=== PATIENT | male | born 1980 | race Caucasian/White ===

== ENCOUNTER 2019-08-15 08:25 | Inpatient (IN) | payer OTHER, SELFPAY ==
[2019-08-15] VITALS (21 sets, daily range): BP systolic 111–154; BP diastolic 73–96; PULSE 96–126; RESP 11–34; TEMP 36.1–37.1; O2SAT 96–100; BMI 16.6; BMI 17.2
--- NOTE | 2019-08-15 08:38 | EKG12_ITS ---
Test Reason : GENERAL ILLNESS Blood Pressure : / mmHG Vent. Rate : 119 BPM Atrial Rate : 119 BPM P-R Int : 132 ms QRS Dur : 086 ms QT Int : 360 ms P-R-T Axes : 079 090 006 degrees QTc Int : 506 ms Sinus tachycardia Rightward axis Borderline ECG Confirmed by GLORIA DEVINE, [place] ([id number]), editor at large JACOBO MOORE ([id number]) on 08/16/2019 10:36:53 AM Referred By: JAYDEN Confirmed By:MARY CASTRO MD
--- NOTE | 2019-08-15 08:39 | ED.VIS.GEN ---
History of Present Illness Chief Complaint: General Illness Informant: Patient Onset: Days Context: Gradual Onset Timing: Continuous Narrative: Patient is a 38-year-old male presents via EMS for generalized malaise. Patient states his been feeling unwell for the past 4 to 5 days. He states he has had cough, shortness of breath, fever, myalgias and sinus congestion. He is also had nausea and vomiting. He denies abdominal pain or diarrhea. He denies any urinary symptoms or increased frequency of urination. He states throat has felt very dry and he has been thirsty. He is an insulin-dependent diabetic and states has not been taking his insulin for the past few days because he did not want to go low. He states his blood sugar normally runs between 120 and 180. He does not know when his last A1c was. He is not been taking anything at home for symptoms. He denies any other complaints at this time. Of note patient lives with his father. When he arrived via EMS he was covered in bedbugs and was cleaned off and decontaminated prior to coming into the emergency room Past Medical History - Allergies and Home Meds Allergies/Adverse Reactions: Allergies No Known Allergies Allergy (Verified 08/15/19 09:00) Past Medical History: - - Insulin-dependent diabetes mellitus Surgical History: noncontributory Lives: With Family Smoking Status: Current every day smoker - Family History Maternal Family History: Reports: Hypertension Paternal Family History: Reports: Diabetes, Heart Disease Review of Systems General: Reports: Chills, Fever, Malaise. Denies: Sweats Eyes: Denies: Visual changes - bilaterally, Diplopia ENT: Reports: Sore throat. Denies: Rhinorrhea Cardiovascular: Denies: Chest pain, Palpitations Respiratory: Reports: Dyspnea, Cough. Denies: Sputum, Dyspnea on exertion Gastrointestinal: Reports: Nausea, Vomiting. Denies: Abdominal pain, Diarrhea, Melena, Hematochezia Genitourinary: Denies: Dysuria, Hematuria, Frequency Musculoskeletal: Reports: Myalgias. Denies: Back pain, Extremity Pain Skin: Denies: Rash, Wounds Neurological: Reports: Weakness - Generalized. Denies: Headache, Numbness Physical Exam Inital Vital Signs reviewed: Yes General: Well developed, Cachectic, Unkempt Head: Normocephalic, Atraumatic Eyes: Perrl, EOMI ENT: No rhinorrhea, Dry mucous membranes Neck: Supple, Nontender. Negative for: No JVD Cardiovascular: Regular rhythm, No murmurs, Tachycardia Respiratory: CTA bilaterally, Chest nontender, - - Tachypnea. Negative for: Rhonchi, Wheezing Abdomen: Soft, Nontender, Nondistended, Normal bowel sounds Back: Nontender, Normal Inspection Extremities: Nontender, No edema Skin: Normal color, No rash Neurological: Alert, Oriented x3, Cranial nerves II-XII grossly intact, Normal Strength, Normal Sensation Psychological: Normal affect, Normal Mood Diagnostic/Tx/Re-eval Chest X-Ray - ED: 1 View, Read by ED Physician, Read by Radiologist, No Acute Disease Clinical Impression(s) from Imaging Studies Chest X-Ray 08/15/19 08:45 IMPRESSION: No acute abnormality is seen. Electronically Signed: Mk Solorio, at 9:37 EST , Service support , Laboratory Data 08/15/19 08/15/19 08/15/19 08:41 08:52 08:52 WBC 11.3 H RBC 4.49 L Hgb 14.2 Hct 44.3 MCV 98.7 H MCH 31.6 MCHC 32.1 RDW Std Deviation 42.5 RDW Coeff of Tommy 11.7 Plt Count 313 MPV 9.3 Immature Gran % (Auto) 0.900 Neut % (Auto) 80.1 H Lymph % (Auto) 11.2 L [place] % (Auto) 6.4 Eos % (Auto) 1.1 Baso % (Auto) 0.3 Absolute Neuts (auto) 9.0 H Absolute Lymphs (auto) 1.26 Nucleated RBC % 0 PT 13.5 INR 1.1 APTT 21.9 L Sodium Potassium Chloride Carbon Dioxide Anion Gap BUN Creatinine Estim Creat Clear Calc Est GFR (MDRD) Af Amer Est GFR (MDRD) Non-Af BUN/Creatinine Ratio Glucose Lactic Acid Calcium Total Bilirubin AST ALT Alkaline Phosphatase Troponin I Total Protein Albumin Globulin Albumin/Globulin Ratio Lipase Acetone Level POC Glucose 393 H 08/15/19 08/15/19 08/15/19 08:52 08:52 08:52 WBC RBC Hgb Hct MCV MCH MCHC RDW Std Deviation RDW Coeff of Tommy Plt Count MPV Immature Gran % (Auto) Neut % (Auto) Lymph % (Auto) [place] % (Auto) Eos % (Auto) Baso % (Auto) Absolute Neuts (auto) Absolute Lymphs (auto) Nucleated RBC % PT INR APTT Sodium 138 Potassium 4.1 Chloride 100 Carbon Dioxide 6.0 L* Anion Gap 32 H BUN 21 H Creatinine 1.37 H Estim Creat Clear Calc 49.84 Est GFR (MDRD) Af Amer 74 Est GFR (MDRD) Non-Af 62 BUN/Creatinine Ratio 15.3 Glucose 471 H* Lactic Acid 3.0 H* Calcium 9.8 Total Bilirubin 0.50 AST 10 L ALT 23 Alkaline Phosphatase 128 H Troponin I < 0.015 Total Protein 8.2 Albumin 3.4 Globulin 4.8 H Albumin/Globulin Ratio 0.7 L Lipase 44 L Acetone Level LARGE H POC Glucose - Rhythm Strip Rhythm Strip: Sinus Tach Rate: 119 Ectopy: None - EKG Initial EKG Interpretation: Sinus Tachycardia, - - Tachycardia at a rate of 119 UT interval 132 Right axis deviation QTc [address] segments - Medical Decision Making Patient evaluated for generalized malaise. On arrival he is breathing quickly with clear breath sounds and is tachycardic. Patient was hypoglycemic for EMS. His presentation is concerning for DKA. He started on a liter of fluid. Patient is found to have an elevated anion gap with a low CO2. His blood sugar is significantly elevated. His acetones are large. Patient is ordered another liter fluid as well as potassium and started on an insulin drip. He will be admitted to the ICU. The exact cause of his DKA is not clear as patient states he is been compliant with his medications. His flu swab was negative. Is not have an obvious source of infection. Patient has relative hypernatremia is likely significantly dehydrated. Patient is mentating appropriately. I think a head CT is indicated. He is stabilized and admitted to the ICU. Discussed the case with Dr. Ibarra who accepts admission. - Critical Care Time Critical care time (excluding procedures): 30-74 minutes - 35 minutes critical care time for frequent re-evaluations, management of DKA and admission to ICU ED Disposition - Plan for ED Patient: Disposition: Acute Care [facility] Diagnosis: DKA (diabetic ketoacidoses), Hypernatremia
--- NOTE | 2019-08-15 08:45 | RAD_ITS ---
STUDY: X-RAY CHEST REASON FOR EXAM: Male, 38 years old. COUGH, WEAKNESS, GENERAL ILLNESS TECHNIQUE: Single AP portable view of the chest. COMPARISON: None. FINDINGS: EKG electrodes are seen. There is elevation of the right hemidiaphragm. There is no demonstrated pleural abnormality. Normal size heart. Normal mediastinum and jerrod. Normal visualized pulmonary arteries. Normal visualized aortic arch and descending thoracic aorta. Mild dextroscoliosis. Normal visualized ribs, clavicles, and shoulders. There is no demonstrated abnormality of the visualized soft tissue structures of the upper abdomen. RAD/Chest 1 View (Portable) IMPRESSION: No acute abnormality is seen. Electronically Signed: Mk Solorio, at 9:37 EST , Service support ,
[2019-08-15 08:46] LABS: Bedside Glucose 393 mg/dL (70-110)
[2019-08-15 09:06] LABS: Absolute Lymphocyte Count 1.26 X10^3/uL (0.83-4.51); Basophil# 0.03 X10^3/uL; Basophil% 0.3 % (0-1); Eosinophil# 0.12 X10^3/uL; Eosinophils% 1.1 % (0-5); Hematocrit 44.3 % (40-54); Hemoglobin 14.2 g/dL (13.0-16.5); Lymphocyte # 1.26 X10^3/ul (4.0); Lymphocyte % 11.2 % (19-41); Mean Corp Hgb Conc 32.1 g/dL (32-36); Mean Corpuscular Hgb 31.6 pg (27.0-32.0); Mean Corpuscular Volume 98.7 fL (80-94); Mean Platelet Vol. 9.3 fl (6.2-12.0); Monocyte# 0.72 X10^3/uL; Monocyte% 6.4 % (0-10); NRBC Flagged by Analyzer 0 % (0-5); Neutrophil # 9.03 X10^3/uL (2.7-7.7); Neutrophil % 80.1 % (47-70); Platelet Count 313 K/mm3 (150-450); RBC Distribution Width CV 11.7 % (11.6-14.6); RBC Distribution Width SD 42.5 fl (35.1-43.9); Red Blood Count 4.49 M/mm3 (4.6-6.2); White Blood Count 11.3 K/mm3 (4.4-11.0)
[2019-08-15] MEDS: Ondansetron 4 MG/2 ML Vial IV (09:06)
[2019-08-15] MEDS: 0.9% Normal Saline 1,000 ML 1000 ML IV (09:06)
[2019-08-15 09:13] LABS: International Normalized Ratio 1.1; Prothrombin Time (Protime)PT. 13.5 SECONDS (11.7-14.9)
[2019-08-15 09:14] LABS: Partial Thromboplast Time 21.9 Seconds (24.1-36.2)
[2019-08-15 09:28] LABS: ALB/GLOB Ratio 0.7 RATIO (0.9-2.4); AST(SGOT) 10 U/L (15-37); Alanine Aminotransfer ALT/SGPT 23 U/L (16-61); Albumin, Serum 3.4 g/dL (3.2-5.0); Alkaline Phosphatase 128 U/L (45-117); Anion Gap 32 (5-15); BUN 21 mg/dL (7-18); BUN/Creat Ratio 15.3 RATIO (10-20); Calcium,Total 9.8 mg/dL (8.5-10.1); Chloride 100 mmol/L (98-107); Creatinine, Serum 1.37 mg/dL (0.70-1.30); EST Glomerular Filtration Rate 62 mL/min (>60); Est Glom Filt Rate - Afr Amer 74 mL/min (>60); Estimated Creatinine Clearance 49.84 ml/min; Globulin 4.8 g/dL (2.2-4.2); Glucose 471 mg/dL (74-106); Lipase 44 U/L (73-393); Potassium 4.1 mmol/L (3.5-5.1); Protein, Total 8.2 g/dL (6.4-8.2); Sodium Level 138 mmol/L (136-145)
--- NOTE | 2019-08-15 09:28 | ED.RN ---
co2 6 glu [address] lab [address] meng aware
--- NOTE | 2019-08-15 09:47 | ED.RN ---
lactic 3.0 called from the lab. dr meng aware
[2019-08-15] MEDS: 0.9% Normal Saline 1,000 ML 999 ML IV ×2 (09:57→11:00)
[2019-08-15] MEDS: Potassium Chloride 10mEq/100mL 10 MEQ/100 ML IV.SOLN. 100 MEQ IV BOLUS ×6 (10:10→19:23)
--- NOTE | 2019-08-15 10:28 | ED.RN ---
REPORT CALLED TO JOSE MANUEL.
[2019-08-15] MEDS: 0.9% Normal Saline 1,000 ML 500 ML IV (12:01)
[2019-08-15 12:59] LABS: Reflex Lactate? Y
[2019-08-15 13:05] LABS: Bedside Glucose 365 mg/dL (70-110)
[2019-08-15 13:05] LABS: Bedside Glucose 437 mg/dL (70-110)
[2019-08-15 13:38] LABS: Anion Gap 21 (5-15); BUN 21 mg/dL (7-18); BUN/Creat Ratio 18.3 RATIO (10-20); Calcium,Total 8.6 mg/dL (8.5-10.1); Chloride 115 mmol/L (98-107); Creatinine, Serum 1.15 mg/dL (0.70-1.30); EST Glomerular Filtration Rate 75 mL/min (>60); Est Glom Filt Rate - Afr Amer 91 mL/min (>60); Estimated Creatinine Clearance 61.35 ml/min; Glucose 320 mg/dL (74-106); Potassium 3.9 mmol/L (3.5-5.1); Sodium Level 146 mmol/L (136-145)
[2019-08-15 13:43] LABS: Lactic Acid 1.8 mmol/L (0.4-1.9)
[2019-08-15] MEDS: 0.9% Saline Lock 10 ML Syringe IV ×2 (14:02→16:14)
[2019-08-15] MEDS: 0.9% Normal Saline 1,000 ML 250 ML IV (14:02)
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
[2019-08-15 16:00] LABS: Bedside Glucose 257 mg/dL (70-110)
[2019-08-15 16:00] LABS: Bedside Glucose 288 mg/dL (70-110)
[2019-08-15 16:00] LABS: Bedside Glucose 266 mg/dL (70-110)
[2019-08-15] MEDS: Dext 5%-0.45% NS 1,000 ML 150 ML IV (16:10)
[2019-08-15 17:26] LABS: Anion Gap 11 (5-15); BUN 17 mg/dL (7-18); BUN/Creat Ratio 15.6 RATIO (10-20); Calcium,Total 8.1 mg/dL (8.5-10.1); Chloride 118 mmol/L (98-107); Creatinine, Serum 1.09 mg/dL (0.70-1.30); EST Glomerular Filtration Rate 80 mL/min (>60); Est Glom Filt Rate - Afr Amer 97 mL/min (>60); Estimated Creatinine Clearance 64.72 ml/min; Glucose 242 mg/dL (74-106); Potassium 3.9 mmol/L (3.5-5.1); Sodium Level 145 mmol/L (136-145)
[2019-08-15 18:05] LABS: Bedside Glucose 222 mg/dL (70-110)
[2019-08-15 20:56] LABS: Bedside Glucose 236 mg/dL (70-110)
[2019-08-15 20:56] LABS: Bedside Glucose 216 mg/dL (70-110)
[2019-08-15 20:56] LABS: Bedside Glucose 255 mg/dL (70-110)
[2019-08-15 21:13] LABS: Anion Gap 8 (5-15); BUN 13 mg/dL (7-18); BUN/Creat Ratio 13.9 RATIO (10-20); Calcium,Total 8.4 mg/dL (8.5-10.1); Chloride 118 mmol/L (98-107); Creatinine, Serum 0.94 mg/dL (0.70-1.30); EST Glomerular Filtration Rate 95 mL/min (>60); Est Glom Filt Rate - Afr Amer 115 mL/min (>60); Estimated Creatinine Clearance 75.05 ml/min; Glucose 215 mg/dL (74-106); Potassium 3.8 mmol/L (3.5-5.1); Sodium Level 145 mmol/L (136-145)
[2019-08-15 21:45] LABS: Bedside Glucose 191 mg/dL (70-110)
[2019-08-16] VITALS (15 sets, daily range): BP systolic 116–139; BP diastolic 74–87; PULSE 82–100; RESP 11–18; TEMP 36.4–36.9; O2SAT 96–100
[2019-08-16 01:46] LABS: Bedside Glucose 225 mg/dL (70-110)
[2019-08-16 03:50] LABS: Absolute Lymphocyte Count 1.04 X10^3/uL (0.83-4.51); Absolute Neutrophil Count 5.3 X10^3/uL (2.0-7.7); Basophil# 0.01 X10^3/uL; Basophil% 0.1 % (0-1); Eosinophil# 0.01 X10^3/uL; Eosinophils% 0.1 % (0-5); Hematocrit 30.9 % (40-54); Hemoglobin 10.6 g/dL (13.0-16.5); Lymphocyte # 1.04 X10^3/ul (4.0); Mean Corp Hgb Conc 34.3 g/dL (32-36); Mean Corpuscular Hgb 32.1 pg (27.0-32.0); Mean Corpuscular Volume 93.6 fL (80-94); Mean Platelet Vol. 8.5 fl (6.2-12.0); Monocyte# 1.02 X10^3/uL; Monocyte% 13.7 % (0-10); NRBC Flagged by Analyzer 0 % (0-5); Neutrophil % 71.4 % (47-70); Platelet Count 223 K/mm3 (150-450); RBC Distribution Width CV 11.7 % (11.6-14.6); RBC Distribution Width SD 40.2 fl (35.1-43.9); White Blood Count 7.4 K/mm3 (4.4-11.0)
[2019-08-16 05:02] LABS: Anion Gap 8 (5-15); BUN 10 mg/dL (7-18); BUN/Creat Ratio 13.3 RATIO (10-20); Calcium,Total 8.2 mg/dL (8.5-10.1); Chloride 115 mmol/L (98-107); Creatinine, Serum 0.75 mg/dL (0.70-1.30); EST Glomerular Filtration Rate 123 mL/min (>60); Est Glom Filt Rate - Afr Amer 149 mL/min (>60); Estimated Creatinine Clearance 94.07 ml/min; Glucose 199 mg/dL (74-106); Potassium 3.5 mmol/L (3.5-5.1); Sodium Level 144 mmol/L (136-145)
[2019-08-16 07:01] LABS: Bedside Glucose 191 mg/dL (70-110)
[2019-08-16] MEDS: Acetaminophen 325 MG Tablet 650 MG PO ×3 (08:09→20:38)
[2019-08-16] MEDS: Enoxaparin 40 MG/0.4 ML Syringe SC (08:25)
[2019-08-16] MEDS: Insulin Lispro 100 UNIT/ML INSULN.PEN SC ×3 (08:28→17:18)
--- NOTE | 2019-08-16 09:53 | PCM.PN.HOSP ---
Patient Problems: Active and Suspected Problems DKA (diabetic ketoacidoses) (Acute) Hypernatremia (Acute) Subjective: Feels better than when he came in, however he still having nasal congestion and postnasal drip. Vitals/I&O's: Vital Signs Temp Pulse Resp BP Pulse Ox 98.5 F 90 18 139/86 H 100 08/16/19 00:00 08/16/19 08:00 08/16/19 08:00 08/16/19 08:00 08/16/19 08:00 Oxygen Delivery Method Room Air Weight: 116 lb 6.465 oz Body Mass Index (BMI) 17.2 Finger Stick Blood Glucose 191 Intake and Output for Last 24 Hours 08/14/19 08/15/19 08/16/19 23:59 23:59 23:59 Intake Total 6424.7 / 6874.7 800 / 800 Output Total 900 / 1500 1200 / 1200 Balance 5524.7 / 5374.7 -400 / -400 General: Alert, Oriented x3, Cooperative, No apparent distress HEENT: Atraumatic, PERRLA, EOMI, Normocephalic, - - No sinus tenderness Oral: Dry Mucosa Neck: Supple, No JVD Lungs: Clear to auscultation, Normal air movement, No rhonchi, No wheeze, No rales Cardiovascular: Regular Rhythm, Normal S1, Normal S2, No murmurs, Tachycardic Abdomen: Soft, Non Tender, Non-Distended, No Hepato-splenomegaly Extremities: No edema, Capillary Refill Less than 3 Seconds Skin: No rashes, No breakdown Neurological: Neuro grossly intact, Sensory exam intact to light touch and pain Psych/Mental Status: Normal Affect, Appropriate Microbiology Past 72 Hours 08/15/19 08:47 Mucosa - Nasopharyngeal Influenza Types A,B Direct FA (MARGOTH) - Final Laboratory Results 08/15/19 11:04: POC Glucose 437 H 08/15/19 12:00: POC Glucose 365 H 08/15/19 13:07: POC Glucose 288 H 08/15/19 13:15: Sodium 146 H, Potassium 3.9, Chloride 115 H, Carbon Dioxide 10.0 L, Anion Gap 21 H, BUN 21 H, Creatinine 1.15, Estim Creat Clear Calc 61.35, Est GFR (MDRD) Af Amer 91, Est GFR (MDRD) Non-Af 75, BUN/Creatinine Ratio 18.3, Glucose 320 H, Calcium 8.6 08/15/19 13:15: Lactic Acid 1.8 08/15/19 14:00: POC Glucose 266 H 08/15/19 14:55: POC Glucose 257 H 08/15/19 16:01: POC Glucose 222 H 08/15/19 17:05: Sodium 145, Potassium 3.9, Chloride 118 H, Carbon Dioxide 16.0 L, Anion Gap 11, BUN 17, Creatinine 1.09, Estim Creat Clear Calc 64.72, Est GFR (MDRD) Af Amer 97, Est GFR (MDRD) Non-Af 80, BUN/Creatinine Ratio 15.6, Glucose 242 H, Calcium 8.1 L 08/15/19 18:06: POC Glucose 255 H 08/15/19 19:01: POC Glucose 236 H 08/15/19 20:01: POC Glucose 216 H 08/15/19 20:50: Sodium 145, Potassium 3.8, Chloride 118 H, Carbon Dioxide 19.0 L, Anion Gap 8, BUN 13, Creatinine 0.94, Estim Creat Clear Calc 75.05, Est GFR (MDRD) Af Amer 115, Est GFR (MDRD) Non-Af 95, BUN/Creatinine Ratio 13.9, Glucose 215 H, Calcium 8.4 L 08/15/19 21:38: POC Glucose 191 H 08/16/19 01:40: POC Glucose 225 H 08/16/19 03:44: WBC 7.4, RBC 3.30 L, Hgb 10.6 L, Hct 30.9 L, MCV 93.6 D, MCH 32.1 H, MCHC 34.3, RDW Std Deviation 40.2, RDW Coeff of Tommy 11.7, Plt Count 223, MPV 8.5, Immature Gran % (Auto) 0.700, Neut % (Auto) 71.4 H, Lymph % (Auto) 14.0 L, [place] % (Auto) 13.7 H, Eos % (Auto) 0.1, Baso % (Auto) 0.1, Absolute Neuts (auto) 5.3, Absolute Lymphs (auto) 1.04, Nucleated RBC % 0 08/16/19 03:44: Sodium 144, Potassium 3.5, Chloride 115 H, Carbon Dioxide 21.0, Anion Gap 8, BUN 10, Creatinine 0.75, Estim Creat Clear Calc 94.07, Est GFR (MDRD) Af Amer 149, Est GFR (MDRD) Non-Af 123, BUN/Creatinine Ratio 13.3, Glucose 199 H, Calcium 8.2 L 08/16/19 06:55: POC Glucose 191 H Current Medications Acetaminophen (Tylenol) 650 mg PO Q6H PRN PRN PRN Reason: Pain or Fever Last Admin: 08/16/19 08:09 Dose: 650 mg Documented by: Enoxaparin Sodium (Lovenox) 40 mg SC DAILY [facility] Last Admin: 08/16/19 08:25 Dose: 40 mg Documented by: Fluticasone Propionate (Flonase Nasal [place]) 2 spray NASAL DAILY [facility] Sodium Chloride () 250 mls @ 15 mls/hr IV .[id number] PRN PRN Reason: Saline Flush Sodium Chloride () 250 mls @ 15 mls/hr IV .[id number] PRN PRN Reason: Additional IVPB Infusion Dextrose (Dextrose 10%-Water) 250 mls @ 999 mls/hr IV .Q16M PRN; Protocol PRN Reason: HYPOGLYCEMIA Insulin Glargine (Lantus (Bk)) 20 units SC BID [facility] Last Admin: 08/15/19 21:39 Dose: 20 u Documented by: Insulin Human Lispro (Humalog Kwikpen (Bk)) 0 unit SC ACHS [facility]; Protocol Last Admin: 08/16/19 08:28 Dose: 2 u Documented by: Nicotine (Nicoderm Cq (kc)) 21 mg TRANSDERM. DAILY [facility] Last Admin: 08/16/19 07:25 Dose: 21 mg Documented by: Sodium Chloride () 10 - 40 ml IV UD PRN PRN Reason: SALINE FLUSH Last Admin: 08/15/19 16:14 Dose: 10 ml Documented by: STROKE Vital Signs/Narrative: Vital Signs Pulse Resp BP Pulse Ox 08/16/19 08:00 90 18 139/86 H 100 08/16/19 07:47 91 08/16/19 07:00 100 16 136/79 H 99 08/16/19 06:00 94 13 138/87 H 99 Medical Necessity - Tobacco Use Smoking Status: Current every day smoker Tobacco Use: Cigarettes Assessment/Plan All Active Problems DKA (diabetic ketoacidoses) (Acute) Hypernatremia (Acute) Folliculitis (Acute) 1. DKA with KHANG/type 1 diabetes/HLD -Based on the lab findings he is currently in DKA -We will continue with the insulin drip as well as IV fluids per protocol -We will admit to the ICU -Obtain BMPs every 4 hours -We will make him n.p.o., and as his DKA resolves can transition to a p.o. diet -Can continue with his home Crestor -Baseline creatinine was 0.7, on admission his creatinine was 1.37 we will continue to monitor 2. Nasal congestion -We will start Flonase however do not think this is infection secondary to lack of fever, lack of leukocytosis and lack of discharge DVT: Lovenox Code Visit Inpatient E&M: [id number] Subs Hosp L2
--- NOTE | 2019-08-16 10:21 | CASEMGMT ---
RN CM Assessment Presentation: DKA Intro role of CM and purpose of RN CM assessment to patient in room. Pt is awake, tired but able to participate in assessment. Demographics, PCP and Pharmacy verified. Pt states he does not have blood glucose monitoring equipment as he has not had insurance until recently. Now has MMO, but does not have insurance cards with him. States he is working @ [employer] and has insurance now. Discussed with pt that script for supplies will be sent to pharmacy on dc. Pt states he does not have finances for expensive equipment or insulin. PCP: Dr. Pemberton Specialists: none Preferred Pharmacy: [facility]. Call to [facility] to check on pt's insulins: Per pharmacist, pt had Lantus prescription in 2018 and pt never had filled. No active prescriptions now. Insurance: MMO Prescription Benefit: yes LNOK: Mother Living Arrangements: Pt states lives with fanily, is independent in [place] Transportation: does not drive, but family and friend drive. 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 DME: needs script for blood glucose monitoring equipment. HHC/SNF: none SW Referral: no Patient DC goals: Home DC PLAN: Home with script sent for insulin and blood glucose monitoring.
[2019-08-16] MEDS: Fluticasone 0.05% 1 SPRAY NASAL.SRY 2 SPRAY NASAL (11:34)
[2019-08-16 11:45] LABS: Bedside Glucose 188 mg/dL (70-110)
[2019-08-16] MEDS: Glucerna Shake 120 ML LIQUID PO ×3 (14:33→20:43)
--- NOTE | 2019-08-16 15:29 | NURSING ---
nicotine patch removed. voluntary acknowledgement assumption of risk signed and in chart
[2019-08-16 17:15] LABS: Bedside Glucose 180 mg/dL (70-110)
[2019-08-16] MEDS: Mag Hydrox/Al Hydrox/Simeth 30 ML UDC PO (20:43)
[2019-08-16 20:56] LABS: Bedside Glucose 148 mg/dL (70-110)
[2019-08-17] MEDS: Ibuprofen 400 MG Tablet PO ×2 (02:37→11:34)
[2019-08-17 03:00] VITALS: BP 118/69; PULSE 77; RESP 16; TEMP 36.6; O2SAT 98
[2019-08-17] MEDS: Acetaminophen 325 MG Tablet 650 MG PO (06:31)
[2019-08-17 06:35] LABS: Bedside Glucose 113 mg/dL (70-110)
[2019-08-17 09:50] VITALS: BP 123/79; PULSE 84; RESP 14; TEMP 36.8; O2SAT 99
[2019-08-17] MEDS: Glucerna Shake 120 ML LIQUID PO (10:04)
--- NOTE | 2019-08-17 10:09 | CASEMGMT ---
ANGELIKA CM Note: Call to [facility] . ID# [id number]. Called to find out copay for Lantus and Humalog insulin Lantus: $29.00 for 90 day mail order $33.00 for 30 day supply @ retail pharmacy Humalog (vial): $ 67.68 30 day supply @ Retail pharmacy $187.89 3 month supply mail order Humalog (100 unit pen) $130.00 30 day supply @ Retail pharmacy $362.00 3 month supply mail order -Call to ANGELIKA Cook CM to update cost. Zeb MOREIRAN
--- NOTE | 2019-08-17 11:31 | DCINST_ITS ---
- Discharge Diagnoses Current Active Problems: Current Active and Chronic Problems DKA (diabetic ketoacidoses) (Acute) Hypernatremia (Acute) You will use the following diet at home:: Calorie/Carbohydrate Controlled (specify 1200, 1400, etc) Your food should be the consistency of: Regular Your liquids should be the consistency of: Regular/Thin Call your doctor if you observe: Fever of 101 or Higher, Shortness of breath, Dizziness, Fainting spells, Swelling in the ankles, Chest pain, Increased palpitations (irregular heartbeat) Additional Instructions: Place Ciprodex ear drops into the left ear for 5 days Allergies/Adverse Reactions: Allergies No Known Allergies Allergy (Verified 08/15/19 09:00) Medications to take at Discharge Insulin Glargine [Lantus SoloStar Pen] 20 units SC BREAKFAST 11/08/13 Insulin Glargine [Lantus SoloStar Pen] 20 units SC QHS 11/08/13 Hydrocodone Bitart/Apap 5-325 [[place] 5/325] 1 - 2 tablet PO Q4H PRN PRN #12 tablet 01/31/15 Crestor 1 tab PO DAILY 08/15/19 Insulin Lispro [Humalog (BKC)] 10 unit SUBCUT TIDCM 08/15/19 Ciprofloxacin HCl/Dexameth [Ciprodex Otic Suspension] 4 drp OTIC (EAR) BID #1 bottle 08/17/19 Fluticasone 0.05% [Flonase Nasal [place]] 2 spray NASAL DAILY nasal.sry 08/17/19 The following prescriptions were given: Ciprofloxacin HCl/Dexameth [Ciprodex Otic Suspension] 4 drp OTIC (EAR) BID #1 bottle Transmission Status: Pending to [facility] Orders to be completed after discharge: Glucometer Location: None Selected Novofine Autocover 30G Needle Location: None Selected Primary Care Physician: Rocco ePmberton MD [Primary Care Provider] - Test Results: Test results from this visit will be discussed in further detail at your follow- up appointment, if applicable. Please Follow Up With: Rocco Pemberton MD When: Tuesday (Bring insurance card and photo Id) Please Follow Up With: Escobar Lozano MD When: 2-4 weeks
--- NOTE | 2019-08-17 11:33 | PCM.DC.SUM ---
Discharge Date and Diagnosis - Problem List Patient Problems: Active and Suspected Problems DKA (diabetic ketoacidoses) (Acute) Hypernatremia (Acute) Date of Admission: 08/15/19 Date of Discharge: 08/17/19 - Primary Discharge Diagnosis Active and Suspected Problems DKA (diabetic ketoacidoses) (Acute) Hypernatremia (Acute) Hospital Course and Treatment Imaging Results: CXR: IMPRESSION: No acute abnormality is seen. Consults: None Operations: None Procedures: None Summary of Care Provided: Per HPI: The patient is a 38 year old M with likely type 1 diabetes and hyperlipidemia presents with nausea and vomiting as well as dehydration. He states that last he felt like he was having a sinus infection with just being stuffed up and having some sinus pain and then on Tuesday he had to leave work early because he had some fevers and chills and then on Tuesday he started throwing up and because of that he was afraid to take his insulin because he did not want to bottom out and so he did not take any of his insulin for a day or so and today he came to the ER because he was feeling significantly worse than he had been over the previous couple of days. He had continued to have emesis however no diarrhea. The ER he was found to be tachypneic and tachycardic, with a lactic acid of 3, carbon dioxide of 6 a blood sugar of 471, with a large amount of acetone. Hospital Course: 1. DKA with KHANG/type 1 diabetes/[id number]-uuke-old male who is been having type 1 diabetes since about 21 years old started with not feeling well 5 days prior to admission, 2 days prior to admission he started having nausea and vomiting and did not take his insulin because he was afraid of bottoming out and presented to the hospital with DKA. He was initially admitted to the ICU and underwent the DKA protocol. He recovered very quickly and felt much better by the day of discharge, with normal renal function. He had some continued nasal congestion and was started on Flonase which seems to have helped relieve some of the sinus pressure though this morning he started complaining of left ear pain. On exam it appeared excoriated in the canal within normal tympanic membrane. He also had pain with manipulation of his external ear and therefore he was also discharged on Ciprodex drops for his left ear. He will need to follow-up with his primary care doctor in the outpatient setting. There were no changes to his insulin regimen as is the first time he is ever been in DKA and there was a precipitating factor. Otherwise he has been fairly controlled with his insulin and his diabetes. Also recommended he follow-up with an chief electrician upon discharge. I discussed with him the plan for discharge and he expressed understanding. 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 2. Otitis externa-he says that he does wear earplugs at work and he thinks may be best where this developed. No fevers or chills and he had no leukocytosis on the day of discharge or the day prior to discharge. On exam he had excoriated ear canal and therefore started on Ciprodex on discharge. Patient Problems: Active and Suspected Problems DKA (diabetic ketoacidoses) (Acute) Hypernatremia (Acute) - Physical Exam Vitals/I&O's: Vital Signs Temp Pulse Resp BP Pulse Ox 97.9 F 77 16 118/69 98 08/17/19 03:00 08/17/19 03:00 08/17/19 03:00 08/17/19 03:00 08/17/19 03:00 Oxygen Delivery Method Room Air Weight: 116 lb 13.52 oz Body Mass Index (BMI) 17.2 Finger Stick Blood Glucose 191 Intake and Output for Last 24 Hours 08/15/19 08/16/19 08/17/19 23:59 23:59 23:59 Intake Total 6424.7 / 6874.7 1920 / 1920 600 / 600 Output Total 900 / 1500 1200 / 1200 Balance 5524.7 / 5374.7 720 / 720 600 / 600 General: Alert, Oriented x3, Cooperative, No apparent distress HEENT: Atraumatic, PERRLA, EOMI, Normocephalic, - - No sinus tenderness, there is excoriation and redness in his external ear canal on the left compared to the right, both tympanic membranes are clear, there is pain with ambulation of his left ear. Oral: Moist mucosa Neck: Supple, No JVD Lungs: Clear to auscultation, Normal air movement, No rhonchi, No wheeze, No rales Cardiovascular: Regular Rhythm, Normal S1, Normal S2, No murmurs, Tachycardic Abdomen: Soft, Non Tender, Non-Distended, No Hepato-splenomegaly Extremities: No edema, Capillary Refill Less than 3 Seconds Skin: No rashes, No breakdown Neurological: Neuro grossly intact, Sensory exam intact to light touch and pain Psych/Mental Status: Normal Affect, Appropriate Microbiology Past 72 Hours 08/15/19 08:52 Blood Culture (Wb) - Anticubital Left Blood Culture - Preliminary No growth in 48 hours. 08/15/19 08:52 Blood Culture (Wb) - Anticubital Right Blood Culture - Preliminary No growth in 48 hours. 08/15/19 08:47 Mucosa - Nasopharyngeal Influenza Types A,B Direct FA (MARGOTH) - Final Laboratory Results 08/16/19 11:33: POC Glucose 188 H 08/16/19 17:07: POC Glucose 180 H 08/16/19 20:49: POC Glucose 148 H 08/17/19 06:30: POC Glucose 113 H Current Medications Acetaminophen (Tylenol) 650 mg PO Q6H PRN PRN PRN Reason: Pain or Fever Last Admin: 08/17/19 06:31 Dose: 650 mg Documented by: Enoxaparin Sodium (Lovenox) 40 mg SC DAILY [facility] Last Admin: 08/17/19 09:57 Dose: Not Given Documented by: Fluticasone Propionate (Flonase Nasal Hartley) 2 spray NASAL DAILY [facility] Last Admin: 08/17/19 09:56 Dose: Not Given Documented by: Sodium Chloride () 250 mls @ 15 mls/hr IV .[id number] PRN PRN Reason: Saline Flush Sodium Chloride () 250 mls @ 15 mls/hr IV .[id number] PRN PRN Reason: Additional IVPB Infusion Ibuprofen (Motrin) 400 mg PO Q8H PRN PRN PRN Reason: PAIN -05/17 Last Admin: 08/17/19 02:37 Dose: 400 mg Documented by: Insulin Glargine (Lantus (Bkc)) 20 units SC BID [facility] Last Admin: 08/17/19 09:58 Dose: 20 u Documented by: Insulin Human Lispro (Humalog Kwikpen (Bkc)) 0 unit SC ACHS [facility]; Protocol Last Admin: 08/17/19 06:32 Dose: Not Given Documented by: Nutritional Formula (Lactose Free) (Glucerave Hancock) 120 ml PO 4X/DAY [facility] Last Admin: 08/17/19 10:04 Dose: 120 ml Documented by: Sodium Chloride () 10 - 40 ml IV UD PRN PRN Reason: SALINE FLUSH Last Admin: 08/15/19 16:14 Dose: 10 ml Documented by: Call your doctor if you observe: Fever of 101 or Higher, Shortness of breath, Dizziness, Fainting spells, Swelling in the ankles, Chest pain, Increased palpitations (irregular heartbeat) Home Medications: Medications to take at Discharge Insulin Glargine [Lantus SoloStar Pen] 20 units SC BREAKFAST 11/08/13 Insulin Glargine [Lantus SoloStar Pen] 20 units SC QHS 11/08/13 Hydrocodone Bitart/Apap 5-325 [[place] 5/325] 1 - 2 tablet PO Q4H PRN PRN #12 tablet 01/31/15 Crestor 1 tab PO DAILY 08/15/19 Insulin Lispro [Humalog (BKC)] 10 unit SUBCUT TIDCM 08/15/19 Ciprofloxacin HCl/Dexameth [Ciprodex Otic Suspension] 4 drp OTIC (EAR) BID #1 bottle 08/17/19 Fluticasone 0.05% [Flonase Nasal Hartley] 2 spray NASAL DAILY nasal.sry 08/17/19 Following Prescrptions Were Given to Patient: Ciprofloxacin HCl/Dexameth [Ciprodex Otic Suspension] 4 drp OTIC (EAR) BID #1 bottle Transmission Status: Pending to [facility] Other Amb Orders: Glucometer Location: None Selected Novofine Autocover 30G Needle Location: None Selected Primary Care Physician: Rocco Pemberton MD [Primary Care Provider] - Please Follow Up With: Rocco Pemberton MD When: Tuesday (Bring insurance card and photo Id) Please Follow Up With: Escobar Lozano MD When: 2-4 weeks Disposition: Home Minutes spent on discharge:: 35 Patient Condition:: Stable Medical Necessity - Tobacco Use Smoking Status: Current every day smoker Tobacco Use: Cigarettes Meaningful Use Info Meaningful Use Diagnoses (Choose all that apply): None applicable Code Visit Inpatient E&M: 08106 Disch Hosp
[2019-08-17] MEDS: Insulin Lispro 100 UNIT/ML INSULN.PEN SC (11:38)
[2019-08-17 11:46] LABS: Bedside Glucose 306 mg/dL (70-110)
--- NOTE | 2019-08-17 13:02 | CASEMGMT ---
ANGELIKA Note: [facility]. Lantus $62.89, Cipro ear drops $61.39. Spoke with pt and he states he is able to afford these prescriptions as he was paid today. Cipro will be ordered and at pharmacy tomorrow. Discussed pt f/u with Dr. Lozano, endocrinology. Pt is agreeable. -Call to Dr. Lozano's office. Appt made for Tuesday, September 03, 2019 @ 8 am. Zeb HOROWITZ RN ACM
[2019-08-17 16:00] VITALS: BP 112/76; PULSE 96; RESP 16; TEMP 37; O2SAT 99
--- NOTE | 2019-08-27 09:42 | CASEMGMT ---
RN CARMEN Note. Letter received that patient's blood glucose monitor was not approved. Attempted call to patient. Message left on his voicemail which had name identifier. Let pt know his meter was denied and asked if patient he has secured a different meter. Suggested [facility] has inexpensive meters available. Call back name and # given for pt to return call to ANGELIKA MORALES. [facility] BSN ANGELIKA ACM
== END 2019-08-17 16:17 | disposition home or self-care (01) | DRG 638 ==
LOC: ED 09:19 → ICU 10:44 → MS3 08-16 15:05
PROVIDERS: Admitting Provider Family Medicine; Emergency Provider Emergency Medicine; Family Provider Family Medicine; PCP Family Medicine; Visit Provider Family Medicine
DX: E10.10 Type 1 diabetes mellitus with ketoacidosis without coma (principal); N17.9 Acute kidney failure, unspecified; E87.0 Hyperosmolality and hypernatremia; Z68.1 Body mass index [BMI] 19.9 or less, adult; R64 Cachexia; Z79.4 Long term (current) use of insulin; F17.210 Nicotine dependence, cigarettes, uncomplicated; E78.5 Hyperlipidemia, unspecified; R09.81 Nasal congestion; E86.0 Dehydration; H60.90 Unspecified otitis externa, unspecified ear
CPT/HCPCS: 36415; 71045; 80048; 80053; 82009; 82962; 83605; 83690; 84484; 85025; 85610; 85730; 87040; 87804; 93005; 97802; 97803; 99285; J7030; A4216; J2405; J7799

== ENCOUNTER 2019-12-17 09:42 | Inpatient (IN) | payer SELFPAY ==
[2019-08-15 10:57] VITALS: BMI 17.2
[2019-12-17] VITALS (19 sets, daily range): BP systolic 116–144; BP diastolic 72–89; PULSE 68–104; RESP 10–20; TEMP 35.7–37.7; O2SAT 95–100; BMI 16.8
--- NOTE | 2019-12-17 09:54 | CT_ITS ---
STUDY: CT ABDOMEN AND PELVIS WITH CONTRAST REASON FOR EXAM: Male, 39 years old. SHARP ABD PAIN STARTING THIS AM RADIATION DOSAGE (If Supplied By Facility): CTDIvol = ( 10.88 ) mGy, DLP = ( 267.60 ) mGycm TECHNIQUE: Transaxial images were obtained from the dome of the diaphragm to the symphysis pubis with oral contrast. Oral and amp; IV Gastrografin and amp; 100mL Isovue-300 was administered. Sagittal and coronal images were reconstructed. Individualized dose optimization techniques were used for this CT. COMPARISON: None. FINDINGS: The visualized lung bases are unremarkable. The visualized portions of the heart are within normal limits. Normal liver. Normal gallbladder and extrahepatic biliary system. Normal spleen. Normal pancreas. Normal bilateral adrenal glands. Normal right kidney. Normal left kidney. Normal small intestine. Normal colon. There is marked diffuse constipation . No bowel wall thickening or obstruction. There is non-visualization of the appendix. There is small pneumoperitoneum along the anterior abdomen. There is soft tissue irregularity of the anterior, distal gastric wall consistent with perforation, best seen on sagittal image 71. There is a thin linear hyperdensity extending from the anterior gastric wall on image 58 to umbilicus where there is inflammation and stranding, also seen on sagittal image 74 . Mild aortic calcification. Normal inferior vena cava. Normal retroperitoneum. There is mild diffuse mesenteric edema. The urinary bladder is distended. There is a small right posterolateral spigelian hernia on series 2 image 59 containing a loop of nonobstructed large bowel. There is levoscoliosis of the lumbar spine. Bilateral L5 pars interarticularis fractures. CT/Abdomen/Pelvis WITH Contrast IMPRESSION: 1. Anterior, distal gastric wall perforation and small pneumoperitoneum along the anterior abdomen. There is a thin linear hyperdensity extending from the anterior gastric wall to umbilicus where there is inflammation and stranding, question gastrocutaneous fistula. Direct visualization of the umbilicus is recommended. 2. Marked diffuse constipation. 3. Small right posterolateral spigelian hernia containing a loop of nonobstructed large bowel N.B. : The above information has been verbally conveyed by Shira Mauricio to Harshad Calvo MD, on 12/17/2019 12:21:55 (ET). Electronically Signed: Shira Mauricio, at 12:25 EDT Tel , Service support ,
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
[2019-12-17] MEDS: Dicyclomine 10 MG Capsule 20 MG PO (09:59)
[2019-12-17] MEDS: 0.9% Normal Saline 1,000 ML 1000 ML IV (10:06)
[2019-12-17 10:20] LABS: Absolute Lymphocyte Count 1.02 X10^3/uL (0.83-4.51); Absolute Neutrophil Count 7.6 X10^3/uL (2.0-7.7); Basophil# 0.03 X10^3/uL; Basophil% 0.3 % (0-1); Eosinophil# 0.04 X10^3/uL; Eosinophils% 0.4 % (0-5); Hematocrit 33.7 % (40-54); Hemoglobin 12.1 g/dL (13.0-16.5); Lymphocyte # 1.02 X10^3/ul (4.0); Lymphocyte % 11.1 % (19-41); Mean Corp Hgb Conc 35.9 g/dL (32-36); Mean Corpuscular Hgb 32.8 pg (27.0-32.0); Mean Corpuscular Volume 91.3 fL (80-94); Mean Platelet Vol. 9.6 fl (6.2-12.0); Monocyte# 0.45 X10^3/uL; Monocyte% 4.9 % (0-10); NRBC Flagged by Analyzer 0 % (0-5); Neutrophil # 7.63 X10^3/uL (2.7-7.7); Neutrophil % 83.1 % (47-70); Platelet Count 248 K/mm3 (150-450); RBC Distribution Width CV 13.2 % (11.6-14.6); RBC Distribution Width SD 43.4 fl (35.1-43.9); Red Blood Count 3.69 M/mm3 (4.6-6.2); White Blood Count 9.2 K/mm3 (4.4-11.0)
[2019-12-17 10:33] LABS: AST(SGOT) 19 U/L (15-37); Alanine Aminotransfer ALT/SGPT 22 U/L (16-61); Albumin, Serum 3.5 g/dL (3.2-5.0); Alkaline Phosphatase 97 U/L (45-117); Anion Gap 9 (5-15); BUN 18 mg/dL (7-18); Calcium,Total 9.3 mg/dL (8.5-10.1); Chloride 101 mmol/L (98-107); Creatinine, Serum 0.95 mg/dL (0.70-1.30); EST Glomerular Filtration Rate 94 mL/min (>60); Est Glom Filt Rate - Afr Amer 114 mL/min (>60); Estimated Creatinine Clearance 69.84 ml/min; Globulin 3.4 g/dL (2.2-4.2); Glucose 564 mg/dL (74-106); Lipase 312 U/L (73-393); Potassium 4.6 mmol/L (3.5-5.1); Protein, Total 6.9 g/dL (6.4-8.2); Sodium Level 134 mmol/L (136-145)
[2019-12-17 10:40] LABS: Hemoglobin A1c 10.3 % (4.2-6.3)
[2019-12-17] MEDS: Insulin Lispro 100 UNIT/ML INSULN.PEN 15 UNIT SC (11:12)
[2019-12-17 11:21] LABS: Bacteria 0 SEEN /hpf (None Seen); Mucous, Urine 0 SEEN /hpf (<or=2+); Red Blood Cells-Urine 0 SEEN /hpf (0-5); White Blood Cells 0 SEEN /hpf (0-5)
[2019-12-17 11:23] LABS: Color, Urine Yellow (Yellow); Glucose, Dipstick 1000 mg/dl (Normal); Ketone-Dipstick 50 mg/dl (Negative); Leukocyte Esterase-Dipstick Negative /ul (Negative); Nitrite-Dipstick Negative (Negative); Occult Blood-Urine Negative /ul (Negative); Protein-Dipstick Negative (Negative); Urine Bilirubin Dipstick Negative (Negative); Urine Clarity Clear (Clear); Urine Urobilinogen Normal (Normal)
[2019-12-17 11:29] LABS: Squamous Epithelial Cells - UA 0-5 SEEN /hpf (0-5)
[2019-12-17] MEDS: 0.9% Normal Saline 1,000 ML 150 ML IV (13:05)
[2019-12-17] MEDS: Ondansetron 4 MG/2 ML Vial IV (13:08)
[2019-12-17 13:09] LABS: Lactic Acid 2.8 mmol/L (0.4-1.9)
[2019-12-17] MEDS: Morphine 4 MG/ML Syringe IV (13:09)
[2019-12-17 13:16] LABS: Bedside Glucose 332 mg/dL (70-110)
--- NOTE | 2019-12-17 13:17 | ED.RN ---
PT CONTACTED HIS FAMILY TO LET THEM KNOW HE IS HAVING SURGERY
--- NOTE | 2019-12-17 13:18 | NURSING ---
SURGERY THEN ICU DR CHAPIN GASTRIC PERFORATION
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
[2019-12-17] MEDS: Bupivacaine Mpf 0.5% 30 ML VIAL (15:30)
[2019-12-17 16:05] LABS: Bedside Glucose 261 mg/dL (70-110)
[2019-12-17 16:43] LABS: Reflex Lactate? Y
--- NOTE | 2019-12-17 17:03 | PCM.OPRPT ---
Problem List (1) Perforated ulcer Status: Acute Report of Operation Date of Procedure: 12/17/19 Pre-Operative Diagnosis: Perforated ulcer Post-Operative Diagnosis: Gastric ulcer perforation. Possible mass Surgery/Procedure Performed:: Exploratory laparoscopy with Kurtis patch of perforated gastric ulcer Description of Procedure: Patient was brought back to the operating room and general anesthesia was induced. Terry catheter and NG tube were placed. The abdomen was prepped and draped in the usual sterile fashion and a midline incision was made just inferior to the umbilicus. This was deepened to the fascia and the fascia was elevated and incised. A port was placed into the abdomen and the abdomen was insufflated to 15 mmHg. The abdomen was inspected and the patient appeared to have adhesions to the anterior abdominal wall and once these were loosely removed the perforation was apparent on the anterior wall of the stomach. The patient also had a soft tissue mass encased by the lesser curvature of the stomach. It did not appear to connect to the stomach. Unsure as to the source of this mass or its origin. The abdomen was irrigated and suctioned dry and a small area of omentum was placed over the perforation. This was then sutured in place using 2-0 Vicryl sutures and several places. At the end the case there was no gastric spillage and the Kurtis patch appeared to completely cover the perforation. The ports were removed and the fascia was closed with a [id number] Vicryl suture. All of the incisions were anesthetized with local anesthetic and closed with interrupted 4-0 Monocryl sutures as well as bandages. Patient was taken to ICU postoperatively for glucose control and monitoring. Terry and NG remain to the end the case. - Admit VTE Documentation VTE Mechan Device Prophylaxis: SCD's
[2019-12-17 17:21] LABS: Bedside Glucose 275 mg/dL (70-110)
[2019-12-17 17:57] LABS: Anion Gap 7 (5-15); BUN 15 mg/dL (7-18); BUN/Creat Ratio 24.2 RATIO (10-20); Calcium,Total 8.4 mg/dL (8.5-10.1); Chloride 109 mmol/L (98-107); Creatinine, Serum 0.62 mg/dL (0.70-1.30); EST Glomerular Filtration Rate 154 mL/min (>60); Est Glom Filt Rate - Afr Amer 186 mL/min (>60); Estimated Creatinine Clearance 107.02 ml/min; Glucose 271 mg/dL (74-106); Potassium 3.6 mmol/L (3.5-5.1); Sodium Level 140 mmol/L (136-145)
[2019-12-17 17:58] LABS: Lactic Acid 1.5 mmol/L (0.4-1.9)
[2019-12-17] MEDS: Lactated Ringers 1,000 ML 100 ML IV (19:43)
--- NOTE | 2019-12-17 20:15 | RAD_ITS ---
STUDY: X-RAY - ABDOMEN/PELVIS REASON FOR EXAM: Male, 39 years old. NG placement. TECHNIQUE: A single AP view of the chest and upper abdomen. COMPARISON: CT of the abdomen and pelvis, December 17, 2019. Chest, August 15, 2019. FINDINGS: The lungs are clear. The heart is of normal size. Mediastinum appears unremarkable. The NG tube which appears looped in the gastric fundus before extending downward into the body of the stomach. Air and debris is seen within the stomach. The visualized liver, spleen and kidneys are grossly normal in size and morphology. Normal soft tissue structures. Normal visualized osseous structures. RAD/Abdomen Single View (Portable) IMPRESSION: NG tube as described. Electronically Signed: Mahamed Alexandre DO at 22:50 EDT Tel [phone], Service support ,
[2019-12-17] MEDS: Phenol/Sodium Phenolate 180ML 3 SPRAY MM (21:01)
[2019-12-17 21:11] LABS: Bedside Glucose 221 mg/dL (70-110)
[2019-12-18] VITALS (15 sets, daily range): BP systolic 115–149; BP diastolic 74–95; PULSE 84–104; RESP 11–20; TEMP 36.8–38; O2SAT 98–100
[2019-12-18] MEDS: Morphine 2 MG/ML Syringe IV ×4 (01:39→21:54)
[2019-12-18 01:41] LABS: Bedside Glucose 259 mg/dL (70-110)
[2019-12-18 03:47] LABS: Absolute Lymphocyte Count 1.16 X10^3/uL (0.83-4.51); Absolute Neutrophil Count 7.5 X10^3/uL (2.0-7.7); Basophil# 0.02 X10^3/uL; Basophil% 0.2 % (0-1); Eosinophil# 0.01 X10^3/uL; Eosinophils% 0.1 % (0-5); Hematocrit 26.5 % (40-54); Hemoglobin 9.3 g/dL (13.0-16.5); Lymphocyte # 1.16 X10^3/ul (4.0); Lymphocyte % 12.5 % (19-41); Mean Corp Hgb Conc 35.1 g/dL (32-36); Mean Corpuscular Hgb 32.4 pg (27.0-32.0); Mean Corpuscular Volume 92.3 fL (80-94); Mean Platelet Vol. 9.2 fl (6.2-12.0); Monocyte# 0.53 X10^3/uL; Monocyte% 5.7 % (0-10); NRBC Flagged by Analyzer 0 % (0-5); Neutrophil # 7.54 X10^3/uL (2.7-7.7); Neutrophil % 81.3 % (47-70); Platelet Count 201 K/mm3 (150-450); RBC Distribution Width CV 13.8 % (11.6-14.6); RBC Distribution Width SD 45.7 fl (35.1-43.9); Red Blood Count 2.87 M/mm3 (4.6-6.2); White Blood Count 9.3 K/mm3 (4.4-11.0)
[2019-12-18 03:59] LABS: Anion Gap 8 (5-15); BUN 15 mg/dL (7-18); BUN/Creat Ratio 25.5 RATIO (10-20); Calcium,Total 8.2 mg/dL (8.5-10.1); Chloride 107 mmol/L (98-107); Creatinine, Serum 0.59 mg/dL (0.70-1.30); EST Glomerular Filtration Rate 163 mL/min (>60); Est Glom Filt Rate - Afr Amer 197 mL/min (>60); Estimated Creatinine Clearance 112.46 ml/min; Glucose 253 mg/dL (74-106); Potassium 3.6 mmol/L (3.5-5.1); Sodium Level 139 mmol/L (136-145)
[2019-12-18] MEDS: Lactated Ringers 1,000 ML 100 ML IV ×3 (05:13→23:42)
[2019-12-18] MEDS: Insulin Lispro 100 UNIT/ML INSULN.PEN SC (06:34)
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
[2019-12-18 07:16] LABS: Bedside Glucose 271 mg/dL (70-110)
[2019-12-18] MEDS: Lisinopril 5 MG Tablet PO (09:40)
--- NOTE | 2019-12-18 09:40 | CASEMGMT ---
ANGELIKA MORALES called patient in room for initial transition planning/care coordination assessment. ANGELIKA MORALES introduced self and role at [facility]. Patient is alert and oriented. Patient willing to participate in assessment and is able to answer all questions appropriately. Care providers, pharmacy, and demographics verified. Patient wishes to discharge home, denies need for home health at this time. Patient states he has no further needs or concerns at this time. CM to follow for discharge planning needs that may arise. PCP: [facility] Specialists: none Preferred Pharmacy: [facility] Insurance: MMO listed, patient states that he was recently laid off and insurance coveraged stopped 12/10/2019 Prescription Benefit: stopped 12/10/2019 Living Will/HPOA: none LNOK: Father, sister Living Arrangements: Patient lives with father in mobile home with rampt to enter the home. Patient states he is independent Transportation: family DME/HHC: Patient states he has glucometer and testing supplies. No previous HHC. Patient states that he has prescriptions waiting for pickup at [facility]. ANGELIKA MORALES called [facility] and confirmed buckner for prescription(Novolin, Lantus, and Lisinopril) is $53.54. ANGELIKA MORALES updated patient and not sure if he can afford, but may be able to get assistance from sister. ANGELIKA MORALES updated TRAMAINE Velasquez Cherry regarding recent layoff, no insurance coverage, and prescription assistance. Disposition Plan: Patient to discharge home with family support and follow-up plans in place. Ananya HOROWITZ, RN, CM
--- NOTE | 2019-12-18 09:40 | PCM.PN.SRG ---
Patient Problems: Active and Suspected Problems Uncontrolled diabetes mellitus (Acute) Constipation (Acute) Gastric perforation (Acute) Perforated ulcer (Acute) Weight loss, non-intentional (Acute) Subjective: Patient is doing well this morning. Pain is improved. - Physical Exam Vitals/I&O's: Vital Signs Temp Pulse Resp BP Pulse Ox 100.2 F H 99 16 144/95 H 100 12/18/19 06:00 12/18/19 07:00 12/18/19 06:00 12/18/19 06:00 12/18/19 06:00 Oxygen Delivery Method Room Air Weight: 118 lb 2.684 oz Body Mass Index (BMI) 16.8 Finger Stick Blood Glucose 332 Intake and Output for Last 24 Hours 12/16/19 12/17/19 12/18/19 23:59 23:59 23:59 Intake Total 2340.67 / 2340.67 1112.75 / 1112.75 Output Total 2075 / 2075 400 / 400 Balance 265.67 / 265.67 712.75 / 712.75 General: Alert, Oriented x3 Neck: No JVD Lungs: Normal air movement Cardiovascular: Regular rate, Regular Rhythm Abdomen: Soft, Non Tender, Non-Distended Laboratory Results 12/17/19 10:05: WBC 9.2, RBC 3.69 L, Hgb 12.1 L, Hct 33.7 L, MCV 91.3, MCH 32.8 H, MCHC 35.9, RDW Std Deviation 43.4, RDW Coeff of Tommy 13.2, Plt Count 248, MPV 9.6, Immature Gran % (Auto) 0.200, Neut % (Auto) 83.1 H, Lymph % (Auto) 11.1 L, [place] % (Auto) 4.9, Eos % (Auto) 0.4, Baso % (Auto) 0.3, Absolute Neuts (auto) 7.6, Absolute Lymphs (auto) 1.02, Nucleated RBC % 0 12/17/19 10:05: Sodium 134 L, Potassium 4.6, Chloride 101, Carbon Dioxide 24.0, Anion Gap 9, BUN 18, Creatinine 0.95, Estim Creat Clear Calc 69.84, Est GFR (MDRD) Af Amer 114, Est GFR (MDRD) Non-Af 94, BUN/Creatinine Ratio 19.0, Glucose 564 H*, Calcium 9.3, Total Bilirubin 0.60, AST 19, ALT 22, Alkaline Phosphatase 97, Total Protein 6.9, Albumin 3.5, Globulin 3.4, Albumin/Globulin Ratio 1.0, Lipase 312 12/17/19 10:05: Acetone Level SMALL H 12/17/19 10:05: Hemoglobin A1c 10.3 H 12/17/19 11:15: Urine Color Yellow, Urine Clarity Clear, Urine pH 6.0, Ur Specific [place] 1.010, Urine Protein Negative, Urine Glucose (UA) 1000 H, Urine Ketones 50 H, Urine Occult Blood Negative, Urine Nitrite Negative, Urine Bilirubin Negative, Urine Urobilinogen Normal, Ur Leukocyte Esterase Negative, Urine RBC 0 SEEN, Urine WBC 0 SEEN, Ur Squamous Epith Cells 0-5 SEEN, Urine Bacteria 0 SEEN, Urine Mucus 0 SEEN 12/17/19 12:30: Lactic Acid 2.8 H* 12/17/19 13:10: POC Glucose 332 H 12/17/19 16:02: POC Glucose 261 H 12/17/19 17:05: Sodium 140, Potassium 3.6, Chloride 109 H, Carbon Dioxide 24.0, Anion Gap 7, BUN 15, Creatinine 0.62 L, Estim Creat Clear Calc 107.02, Est GFR (MDRD) Af Amer 186, Est GFR (MDRD) Non-Af 154, BUN/Creatinine Ratio 24.2 H, Glucose 271 H, Calcium 8.4 L 12/17/19 17:05: Lactic Acid 1.5 12/17/19 17:09: POC Glucose 275 H 12/17/19 21:05: POC Glucose 221 H 12/18/19 01:35: POC Glucose 259 H 12/18/19 03:37: WBC 9.3, RBC 2.87 L, Hgb 9.3 L, Hct 26.5 L, MCV 92.3, MCH 32.4 H, MCHC 35.1, RDW Std Deviation 45.7 H, RDW Coeff of Tommy 13.8, Plt Count 201, MPV 9.2, Immature Gran % (Auto) 0.200, Neut % (Auto) 81.3 H, Lymph % (Auto) 12.5 L, [place] % (Auto) 5.7, Eos % (Auto) 0.1, Baso % (Auto) 0.2, Absolute Neuts (auto) 7.5, Absolute Lymphs (auto) 1.16, Nucleated RBC % 0 12/18/19 03:37: Sodium 139, Potassium 3.6, Chloride 107, Carbon Dioxide 24.0, Anion Gap 8, BUN 15, Creatinine 0.59 L, Estim Creat Clear Calc 112.46, Est GFR (MDRD) Af Amer 197, Est GFR (MDRD) Non-Af 163, BUN/Creatinine Ratio 25.5 H, Glucose 253 H, Calcium 8.2 L 12/18/19 06:32: POC Glucose 271 H Current Medications Atorvastatin Calcium (Lipitor) 40 mg PO QHS [facility] Fluticasone Propionate (Flonase Nasal [place]) 2 spray NASAL DAILY PRN PRN Reason: ALLERGIES Pantoprazole Sodium 80 mg/ (Sodium Chloride) 100 mls @ 10 mls/hr CONT INF Q10H [facility] Last Admin: 12/17/19 23:58 Dose: 10 mls/hr Documented by: Lactated Ringer's () 1,000 mls @ 100 mls/hr IV .Q10H [facility] Last Admin: 12/18/19 05:13 Dose: 100 mls/hr Documented by: Piperacillin Sod/Tazobactam (Sod 3.375 gm/ Sodium Chloride) 50 mls @ 12.5 mls/hr IV Q8 [facility] Last Infusion: 12/18/19 09:31 Dose: Infused Documented by: Sodium Chloride () 250 mls @ 15 mls/hr IV .[id number] PRN PRN Reason: Saline Flush Last Infusion: 12/18/19 05:12 Dose: 0 mls/hr Documented by: Sodium Chloride () 250 mls @ 15 mls/hr IV .[id number] PRN PRN Reason: Additional IVPB Infusion Insulin Glargine (Lantus ([facility])) 10 units SC BID [facility] Insulin Human Lispro (Humalog Kwikpen ([facility])) 0 unit SC Q6 [facility]; Protocol Lisinopril (Zestril) 5 mg PO DAILY [facility] Morphine Sulfate () 2 - 4 mg IV Q2H PRN PRN PRN Reason: Pain Score 4-10/10 Last Admin: 12/18/19 01:39 Dose: 2 mg Documented by: Ondansetron HCl (Zofran) 4 mg IV Q6H PRN PRN PRN Reason: NAUSEA Phenol/Menthol (Chloraseptic ([facility])) 3 spray MM Q2H PRN PRN PRN Reason: COUGH Last Admin: 12/17/19 21:01 Dose: 3 spray Documented by: Sodium Chloride () 10 - 40 ml IV UD PRN PRN Reason: SALINE FLUSH Medical Necessity - Tobacco Use Smoking Status: Current every day smoker Tobacco Use: Cigarettes Assessment/Plan All Active Problems DKA (diabetic ketoacidoses) (Acute) Hypernatremia (Acute) Uncontrolled diabetes mellitus (Acute) Constipation (Acute) Gastric perforation (Acute) Perforated ulcer (Acute) Weight loss, non-intentional (Acute) Folliculitis (Acute) 39-year-old male status post perforated gastric ulcer Kurtis patch 1. The patient had a possible mass in the lesser curvature of the stomach. Patient will need endoscopy and MRI at a future date. The patient had a significant weight loss preoperatively and I am concerned for malignancy. The patient has an NG tube to suction and should remain for another 24 hours. Tomorrow I will likely removed and start a clear liquid diet. Continue antibiotics. The patient can be moved out of the ICU and his Terry can be removed. 2. Patient has poorly controlled diabetes. Medicine team is on board to control glucose. Jm Pope MD Pager: [facility] [address] [place] [address], [address] [place] [address] Office:
[2019-12-18 09:41] LABS: Bedside Glucose 258 mg/dL (70-110)
[2019-12-18 12:35] LABS: Bedside Glucose 245 mg/dL (70-110)
--- NOTE | 2019-12-18 13:31 | CASEMGMT ---
TRAMAINE spoke with patient briefly as he was not feeling well. He told RN CARMEN that his insurance has been canceled. TRAMAINE gave him a Medicaid application and information on [employer]. TRAMAINE told him if he has questions about the application he can ask for SW or if he completes it while he is here we could fax it to [facility] for him. He thanked TRAMAINE. Fidelia COLEMAN
[2019-12-18 17:01] LABS: Bedside Glucose 164 mg/dL (70-110)
[2019-12-18] MEDS: Atorvastatin Calcium 40 MG Tablet PO (21:54)
[2019-12-18 22:41] LABS: Bedside Glucose 109 mg/dL (70-110)
[2019-12-19 02:18] VITALS: BP 139/86; PULSE 85; RESP 18; TEMP 36.8; O2SAT 100
[2019-12-19] MEDS: Morphine 2 MG/ML Syringe IV ×3 (04:35→22:16)
[2019-12-19 06:12] LABS: Absolute Lymphocyte Count 1.14 X10^3/uL (0.83-4.51); Absolute Neutrophil Count 5.4 X10^3/uL (2.0-7.7); Basophil# 0.03 X10^3/uL; Basophil% 0.4 % (0-1); Eosinophil# 0.21 X10^3/uL; Eosinophils% 2.9 % (0-5); Hematocrit 26.5 % (40-54); Hemoglobin 9.1 g/dL (13.0-16.5); Lymphocyte # 1.14 X10^3/ul (4.0); Lymphocyte % 15.6 % (19-41); Mean Corp Hgb Conc 34.3 g/dL (32-36); Mean Corpuscular Hgb 32.2 pg (27.0-32.0); Mean Corpuscular Volume 93.6 fL (80-94); Mean Platelet Vol. 9.6 fl (6.2-12.0); Monocyte# 0.52 X10^3/uL; Monocyte% 7.1 % (0-10); NRBC Flagged by Analyzer 0 % (0-5); Neutrophil % 73.9 % (47-70); Platelet Count 191 K/mm3 (150-450); RBC Distribution Width CV 13.9 % (11.6-14.6); RBC Distribution Width SD 47.8 fl (35.1-43.9); Red Blood Count 2.83 M/mm3 (4.6-6.2); White Blood Count 7.3 K/mm3 (4.4-11.0)
[2019-12-19 06:40] LABS: Anion Gap 9 (5-15); BUN 10 mg/dL (7-18); BUN/Creat Ratio 21.8 RATIO (10-20); Calcium,Total 8.5 mg/dL (8.5-10.1); Chloride 105 mmol/L (98-107); Creatinine, Serum 0.46 mg/dL (0.70-1.30); EST Glomerular Filtration Rate 217 mL/min (>60); Est Glom Filt Rate - Afr Amer 263 mL/min (>60); Estimated Creatinine Clearance 163.45 ml/min; Glucose 153 mg/dL (74-106); Potassium 3.1 mmol/L (3.5-5.1); Sodium Level 139 mmol/L (136-145)
--- NOTE | 2019-12-19 06:57 | PCM.PN.INT ---
Subjective: Patient transferred out of the intensive care unit yesterday. Patient's blood sugars have been well controlled and he has not required any sliding scale insulin. Patient did have his Lantus held last night secondary to blood sugar of 109. Patient reports he is passing gas. Patient is reporting discomfort associated with the NG, but has tolerated room air. General: Alert, Oriented x3, Cooperative, No apparent distress, - - Thin build. NG in place. HEENT: Atraumatic, PERRLA, EOMI, Normocephalic, - - No scleral icterus or injection noted Oral: No Gingival or Mucosal Lesions/ Ulcerations, Dry Mucosa Neck: Supple, No JVD, No Nodes, Trachea Midline Lungs: Clear to auscultation, Normal air movement, No rhonchi, No wheeze, No rales, - - Symmetric expansion Cardiovascular: Regular rate, Regular Rhythm, Normal S1, Normal S2, No murmurs, No rub noted, No Gallop Abdomen: Bowel Sounds Present, Soft, Non-Distended, Tender - Only over incision Extremities: No clubbing, No cyanosis, No edema, Capillary Refill Less than 3 Seconds Skin: Incision - Clean, dry and intact Musculoskeletal: No Tenderness to Palpation of Joints or Extremities Lymphatic: No Cervical, Supraclavicular, or Inguinal Adenopathy Neurological: Cranial nerves II-XII grossly intact, Neuro grossly intact, Motor Exam 5/5 strength throughout Psych/Mental Status: Alert and oriented to time, place, person, mood and affect Vital Signs Temp Pulse Resp BP Pulse Ox 36.8 C 85 18 139/86 H 100 12/19/19 02:18 12/19/19 02:18 12/19/19 02:18 12/19/19 02:18 12/19/19 02:18 Oxygen Flow Rate (L/min) 3 Oxygen Delivery Method Room Air Weight: 53.6 kg Body Mass Index (BMI) 16.8 Finger Stick Blood Glucose 332 Intake and Output for Last 24 Hours 12/17/19 12/18/19 12/19/19 23:59 23:59 23:59 Intake Total 2340.67 / 2340.67 3358.08 / 3358.08 270 / 270 Output Total 2075 / 2075 650 / 950 600 / 600 Balance 265.67 / 265.67 2708.08 / 2408.08 -330 / -330 Labs (Last 48 Hours) 12/17/19 12/17/19 12/17/19 10:05 10:05 10:05 WBC 9.2 RBC 3.69 L Hgb 12.1 L Hct 33.7 L MCV 91.3 MCH 32.8 H MCHC 35.9 RDW Std Deviation 43.4 RDW Coeff of Tommy 13.2 Plt Count 248 MPV 9.6 Immature Gran % (Auto) 0.200 Neut % (Auto) 83.1 H Lymph % (Auto) 11.1 L Riley % (Auto) 4.9 Eos % (Auto) 0.4 Baso % (Auto) 0.3 Absolute Neuts (auto) 7.6 Absolute Lymphs (auto) 1.02 Nucleated RBC % 0 Sodium 134 L Potassium 4.6 Chloride 101 Carbon Dioxide 24.0 Anion Gap 9 BUN 18 Creatinine 0.95 Estim Creat Clear Calc 69.84 Est GFR (MDRD) Af Amer 114 Est GFR (MDRD) Non-Af 94 BUN/Creatinine Ratio 19.0 Glucose 564 H* Hemoglobin A1c Lactic Acid Calcium 9.3 Total Bilirubin 0.60 AST 19 ALT 22 Alkaline Phosphatase 97 Total Protein 6.9 Albumin 3.5 Globulin 3.4 Albumin/Globulin Ratio 1.0 Lipase 312 Urine Color Urine Clarity Urine pH Ur Specific [place] Urine Protein Urine Glucose (UA) Urine Ketones Urine Occult Blood Urine Nitrite Urine Bilirubin Urine Urobilinogen Ur Leukocyte Esterase Urine RBC Urine WBC Ur Squamous Epith Cells Urine Bacteria Urine Mucus Acetone Level SMALL H POC Glucose 12/17/19 12/17/19 12/17/19 10:05 11:15 12:30 WBC RBC Hgb Hct MCV MCH MCHC RDW Std Deviation RDW Coeff of Tommy Plt Count MPV Immature Gran % (Auto) Neut % (Auto) Lymph % (Auto) Riley % (Auto) Eos % (Auto) Baso % (Auto) Absolute Neuts (auto) Absolute Lymphs (auto) Nucleated RBC % Sodium Potassium Chloride Carbon Dioxide Anion Gap BUN Creatinine Estim Creat Clear Calc Est GFR (MDRD) Af Amer Est GFR (MDRD) Non-Af BUN/Creatinine Ratio Glucose Hemoglobin A1c 10.3 H Lactic Acid 2.8 H* Calcium Total Bilirubin AST ALT Alkaline Phosphatase Total Protein Albumin Globulin Albumin/Globulin Ratio Lipase Urine Color Yellow Urine Clarity Clear Urine pH 6.0 Ur Specific [place] 1.010 Urine Protein Negative Urine Glucose (UA) 1000 H Urine Ketones 50 H Urine Occult Blood Negative Urine Nitrite Negative Urine Bilirubin Negative Urine Urobilinogen Normal Ur Leukocyte Esterase Negative Urine RBC 0 SEEN Urine WBC 0 SEEN Ur Squamous Epith Cells 0-5 SEEN Urine Bacteria 0 SEEN Urine Mucus 0 SEEN Acetone Level POC Glucose 12/17/19 12/17/19 12/17/19 13:10 16:02 17:05 WBC RBC Hgb Hct MCV MCH MCHC RDW Std Deviation RDW Coeff of Tommy Plt Count MPV Immature Gran % (Auto) Neut % (Auto) Lymph % (Auto) Riley % (Auto) Eos % (Auto) Baso % (Auto) Absolute Neuts (auto) Absolute Lymphs (auto) Nucleated RBC % Sodium 140 Potassium 3.6 Chloride 109 H Carbon Dioxide 24.0 Anion Gap 7 BUN 15 Creatinine 0.62 L Estim Creat Clear Calc 107.02 Est GFR (MDRD) Af Amer 186 Est GFR (MDRD) Non-Af 154 BUN/Creatinine Ratio 24.2 H Glucose 271 H Hemoglobin A1c Lactic Acid Calcium 8.4 L Total Bilirubin AST ALT Alkaline Phosphatase Total Protein Albumin Globulin Albumin/Globulin Ratio Lipase Urine Color Urine Clarity Urine pH Ur Specific [place] Urine Protein Urine Glucose (UA) Urine Ketones Urine Occult Blood Urine Nitrite Urine Bilirubin Urine Urobilinogen Ur Leukocyte Esterase Urine RBC Urine WBC Ur Squamous Epith Cells Urine Bacteria Urine Mucus Acetone Level POC Glucose 332 H 261 H 12/17/19 12/17/19 12/17/19 17:05 17:09 21:05 WBC RBC Hgb Hct MCV MCH MCHC RDW Std Deviation RDW Coeff of Tommy Plt Count MPV Immature Gran % (Auto) Neut % (Auto) Lymph % (Auto) Riley % (Auto) Eos % (Auto) Baso % (Auto) Absolute Neuts (auto) Absolute Lymphs (auto) Nucleated RBC % Sodium Potassium Chloride Carbon Dioxide Anion Gap BUN Creatinine Estim Creat Clear Calc Est GFR (MDRD) Af Amer Est GFR (MDRD) Non-Af BUN/Creatinine Ratio Glucose Hemoglobin A1c Lactic Acid 1.5 Calcium Total Bilirubin AST ALT Alkaline Phosphatase Total Protein Albumin Globulin Albumin/Globulin Ratio Lipase Urine Color Urine Clarity Urine pH Ur Specific [place] Urine Protein Urine Glucose (UA) Urine Ketones Urine Occult Blood Urine Nitrite Urine Bilirubin Urine Urobilinogen Ur Leukocyte Esterase Urine RBC Urine WBC Ur Squamous Epith Cells Urine Bacteria Urine Mucus Acetone Level POC Glucose 275 H 221 H 12/18/19 12/18/19 12/18/19 01:35 03:37 03:37 WBC 9.3 RBC 2.87 L Hgb 9.3 L Hct 26.5 L MCV 92.3 MCH 32.4 H MCHC 35.1 RDW Std Deviation 45.7 H RDW Coeff of Tommy 13.8 Plt Count 201 MPV 9.2 Immature Gran % (Auto) 0.200 Neut % (Auto) 81.3 H Lymph % (Auto) 12.5 L Riley % (Auto) 5.7 Eos % (Auto) 0.1 Baso % (Auto) 0.2 Absolute Neuts (auto) 7.5 Absolute Lymphs (auto) 1.16 Nucleated RBC % 0 Sodium 139 Potassium 3.6 Chloride 107 Carbon Dioxide 24.0 Anion Gap 8 BUN 15 Creatinine 0.59 L Estim Creat Clear Calc 112.46 Est GFR (MDRD) Af Amer 197 Est GFR (MDRD) Non-Af 163 BUN/Creatinine Ratio 25.5 H Glucose 253 H Hemoglobin A1c Lactic Acid Calcium 8.2 L Total Bilirubin AST ALT Alkaline Phosphatase Total Protein Albumin Globulin Albumin/Globulin Ratio Lipase Urine Color Urine Clarity Urine pH Ur Specific [place] Urine Protein Urine Glucose (UA) Urine Ketones Urine Occult Blood Urine Nitrite Urine Bilirubin Urine Urobilinogen Ur Leukocyte Esterase Urine RBC Urine WBC Ur Squamous Epith Cells Urine Bacteria Urine Mucus Acetone Level POC Glucose 259 H 12/18/19 12/18/19 12/18/19 06:32 09:09 12:21 WBC RBC Hgb Hct MCV MCH MCHC RDW Std Deviation RDW Coeff of Tommy Plt Count MPV Immature Gran % (Auto) Neut % (Auto) Lymph % (Auto) Riley % (Auto) Eos % (Auto) Baso % (Auto) Absolute Neuts (auto) Absolute Lymphs (auto) Nucleated RBC % Sodium Potassium Chloride Carbon Dioxide Anion Gap BUN Creatinine Estim Creat Clear Calc Est GFR (MDRD) Af Amer Est GFR (MDRD) Non-Af BUN/Creatinine Ratio Glucose Hemoglobin A1c Lactic Acid Calcium Total Bilirubin AST ALT Alkaline Phosphatase Total Protein Albumin Globulin Albumin/Globulin Ratio Lipase Urine Color Urine Clarity Urine pH Ur Specific [place] Urine Protein Urine Glucose (UA) Urine Ketones Urine Occult Blood Urine Nitrite Urine Bilirubin Urine Urobilinogen Ur Leukocyte Esterase Urine RBC Urine WBC Ur Squamous Epith Cells Urine Bacteria Urine Mucus Acetone Level POC Glucose 271 H 258 H 245 H 12/18/19 12/18/19 12/19/19 16:54 21:52 05:54 WBC 7.3 RBC 2.83 L Hgb 9.1 L Hct 26.5 L MCV 93.6 MCH 32.2 H MCHC 34.3 RDW Std Deviation 47.8 H RDW Coeff of Tommy 13.9 Plt Count 191 MPV 9.6 Immature Gran % (Auto) 0.100 Neut % (Auto) 73.9 H Lymph % (Auto) 15.6 L Riley % (Auto) 7.1 Eos % (Auto) 2.9 Baso % (Auto) 0.4 Absolute Neuts (auto) 5.4 Absolute Lymphs (auto) 1.14 Nucleated RBC % 0 Sodium Potassium Chloride Carbon Dioxide Anion Gap BUN Creatinine Estim Creat Clear Calc Est GFR (MDRD) Af Amer Est GFR (MDRD) Non-Af BUN/Creatinine Ratio Glucose Hemoglobin A1c Lactic Acid Calcium Total Bilirubin AST ALT Alkaline Phosphatase Total Protein Albumin Globulin Albumin/Globulin Ratio Lipase Urine Color Urine Clarity Urine pH Ur Specific [place] Urine Protein Urine Glucose (UA) Urine Ketones Urine Occult Blood Urine Nitrite Urine Bilirubin Urine Urobilinogen Ur Leukocyte Esterase Urine RBC Urine WBC Ur Squamous Epith Cells Urine Bacteria Urine Mucus Acetone Level POC Glucose 164 H 109 12/19/19 05:54 WBC RBC Hgb Hct MCV MCH MCHC RDW Std Deviation RDW Coeff of Tommy Plt Count MPV Immature Gran % (Auto) Neut % (Auto) Lymph % (Auto) Riley % (Auto) Eos % (Auto) Baso % (Auto) Absolute Neuts (auto) Absolute Lymphs (auto) Nucleated RBC % Sodium 139 Potassium 3.1 L Chloride 105 Carbon Dioxide 25.0 Anion Gap 9 BUN 10 Creatinine 0.46 L Estim Creat Clear Calc 163.45 Est GFR (MDRD) Af Amer 263 Est GFR (MDRD) Non-Af 217 BUN/Creatinine Ratio 21.8 H Glucose 153 H Hemoglobin A1c Lactic Acid Calcium 8.5 Total Bilirubin AST ALT Alkaline Phosphatase Total Protein Albumin Globulin Albumin/Globulin Ratio Lipase Urine Color Urine Clarity Urine pH Ur Specific [place] Urine Protein Urine Glucose (UA) Urine Ketones Urine Occult Blood Urine Nitrite Urine Bilirubin Urine Urobilinogen Ur Leukocyte Esterase Urine RBC Urine WBC Ur Squamous Epith Cells Urine Bacteria Urine Mucus Acetone Level POC Glucose Medical Necessity - Tobacco Use Smoking Status: Current every day smoker Tobacco Use: Cigarettes Assessment/Plan All Active Problems DKA (diabetic ketoacidoses) (Acute) Hypernatremia (Acute) Uncontrolled diabetes mellitus (Acute) Constipation (Acute) Gastric perforation (Acute) Perforated ulcer (Acute) Weight loss, non-intentional (Acute) Folliculitis (Acute) RECOMMENDATIONS: 1. Continue basal insulin with sliding scale 2. Discussed with surgery about discontinuation of NG 3. Out of bed as tolerated. Encourage incentive spirometer 4. Antibiotics and p.o. diet per surgical recommendations 5. Case management evaluation for insulin availability IMPRESSIONS: 1. Severe sepsis secondary to bowel perforation status post repair postop day #2 Patient currently on antibiotics per surgery. Would defer to them on duration. Patient did not have a fever overnight and overall has been doing well from a hemodynamic standpoint. No hypotension has been reported. Did stress to the patient the importance of getting out of bed and using incentive spirometer to avoid postoperative complications. Patient voiced understanding, but does not appear overly motivated. 2. Uncontrolled diabetes mellitus secondary to noncompliance/hyperosmolar non-ketosis Patient's last hemoglobin A1c was 10.3% indicating poorly controlled diabetes mellitus. It is unclear how much of this is related to lack of access to insulin therapy versus patient compliance. Patient did not have a gap on presentation, so no DKA management was indicated. Patient has responded well to insulin boluses. Patient may be able to increase basal insulin depending on ability to take p.o.. We will leave scheduled twice daily for now, but this may need held in the evening if patient is not able to tolerate p.o. 3. Unintentional weight loss/probable malnutrition Complicates care, management, recovery and prognosis. Initiation of p.o. diet per surgery. Patient may have an element of weight loss secondary to poorly controlled diabetes mellitus. Malignancy would also be a consideration. Inpatient E&M: 91623 Subs Hosp L2
[2019-12-19 07:11] LABS: Bedside Glucose 149 mg/dL (70-110)
[2019-12-19 08:07] VITALS: BP 149/93; PULSE 80; RESP 16; TEMP 36.4; O2SAT 100
--- NOTE | 2019-12-19 09:29 | PCM.PN.SRG ---
Patient Problems: Active and Suspected Problems Uncontrolled diabetes mellitus (Acute) Constipation (Acute) Gastric perforation (Acute) Perforated ulcer (Acute) Weight loss, non-intentional (Acute) Subjective: Patient reports that he is doing well this morning. He reports that he is passing flatus. His abdominal pain is minimal. - Physical Exam Vitals/I&O's: Vital Signs Temp Pulse Resp BP Pulse Ox 97.6 F L 80 16 149/93 H 100 12/19/19 08:07 12/19/19 08:07 12/19/19 08:07 12/19/19 08:07 12/19/19 08:07 Oxygen Flow Rate (L/min) 3 Oxygen Delivery Method Room Air Weight: 116 lb 13.52 oz Body Mass Index (BMI) 16.8 Finger Stick Blood Glucose 332 Intake and Output for Last 24 Hours 12/17/19 12/18/19 12/19/19 23:59 23:59 23:59 Intake Total 2340.67 / 2340.67 3358.08 / 3358.08 270 / 270 Output Total 2075 / 2075 650 / 950 600 / 600 Balance 265.67 / 265.67 2708.08 / 2408.08 -330 / -330 General: Alert, Oriented x3 Lungs: Normal air movement Abdomen: Soft, Non Tender, Non-Distended Laboratory Results 12/18/19 09:09: POC Glucose 258 H 12/18/19 12:21: POC Glucose 245 H 12/18/19 16:54: POC Glucose 164 H 12/18/19 21:52: POC Glucose 109 12/19/19 05:54: WBC 7.3, RBC 2.83 L, Hgb 9.1 L, Hct 26.5 L, MCV 93.6, MCH 32.2 H, MCHC 34.3, RDW Std Deviation 47.8 H, RDW Coeff of Tommy 13.9, Plt Count 191, MPV 9.6, Immature Gran % (Auto) 0.100, Neut % (Auto) 73.9 H, Lymph % (Auto) 15.6 L, [place] % (Auto) 7.1, Eos % (Auto) 2.9, Baso % (Auto) 0.4, Absolute Neuts (auto) 5.4, Absolute Lymphs (auto) 1.14, Nucleated RBC % 0 12/19/19 05:54: Sodium 139, Potassium 3.1 L, Chloride 105, Carbon Dioxide 25.0, Anion Gap 9, BUN 10, Creatinine 0.46 L, Estim Creat Clear Calc 163.45, Est GFR (MDRD) Af Amer 263, Est GFR (MDRD) Non-Af 217, BUN/Creatinine Ratio 21.8 H, Glucose 153 H, Calcium 8.5 12/19/19 06:12: POC Glucose 149 H Current Medications Acetaminophen (Tylenol) 650 mg PO Q4H PRN PRN PRN Reason: Pain or Fever Atorvastatin Calcium (Lipitor) 40 mg PO QHS [facility] Last Admin: 12/18/19 21:54 Dose: 40 mg Documented by: Fluticasone Propionate (Flonase Nasal [place]) 2 spray NASAL DAILY PRN PRN Reason: ALLERGIES Lactated Ringer's () 1,000 mls @ 50 mls/hr IV .Q20H [facility] Last Admin: 12/18/19 23:42 Dose: 100 mls/hr Documented by: Sodium Chloride () 250 mls @ 15 mls/hr IV .[id number] PRN PRN Reason: Saline Flush Last Infusion: 12/18/19 05:12 Dose: 0 mls/hr Documented by: Sodium Chloride () 250 mls @ 15 mls/hr IV .[id number] PRN PRN Reason: Additional IVPB Infusion Pantoprazole Sodium 40 mg/ (Sodium Chloride) 110 mls @ 330 mls/hr IV Q12 [facility] Insulin Glargine (Lantus (Bkc)) 10 units SC BID [facility] Last Admin: 12/18/19 22:19 Dose: Not Given Documented by: Insulin Human Lispro (Humalog Kwikpen (Bkc)) 0 unit SC Q6 [facility]; Protocol Last Admin: 12/19/19 06:12 Dose: Not Given Documented by: Lisinopril (Zestril) 5 mg PO DAILY [facility] Last Admin: 12/18/19 09:40 Dose: 5 mg Documented by: Morphine Sulfate () 2 - 4 mg IV Q2H PRN PRN PRN Reason: Pain Score 4-10/10 Last Admin: 12/19/19 04:35 Dose: 2 mg Documented by: Nicotine (Nicoderm Cq (Pbkc)) 21 mg TRANSDERM. DAILY [facility] Last Admin: 12/18/19 15:50 Dose: 21 mg Documented by: Ondansetron HCl (Zofran) 4 mg IV Q6H PRN PRN PRN Reason: NAUSEA Phenol/Menthol (Chloraseptic (Bkc)) 3 spray MM Q2H PRN PRN PRN Reason: COUGH Last Admin: 12/17/19 21:01 Dose: 3 spray Documented by: Sodium Chloride () 10 - 40 ml IV UD PRN PRN Reason: SALINE FLUSH Medical Necessity - Tobacco Use Smoking Status: Current every day smoker Tobacco Use: Cigarettes Assessment/Plan All Active Problems DKA (diabetic ketoacidoses) (Acute) Hypernatremia (Acute) Uncontrolled diabetes mellitus (Acute) Constipation (Acute) Gastric perforation (Acute) Perforated ulcer (Acute) Weight loss, non-intentional (Acute) Folliculitis (Acute) 39-year-old male status post perforated gastric ulcer 1. Patient reports that he is doing well. He says that his pain is well controlled. His abdomen is soft and nontender. His incision is clean dry and intact. He is 48 hours after surgery so we will remove his NG tube and start a light clear liquid diet. Will hold off on advancing diet until tomorrow. I will decrease his IV fluids and start twice daily PPI instead of a continuous drip. 2. Patient has hypokalemia and poorly controlled insulin which I will leave to the medical team for management. Jm Pope MD Pager: [facility] [address] [place] [address], [address] [place] [address] Office:
[2019-12-19] MEDS: Lactated Ringers 1,000 ML 50 ML IV (09:48)
[2019-12-19] MEDS: Lisinopril 5 MG Tablet PO (09:51)
--- NOTE | 2019-12-19 10:25 | CASEMGMT ---
ANGELIKA MORALES NOTE: Spoke w/pt re: cost of meds @ [facility] pharmacy. He states he has not spoken with his sister yet to inquire if she is able to assist with helping him pay for this. He states he will call her today to talk with her. Yusef HOROWITZ RN, CM
[2019-12-19 11:55] LABS: Bedside Glucose 165 mg/dL (70-110)
[2019-12-19] MEDS: 0.9% Saline Lock 10 ML Syringe IV (13:05)
[2019-12-19] MEDS: Potassium Chloride 10mEq/100mL 10 MEQ/100 ML IV.SOLN. 100 MEQ IV BOLUS ×4 (13:05→18:09)
[2019-12-19 14:07] VITALS: BP 147/92; PULSE 79; RESP 16; TEMP 36.4; O2SAT 100
[2019-12-19 16:26] LABS: Bedside Glucose 99 mg/dL (70-110)
[2019-12-19 20:08] VITALS: BP 129/86; PULSE 87; RESP 16; TEMP 36.8; O2SAT 96
[2019-12-19] MEDS: Atorvastatin Calcium 40 MG Tablet PO (21:59)
[2019-12-19 22:06] LABS: Bedside Glucose 110 mg/dL (70-110)
[2019-12-20 02:45] VITALS: BP 142/87; PULSE 87; RESP 16; TEMP 36.6; O2SAT 98
[2019-12-20 05:30] LABS: Absolute Lymphocyte Count 1.02 X10^3/uL (0.83-4.51); Basophil# 0.02 X10^3/uL; Basophil% 0.4 % (0-1); Eosinophil# 0.17 X10^3/uL; Eosinophils% 3.7 % (0-5); Hematocrit 27.6 % (40-54); Lymphocyte # 1.02 X10^3/ul (4.0); Lymphocyte % 22.4 % (19-41); Mean Corp Hgb Conc 36.2 g/dL (32-36); Mean Corpuscular Hgb 33.1 pg (27.0-32.0); Mean Corpuscular Volume 91.4 fL (80-94); Mean Platelet Vol. 9.3 fl (6.2-12.0); Monocyte# 0.39 X10^3/uL; Monocyte% 8.6 % (0-10); NRBC Flagged by Analyzer 0 % (0-5); Neutrophil # 2.95 X10^3/uL (2.7-7.7); Neutrophil % 64.9 % (47-70); Platelet Count 216 K/mm3 (150-450); RBC Distribution Width CV 13.5 % (11.6-14.6); RBC Distribution Width SD 45.1 fl (35.1-43.9); Red Blood Count 3.02 M/mm3 (4.6-6.2); White Blood Count 4.6 K/mm3 (4.4-11.0)
[2019-12-20 05:45] LABS: Anion Gap 10 (5-15); BUN 6 mg/dL (7-18); BUN/Creat Ratio 13.4 RATIO (10-20); Calcium,Total 8.4 mg/dL (8.5-10.1); Chloride 104 mmol/L (98-107); Creatinine, Serum 0.45 mg/dL (0.70-1.30); EST Glomerular Filtration Rate 223 mL/min (>60); Est Glom Filt Rate - Afr Amer 270 mL/min (>60); Estimated Creatinine Clearance 165.22 ml/min; Glucose 157 mg/dL (74-106); Potassium 3.1 mmol/L (3.5-5.1); Sodium Level 140 mmol/L (136-145)
[2019-12-20] MEDS: Potassium Chloride 10mEq/100mL 10 MEQ/100 ML IV.SOLN. 100 MEQ IV BOLUS ×4 (06:05→10:39)
[2019-12-20] MEDS: Lactated Ringers 1,000 ML 50 ML IV (06:13)
[2019-12-20] MEDS: Insulin Lispro 100 UNIT/ML INSULN.PEN SC ×4 (06:54→22:03)
--- NOTE | 2019-12-20 06:59 | PN_ITS ---
Subjective: Patient did okay overnight. Patient is requesting a p.o. diet. Patient has been on room air. Patient was initiated on potassium repletion this morning and is tolerating well. Patient states abdominal pain is well controlled. Blood sugars have been marginal, but p.o. intake is limited secondary to surgical condition General: Alert, Oriented x3, Cooperative, No apparent distress, - - Thin build. Speaking in full sentences. HEENT: Atraumatic, PERRLA, EOMI, Normocephalic, - - No scleral icterus or injection noted Oral: Moist Mucosa, No Gingival or Mucosal Lesions/ Ulcerations Neck: Supple, No JVD, No Nodes, Trachea Midline Lungs: Clear to auscultation, Normal air movement, No rhonchi, No wheeze, No rales, - - Symmetric expansion. No dullness to percussion. Cardiovascular: Regular rate, Regular Rhythm, Normal S1, Normal S2, No murmurs, No rub noted, No Gallop Abdomen: Bowel Sounds Present, Soft, Non Tender, Non-Distended Extremities: No clubbing, No cyanosis, No edema Skin: No rashes, No breakdown Musculoskeletal: No Tenderness to Palpation of Joints or Extremities, Muscle Wasting Lymphatic: No Cervical, Supraclavicular, or Inguinal Adenopathy Neurological: Cranial nerves II-XII grossly intact, Neuro grossly intact, Motor Exam 5/5 strength throughout Psych/Mental Status: Alert and oriented to time, place, person, mood and affect Vital Signs Temp Pulse Resp BP Pulse Ox 36.6 C 87 16 142/87 H 98 12/20/19 02:45 12/20/19 02:45 12/20/19 02:45 12/20/19 02:45 12/20/19 02:45 Oxygen Flow Rate (L/min) 3 Oxygen Delivery Method Room Air Weight: 53.6 kg Body Mass Index (BMI) 16.8 Finger Stick Blood Glucose 332 Intake and Output for Last 24 Hours 12/18/19 12/19/19 12/20/19 23:59 23:59 23:59 Intake Total 3358.08 / 3358.08 2811.29 / 2811.29 1096.67 / 1096.67 Output Total 650 / 950 1350 / 1350 1000 / 1000 Balance 2708.08 / 2408.08 1461.29 / 1461.29 96.67 / 96.67 Labs (Last 48 Hours) 12/18/19 12/18/19 12/18/19 06:32 09:09 12:21 WBC RBC Hgb Hct MCV MCH MCHC RDW Std Deviation RDW Coeff of Tommy Plt Count MPV Immature Gran % (Auto) Neut % (Auto) Lymph % (Auto) [place] % (Auto) Eos % (Auto) Baso % (Auto) Absolute Neuts (auto) Absolute Lymphs (auto) Nucleated RBC % Sodium Potassium Chloride Carbon Dioxide Anion Gap BUN Creatinine Estim Creat Clear Calc Est GFR (MDRD) Af Amer Est GFR (MDRD) Non-Af BUN/Creatinine Ratio Glucose Calcium POC Glucose 271 H 258 H 245 H 12/18/19 12/18/19 12/19/19 16:54 21:52 05:54 WBC 7.3 RBC 2.83 L Hgb 9.1 L Hct 26.5 L MCV 93.6 MCH 32.2 H MCHC 34.3 RDW Std Deviation 47.8 H RDW Coeff of Tommy 13.9 Plt Count 191 MPV 9.6 Immature Gran % (Auto) 0.100 Neut % (Auto) 73.9 H Lymph % (Auto) 15.6 L [place] % (Auto) 7.1 Eos % (Auto) 2.9 Baso % (Auto) 0.4 Absolute Neuts (auto) 5.4 Absolute Lymphs (auto) 1.14 Nucleated RBC % 0 Sodium Potassium Chloride Carbon Dioxide Anion Gap BUN Creatinine Estim Creat Clear Calc Est GFR (MDRD) Af Amer Est GFR (MDRD) Non-Af BUN/Creatinine Ratio Glucose Calcium POC Glucose 164 H 109 12/19/19 12/19/19 12/19/19 05:54 06:12 10:56 WBC RBC Hgb Hct MCV MCH MCHC RDW Std Deviation RDW Coeff of Tommy Plt Count MPV Immature Gran % (Auto) Neut % (Auto) Lymph % (Auto) [place] % (Auto) Eos % (Auto) Baso % (Auto) Absolute Neuts (auto) Absolute Lymphs (auto) Nucleated RBC % Sodium 139 Potassium 3.1 L Chloride 105 Carbon Dioxide 25.0 Anion Gap 9 BUN 10 Creatinine 0.46 L Estim Creat Clear Calc 163.45 Est GFR (MDRD) Af Amer 263 Est GFR (MDRD) Non-Af 217 BUN/Creatinine Ratio 21.8 H Glucose 153 H Calcium 8.5 POC Glucose 149 H 165 H 12/19/19 12/19/19 12/20/19 16:21 21:56 05:12 WBC 4.6 RBC 3.02 L Hgb 10.0 L Hct 27.6 L MCV 91.4 MCH 33.1 H MCHC 36.2 H D RDW Std Deviation 45.1 H RDW Coeff of Tommy 13.5 Plt Count 216 MPV 9.3 Immature Gran % (Auto) 0.000 Neut % (Auto) 64.9 Lymph % (Auto) 22.4 [place] % (Auto) 8.6 Eos % (Auto) 3.7 Baso % (Auto) 0.4 Absolute Neuts (auto) 3.0 Absolute Lymphs (auto) 1.02 Nucleated RBC % 0 Sodium Potassium Chloride Carbon Dioxide Anion Gap BUN Creatinine Estim Creat Clear Calc Est GFR (MDRD) Af Amer Est GFR (MDRD) Non-Af BUN/Creatinine Ratio Glucose Calcium POC Glucose 99 110 12/20/19 05:12 WBC RBC Hgb Hct MCV MCH MCHC RDW Std Deviation RDW Coeff of Tommy Plt Count MPV Immature Gran % (Auto) Neut % (Auto) Lymph % (Auto) [place] % (Auto) Eos % (Auto) Baso % (Auto) Absolute Neuts (auto) Absolute Lymphs (auto) Nucleated RBC % Sodium 140 Potassium 3.1 L Chloride 104 Carbon Dioxide 26.0 Anion Gap 10 BUN 6 L Creatinine 0.45 L Estim Creat Clear Calc 165.22 Est GFR (MDRD) Af Amer 270 Est GFR (MDRD) Non-Af 223 BUN/Creatinine Ratio 13.4 Glucose 157 H Calcium 8.4 L POC Glucose Microbiology 12/17/19 12:39 Blood Culture (Wb) - Right Forearm Blood Culture - Preliminary No growth in 48 hours. 12/17/19 12:30 Blood Culture (Wb) - Anticubital Left Blood Culture - Preliminary No growth in 48 hours. Medical Necessity - Tobacco Use Smoking Status: Current every day smoker Tobacco Use: Cigarettes Assessment/Plan All Active Problems DKA (diabetic ketoacidoses) (Acute) Hypernatremia (Acute) Uncontrolled diabetes mellitus (Acute) Constipation (Acute) Gastric perforation (Acute) Perforated ulcer (Acute) Weight loss, non-intentional (Acute) Folliculitis (Acute) RECOMMENDATIONS: 1. Continue reduced basal insulin with sliding scale 2. Discuss with surgery about advancing diet 3. Out of bed as tolerated. Encourage incentive spirometer 4. Antibiotics and p.o. diet per surgical recommendations 5. Case management evaluation for insulin availability IMPRESSIONS: 1. Severe sepsis secondary to bowel perforation status post repair postop day #3 Patient currently on antibiotics per surgery. Would defer to them on duration. Patient did not have a fever overnight and overall has been doing well from a hemodynamic standpoint. No hypotension has been reported. Did stress to the patient the importance of getting out of bed and using incentive spirometer to avoid postoperative complications. Patient voiced understanding. 2. Uncontrolled diabetes mellitus secondary to noncompliance/hyperosmolar non-ketosis Patient's last hemoglobin A1c was 10.3% indicating poorly controlled diabetes mellitus. It is unclear how much of this is related to lack of access to insulin therapy versus patient compliance. Patient did not have a gap on presentation, so no DKA management was indicated. Patient may be able to increase basal insulin depending on ability to take p.o.. We will continue to monitor until on a regular diet. Outpatient follow-up with endocrine would be recommended. 3. Unintentional weight loss/probable malnutrition Complicates care, management, recovery and prognosis. Initiation of p.o. diet per surgery. Patient may have an element of weight loss secondary to poorly controlled diabetes mellitus. Malignancy would also be a consideration. Inpatient E&M: [id number] Subs Hosp L2
[2019-12-20 07:00] LABS: Bedside Glucose 157 mg/dL (70-110)
--- NOTE | 2019-12-20 07:49 | MRI_ITS ---
STUDY: MRI ABDOMEN WITH AND WITHOUT CONTRAST REASON FOR EXAM: Male, 39 years old. Abd mass, F/U TO ABNORMAL CT TECHNIQUE: Standardized fat and water weighted pulse sequences were obtained in all 3 orthogonal planes post contrast administration. IV 10 Dotarem was administered for the contrast portion of the examination. COMPARISON: CT dated 12/17/2019 FINDINGS: The study is significantly limited by patient motion. Again noted is thickening of the anterior stomach wall. This is not significantly changed when compared with the prior CT. No definite site of perforation is identified. No definite fistula is identified. Although evaluation for free air is limited by MRI, there appears to be increased free air in the abdomen when compared with the prior CT. The visualized bowel demonstrates no evidence of obstruction. There is a large amount of stool in the colon, consistent with constipation. The liver, spleen, pancreas, adrenal glands and kidneys are normal in contour and signal intensity. There are no gallstones present. There is no biliary duct dilatation. The aorta is normal in caliber. MRI/MRI Abd WITH and W/O Contrast IMPRESSION: Study significantly limited by patient motion. No significant change in the previously seen thickening of the anterior wall of the stomach. No definite site of perforation is identified. No definite fistula is identified. Although evaluation for free air is limited by MRI, there appears to be increased free air in the abdomen when compared with the prior CT. Electronically Signed: Jet Barrera, at 13:36 EDT Tel , Service support ,
[2019-12-20 08:18] VITALS: BP 122/87; PULSE 93; RESP 18; TEMP 36.8; O2SAT 96
[2019-12-20] MEDS: Acetaminophen 325 MG Tablet 650 MG PO (09:05)
[2019-12-20] MEDS: Lisinopril 5 MG Tablet PO (09:07)
[2019-12-20 11:40] LABS: Bedside Glucose 193 mg/dL (70-110)
--- NOTE | 2019-12-20 13:09 | CASEMGMT ---
RN CARMEN NOTE: To room to talk with pt. Pt states he has spoken with his sister re: medications @ [facility] and he states she is not able to pay for the medication, as she is having financial difficulty herself. Pt states he does not have anyone else he can call and he does not have any money himself. Pt made aware of [facility] Rx assist program and made aware this is only offered 1 x/year. Pt states he would like to use this program and that he would like his prescriptions @ [facility] transferred to [facility] pharmacy. Call placed to [facility] pharmacy and they were made aware pt would like his prescriptions transferred (Novolin, Lantus, and Lisinopril) and would like to utilize the Rx assist program @ discharge for these meds in addition to other meds prescribed @ discharge. TRAMAINE, Ananya Terry, made aware of above. Yusef MOREIRAN ANGELIKA MORALES
[2019-12-20 14:33] VITALS: BP 125/86; PULSE 92; RESP 18; TEMP 36.8; O2SAT 98
[2019-12-20] MEDS: Morphine 2 MG/ML Syringe IV ×2 (14:36→22:08)
--- NOTE | 2019-12-20 14:55 | CASEMGMT ---
Social Work Note RX assistance completed for pt. Will tube document to retail pharmacy when pt is discharged. 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
[2019-12-20] MEDS: Glucerna Shake 120 ML LIQUID PO ×2 (17:07→22:10)
[2019-12-20 17:10] LABS: Bedside Glucose 267 mg/dL (70-110)
[2019-12-20 20:20] VITALS: BP 126/74; PULSE 97; RESP 18; TEMP 36.9; O2SAT 97
[2019-12-20] MEDS: Atorvastatin Calcium 40 MG Tablet PO (22:11)
[2019-12-20 22:41] LABS: Bedside Glucose 403 mg/dL (70-110)
[2019-12-21 03:28] VITALS: BP 145/86; PULSE 93; RESP 16; TEMP 36.9; O2SAT 98
[2019-12-21] MEDS: Lactated Ringers 1,000 ML 50 ML IV (06:45)
[2019-12-21] MEDS: Insulin Lispro 100 UNIT/ML INSULN.PEN SC ×2 (06:48→11:34)
[2019-12-21 07:01] LABS: Bedside Glucose 411 mg/dL (70-110)
[2019-12-21 07:39] VITALS: BP 113/83; PULSE 93; RESP 18; TEMP 36.9; O2SAT 97
--- NOTE | 2019-12-21 07:41 | PCM.PN.SRG ---
Patient Problems: Active and Suspected Problems Uncontrolled diabetes mellitus (Acute) Constipation (Acute) Gastric perforation (Acute) Perforated ulcer (Acute) Weight loss, non-intentional (Acute) Subjective: Patient is doing well today. He is tolerating regular diet. His abdominal pain is well controlled with Tylenol. - Physical Exam Vitals/I&O's: Vital Signs Temp Pulse Resp BP Pulse Ox 98.4 F 93 18 113/83 H 97 12/21/19 07:39 12/21/19 07:39 12/21/19 07:39 12/21/19 07:39 12/21/19 07:39 Oxygen Flow Rate (L/min) 3 Oxygen Delivery Method Room Air Weight: 108 lb 3.951 oz Body Mass Index (BMI) 16.8 Finger Stick Blood Glucose 332 Intake and Output for Last 24 Hours 12/19/19 12/20/19 12/21/19 23:59 23:59 23:59 Intake Total 2811.29 / 2811.29 4237.50 / 4237.50 1036.67 / 1036.67 Output Total 1350 / 1350 2550 / 2550 700 / 700 Balance 1461.29 / 1461.29 1687.50 / 1687.50 336.67 / 336.67 General: Alert, Oriented x3, Cooperative Lungs: Normal air movement Abdomen: Soft, Non Tender, Non-Distended Microbiology Past 72 Hours 12/17/19 12:39 Blood Culture (Wb) - Right Forearm Blood Culture - Preliminary No growth in 48 hours. 12/17/19 12:30 Blood Culture (Wb) - Anticubital Left Blood Culture - Preliminary No growth in 48 hours. Laboratory Results 12/20/19 11:31: POC Glucose 193 H 12/20/19 17:04: POC Glucose 267 H 12/20/19 22:02: POC Glucose 403 H 12/21/19 05:49: Sodium Pending, Potassium Pending, Chloride Pending, Carbon Dioxide Pending, Anion Gap Pending, BUN Pending, Creatinine Pending, Est GFR (MDRD) Af Amer Pending, Est GFR (MDRD) Non-Af Pending, BUN/Creatinine Ratio Pending, Glucose Pending, Calcium Pending 12/21/19 06:47: POC Glucose 411 H Current Medications Acetaminophen (Tylenol) 650 mg PO Q4H PRN PRN PRN Reason: Pain 1-10/10 or Fever Last Admin: 12/20/19 09:05 Dose: 650 mg Documented by: Atorvastatin Calcium (Lipitor) 40 mg PO QHS [facility] Last Admin: 12/20/19 22:11 Dose: 40 mg Documented by: Fluticasone Propionate (Flonase Nasal [place]) 2 spray NASAL DAILY PRN PRN Reason: ALLERGIES Sodium Chloride () 250 mls @ 15 mls/hr IV .[id number] PRN PRN Reason: Saline Flush Last Infusion: 12/20/19 07:00 Dose: 0 mls/hr Documented by: Sodium Chloride () 250 mls @ 15 mls/hr IV .[id number] PRN PRN Reason: Additional IVPB Infusion Insulin Glargine (Lantus ([facility])) 20 units SC BREAKFAST [place] Insulin Glargine (Lantus ([facility])) 20 units SC QHS [facility] Insulin Human Lispro (Humalog Kwikpen ([facility])) 0 unit SC ACHS [facility]; Protocol Last Admin: 12/21/19 06:48 Dose: 11 u Documented by: Lisinopril (Zestril) 5 mg PO DAILY [facility] Last Admin: 12/20/19 09:07 Dose: 5 mg Documented by: Morphine Sulfate () 2 - 4 mg IV Q2H PRN PRN PRN Reason: Pain Score 4-10/10 Last Admin: 12/20/19 22:08 Dose: 2 mg Documented by: Nicotine (Nicoderm Cq (Pbkc)) 21 mg TRANSDERM. DAILY [facility] Last Admin: 12/20/19 09:07 Dose: 21 mg Documented by: Nutritional Formula (Lactose Free) (Glucerna Shake) 120 ml PO 4X/DAY [facility] Last Admin: 12/20/19 22:10 Dose: 120 ml Documented by: Ondansetron HCl (Zofran) 4 mg IV Q6H PRN PRN PRN Reason: NAUSEA Pantoprazole Sodium (Protonix) 20 mg PO BID [facility] Phenol/Menthol (Chloraseptic ([facility])) 3 spray MM Q2H PRN PRN PRN Reason: COUGH Last Admin: 12/17/19 21:01 Dose: 3 spray Documented by: Sodium Chloride () 10 - 40 ml IV UD PRN PRN Reason: SALINE FLUSH Last Admin: 12/19/19 13:05 Dose: 20 ml Documented by: Medical Necessity - Tobacco Use Smoking Status: Current every day smoker Tobacco Use: Cigarettes Assessment/Plan All Active Problems DKA (diabetic ketoacidoses) (Acute) Hypernatremia (Acute) Uncontrolled diabetes mellitus (Acute) Constipation (Acute) Gastric perforation (Acute) Perforated ulcer (Acute) Weight loss, non-intentional (Acute) Folliculitis (Acute) 39-year-old male with perforated gastric ulcer 1. The patient is doing well this morning. After MRI yesterday he was started on a regular diet and is tolerating this well. He is not having any abdominal pain this morning. He had an MRI which did not show any concerning mass. There is only thickening of the anterior stomach. 2. I increased his Lantus and his sliding scale. I will DC home today on Carafate and a PPI as well as his home dose of insulin. I have instructed him to maintain better control of his diabetes and see his PCP. I also instructed him to avoid tobacco and avoid NSAIDs. I will see him back in 1 week and schedule him for EGD. Jm Pope MD Pager: [facility] [address] [place] [address], [address] [place] [address] Office:
[2019-12-21] MEDS: Bisacodyl 5 MG Tablet 10 MG PO (07:43)
[2019-12-21] MEDS: Glucerna Shake 120 ML LIQUID PO (07:43)
[2019-12-21] MEDS: Lisinopril 5 MG Tablet PO (07:44)
--- NOTE | 2019-12-21 07:44 | PCM.DC ---
- Discharge Diagnoses Current Active Problems: Current Active and Chronic Problems Uncontrolled diabetes mellitus (Acute) Constipation (Acute) Gastric perforation (Acute) Perforated ulcer (Acute) Weight loss, non-intentional (Acute) You will use the following diet at home:: Calorie/Carbohydrate Controlled (specify 1200, 1400, etc) Your food should be the consistency of: Regular Discharge Activity: No Restrictions Call your doctor if your incision/area has: Continuous Slow Oozing, Sudden Increased Bleeding, Increased Pain/ Swelling, Increased Redness, Foul Smelling Discharge, Swelling at the incision site Call your doctor if you observe: Fever of 101 or Higher Remove Dressing in (days):: 1 Cleanse incision/area with: Soap & Water Allergies/Adverse Reactions: Allergies No Known Allergies Allergy (Verified 12/17/19 09:47) Medications to take at Discharge Insulin Glargine [Lantus SoloStar Pen] 20 units SUBCUT BREAKFAST #1 pen 08/17/19 Insulin Glargine [Lantus SoloStar Pen] 20 units SUBCUT QHS #1 pen 08/17/19 Fluticasone 0.05% [Flonase Nasal [place]] 2 spray NASAL DAILY PRN 12/17/19 Insulin Regular, Human [Novolin R] 10 unit SC TIDCM 12/17/19 Lisinopril [Zestril] 5 mg PO DAILY 12/17/19 Rosuvastatin Calcium [Crestor] 20 mg PO DAILY 12/17/19 Acetaminophen [Tylenol Tablet] 650 mg PO Q4H PRN PRN tablet 12/21/19 Pantoprazole Sodium [Protonix] 20 mg PO BID #60 tab 12/21/19 Sucralfate [Carafate] 1 gm PO 4X/DAY 30 Days #120 tab 12/21/19 The following prescriptions were given: Sucralfate [Carafate] 1 gm PO 4X/DAY 30 Days #120 tab Transmission Status: Pending to [facility] Pantoprazole Sodium [Protonix] 20 mg PO BID #60 tab Transmission Status: Pending to [facility] Primary Care Physician: Rocco Pemberton MD [Primary Care Provider] - Test Results: Test results from this visit will be discussed in further detail at your follow-up appointment, if applicable. Please Follow Up With: Jm Pope MD When: Please call to schedule 1 week follow up appointment. [phone]
[2019-12-21] MEDS: Pantoprazole Sodium 20 MG Tablet PO (07:50)
--- NOTE | 2019-12-21 08:31 | CASEMGMT ---
Social Work Pt ready for discharge on this date. Prescription assistance form faxed to [facility] retail pharmacy for home going medications. RN notified. TONY Jean-Baptiste
--- NOTE | 2019-12-21 09:05 | CASEMGMT ---
Addendum entered by Jeff Guillen 12/21/19 09:32: Script for Insulin pen needles received from Dr Guzmán and tubed to [facility] retail pharmacy at this time. Original Note: ANGELIKA MORALES NOTE: Discharge order is in. Call placed to [facility] retail RX and spoke w/Marion. She confirmed that all 3 prescriptions from [facility] (Novolin, Lantus, and Lisinopril) were transferred to [facility] retail rx yesterday. These 3 meds, along w/new scripts of Carafate and Pantoprazole will be covered under [facility] Rx assist gena program. Pt states he is almost out of insulin pen needles. Will obtain script and send to [facility] Retail Rx to be filled prior to pt discharge. Yusef HOROWITZ RN, CM
[2019-12-21 09:07] LABS: Anion Gap 6 (5-15); BUN 13 mg/dL (7-18); BUN/Creat Ratio 17.4 RATIO (10-20); Calcium,Total 8.6 mg/dL (8.5-10.1); Chloride 105 mmol/L (98-107); Creatinine, Serum 0.75 mg/dL (0.70-1.30); EST Glomerular Filtration Rate 124 mL/min (>60); Est Glom Filt Rate - Afr Amer 150 mL/min (>60); Estimated Creatinine Clearance 91.84 ml/min; Glucose 480 mg/dL (74-106); Potassium 3.9 mmol/L (3.5-5.1); Sodium Level 137 mmol/L (136-145)
--- NOTE | 2019-12-21 09:28 | PCM.PN.INT ---
Subjective: Patient did okay overnight. Patient is tolerating a regular diet and states that Tylenol is controlling his abdominal pain. Patient has not required any supplemental oxygen. General: Alert, Oriented x3, Cooperative, No apparent distress, - - Thin build. No conversational dyspnea. HEENT: Atraumatic, PERRLA, EOMI, Normocephalic, - - No scleral icterus or injection noted Oral: Moist Mucosa, No Gingival or Mucosal Lesions/ Ulcerations Neck: Supple, No JVD, No Nodes, Trachea Midline Lungs: Clear to auscultation, Normal air movement, No rhonchi, No wheeze, No rales Cardiovascular: Regular rate, Regular Rhythm, Normal S1, Normal S2, No murmurs, No rub noted, No Gallop Abdomen: Bowel Sounds Present, Soft, Non-Distended, Tender - Only with deep palpation Extremities: No clubbing, No cyanosis, No edema Skin: No rashes, No breakdown Musculoskeletal: No Tenderness to Palpation of Joints or Extremities, Muscle Wasting Lymphatic: No Cervical, Supraclavicular, or Inguinal Adenopathy Neurological: Cranial nerves II-XII grossly intact, Neuro grossly intact, Motor Exam 5/5 strength throughout Psych/Mental Status: Alert and oriented to time, place, person, mood and affect Vital Signs Temp Pulse Resp BP Pulse Ox 36.9 C 93 18 113/83 H 97 12/21/19 07:39 12/21/19 07:39 12/21/19 07:39 12/21/19 07:39 12/21/19 07:39 Oxygen Flow Rate (L/min) 3 Oxygen Delivery Method Room Air Weight: 49.1 kg Body Mass Index (BMI) 16.8 Finger Stick Blood Glucose 332 Intake and Output for Last 24 Hours 12/19/19 12/20/19 12/21/19 23:59 23:59 23:59 Intake Total 2811.29 / 2811.29 4237.50 / 4237.50 1036.67 / 1036.67 Output Total 1350 / 1350 2550 / 2550 700 / 700 Balance 1461.29 / 1461.29 1687.50 / 1687.50 336.67 / 336.67 Labs (Last 48 Hours) 12/19/19 12/19/19 12/19/19 10:56 16:21 21:56 WBC RBC Hgb Hct MCV MCH MCHC RDW Std Deviation RDW Coeff of Tommy Plt Count MPV Immature Gran % (Auto) Neut % (Auto) Lymph % (Auto) [place] % (Auto) Eos % (Auto) Baso % (Auto) Absolute Neuts (auto) Absolute Lymphs (auto) Nucleated RBC % Sodium Potassium Chloride Carbon Dioxide Anion Gap BUN Creatinine Estim Creat Clear Calc Est GFR (MDRD) Af Amer Est GFR (MDRD) Non-Af BUN/Creatinine Ratio Glucose Calcium POC Glucose 165 H 99 110 12/20/19 12/20/19 12/20/19 05:12 05:12 06:52 WBC 4.6 RBC 3.02 L Hgb 10.0 L Hct 27.6 L MCV 91.4 MCH 33.1 H MCHC 36.2 H D RDW Std Deviation 45.1 H RDW Coeff of Tommy 13.5 Plt Count 216 MPV 9.3 Immature Gran % (Auto) 0.000 Neut % (Auto) 64.9 Lymph % (Auto) 22.4 [place] % (Auto) 8.6 Eos % (Auto) 3.7 Baso % (Auto) 0.4 Absolute Neuts (auto) 3.0 Absolute Lymphs (auto) 1.02 Nucleated RBC % 0 Sodium 140 Potassium 3.1 L Chloride 104 Carbon Dioxide 26.0 Anion Gap 10 BUN 6 L Creatinine 0.45 L Estim Creat Clear Calc 165.22 Est GFR (MDRD) Af Amer 270 Est GFR (MDRD) Non-Af 223 BUN/Creatinine Ratio 13.4 Glucose 157 H Calcium 8.4 L POC Glucose 157 H 12/20/19 12/20/19 12/20/19 11:31 17:04 22:02 WBC RBC Hgb Hct MCV MCH MCHC RDW Std Deviation RDW Coeff of Tommy Plt Count MPV Immature Gran % (Auto) Neut % (Auto) Lymph % (Auto) [place] % (Auto) Eos % (Auto) Baso % (Auto) Absolute Neuts (auto) Absolute Lymphs (auto) Nucleated RBC % Sodium Potassium Chloride Carbon Dioxide Anion Gap BUN Creatinine Estim Creat Clear Calc Est GFR (MDRD) Af Amer Est GFR (MDRD) Non-Af BUN/Creatinine Ratio Glucose Calcium POC Glucose 193 H 267 H 403 H 12/21/19 12/21/19 05:49 06:47 WBC RBC Hgb Hct MCV MCH MCHC RDW Std Deviation RDW Coeff of Tommy Plt Count MPV Immature Gran % (Auto) Neut % (Auto) Lymph % (Auto) [place] % (Auto) Eos % (Auto) Baso % (Auto) Absolute Neuts (auto) Absolute Lymphs (auto) Nucleated RBC % Sodium 137 Potassium 3.9 Chloride 105 Carbon Dioxide 26.0 Anion Gap 6 BUN 13 Creatinine 0.75 Estim Creat Clear Calc 91.84 Est GFR (MDRD) Af Amer 150 Est GFR (MDRD) Non-Af 124 BUN/Creatinine Ratio 17.4 Glucose 480 H* Calcium 8.6 POC Glucose 411 H Microbiology 12/17/19 12:39 Blood Culture (Wb) - Right Forearm Blood Culture - Preliminary No growth in 48 hours. 12/17/19 12:30 Blood Culture (Wb) - Anticubital Left Blood Culture - Preliminary No growth in 48 hours. Clinical Impression(s) from Imaging Studies Abdomen MRI 12/20/19 07:49 IMPRESSION: Study significantly limited by patient motion. No significant change in the previously seen thickening of the anterior wall of the stomach. No definite site of perforation is identified. No definite fistula is identified. Although evaluation for free air is limited by MRI, there appears to be increased free air in the abdomen when compared with the prior CT. Electronically Signed: Jet Barrera, at 13:36 EDT Tel , Service support , Medical Necessity - Tobacco Use Smoking Status: Current every day smoker Tobacco Use: Cigarettes Assessment/Plan All Active Problems DKA (diabetic ketoacidoses) (Acute) Hypernatremia (Acute) Uncontrolled diabetes mellitus (Acute) Constipation (Acute) Gastric perforation (Acute) Perforated ulcer (Acute) Weight loss, non-intentional (Acute) Folliculitis (Acute) RECOMMENDATIONS: 1. Resume standard basal insulin with sliding scale 2. Prescription signed for needles and diabetic supplies 3. Out of bed as tolerated. Encourage incentive spirometer 4. Case management involved for insulin availability IMPRESSIONS: 1. Severe sepsis secondary to bowel perforation status post repair postop day #4 Patient currently on antibiotics per surgery. Would defer to them on duration. Patient did not have a fever overnight and overall has been doing well from a hemodynamic standpoint. No hypotension has been reported. Did stress to the patient the importance of getting out of bed and using incentive spirometer to avoid postoperative complications. Patient voiced understanding. 2. Uncontrolled diabetes mellitus secondary to noncompliance/hyperosmolar non-ketosis Patient's last hemoglobin A1c was 10.3% indicating poorly controlled diabetes mellitus. It is unclear how much of this is related to lack of access to insulin therapy versus patient compliance. Patient with elevated blood sugars overnight, but was able to initiate a full diet without difficulty. Patient would likely be okay with resumption of baseline Lantus therapy. Discussed with case management and prescription given for diabetic supplies. We will continue to monitor until on a regular diet. Outpatient follow-up with endocrine would be recommended. 3. Unintentional weight loss/probable malnutrition Complicates care, management, recovery and prognosis. Initiation of p.o. diet per surgery. Patient may have an element of weight loss secondary to poorly controlled diabetes mellitus. Malignancy would also be a consideration. Inpatient E&M: 23086 Subs Hosp L2
[2019-12-21 11:40] LABS: Bedside Glucose 225 mg/dL (70-110)
--- NOTE | 2019-12-21 12:00 | CASEMGMT ---
ANGELIKA MORALES NOTE To room to discuss discharge planning. Pt states he does have a phone appt scheduled with a doctor for Tuesday. He states this appt was arranged by Dr Pemberton and he thinks the appt is with an clerk guide, but he is not sure and does not remember the doctors name. He states he does not think they know he does not have insurance now, but states, they will find out on Tuesday, so I don't know what's going to happen then. ANGELIKA MORALES reinforced importance of follow-up with [facility] for ongoing medical care/management and prescriptions/ assistance. Pt voices understanding. Pt confirms he does have a glucometer at home, that it is functioning properly, and that he has all the needed supplies for it. Pt denies having any further needs/concerns w/discharge. Awaiting delivery of meds from [facility] retail pharmacy. Yusef HOROWITZ RN, CM
--- NOTE | 2019-12-21 12:37 | PHA.DC.MC ---
Pharmacy Service has performed discharge medication reconciliation and counseling for this patient. 1. PANTOPRAZOLE 20MG PO BID 2. SUCRALFATE 1GM PO 4 TIMES DAILY The patient's discharge medication list was reviewed for discrepancies and discrepancies were resolved. Home Medications Insulin Glargine [Lantus SoloStar Pen] 20 units SUBCUT BREAKFAST #1 pen 08/17/19 Insulin Glargine [Lantus SoloStar Pen] 20 units SUBCUT QHS #1 pen 08/17/19 Fluticasone 0.05% [Flonase Nasal [place]] 2 spray NASAL DAILY PRN 12/17/19 Insulin Regular, Human [Novolin R] 10 unit SC TIDCM 12/17/19 Lisinopril [Zestril] 5 mg PO DAILY 12/17/19 Rosuvastatin Calcium [Crestor] 20 mg PO DAILY 12/17/19 Acetaminophen [Tylenol Tablet] 650 mg PO Q4H PRN PRN tab 12/21/19 Pantoprazole Sodium [Protonix] 20 mg PO BID #60 tab 12/21/19 Sucralfate [Carafate] 1 gm PO 4X/DAY 30 Days #120 tab 12/21/19 The patient was counseled on the following discharge medications and changes in medications for homegoing were reviewed. The Reason for Use, instructions for use, and potential side effects were reviewed for all new medications. The patient's questions regarding all of their medications were answered. The patient was able to verbally demonstrate an understanding of their discharge medications.
--- NOTE | 2019-12-26 10:29 | PCM.DC.SUM ---
Discharge Date and Diagnosis Date of Admission: 12/17/19 Date of Discharge: 12/21/19 - Primary Discharge Diagnosis Perforated gastric ulcer Malnutrition Diabetes uncontrolled - Secondary Discharge Diagnosis Complete List of Medical Problems DKA (diabetic ketoacidoses) (Acute) Hypernatremia (Acute) Uncontrolled diabetes mellitus (Acute) Constipation (Acute) Gastric perforation (Acute) Perforated ulcer (Acute) Weight loss, non-intentional (Acute) Folliculitis (Acute) Hospital Course and Treatment Imaging Results: Clinical Impression(s) from Imaging Studies Abdomen/Pelvis CT 12/17/19 09:54 IMPRESSION: 1. Anterior, distal gastric wall perforation and small pneumoperitoneum along the anterior abdomen. There is a thin linear hyperdensity extending from the anterior gastric wall to umbilicus where there is inflammation and stranding, question gastrocutaneous fistula. Direct visualization of the umbilicus is recommended. 2. Marked diffuse constipation. 3. Small right posterolateral spigelian hernia containing a loop of nonobstructed large bowel N.B. : The above information has been verbally conveyed by Shira Mauricio to Harshad Calvo MD, on 12/17/2019 12:21:55 (ET). Electronically Signed: Shira Mauricio at 12:25 EDT Tel , Service support , ADDENDUM: 12/17/19 1232 IMPRESSION: 1. Anterior, distal gastric wall perforation and small pneumoperitoneum along the anterior abdomen. There is a thin linear hyperdensity extending from the anterior gastric wall to umbilicus where there is inflammation and stranding, question gastrocutaneous fistula. Direct visualization of the umbilicus is recommended. 2. Marked diffuse constipation. 3. Small right posterolateral spigelian hernia containing a loop of nonobstructed large bowel N.B. : The above information has been verbally conveyed by Shira Mauricio to Harshad Calvo MD, on 12/17/2019 12:21:55 (ET). Electronically Signed: Shira Mauricio at 12:25 EDT Tel , Service support , KUB X-Ray 12/17/19 20:15 IMPRESSION: NG tube as described. Electronically Signed: Mahamed AlexandreDO at 22:50 EDT Tel [phone], Service support , Abdomen MRI 12/20/19 07:49 IMPRESSION: Study significantly limited by patient motion. No significant change in the previously seen thickening of the anterior wall of the stomach. No definite site of perforation is identified. No definite fistula is identified. Although evaluation for free air is limited by MRI, there appears to be increased free air in the abdomen when compared with the prior CT. Electronically Signed: Jet Bruce, at 13:36 EDT Tel , Service support , Intensive care Operations: - - Laparoscopic Kurtis patch of perforated gastric ulcer Procedures: None Summary of Care Provided: The patient is a 39 year old M presented to the emergency room with abdominal pain. CT scan revealed perforated gastric ulcer. He was taken to surgery for washout and a Kurtis patch over the perforation. He was admitted to the ICU due to his poor glucose and uncontrolled diabetes. His glucose was managed by intensive care and NG was kept in place for 48 hours. NG was then removed and he was started on a clear liquid diet and an MRI was performed which did not show any obvious malignancy. Patient was started on a oral PPI as well as Carafate and discharged home in stable condition with orders to follow-up with me. - Physical Exam Vitals/I&O's: Vital Signs Temp Pulse Resp BP Pulse Ox 98.4 F 93 18 113/83 H 97 12/21/19 07:39 12/21/19 07:39 12/21/19 07:39 12/21/19 07:39 12/21/19 07:39 Oxygen Flow Rate (L/min) 3 Oxygen Delivery Method Room Air Weight: 108 lb 3.951 oz Body Mass Index (BMI) 16.8 Finger Stick Blood Glucose 332 Discharge Activity: No Restrictions Call your doctor if your incision/area has: Continuous Slow Oozing, Sudden Increased Bleeding, Increased Pain/ Swelling, Increased Redness, Foul Smelling Discharge, Swelling at the incision site Call your doctor if you observe: Fever of 101 or Higher Remove Dressing in (days):: 1 Cleanse incision/area with: Soap & Water Home Medications: Medications to take at Discharge Insulin Glargine [Lantus SoloStar Pen] 20 units SUBCUT BREAKFAST #1 pen 08/17/19 Insulin Glargine [Lantus SoloStar Pen] 20 units SUBCUT QHS #1 pen 08/17/19 Fluticasone 0.05% [Flonase Nasal [place]] 2 spray NASAL DAILY PRN 12/17/19 Insulin Regular, Human [Novolin R] 10 unit SC TIDCM 12/17/19 Lisinopril [Zestril] 5 mg PO DAILY 12/17/19 Rosuvastatin Calcium [Crestor] 20 mg PO DAILY 12/17/19 Acetaminophen [Tylenol Tablet] 650 mg PO Q4H PRN PRN tab 12/21/19 Pantoprazole Sodium [Protonix] 20 mg PO BID #60 tab 12/21/19 Sucralfate [Carafate] 1 gm PO 4X/DAY 30 Days #120 tab 12/21/19 Following Prescrptions Were Given to Patient: Sucralfate [Carafate] 1 gm PO 4X/DAY 30 Days #120 tab Transmission Status: Received by [facility] Pantoprazole Sodium [Protonix] 20 mg PO BID #60 tab Transmission Status: Received by [facility] Primary Care Physician: Rocco Pemberton MD [Primary Care Provider] - Please Follow Up With: Jm Pope MD When: Please call to schedule 1 week follow up appointment. [phone] Medical Necessity - Tobacco Use Smoking Status: Current every day smoker Tobacco Use: Cigarettes Meaningful Use Info Meaningful Use Diagnoses (Choose all that apply): None applicable
== END 2019-12-21 12:25 | disposition home or self-care (01) | DRG 853 ==
LOC: ED 12:49 → SDC 13:18 → ICU 15:11 → SDC 17:16 → ICU 17:16 → MS3 12-19 08:09 → ICU 12-19 09:54
PROVIDERS: Internal Medicine Critical Care Medicine; Admitting Provider Surgery; Emergency Provider Emergency Medicine; PCP Family Medicine; Visit Provider Surgery
PROC: 0DU647Z Supplement Stomach with Autologous Tissue Substitute, Percutaneous Endoscopic Approach (ICD-10-PCS; CPT 49320; principal; 2019-12-17 12:30)
DX: A41.9 Sepsis, unspecified organism (principal); K25.5 Chronic or unspecified gastric ulcer with perforation; E87.0 Hyperosmolality and hypernatremia; Z68.1 Body mass index [BMI] 19.9 or less, adult; K59.00 Constipation, unspecified; Z79.4 Long term (current) use of insulin; Z79.899 Other long term (current) drug therapy; F17.210 Nicotine dependence, cigarettes, uncomplicated; R19.09 Other intra-abdominal and pelvic swelling, mass and lump; E10.65 Type 1 diabetes mellitus with hyperglycemia; Z91.14 Patient's other noncompliance with medication regimen; R65.20 Severe sepsis without septic shock; E87.6 Hypokalemia
CPT/HCPCS: 36415; 74018; 74177; 74183; 80048; 80053; 81001; 82009; 82962; 83036; 83605; 83690; 85025; 87040; 96365; 96366; 96368; 96375; 97802; 97803; 99285; 99406; A9575; J7030; J7050; J7120; Q9967; A4216; J0330; J2405

== ENCOUNTER 2020-01-11 07:58 | Day surgery (SDC) | payer SELFPAY ==
--- NOTE | 2019-12-28 03:23 | HP_ITS ---
Intake Vital Signs 12/28/19 BMI 16.8 Intake Visit Reasons: ONE WEEK F/U GASTRIC ULCER 12/16 Chief Complaint: post diagnostic lap Abrasive Sawyer Required: No Is patient in pain?: No Allergies No Known Allergies Allergy (Verified 12/17/19 09:47) Medications Insulin Glargine [Lantus SoloStar Pen] 20 units SUBCUT BREAKFAST #1 pen 08/17/19 [Rx Confirmed 12/28/19] Insulin Glargine [Lantus SoloStar Pen] 20 units SUBCUT QHS #1 pen 08/17/19 [Rx Confirmed 12/28/19] Fluticasone 0.05% [Flonase Nasal [place]] 2 spray NASAL DAILY PRN 12/17/19 [History Confirmed 12/28/19] Insulin Regular, Human [Novolin R] 10 unit SUBCUT TIDCM 12/17/19 [History Confirmed 12/28/19] Lisinopril [Zestril] 5 mg PO DAILY 12/17/19 [History Confirmed 12/28/19] Rosuvastatin Calcium [Crestor] 20 mg PO DAILY 12/17/19 [History Confirmed 12/28/19] Acetaminophen [Tylenol Tablet] 650 mg PO Q4H PRN PRN tab 12/21/19 [Rx Confirmed 12/28/19] Pantoprazole Sodium [Protonix] 20 mg PO BID #60 tab 12/21/19 [Rx Confirmed 12/28/19] Sucralfate [Carafate] 1 gm PO 4X/DAY 30 Days #120 tab 12/21/19 [Rx Confirmed 12/28/19] [facility] Medical History (Updated 12/28/19 @ 14:12 by Kezia Arango) DKA (diabetic ketoacidoses) (Acute) Hypernatremia (Acute) Uncontrolled diabetes mellitus (Acute) Constipation (Acute) Gastric perforation (Acute) Perforated ulcer (Acute) Weight loss, non-intentional (Acute) Folliculitis (Acute) Surgical History (Updated 12/28/19 @ 14:16 by Kezia Arango) History of exploratory laparotomy (Acute ~12/2019) history of right bicep repair (Acute) Family History (Updated 12/28/19 @ 14:16 by Kezia Arango) Father Diabetes Mother Hypertension Social History (Updated 12/28/19 @ 15:[address] Jm Pope MD) Smoking Status: Current every day smoker HPI HPI HPI: MELONIE DC, is a 39 M who presents to the office today for HPI HPI Surgical H&P: Yes HPI: MELONIE DC is a 39 M who presents to the office today for Follow-up after perforated gastric ulcer. The patient had Kurtis patch of Perforated gastric ulcer approximately 11 days ago. Patient reports he is feeling much better is in surgery now that he is on a PPI and Carafate. He is having no abdominal pain. He says he is eating more and gaining weight. ROS General General: Yes weight change; no fatigue Cardio Cardiovascular: No murmur, pacemaker, heart disease, atrial fibrillation, high blood pressure, heart attack, heart stent, palpitations, shortness of breat with exertion or chest pain Psych Psychiatric: No depression or anxiety Resp Respiratory: No shortness of breath, No sleep apnea, No cough, No COPD, No asthma, No emphysema, No wheezing Gastro Gastrointestinal: No abdominal pain, No nausea or vomiting, No diarrhea, No constipation, No blood in stool, No acid reflux, No hemorrhoids, No ulcers, No gallbladder problem, No black,tarry stools Ghassan Hematologic: No blood thinners Exam Const General: cooperative Nutritional Appearance: thin, underweight Orientation: alert, oriented x3 Resp Effort & Inspection: normal respiratory effort Auscultation: clear to auscultation bilaterally Cardio Rate: regular rate Rhythm: regular rhythm Heart Sounds: no murmurs GI Inspection: non-distended Palpation: soft, nontender Assessment & Plan Problems 1. Acute gastric ulcer with perforation K25.1 Plan The patient had perforated gastric ulcer. He has been losing weight but he had a CT scan and MRI of the abdomen and pelvis which were normal. I will perform an EGD in 2 weeks to evaluate the stomach lining. I would also like to follow-up with him in 1 month to ensure that he is gaining weight back. If he continues to lose weight he would need a more intensive malignancy evaluation. I explained endoscopy in detail to the patient. I explained the risks including but not limited to stroke or heart attack with anesthesia, perforation of the GI tract, bleeding, infection. I explained that any of these could necessitate further emergency surgery. The patient understands and all questions were answered sufficiently. The patient wishes to proceed with procedure. Jm oPpe MD Pager: [facility] [address] [place] [address], [address] [place] [address] Office: Orders Orders: EGD Today K25.5 Coding Level of Care Code Global Post Op Diagnoses Acute gastric ulcer with perforation K25.1 ??Gastric ulcer chronicity: acute 12/28/19 1523 <Electronically signed by Jm huddleston MD> Date _ Jm Pope MD I have re-examined the patient. There are no clinical changes since date of exam.
[2019-12-28 15:20] VITALS: BMI 16.8
[2020-01-10 12:12] LABS: Probe Check PASS; Specimen Processing Control PASS
[2020-01-11] VITALS (7 sets, daily range): BP systolic 93–131; BP diastolic 70–94; PULSE 82–91; RESP 14–18; TEMP 36.4–37.3; O2SAT 96–100; BMI 18.1
[2020-01-11] MEDS: Lactated Ringers 1,000 ML 100 ML IV (08:32)
[2020-01-11 08:41] LABS: Bedside Glucose 265 mg/dL (70-110)
--- NOTE | 2020-01-11 09:40 | OP.EGD_ITS ---
Patient Name: Timothy Jefferson Procedure Date: 01/11/2020 9:14 AM Date of : 1980 Age: 39 Procedure: Upper GI endoscopy Indications: Follow-up of gastric ulcer with perforation Providers: Jm Pope MD Referring MD: Rocco Pemberton Medicines: Monitored Anesthesia Care Patient Profile: This is a 39 year old male. Refer to note in patient chart for documentation of history and physical. Complications: No immediate complications. Estimated blood loss: None. Procedure: Pre-Anesthesia Assessment: - Prior to the procedure, a History and Physical was performed, and patient medications and allergies were reviewed. The patient's tolerance of previous anesthesia was also reviewed. The risks and benefits of the procedure and the sedation options and risks were discussed with the patient. All questions were answered, and informed consent was obtained. Prior Anticoagulants: The patient has taken no previous anticoagulant or antiplatelet agents. After reviewing the risks and benefits, the patient was deemed in satisfactory condition to undergo the procedure. After obtaining informed consent, the endoscope was passed under direct vision. Throughout the procedure, the patient's blood pressure, pulse, and oxygen saturations were monitored continuously. The gastroscope was introduced through the mouth, and advanced to the second part of duodenum. The upper GI endoscopy was accomplished without difficulty. The patient tolerated the procedure well. Scope In: 9:26:33 AM Scope Out: 9:33:39 AM Total Procedure Duration Time 0 hours 7 minutes 6 seconds Findings: A large amount of food (residue) was found in the gastric body. No masses or ulcers in the visible portion of the stomach. The examined duodenum was normal. The esophagus was normal. Impression: - A large amount of food (residue) in the stomach. - Normal examined duodenum. - Normal esophagus. - No specimens collected. Recommendation: - Discharge patient to home. - Resume previous diet. - Continue present medications. Procedure Code(s): --- Professional --- 87219, Esophagogastroduodenoscopy, flexible, transoral; diagnostic, including collection of specimen(s) by brushing or washing, when performed (separate procedure) Diagnosis Code(s): --- Professional --- K25.5, Chronic or unspecified gastric ulcer with perforation CPT copyright 2017 [employer]. All rights reserved. The codes documented in this report are preliminary and upon gas collection system operator review may be revised to meet current compliance requirements. Jm Pope MD 01/11/2020 9:39:47 AM This report has been signed electronically. Number of Addenda: 0 Note Initiated On: 01/11/2020 9:14 AM
--- NOTE | 2020-01-11 09:40 | OP.CCLET_ITS ---
01/11/2020 Rocco Pemberton [address] [place] [address] Re : Upper GI endoscopy procedure for Timothy Jefferson Dear Dr. Pemberton This procedure was performed on Saturday, January 11, 2020. My impressions and recommendations are as follows: Impressions : - A large amount of food (residue) in the stomach. - Normal examined duodenum. - Normal esophagus. - No specimens collected. Recommendations : - Discharge patient to home. - Resume previous diet. - Continue present medications. My findings are described in the full procedure note, which is enclosed. If I can be of further assistance, please feel free to contact me at Doctor phone number(s): , Work: . Sincerely, Jm Pope MD 01/11/2020 9:39:47 AM This report has been signed electronically.
== END 2020-01-11 10:35 | disposition home or self-care (01) ==
LOC: EN 08:00 → AC 08:01
PROVIDERS: Physician Assistant; PCP Family Medicine; Referring Provider Family Medicine; Visit Provider Surgery
PROC: 0DJ08ZZ Inspection of Upper Intestinal Tract, Via Natural or Artificial Opening Endoscopic (ICD-10-PCS; CPT 43235; principal; 2020-01-11 08:55)
DX: K25.5 Chronic or unspecified gastric ulcer with perforation (principal); Z11.59 Encounter for screening for other viral diseases; E11.9 Type 2 diabetes mellitus without complications; I10 Essential (primary) hypertension; K21.9 Gastro-esophageal reflux disease without esophagitis; E78.00 Pure hypercholesterolemia, unspecified; Z87.19 Personal history of other diseases of the digestive system; Z79.4 Long term (current) use of insulin; Z79.899 Other long term (current) drug therapy; F17.200 Nicotine dependence, unspecified, uncomplicated
CPT/HCPCS: 43235; 82962; 87635; G2023; J7120; J2405; U0003

== ENCOUNTER 2020-10-20 11:38 | Emergency (ER) | payer OTHER, SELFPAY ==
[2020-01-11 08:20] VITALS: BMI 18.1
[2020-10-20 11:39] VITALS: BP 114/76; PULSE 84; RESP 18; TEMP 36.4; O2SAT 100; BMI 20.5
[2020-10-20 12:16] LABS: Bedside Glucose 165 mg/dL (70-110)
[2020-10-20] MEDS: Dext 5%-0.45% NS 1,000 ML 50 ML IV (12:37)
[2020-10-20 12:46] LABS: Anion Gap 9 (5-15); BUN 24 mg/dL (7-18); BUN/Creat Ratio 18.8 RATIO (10-20); Calcium,Total 9.9 mg/dL (8.5-10.1); Chloride 93 mmol/L (98-107); Creatinine, Serum 1.28 mg/dL (0.70-1.30); EST Glomerular Filtration Rate 66 mL/min (>60); Est Glom Filt Rate - Afr Amer 80 mL/min (>60); Estimated Creatinine Clearance 62.39 ml/min; Glucose 57 mg/dL (74-106); Potassium 2.7 mmol/L (3.5-5.1); Sodium Level 131 mmol/L (136-145)
[2020-10-20 13:02] VITALS: BP 115/77; PULSE 75; RESP 12; TEMP 36.3; O2SAT 100
[2020-10-20] MEDS: Potassium Chloride Oral Soln 20 MEQ/15 ML UDC 40 MEQ PO ×2 (13:10→14:44)
[2020-10-20 13:30] LABS: Bedside Glucose 151 mg/dL (70-110)
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
[2020-10-20 14:47] VITALS: BP 141/87; PULSE 77; RESP 16; O2SAT 100
== END 2020-10-20 14:48 | disposition home or self-care (01) ==
PROVIDERS: Emergency Provider Emergency Medicine; PCP Family Medicine
DX: E10.649 Type 1 diabetes mellitus with hypoglycemia without coma (principal); E87.6 Hypokalemia; T38.3X5A Adverse effect of insulin and oral hypoglycemic [antidiabetic] drugs, initial encounter; Y92.9 Unspecified place or not applicable; K52.9 Noninfective gastroenteritis and colitis, unspecified; Z79.4 Long term (current) use of insulin; F17.200 Nicotine dependence, unspecified, uncomplicated
CPT/HCPCS: 80048; 82962; 96360; 96361; 99285; J7799

== ENCOUNTER 2020-10-31 12:40 | Inpatient (IN) | payer OTHER, SELFPAY ==
[2020-10-31] VITALS (7 sets, daily range): BP systolic 121–157; BP diastolic 73–92; PULSE 90–94; RESP 12–18; TEMP 36.5–36.9; O2SAT 97–99; BMI 26.7; BMI 24.7
--- NOTE | 2020-10-31 13:20 | EKG12_ITS ---
Test Reason : Blood Pressure : / mmHG Vent. Rate : 099 BPM Atrial Rate : 099 BPM P-R Int : 170 ms QRS Dur : 082 ms QT Int : 362 ms P-R-T Axes : 053 060 059 degrees QTc Int : 464 ms Normal sinus rhythm Normal ECG Confirmed by KARIE DEVINE, CADEN ([id number]), society editor KLEVER WALTON ([id number]) on 11/03/2020 1:46:10 PM Referred By: SALINA Confirmed By:CADEN TIWARI MD
[2020-10-31 13:27] LABS: Absolute Lymphocyte Count 1.26 X10^3/uL (0.83-4.51); Absolute Neutrophil Count 3.1 X10^3/uL (2.0-7.7); Basophil# 0.03 X10^3/uL; Basophil% 0.6 % (0-1); Eosinophil# 0.05 X10^3/uL; Hematocrit 28.8 % (40-54); Hemoglobin 9.1 g/dL (13.0-16.5); Lymphocyte # 1.26 X10^3/ul (4.0); Lymphocyte % 25.4 % (19-41); Mean Corp Hgb Conc 31.6 g/dL (32-36); Mean Corpuscular Hgb 31.6 pg (27.0-32.0); Mean Platelet Vol. 9.9 fl (6.2-12.0); Monocyte% 10.1 % (0-10); NRBC Flagged by Analyzer 0 % (0-5); Neutrophil # 3.11 X10^3/uL (2.7-7.7); Neutrophil % 62.5 % (47-70); Platelet Count 213 K/mm3 (150-450); RBC Distribution Width CV 13.1 % (11.6-14.6); RBC Distribution Width SD 47.8 fl (35.1-43.9); Red Blood Count 2.88 M/mm3 (4.6-6.2)
--- NOTE | 2020-10-31 13:35 | RAD_ITS ---
STUDY: X-RAY CHEST REASON FOR EXAM: Male, 40 years old. Edema TECHNIQUE: Single AP portable view of the chest. COMPARISON: Comparison is made with prior examination dated 08/15/2019. FINDINGS: Stable mild elevation of the right hemidiaphragm. There is no demonstrated pleural abnormality. Normal size heart. Normal mediastinum and jerrod. Normal visualized pulmonary arteries. Normal visualized aortic arch and descending thoracic aorta. Normal visualized thoracic spine. Normal visualized ribs, clavicles, and shoulders. There is no demonstrated abnormality of the visualized soft tissue structures of the upper abdomen. RAD/Chest 1 View (Portable) IMPRESSION: No acute abnormality is seen. Electronically Signed: Mk Solorio MD at 13:49 EDT , Service support ,
[2020-10-31 13:45] LABS: AST(SGOT) 93 U/L (15-37); Alanine Aminotransfer ALT/SGPT 125 U/L (16-61); Alkaline Phosphatase 296 U/L (45-117); Anion Gap 8 (5-15); BUN 10 mg/dL (7-18); BUN/Creat Ratio 12.1 RATIO (10-20); Bilirubin, Direct 0.11 mg/dL (0.00-0.30); Calcium,Total 8.3 mg/dL (8.5-10.1); Chloride 106 mmol/L (98-107); Creatinine, Serum 0.83 mg/dL (0.70-1.30); EST Glomerular Filtration Rate 109 mL/min (>60); Est Glom Filt Rate - Afr Amer 132 mL/min (>60); Estimated Creatinine Clearance 106.76 ml/min; Globulin 3.3 g/dL (2.2-4.2); Glucose 320 mg/dL (74-106); Potassium 4.2 mmol/L (3.5-5.1); Protein, Total 6.3 g/dL (6.4-8.2); Sodium Level 141 mmol/L (136-145)
[2020-10-31 13:49] LABS: BNP,B-Type NATRIURETIC PEPTIDE 94.1 pg/mL (0-100)
--- NOTE | 2020-10-31 14:02 | CT_ITS ---
STUDY: CT ABDOMEN AND PELVIS WITH CONTRAST REASON FOR EXAM: Male, 40 years old. Anasarca. 50 pound weight gain in 3 weeks. Bilateral lower extremity edema. RADIATION DOSAGE (If Supplied By Facility): CTDIvol = ( 12.89 ) mGy, DLP = ( 664.53 ) mGycm TECHNIQUE: Transaxial images were obtained from the dome of the diaphragm to the symphysis pubis without oral contrast. IV 100mL Isovue-300 was administered. Sagittal and coronal images were reconstructed. Individualized dose optimization techniques were used for this CT. COMPARISON: Comparison is made with prior study dated 12/17/2019. FINDINGS: The visualized lung bases are unremarkable. The visualized portions of the heart are within normal limits. Normal liver. The gallbladder is contracted. Normal spleen. Normal pancreas. Normal bilateral adrenal glands. Normal right kidney. Normal left kidney. There is a small hiatal hernia. Large amount of residual food particles seen in the distended stomach. Normal small intestine. Moderate amount of fecal material is:. The appendix is visualized and appears normal. There is diffuse atherosclerotic calcification of the abdominal aorta, without a demonstrated aneurysm. Normal inferior vena cava. Normal retroperitoneum. Distended urinary bladder. There are prostatic calcifications. Diffuse subcutaneous edema. Stable small right Spigalean hernia. Mild degree of disc space narrowing at the L5-S1 level with minimal anterior listhesis of L5 on S1 secondary to bilateral L5 pars interarticularis fractures. CT/Abdomen/Pelvis W IV Cont ONLY IMPRESSION: There is gastric distention with gas and retained food particles. Moderate amount of fecal material is seen in the colon. Diffuse subcutaneous edema. Distended urinary bladder. Electronically Signed: Mk Solorio MD at 14:30 EDT , Service support ,
--- NOTE | 2020-10-31 14:07 | ED.VISSUMM ---
- ER Visit Summary Date of Service: 10/31/20 Chief Complaint: Swelling History of Present Illness: The patient is a [address] Tj Marley. He reports that he has lower extremity edema that began 10 days ago. Began at his feet and gradually progressed proximally. He denies any chest pain. Does report he has mild shortness of breath. He denies any fever or chills. He denies abdominal pain. He denies nausea, vomiting. Does report he has chronic diarrhea that he has had once today. There has been no blood in the stools. He denies any change in the color of his urine. Patient reports has had a 50 pound weight gain over the past 3 weeks. He has never had anything like this before. Physical Examination: Vitals: Stable. Afebrile. General: Well-nourished and well-developed. Head: Normocephalic atraumatic. Neck: Supple, no lymphadenopathy. No JVD. Nontender. Cardiovascular: Regular rate and rhythm. No murmurs. Respiratory: No respiratory distress. Clear to auscultation bilaterally. Abdominal: Soft, nontender, nondistended, normal bowel sounds. No guarding, rebound, or peritoneal signs. Back: Nontender. Extremities: Nontender, 3+ pitting edema over the lower extremities that extends over his lower abdomen. He does have edematous scrotum with no evidence of infection. Skin: Normal color, no rash. Neurologic: Alert and oriented ?3. Cranial nerves II through XII are intact. Normal strength and sensation. Psych: Normal affect. Test Results: EKG is sinus at [address] changes. Troponin is negative. BNP is 94.1. LFTs show total protein is 6.3 and albumin of 3.0. Alk phos is 296, ALT 125, AST of 93. Chem-7 shows a glucose of 320 and calcium of 8.3. CBC shows an H&H of 9.1 and 28.8. Clinical Impression(s) from Imaging Studies Chest X-Ray 10/31/20 13:35 IMPRESSION: No acute abnormality is seen. Electronically Signed: Mk Solorio MD at 13:49 EDT , Service support , Abdomen/Pelvis CT 10/31/20 14:02 IMPRESSION: There is gastric distention with gas and retained food particles. Moderate amount of fecal material is seen in the colon. Diffuse subcutaneous edema. Distended urinary bladder. Electronically Signed: Mk Solorio MD at 14:30 EDT , Service support , Emergency Department Courseand Treatment: Patient was given a dose of Lasix IV. He is resting comfortably. Treatment Plan: The patient was discussed with Dr. Baca. He will be admitted to the hospital for further evaluation and treatment. Disposition: Admitted in stable condition. Impression: 1. Anasarca. 2. Anemia. 3. Insulin-dependent diabetes myelitis with noncompliance. 4. Hyperglycemia. This note was generated with [employer] dictation software. It may contain incorrect words, spelling, and punctuation that were not noted in review of the chart prior to signing ED Disposition - Plan for ED Patient: Referrals: Rocco Pemberton MD [Primary Care Provider] -
[2020-10-31] MEDS: Furosemide 40 MG/4 ML Vial IV ×2 (14:40→21:54)
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
--- NOTE | 2020-10-31 16:00 | ECHOD_ITS ---
Reason For Study: ANASARCA Procedure This was a 2D Doppler, Color Flow transthoracic echocardiogram. Exam performed portable in patient room. Left Ventricle Normal LV size. Left ventricular systolic function is normal. The estimated ejection fraction is 60 %. Stage 1 diastolic dysfunction. No regional wall motion abnormalities noted. Right Ventricle Normal RV size. Normal systolic function. Atria Normal left atrium. Normal right atrium. Mitral Valve Normal mitral valve. Tricuspid Valve Normal tricuspid valve. Aortic Valve Normal aortic valve. Trisinus/trileaflet aortic valve. Pulmonic Valve Normal pulmonic valve. Great Vessels Normal aortic root. The pulmonary artery is normal size. Normal inferior vena cava. Pericardium/Pleural No pericardial effusion. MMode/2D Measurements & Calculations LVIDd: 4.5 cm IVSd: 1.0 cm Ao root diam: 3.2 cm LVIDs: 2.9 cm LVPWd: 1.1 cm RVDd: 2.9 cm FS: 35.9 % LAV(MOD-bp): 53.7 ml LA A4 area: 15.5 cm2 LA dimension(2D): 3.2 cm LAV(MOD-bp) Indexed: 29.1 ml/m2 LAV(MOD-sp2): 47.3 ml LAV(MOD-sp4): 47.3 ml RA A4 area: 11.0 cm2 Doppler Measurements & Calculations MV E max vinay: 72.0 cm/sec Lat Peak E' Vinay: 15.2 cm/sec Med Peak E' Vinay: 10.6 cm/sec MV A max vinay: 73.5 cm/sec E/E' lat: 4.7 E/E' med: 6.8 MV E/A: 0.98 Ao V2 max: 116.3 cm/sec LV V1 max: 91.8 cm/sec PA V2 max: 104.1 cm/sec Ao max P.4 mmHg LV V1 max P.4 mmHg ECHO/Echo Complete Interpretation Summary Normal LV size. Left ventricular systolic function is normal. The estimated ejection fraction is 60 %. Stage 1 diastolic dysfunction. Structurally normal valves. Ordering Physician: Chuyita^^^ROOF FOREMAN, ROOF FOREMAN-C Referring Physician: Rocco Pemberton Performed By: Yecenia Redman, DELON, RVT
--- NOTE | 2020-10-31 16:00 | US_ITS ---
STUDY: ABDOMINAL ULTRASOUND - RIGHT UPPER QUADRANT REASON FOR VISIT: Male, 40 years old. Elevated liver enzymes TECHNIQUE: Ultrasound evaluation of the right upper quadrant was performed with real-time and static chan-scale imaging. TECHNICAL QUALITY: Adequate. COMPARISON: Same day CT abdomen FINDINGS: Liver: The liver measures 16.3 cm. There is normal echogenicity of the liver. The bile ducts are within normal limits. There is hepatic color flow. The direction of portal flow is hepatopetal. There is no demonstrated mass lesion. Gallbladder: Normal distended gallbladder. The gallbladder wall measures 2 mm. There is a negative sonographic Miles''s sign. There is no pericholecystic fluid. There are no gallstones. Common Bile Duct (C.B.D.): The common bile duct measures 5 mm. Pancreas: Pancreatic head is normal. Body and tail are not visualized due to bowel and gas. Right Kidney: Normal size of the right kidney. The right kidney measures 9.5 x 6.1 x 5.8 cm. Normal renal cortex. The right cortex measures 1.9 cm. There are no solid lesions. There is questionable 1 cm cyst versus artifactual parenchymal appearance. There is no right hydronephrosis. US/Abdomen Limited IMPRESSION: Normal right upper quadrant ultrasound examination. Electronically Signed: Tasha Bob MD at 20:07 EDT Tel , Service support ,
--- NOTE | 2020-10-31 16:07 | VDLE_ITS ---
Reason For Study: SWELLING RIGHT LEFT GSV is normal. GSV is normal. CFV is compressible, spontaneous, competent CFV is compressible, spontaneous, competent, and demonstrates pulsatile venous flow. and demonstrates pulsatile venous flow. FV is compressible, spontaneous, competent FV is compressible, spontaneous, phasic, and demonstrates pulsatile venous flow. competent and demonstrates normal POP V is compressible, spontaneous, phasic, augmentation. competent and demonstrates normal POP V is compressible, spontaneous, phasic, augmentation. competent and demonstrates normal T/P Trunk is compressible. augmentation. PTV is compressible. T/P Trunk is compressible. RT PerV is compressible. PTV is compressible. Procedure LT PerV is compressible. This is a venous duplex using B-mode, color flow and spectral Doppler. Exam performed portable in patient room. The exam was diagnostic. A preliminary report was called and/or faxed to [facility]. VL/Venous Duplex US - [place] Extrem Interpretation Summary No evidence for acute deep venous thrombosis bilateral lower extremities with p atent and compressible bilateral great saphenous veins. Right groin 2.58 x 0.98 cm solid structure consistent with a lymph node Left groin 2.1 x 0.89 cm solid structure consistent with a lymph node Pulsatile venous flow was noted bilaterally consistent with proximal venous hyp ertension or occlusion. Clinical correlation would be appropriate Ordering Physician: Sunita Gonzalez Referring Physician: Rocco Pemberton Performed By: Yecenia Redman, DELON, RVT
[2020-10-31 16:40] LABS: Bedside Glucose 201 mg/dL (70-110)
[2020-10-31 17:26] LABS: Thyroid Stim Hormone (TSH) 2.35 uIU/mL (0.358-3.74)
[2020-10-31 17:52] LABS: Hemoglobin A1c > 14.0 % (3.8-5.6)
[2020-10-31] MEDS: Glucerna Shake 120 ML LIQUID PO (21:48)
[2020-10-31] MEDS: Potassium Chloride Oral Soln 20 MEQ/15 ML UDC PO (21:48)
[2020-10-31] MEDS: Atorvastatin Calcium 40 MG Tablet PO (21:48)
[2020-10-31] MEDS: 0.9% Saline Lock 10 ML Syringe IV (21:54)
[2020-10-31 22:40] LABS: Bedside Glucose 87 mg/dL (70-110)
[2020-11-01] VITALS (8 sets, daily range): BP systolic 110–130; BP diastolic 63–80; PULSE 90–108; RESP 14–18; TEMP 36.6–36.9; O2SAT 97–99
[2020-11-01 03:06] LABS: Bedside Glucose 384 mg/dL (70-110)
[2020-11-01] MEDS: Enoxaparin 40 MG/0.4 ML Syringe SC (05:19)
[2020-11-01] MEDS: Furosemide 40 MG/4 ML Vial IV ×3 (05:19→21:24)
[2020-11-01] MEDS: 0.9% Saline Lock 10 ML Syringe IV (05:20)
[2020-11-01 07:31] LABS: Absolute Neutrophil Count 3.3 X10^3/uL (2.0-7.7); Basophil# 0.02 X10^3/uL; Basophil% 0.4 % (0-1); Eosinophil# 0.09 X10^3/uL; Eosinophils% 1.7 % (0-5); Hematocrit 30.1 % (40-54); Hemoglobin 9.4 g/dL (13.0-16.5); Mean Corp Hgb Conc 31.2 g/dL (32-36); Mean Corpuscular Hgb 31.3 pg (27.0-32.0); Mean Corpuscular Volume 100.3 fL (80-94); Monocyte% 9.6 % (0-10); NRBC Flagged by Analyzer 0 % (0-5); Neutrophil # 3.29 X10^3/uL (2.7-7.7); Neutrophil % 63.1 % (47-70); Platelet Count 229 K/mm3 (150-450); RBC Distribution Width SD 47.4 fl (35.1-43.9); White Blood Count 5.2 K/mm3 (4.4-11.0)
[2020-11-01 08:04] LABS: ALB/GLOB Ratio 0.9 RATIO (0.9-2.4); AST(SGOT) 50 U/L (15-37); Alanine Aminotransfer ALT/SGPT 105 U/L (16-61); Albumin, Serum 2.9 g/dL (3.2-5.0); Alkaline Phosphatase 282 U/L (45-117); Anion Gap 4 (5-15); BUN 11 mg/dL (7-18); BUN/Creat Ratio 14.1 RATIO (10-20); Calcium,Total 8.4 mg/dL (8.5-10.1); Chloride 105 mmol/L (98-107); Creatinine, Serum 0.78 mg/dL (0.70-1.30); EST Glomerular Filtration Rate 117 mL/min (>60); Est Glom Filt Rate - Afr Amer 142 mL/min (>60); Globulin 3.3 g/dL (2.2-4.2); Glucose 297 mg/dL (74-106); Potassium 3.9 mmol/L (3.5-5.1); Protein, Total 6.2 g/dL (6.4-8.2); Sodium Level 140 mmol/L (136-145)
[2020-11-01] MEDS: Insulin Lispro 100 UNIT/ML INSULN.PEN SC ×4 (08:13→21:22)
[2020-11-01] MEDS: Insulin Lispro 100 UNIT/ML INSULN.PEN 10 UNIT SC ×3 (08:13→17:03)
[2020-11-01 08:21] LABS: Bedside Glucose 379 mg/dL (70-110)
[2020-11-01] MEDS: Lisinopril 5 MG Tablet PO (09:07)
[2020-11-01] MEDS: Potassium Chloride Oral Soln 20 MEQ/15 ML UDC PO ×2 (09:07→21:24)
--- NOTE | 2020-11-01 11:21 | PN_ITS ---
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 Reports improvement in lower extremity and abdominal swelling. Per weights, down 20 pounds since admission. Patient reports shortness of breath improved as well. - Physical Exam Vitals/I&O's: Vital Signs Temp Pulse Resp BP Pulse Ox 98.4 F 98 16 130/79 H 99 11/01/20 09:04 11/01/20 09:04 11/01/20 09:04 11/01/20 09:04 11/01/20 09:04 Oxygen Delivery Method Room Air Weight: 145 lb 8.081 oz Body Mass Index (BMI) 24.7 Finger Stick Blood Glucose 150 Intake and Output for Last 24 Hours 10/30/20 10/31/20 11/01/20 23:59 23:59 23:59 Intake Total 0 / 480 720 / 720 Output Total 2850 / 2850 Balance 0 / -820 -2130 / -2130 General: Alert, Oriented x3, Cooperative HEENT: Atraumatic, PERRLA, EOMI, Normocephalic Neck: Supple, No JVD, Negative Carotid Bruits Lungs: Clear to auscultation, Diminished Cardiovascular: Regular rate, No murmurs Abdomen: Bowel Sounds Present, Soft, Non Tender, Non-Distended Extremities: No clubbing, No cyanosis, Capillary Refill Less than 3 Seconds, Edema - Lower extremity edema, Hi wraps in place, improved. Skin: No rashes, No breakdown, - - Scattered abrasions bilateral lower extremities Musculoskeletal: No Tenderness to Palpation of Joints or Extremities Neurological: Cranial nerves II-XII grossly intact, Neuro grossly intact Psych/Mental Status: Normal Affect, Appropriate Laboratory Results 10/31/20 13:05: WBC 5.0, RBC 2.88 L, Hgb 9.1 L, Hct 28.8 L, MCV 100.0 H, MCH 31.6, MCHC 31.6 L, RDW Std Deviation 47.8 H, RDW Coeff of Tommy 13.1, Plt Count 213, MPV 9.9, Immature Gran % (Auto) 0.400, Neut % (Auto) 62.5, Lymph % (Auto) 25.4, Bates % (Auto) 10.1 H, Eos % (Auto) 1.0, Baso % (Auto) 0.6, Absolute Neuts (auto) 3.1, Absolute Lymphs (auto) 1.26, Nucleated RBC % 0 10/31/20 13:05: Sodium 141, Potassium 4.2, Chloride 106, Carbon Dioxide 27.0, Anion Gap 8, BUN 10, Creatinine 0.83, Estim Creat Clear Calc 106.76, Est GFR (MDRD) Af Amer 132, Est GFR (MDRD) Non-Af 109, BUN/Creatinine Ratio 12.1, Glucose 320 H, Calcium 8.3 L, Total Bilirubin 0.20, Direct Bilirubin 0.11, AST 93 H, ALT 125 H, Alkaline Phosphatase 296 H, Troponin I < 0.015, Total Protein 6.3 L, Albumin 3.0 L, Globulin 3.3 10/31/20 13:05: B-Natriuretic Peptide 94.1 10/31/20 16:20: POC Glucose 201 H 10/31/20 16:22: Magnesium 2.0, TSH 2.35 10/31/20 16:22: Hemoglobin A1c > 14.0 H 10/31/20 16:22: Hepatitis A IgM Ab Pending, Hepatitis A Ab Total Pending, Hep Bs Antigen Pending, Hep B Core Total Ab Pending, Hep B Core IgM Ab Pending 10/31/20 16:22: Troponin I < 0.015 10/31/20 18:35: Troponin I < 0.015 10/31/20 21:38: POC Glucose 87 11/01/20 03:00: POC Glucose 384 H 11/01/20 06:40: WBC 5.2, RBC 3.00 L, Hgb 9.4 L, Hct 30.1 L, MCV 100.3 H, MCH 31.3, MCHC 31.2 L, RDW Std Deviation 47.4 H, RDW Coeff of Tommy 13.0, Plt Count 229, MPV 10.0, Immature Gran % (Auto) 0.200, Neut % (Auto) 63.1, Lymph % (Auto) 25.0, Bates % (Auto) 9.6, Eos % (Auto) 1.7, Baso % (Auto) 0.4, Absolute Neuts (auto) 3.3, Absolute Lymphs (auto) 1.30, Nucleated RBC % 0 11/01/20 06:40: Sodium 140, Potassium 3.9, Chloride 105, Carbon Dioxide 31.0, Anion Gap 4 L, BUN 11, Creatinine 0.78, Estim Creat Clear Calc 113.60, Est GFR (MDRD) Af Amer 142, Est GFR (MDRD) Non-Af 117, BUN/Creatinine Ratio 14.1, Glucose 297 H, Calcium 8.4 L, Total Bilirubin 0.20, AST 50 H, ALT 105 H, Alkal ine Phosphatase 282 H, Total Protein 6.2 L, Albumin 2.9 L, Globulin 3.3, Albumin/Globulin Ratio 0.9 11/01/20 08:12: POC Glucose 379 H Current Medications Atorvastatin Calcium (Atorvastatin Calcium 40 Mg Tablet) 40 mg PO QHS [facility] Last Admin: 10/31/20 21:48 Dose: 40 mg Documented by: Enoxaparin Sodium (Enoxaparin 40 Mg/0.4 Ml Syringe) 40 mg SC DAILY@0600 [facility] Last Admin: 11/01/20 05:19 Dose: 40 mg Documented by: Furosemide (Furosemide 40 Mg/4 Ml Vial) 40 mg IV Q8 [facility] Last Admin: 11/01/20 05:19 Dose: 40 mg Documented by: Ibuprofen (Ibuprofen 400 Mg Tablet) 400 mg PO Q4H PRN PRN PRN Reason: Pain Score 1-10/Temp > 100.7 F Insulin Glargine (Insulin Glargine 100 Units/Ml Pen) 24 units SC BREAKFAST [facility] Last Admin: 11/01/20 08:13 Dose: 24 units Documented by: Insulin Glargine (Insulin Glargine 100 Units/Ml Pen) 24 units SC QHS [facility] Last Admin: 10/31/20 22:22 Dose: Not Given Documented by: Insulin Human Lispro (Insulin Lispro 100 Unit/Ml Insuln.Pen) 10 unit SC TIDCM [facility] Last Admin: 11/01/20 08:13 Dose: 10 units Documented by: Insulin Human Lispro (Insulin Lispro 100 Unit/Ml Insuln.Pen) 0 unit SC ACHS [facility]; Protocol Last Admin: 11/01/20 08:13 Dose: 4 units Documented by: Lisinopril (Lisinopril 5 Mg Tablet) 5 mg PO DAILY [facility] Last Admin: 11/01/20 09:07 Dose: 5 mg Documented by: Nicotine (Nicotine 14 Mg Patch) 14 mg TD DAILY [facility] Last Admin: 11/01/20 09:07 Dose: 14 mg Documented by: Nutritional Formula (Lactose Free) (Glucerna Shake 120 Ml Liquid) 120 ml PO 4X/DAY [facility] Last Admin: 11/01/20 09:07 Dose: Not Given Documented by: Ondansetron HCl (Ondansetron 4 Mg/2 Ml Vial) 4 mg IV Q8H PRN PRN PRN Reason: NAUSEA/VOMITING Potassium Chloride (Potassium Chloride Oral Soln 20 Meq/15 Ml Udc) 20 meq PO BID [facility] Last Admin: 11/01/20 09:07 Dose: 20 meq Documented by: Sodium Chloride (0.9% Saline Lock 10 Ml Syringe) 10 - 40 ml IV UD PRN PRN Reason: SALINE FLUSH Last Admin: 11/01/20 05:20 Dose: 10 ml Documented by: Medical Necessity - Tobacco Use Smoking Status: Current every day smoker Tobacco Use: Cigarettes Assessment/Plan All Active Problems (Last Reviewed 12/28/19 @ 14:12 by Kezia Arango) Anasarca (Acute) DKA (diabetic ketoacidoses) (Resolved) Folliculitis (Resolved) Gastric perforation (Resolved) Perforated ulcer (Resolved) Weight loss, non-intentional (Resolved) 1. Anasarca-patient reports 50 pound weight gain over the past 3 weeks. Unclear etiology. BNP and chest x-ray unremarkable. CT of abdomen pelvis shows gastric distention, moderate amount of fecal material. Subcutaneous edema. Echocardiogram demonstrates an EF of 60%, stage I diastolic dysfunction. TSH, mag within normal limits. Continue IV Lasix. Strict I&O. Daily weight. 1500 cc fluid restriction. Hi wraps bilateral lower extremities. 2. Transaminitis-possibly due to congestion. CT of abdomen without liver abnormality. Hepatitis panel pending. Improving with diuresis. 3. Hypertension- continue home lisinopril regimen. 4. Uncontrolled type 2 diabetes [id number] with sliding scale insulin. Continue home insulin regimen. Hemoglobin A1c greater than 14%. 5. Tobacco dependence- encouraged cessation. Nicotine replacement patch. 6. Chronic macrocytic anemia-appears stable, trend CBC. History of gastric ulcer with perforation. DVT prophylaxis-Lovenox subcu This patient was seen by BOONE Martins under the supervision of Dr. Sterling. <AsherShoaibGermania - Last Filed: 11/01/20 14:49> Subjective: I agree with the above and the following is a representation of my independent history and examination. Patient reports that he is noted significant improvement in his abdominal swelling and his lower extremity swelling. He is down approximately 20 pounds since admission. He indicates that this weight gain and swelling all came on very abruptly over the last 3 weeks since he was seen in the primary care physician's office earlier this month. Those notes were reviewed and indicate his weight at that time was 114. - Physical Exam Vitals/I&O's: Vital Signs Temp Pulse Resp BP Pulse Ox 98.5 F 93 14 117/72 99 11/01/20 14:00 11/01/20 14:00 11/01/20 14:00 11/01/20 14:00 11/01/20 14:00 Oxygen Delivery Method Room Air Weight: 66 kg Body Mass Index (BMI) 24.7 Finger Stick Blood Glucose 150 Intake and Output for Last 24 Hours 10/30/20 10/31/20 11/01/20 23:59 23:59 23:59 Intake Total 0 / 480 720 / 720 Output Total 4050 / 4050 Balance 0 / -820 -3330 / -3330 General: Alert, Oriented x3, Cooperative, No apparent distress, - - Somewhat disheveled middle-aged white male, appears older than stated age, sitting up in a chair, appears comfortable, nontoxic appearing HEENT: Atraumatic, PERRLA, EOMI, Normocephalic Oral: Moist Mucosa, No Gingival or Mucosal Lesions/ Ulcerations, - - Extremely poor dentition Neck: Supple, Trachea Midline, Thyroid Normal Size and Texture Lungs: Clear to auscultation, No rhonchi, No wheeze, No rales, Diminished - Diffusely Cardiovascular: Regular rate, Regular Rhythm, Normal S1, Normal S2, No murmurs, No Ectopic Activity, No rub noted, No Gallop Abdomen: Bowel Sounds Present, Soft, Non Tender, Non-Distended, - - 4 small ecchymotic areas noted, old surgical incision noted well-healed, no abdominal wall edema at this time Extremities: No clubbing, No cyanosis, Capillary Refill Less than 3 Seconds, Edema, Peripheral Pulses Normal Skin: No rashes, No breakdown, - Musculoskeletal: No Tenderness to Palpation of Joints or Extremities, No Muscle Wasting Lymphatic: No Cervical, Supraclavicular, or Inguinal Adenopathy Neurological: Cranial nerves II-XII grossly intact, Neuro grossly intact, Muscle tone normal, Coordination normal Psych/Mental Status: Normal Affect, Appropriate, - - Very pleasant Laboratory Results 10/31/20 13:05: Hepatitis C Antibody Pending 10/31/20 16:20: POC Glucose 201 H 10/31/20 16:22: Magnesium 2.0, TSH 2.35 10/31/20 16:22: Hemoglobin A1c > 14.0 H 10/31/20 16:22: Hepatitis A IgM Ab Pending, Hepatitis A Ab Total Pending, Hep Bs Antigen Pending, Hep B Core Total Ab Pending, Hep B Core IgM Ab Pending 10/31/20 16:22: Troponin I < 0.015 10/31/20 18:35: Troponin I < 0.015 10/31/20 21:38: POC Glucose 87 11/01/20 03:00: POC Glucose 384 H 11/01/20 06:40: WBC 5.2, RBC 3.00 L, Hgb 9.4 L, Hct 30.1 L, MCV 100.3 H, MCH 31.3, MCHC 31.2 L, RDW Std Deviation 47.4 H, RDW Coeff of Tommy 13.0, Plt Count 229, MPV 10.0, Immature Gran % (Auto) 0.200, Neut % (Auto) 63.1, Lymph % (Auto) 25.0, Bates % (Auto) 9.6, Eos % (Auto) 1.7, Baso % (Auto) 0.4, Absolute Neuts (auto) 3.3, Absolute Lymphs (auto) 1.30, Nucleated RBC % 0 11/01/20 06:40: Sodium 140, Potassium 3.9, Chloride 105, Carbon Dioxide 31.0, Anion Gap 4 L, BUN 11, Creatinine 0.78, Estim Creat Clear Calc 113.60, Est GFR (MDRD) Af Amer 142, Est GFR (MDRD) Non-Af 117, BUN/Creatinine Ratio 14.1, Glucose 297 H, Calcium 8.4 L, Total Bilirubin 0.20, AST 50 H, ALT 105 H, Alkaline Phosphatase 282 H, Total Protein 6.2 L, Albumin 2.9 L, Globulin 3.3, Albumin/Globulin Ratio 0.9 11/01/20 08:12: POC Glucose 379 H 11/01/20 11:40: POC Glucose 315 H Current Medications Atorvastatin Calcium (Atorvastatin Calcium 40 Mg Tablet) 40 mg PO QHS [facility] Last Admin: 10/31/20 21:48 Dose: 40 mg Documented by: Enoxaparin Sodium (Enoxaparin 40 Mg/0.4 Ml Syringe) 40 mg SC DAILY@0600 [facility] Last Admin: 11/01/20 05:19 Dose: 40 mg Documented by: Furosemide (Furosemide 40 Mg/4 Ml Vial) 40 mg IV Q8 [facility] Last Admin: 11/01/20 14:00 Dose: 40 mg Documented by: Ibuprofen (Ibuprofen 400 Mg Tablet) 400 mg PO Q4H PRN PRN PRN Reason: Pain Score 1-10/Temp > 100.7 F Insulin Glargine (Insulin Glargine 100 Units/Ml Pen) 30 units SC BREAKFAST [facility] Insulin Glargine (Insulin Glargine 100 Units/Ml Pen) 30 units SC QHS [facility] Insulin Human Lispro (Insulin Lispro 100 Unit/Ml Insuln.Pen) 10 unit SC TIDCM [facility] Last Admin: 11/01/20 11:41 Dose: 10 units Documented by: Insulin Human Lispro (Insulin Lispro 100 Unit/Ml Insuln.Pen) 0 unit SC ACHS [facility]; Protocol Last Admin: 11/01/20 11:41 Dose: 9 units Documented by: Lisinopril (Lisinopril 5 Mg Tablet) 5 mg PO DAILY [facility] Last Admin: 11/01/20 09:07 Dose: 5 mg Documented by: Nicotine (Nicotine 14 Mg Patch) 14 mg TD DAILY [facility] Last Admin: 11/01/20 09:07 Dose: 14 mg Documented by: Ondansetron HCl (Ondansetron 4 Mg/2 Ml Vial) 4 mg IV Q8H PRN PRN PRN Reason: NAUSEA/VOMITING Potassium Chloride (Potassium Chloride Oral Soln 20 Meq/15 Ml Udc) 20 meq PO BID [facility] Last Admin: 11/01/20 09:07 Dose: 20 meq Documented by: Sodium Chloride (0.9% Saline Lock 10 Ml Syringe) 10 - 40 ml IV UD PRN PRN Reason: SALINE FLUSH Last Admin: 11/01/20 05:20 Dose: 10 ml Documented by: Assessment/Plan ASSESSMENT Anasarca Transaminitis HTN Hyperlipidemia DM-2 uncontrolled Chronic macrocytic anemia History of PUD Tobacco abuse PLAN -Echo was performed and shows a normal EF with ejection fraction of 60% and mild stage I diastolic dysfunction, no other abnormalities were noted, IVC was within normal caliber -TSH was within normal limits -Transaminases are trending down--> suspect this elevation may be related to passive hepatic congestion -BNP was 94.1 on admission -Troponins were negative x2 -Bilateral Doppler lower extremities are pending -Check CT chest to assess for constrictive pericarditis -Increase Lantus to 30 units twice daily -Continue prandial insulin 10 units 3 times daily -CT of the abdomen and pelvis shows no signs of retroperitoneal fibrosis and the comment is made on a normal retroperitoneum on the study -Continue diuresis and fluid restriction Inpatient E&M: [id number] [facility] L3
[2020-11-01 11:46] LABS: Bedside Glucose 315 mg/dL (70-110)
--- NOTE | 2020-11-01 13:39 | CM.UR ---
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 ANGELIKA MORALES introduced self and role at [facility]. Patient is alert and oriented. Patient willing to participate in assessment and is able to answer all questions appropriately. Care providers, pharmacy, and demographics verified. Patient wishes to discharge home, denies need for home health at this time. Patient states he has no further needs or concerns at this time. CM to follow for discharge planning needs that may arise. Presentation: BLE edema Dx: anasarca readmit: no PCP: [facility] Specialists: none. Wants to see Dr. Lozano but she is booked out march. Preferred Pharmacy: [facility]. Insurance: MMO Prescription Benefit: yes Living Will/HPOA: none, declined additional information. LNOK: Father, sister Living Arrangements: Patient lives with father in mobile home with ramp to enter the home. Patient states he is independent Transportation: family. He does not have a drivers license so he walks or his family takes him. Gave him [employer] transport information for Dr. Hunter only. DME/HHC: Patient states he has glucometer and testing supplies. No previous HHC. Disposition Plan: Patient to discharge home with family support and follow-up plans in place. States that he wants to get in with Dr. Lozano because his blood sugars are all over the place. States he had 3 hypoglycemia episodes in 1 week. States he was >400 in the morning, had a banana and cereal bar for breakfast. Took 10 units of his fast acting and 24 units of his lantus that morning. States next thing he knows he is down to 59. States work will not allow him to come to work if he can't get his blood sugars under control. Explained I'll see if we can get him in sooner to Dr. Lozano. Venancio Kauffman RN, [facility].
--- NOTE | 2020-11-01 14:13 | CT_ITS ---
STUDY: CT CHEST WITHOUT CONTRAST REASON FOR EXAM: Male, 40 years old. Anasarca -- RADIATION DOSAGE (If Supplied By Facility): CTDIvol = ( 8.34 ) mGy, DLP = ( 316.84 ) mGycm TECHNIQUE: Transaxial imaging was performed without the administration of intravenous contrast material. Multiplanar coronal and sagittal images were reformatted. Individualized dose optimization techniques were used for this CT. COMPARISON: None. FINDINGS: Localized groundglass opacity and bronchovascular micronodules in the upper portion of the left lower lobe on image 53. Mild subpleural atelectasis or scarring in the bilateral lower lobes. There is no demonstrated pleural abnormality. Heart size is normal. No pericardial thickening/fluid. Normal mediastinum. Normal hilar regions. Normal unenhanced pulmonary arteries. Normal aorta arch and descending thoracic aorta. Normal osseous structures. Retained food within the stomach, moderately distended. CT/Chest without Contrast IMPRESSION: 1. Localized infiltrate of the left lower lobe suggests pneumonia/infection. Electronically Signed: Timothy Carrion MD ([place]) at 15:07 EDT , Service support ,
[2020-11-01 15:33] LABS: Cholesterol 176 mg/dL (200); High Density Lipoprotein 108 mg/dL; Triglycerides 44 mg/dL; Very Low Density Lipoprotein 9 mg/dL (5-40)
[2020-11-01 16:32] LABS: Bacteria 0 SEEN /hpf (None Seen); Mucous, Urine 0 SEEN /hpf (<or=2+); Red Blood Cells-Urine 0 SEEN /hpf (0-5); Squamous Epithelial Cells - UA 0 SEEN /hpf (0-5); White Blood Cells 0 SEEN /hpf (0-5)
[2020-11-01 16:33] LABS: Color, Urine Straw (Yellow); Glucose, Dipstick 100 mg/dl (Normal); Ketone-Dipstick Negative (Negative); Leukocyte Esterase-Dipstick Negative /ul (Negative); Nitrite-Dipstick Negative (Negative); Occult Blood-Urine Negative /ul (Negative); Protein-Dipstick Negative (Negative); Specific Gravity, Urine 1.005 (1.002-1.030); Urine Bilirubin Dipstick Negative (Negative); Urine Clarity Clear (Clear); Urine Urobilinogen Normal (Normal)
[2020-11-01 17:46] LABS: Bedside Glucose 239 mg/dL (70-110)
[2020-11-01] MEDS: Loperamide 2 MG Capsule PO (18:17)
[2020-11-01] MEDS: Atorvastatin Calcium 40 MG Tablet PO (21:24)
[2020-11-01 21:35] LABS: Bedside Glucose 253 mg/dL (70-110)
[2020-11-02 02:00] VITALS: BP 123/72; PULSE 85; RESP 12; TEMP 36.9; O2SAT 97
[2020-11-02 02:58] VITALS: PULSE 89
[2020-11-02 05:48] LABS: Hematocrit 29.1 % (40-54); Hemoglobin 9.1 g/dL (13.0-16.5); Mean Corp Hgb Conc 31.3 g/dL (32-36); Mean Corpuscular Hgb 31.3 pg (27.0-32.0); Mean Platelet Vol. 9.7 fl (6.2-12.0); Platelet Count 225 K/mm3 (150-450); RBC Distribution Width CV 12.6 % (11.6-14.6); Red Blood Count 2.91 M/mm3 (4.6-6.2); White Blood Count 4.6 K/mm3 (4.4-11.0)
[2020-11-02] MEDS: Enoxaparin 40 MG/0.4 ML Syringe SC (06:12)
[2020-11-02] MEDS: Furosemide 40 MG/4 ML Vial IV ×2 (06:12→13:40)
[2020-11-02 06:22] LABS: ALB/GLOB Ratio 0.8 RATIO (0.9-2.4); AST(SGOT) 28 U/L (15-37); Alanine Aminotransfer ALT/SGPT 77 U/L (16-61); Albumin, Serum 2.7 g/dL (3.2-5.0); Alkaline Phosphatase 241 U/L (45-117); Anion Gap 4 (5-15); BUN 22 mg/dL (7-18); Calcium,Total 8.5 mg/dL (8.5-10.1); Chloride 104 mmol/L (98-107); Creatinine, Serum 0.82 mg/dL (0.70-1.30); EST Glomerular Filtration Rate 111 mL/min (>60); Est Glom Filt Rate - Afr Amer 135 mL/min (>60); Estimated Creatinine Clearance 108.06 ml/min; Globulin 3.3 g/dL (2.2-4.2); Glucose 288 mg/dL (74-106); Potassium 4.5 mmol/L (3.5-5.1); Sodium Level 136 mmol/L (136-145)
[2020-11-02 07:00] VITALS: PULSE 85
[2020-11-02] MEDS: Insulin Lispro 100 UNIT/ML INSULN.PEN 10 UNIT SC ×3 (08:14→17:21)
[2020-11-02] MEDS: Insulin Lispro 100 UNIT/ML INSULN.PEN SC ×2 (08:14→17:22)
[2020-11-02 08:17] VITALS: BP 134/89; PULSE 89; RESP 15; TEMP 37; O2SAT 99
[2020-11-02] MEDS: Potassium Chloride Oral Soln 20 MEQ/15 ML UDC PO (08:23)
[2020-11-02] MEDS: Lisinopril 5 MG Tablet PO (08:23)
[2020-11-02 08:31] LABS: Bedside Glucose 358 mg/dL (70-110)
--- NOTE | 2020-11-02 10:20 | DCINST_ITS ---
- Discharge Diagnoses Current Active Problems: Current Active and Chronic Problems (Last Reviewed 12/28/19 @ 14:12 by Kezia Arango) Chronic diarrhea (Chronic) Anasarca (Acute) Type 1 diabetes mellitus (Chronic) Uncontrolled diabetes mellitus (Chronic) You will use the following diet at home:: Other - Low sodium diet Discharge Activity: Return to Normal Activity Call your doctor if you observe: Shortness of breath, Dizziness, Fainting spells, Chest pain Additional Instructions: If you gain more than 1 to 2 pounds in 24 hours, increase Lasix to 40 mg twice daily. Allergies/Adverse Reactions: Allergies No Known Allergies Allergy (Verified 01/07/20 15:12) Medications to take at Discharge Fluticasone 0.05% [Flonase Nasal [place]] 2 spray NASAL DAILY PRN 12/17/19 Insulin Regular, Human [Novolin R] 10 unit SUBCUT TIDCM 12/17/19 Lisinopril [Zestril] 5 mg PO DAILY 12/17/19 Rosuvastatin Calcium [Crestor] 20 mg PO DAILY 12/17/19 Acetaminophen [Tylenol Tablet] 650 mg PO Q4H PRN PRN tab 12/21/19 Potassium Chloride Oral Soln [KCL 20meq Oral Solution] 20 meq PO BID #480 udc 10/20/20 Insulin Glargine [Lantus SoloStar Pen] 24 units SC BREAKFAST 10/31/20 Insulin Glargine [Lantus SoloStar Pen] 24 units SC QHS 10/31/20 Furosemide [Lasix] 40 mg PO DAILY #60 tab 11/02/20 The following prescriptions were given: Furosemide [Lasix] 40 mg PO DAILY #60 tab Transmission Status: Pending to [facility] Primary Care Physician: Rocco Pemberton MD [Primary Care Provider] - Please follow up with your Primary Care Physician in: 3-5 Days Test Results: Test results from this visit will be discussed in further detail at your follow- up appointment, if applicable. Proposed Discharge Date: 11/02/20
--- NOTE | 2020-11-02 10:23 | PCM.DC.SUM ---
<Sunita Gonzalez MULTIMEDIA ENGINEER - Last Filed: 11/02/20 10:52> Discharge Date and Diagnosis - Problem List Patient Problems: Active and Suspected Problems (Last Reviewed 12/28/19 @ 14:12 by Kezia Arango) Anasarca (Acute) Date of Admission: 10/31/20 Date of Discharge: 11/02/20 - Primary Discharge Diagnosis Acute Problems: Active Problems (Last Reviewed 12/28/19 @ 14:12 by Kezia Arango) 1. Anasarca 2. Transaminitis 3. Hypertension 4. Uncontrolled type 2 diabetes mellitus 5. Tobacco dependence 6. Chronic macrocytic anemia - Secondary Discharge Diagnosis Chronic Problems: Chronic Problems (Last Reviewed 12/28/19 @ 14:12 by Kezia Arango) Chronic diarrhea (Chronic) Type 1 diabetes mellitus (Chronic) Uncontrolled diabetes mellitus (Chronic) Hospital Course and Treatment Imaging Results: Diagnostic Data Chest X-Ray 10/31/20 13:35 IMPRESSION: No acute abnormality is seen. Electronically Signed: Mk Solorio MD at 13:49 EDT , Service support , Abdomen/Pelvis CT 10/31/20 14:02 IMPRESSION: There is gastric distention with gas and retained food particles. Moderate amount of fecal material is seen in the colon. Diffuse subcutaneous edema. Distended urinary bladder. Electronically Signed: Mk Solorio MD at 14:30 EDT , Service support , Abdomen Ultrasound 10/31/20 16:00 IMPRESSION: Normal right upper quadrant ultrasound examination. Electronically Signed: Tasha Bob MD at 20:07 EDT Tel , Service support , Echocardiogram 10/31/20 16:00 Interpretation Summary Normal LV size. Left ventricular systolic function is normal. The estimated ejection fraction is 60 %. Stage 1 diastolic dysfunction. Structurally normal valves. Ordering Physician: Carlos^Sunita^^^MULTIMEDIA ENGINEER, MULTIMEDIA ENGINEER-C Referring Physician: Rocco Pemberton Performed By: Yecenia Redman, LUCYCS, RVT Chest CT 11/01/20 14:13 IMPRESSION: 1. Localized infiltrate of the left lower lobe suggests pneumonia/infection. Electronically Signed: Timothy Carrion MD (Brooks) at 15:07 EDT , Service support , Operations: None Procedures: 2-D Echocardiogram Summary of Care Provided: The patient is a 40 year old M admitted 10/31/2020 due to weight gain and swelling. 1. Anasarca-patient reports 50 pound weight gain over the past 3 weeks. BNP and chest x-ray unremarkable. CT of abdomen pelvis shows gastric distention, moderate amount of fecal material. Subcutaneous edema. Echocardiogram demonstrates an EF of 60%, stage I diastolic dysfunction. TSH, mag within normal limits. Spot urine negative for protein. Chest CT unremarkable. 24-hour urine completed prior to discharge however results pending. Can be further followed by PCP. Etiology unclear at this time however no evidence of liver or renal etiology. Restrictive cardiomyopathy/constrictive pericarditis ruled out. Discharged on Lasix 40 mg daily. If patient has weight gain greater than 1 to 2 pounds in 24 hours, may increase to 40 mg twice daily. Follow-up with PCP within 1 week. 2. Transaminitis-improved following diuresis. CT of abdomen without liver abnormality. Hepatitis panel pending. 3. Hypertension- continue home lisinopril regimen. 4. Uncontrolled type 2 diabetes [id number] with sliding scale insulin. Continue home insulin regimen. Hemoglobin A1c greater than 14%. Patient reports he recently ran out of his Lantus for a month. New Rx given by PCP. He is scheduled to establish with endocrinology in March, unable to get sooner appointment at this time. Recommend close follow-up with PCP for aggressive glucose management. 5. Tobacco dependence- encouraged cessation. 6. Chronic macrocytic anemia-appears stable. History of gastric ulcer with perforation. General: Alert, Oriented x3, Cooperative HEENT: Atraumatic, PERRLA, EOMI, Normocephalic Neck: Supple, No JVD, Negative Carotid Bruits Lungs: Clear to auscultation, Diminished Cardiovascular: Regular rate, No murmurs Abdomen: Bowel Sounds Present, Soft, Non Tender, Non-Distended Extremities: No clubbing, No cyanosis, Capillary Refill Less than 3 Seconds, Edema - Lower extremity edema, Hi wraps in place, improved. Skin: No rashes, No breakdown, Scattered abrasions bilateral lower extremities Musculoskeletal: No Tenderness to Palpation of Joints or Extremities Neurological: Cranial nerves II-XII grossly intact, Neuro grossly intact Psych/Mental Status: Normal Affect, Appropriate Patient seen and examined prior to discharge. Physical assessment as noted above. Patient is stable for discharge with follow up recommendations as noted above. This patient was seen by BOONE Martins under the supervision of Dr. Sterling. Patient Problems: Active and Suspected Problems (Last Reviewed 12/28/19 @ 14:12 by Kezia Arango) Anasarca (Acute) - Physical Exam Vitals/I&O's: Vital Signs Temp Pulse Resp BP Pulse Ox 98.6 F 89 15 134/89 H 99 11/02/20 08:17 11/02/20 08:17 11/02/20 08:17 11/02/20 08:17 11/02/20 08:17 Oxygen Delivery Method Room Air Weight: 142 lb 10.225 oz Body Mass Index (BMI) 24.7 Finger Stick Blood Glucose 150 Intake and Output for Last 24 Hours 10/31/20 11/01/20 11/02/20 23:59 23:59 23:59 Intake Total 0 / 480 840 / 840 100 / 100 Output Total 5300 / 5300 1225 / 1225 Balance 0 / -820 -4460 / -4460 -1125 / -1125 Laboratory Results 10/31/20 13:05: Hepatitis C Antibody Pending 11/01/20 06:40: Triglycerides 44, Cholesterol 176, LDL Cholesterol 59, VLDL Cholesterol 9, HDL Cholesterol 108 11/01/20 11:40: POC Glucose 315 H 11/01/20 15:20: Urine Color Straw, Urine Clarity Clear, Urine pH 7.0, Ur Specific Astor 1.005, Urine Protein Negative, Urine Glucose (UA) 100 H, Urine Ketones Negative, Urine Occult Blood Negative, Urine Nitrite Negative, Urine Bilirubin Negative, Urine Urobilinogen Normal, Ur Leukocyte Esterase Negative, Urine RBC 0 SEEN, Urine WBC 0 SEEN, Ur Squamous Epith Cells 0 SEEN, Urine Bacteria 0 SEEN, Urine Mucus 0 SEEN 11/01/20 16:59: POC Glucose 239 H 11/01/20 21:19: POC Glucose 253 H 11/02/20 05:27: WBC 4.6, RBC 2.91 L, Hgb 9.1 L, Hct 29.1 L, MCV 100.0 H, MCH 31.3, MCHC 31.3 L, RDW Std Deviation 46.0 H, RDW Coeff of Tommy 12.6, Plt Count 225, MPV 9.7 11/02/20 05:27: Sodium 136, Potassium 4.5, Chloride 104, Carbon Dioxide 28.0, Anion Gap 4 L, BUN 22 H, Creatinine 0.82, Estim Creat Clear Calc 108.06, Est GFR (MDRD) Af Amer 135, Est GFR (MDRD) Non-Af 111, BUN/Creatinine Ratio 27.0 H, Glucose 288 H, Calcium 8.5, Total Bilirubin 0.20, AST 28, ALT 77 H, Alkaline Phosphatase 241 H, Total Protein 6.0 L, Albumin 2.7 L, Globulin 3.3, Albumin/Globulin Ratio 0.8 L 11/02/20 08:13: POC Glucose 358 H Current Medications Atorvastatin Calcium (Atorvastatin Calcium 40 Mg Tablet) 40 mg PO QHS [facility] Last Admin: 11/01/20 21:24 Dose: 40 mg Documented by: Enoxaparin Sodium (Enoxaparin 40 Mg/0.4 Ml Syringe) 40 mg SC DAILY@0600 [facility] Last Admin: 11/02/20 06:12 Dose: 40 mg Documented by: Furosemide (Furosemide 40 Mg/4 Ml Vial) 40 mg IV Q8 [facility] Last Admin: 11/02/20 06:12 Dose: 40 mg Documented by: Ibuprofen (Ibuprofen 400 Mg Tablet) 400 mg PO Q4H PRN PRN PRN Reason: Pain Score 1-10/Temp > 100.7 F Insulin Glargine (Insulin Glargine 100 Units/Ml Pen) 30 units SC BREAKFAST [facility] Last Admin: 11/02/20 08:15 Dose: 30 units Documented by: Insulin Glargine (Insulin Glargine 100 Units/Ml Pen) 30 units SC QHS [facility] Last Admin: 11/01/20 21:23 Dose: 30 u Documented by: Insulin Human Lispro (Insulin Lispro 100 Unit/Ml Insuln.Pen) 0 unit SC ACHS [facility]; Protocol Last Admin: 11/02/20 08:14 Dose: 12 units Documented by: Insulin Human Lispro (Insulin Lispro 100 Unit/Ml Insuln.Pen) 10 unit SC TIDCM [facility] Last Admin: 11/02/20 08:14 Dose: 10 units Documented by: Lisinopril (Lisinopril 5 Mg Tablet) 5 mg PO DAILY [facility] Last Admin: 11/02/20 08:23 Dose: 5 mg Documented by: Loperamide HCl (Loperamide 2 Mg Capsule) 2 mg PO Q6H PRN PRN PRN Reason: Diarrhea Last Admin: 11/01/20 18:17 Dose: 2 mg Documented by: Nicotine (Nicotine 14 Mg Patch) 14 mg TD DAILY [facility] Last Admin: 11/02/20 08:22 Dose: 14 mg Documented by: Ondansetron HCl (Ondansetron 4 Mg/2 Ml Vial) 4 mg IV Q8H PRN PRN PRN Reason: NAUSEA/VOMITING Potassium Chloride (Potassium Chloride Oral Soln 20 Meq/15 Ml Udc) 20 meq PO BID [facility] Last Admin: 11/02/20 08:23 Dose: 20 meq Documented by: Sodium Chloride (0.9% Saline Lock 10 Ml Syringe) 10 - 40 ml IV UD PRN PRN Reason: SALINE FLUSH Last Admin: 11/01/20 05:20 Dose: 10 ml Documented by: Discharge Diet: 2000 mg Sodium Diet Discharge Activity: Return to Normal Activity Call your doctor if you observe: Shortness of breath, Dizziness, Fainting spells, Chest pain Home Medications: Medications to take at Discharge Fluticasone 0.05% [Flonase Nasal Deport] 2 spray NASAL DAILY PRN 12/17/19 Insulin Regular, Human [Novolin R] 10 unit SUBCUT TIDCM 12/17/19 Lisinopril [Zestril] 5 mg PO DAILY 12/17/19 Rosuvastatin Calcium [Crestor] 20 mg PO DAILY 12/17/19 Acetaminophen [Tylenol Tablet] 650 mg PO Q4H PRN PRN tab 12/21/19 Potassium Chloride Oral Soln [KCL 20meq Oral Solution] 20 meq PO BID #480 udc 10/20/20 Insulin Glargine [Lantus SoloStar Pen] 24 units SC BREAKFAST 10/31/20 Insulin Glargine [Lantus SoloStar Pen] 24 units SC QHS 10/31/20 Furosemide [Lasix] 40 mg PO DAILY #60 tab 11/02/20 Following Prescriptions Were Given to Patient: Furosemide [Lasix] 40 mg PO DAILY #60 tab Transmission Status: Received by [employer] [facility][id number] Primary Care Physician: Rocco Pemberton MD [Primary Care Provider] - Please follow up with your Primary Care Physician in: 3-5 Days Disposition: Home Minutes spent on discharge:: 35 Patient Condition:: Stable Medical Necessity - Tobacco Use Smoking Status: Current every day smoker Tobacco Use: Cigarettes Meaningful Use Info Meaningful Use Diagnoses (Choose all that apply): None applicable <Germania Sterling - Last Filed: 11/02/20 12:04> Discharge Date and Diagnosis - Primary Discharge Diagnosis Acute Problems: Active Problems (Last Reviewed 12/28/19 @ 14:12 by Kezia Arango) Anasarca (Acute) - Secondary Discharge Diagnosis Chronic Problems: Chronic Problems (Last Reviewed 12/28/19 @ 14:12 by Kezia Arango) Chronic diarrhea (Chronic) Type 1 diabetes mellitus (Chronic) Uncontrolled diabetes mellitus (Chronic) Hospital Course and Treatment Procedures: - - 24-hour urine collection Summary of Care Provided: I agree with the above and the following is a representation of my independent history and physical examination. Mr. Jefferson is a 40-year-old white male who presented to the emergency department from his primary care physician's office on 2020 for weight gain and swelling in his lower extremities. Upon admission he reported that he had approximately a 50 pound weight gain over the last 3 weeks. He had been seen in his primary care physician's office on 10 13 and weighed 114 pounds mission here his body weight was 165 pounds. He reported significant bilateral lower extremity edema that extended up into his abdomen and complained of shortness of breath with lying flat but he otherwise was asymptomatic. Emergency department his vitals were unremarkable. His CBC other than some mild anemia was unremarkable. He had normal renal function. He had a blood glucose of 320 with a hemoglobin of A1c greater than 14 which is consistent with his recent primary care physicians data. He had a negative troponin. His AST and ALT were mildly elevated with his AST being 93 and his ALT being 125. A TSH was obtained and was 2.35. CT of his abdomen and pelvis with IV contrast was done in the emergency department and showed some gastric distention with retained food particles, constipation, diffuse subcutaneous edema and a distended urinary bladder but no signs of fibrosis in the retroperitoneum or abnormalities in the kidney. He was admitted to the medical floor and initiated on Lasix. An abdominal ultrasound was performed to further evaluate the liver and it was within normal limits. Hepatitis studies were obtained and were pending at discharge. I suspect his elevated liver function is related to passive congestion as they improved with Lasix over time. His albumin was noted to be 2.9 with a total protein of 6.0. Echocardiogram was obtained and showed a normal LV with normal size EF at 60%, and stage I diastolic dysfunction, the IVC was not distended and there were no signs of pulmonary artery hypertension. A CT of his chest was obtained and showed some localized bronchovascular micronodules but no signs of pericardial thickening or calcification. Lateral lower extremity Dopplers were obtained to rule out DVT and these were both negative as well. His UA showed no protein but a 24-hour urine protein was obtained and had completed collection at discharge. This will need to be reviewed after discharge for total protein. At this point his hospitalization ruled out several etiologies including thyroid disease, heart failure, restrictive cardiomyopathy, constrictive pericarditis, venous thromboembolic disease, pulmonary hypertension, and I suspect his urinary 24-hour protein is going to be within normal limits which would rule out nephrotic syndrome as an etiology for his current edema. We will discharge him today given his clinical stability on 40 mg of Lasix. He has been instructed to assess his weight daily and confirms he does have a scale at home. If his weight increases more than 1 to 2 pounds in a 24-hour period he is to take an extra dose of 40 mg of p.o. Lasix. He is to continue his potassium supplementation. He is also to maintain a low-sodium diet. No changes were made in his diabetic regimen at this time as he complains of having hypoglycemic episodes at work. His overall blood sugar values were extremely high during his hospitalization. He is to follow-up with his primary care physician next week for further work-up. He was discharged with a new prescription for Lasix and this was faxed to his pharmacy. During his hospitalization we were able to diurese approximately 20 pounds of fluid. Oxygen saturations throughout his hospitalization were 90 to 100% on room air and his orthopnea had resolved at discharge. Discharge diagnoses Anasarca-etiology unknown Transaminitis-resolving at discharge Hypertension Hyperlipidemia DM-1 versus 2 uncontrolled -Not clear whether this patient is type I versus type II as he states has been treated in the past with oral medications and not gone into DKA which makes me suspect he is most likely not a true type I diabetic Chronic macrocytic anemia History of peptic ulcer disease Tobacco abuse Discharge time greater than 35 minutes Subjective: Patient states he is feeling much better and has noticed a dramatic improvement in his edema although its not completely resolved. I discussed his work-up thus far and the fact that we did not come up with a definitive etiology for his edema but that he is stable medically for discharge home and needs to follow-up with his PCP next week. We reviewed the initiation of Lasix at home and the fact that he is to check his weights daily. He does confirm that he has a scale at home. He was instructed to take 40 Lasix daily and an extra dose if he gains greater than 1 to 2 pounds in a 24-hour or notices increasing edema. - Physical Exam Vitals/I&O's: Vital Signs Temp Pulse Resp BP Pulse Ox 98.6 F 89 15 134/89 H 99 11/02/20 08:17 11/02/20 08:17 11/02/20 08:17 11/02/20 08:17 11/02/20 08:17 Oxygen Delivery Method Room Air Weight: 64.7 kg Body Mass Index (BMI) 24.7 Finger Stick Blood Glucose 150 Intake and Output for Last 24 Hours 10/31/20 11/01/20 11/02/20 23:59 23:59 23:59 Intake Total 0 / 480 840 / 840 100 / 100 Output Total 5300 / 5300 1225 / 1225 Balance 0 / -820 -4460 / -4460 -1125 / -1125 General: Alert, Oriented x3, Cooperative, No apparent distress, Well developed, Well nourished, - - White male sitting up in the chair at the bedside, appears older than stated age, on room air and appears comfortable, nontoxic in no distress HEENT: Atraumatic, PERRLA, EOMI, Normocephalic, EAC Clear Oral: Moist Mucosa, No Gingival or Mucosal Lesions/ Ulcerations, - - Dentition, Mallampati 2, no thrush Neck: Supple, No JVD, Negative Carotid Bruits, Negative Hepatojugular Reflux, No Nodes, No Nuchal Rigidity, Trachea Midline, Thyroid Normal Size and Texture Lungs: Clear to auscultation, No rhonchi, No wheeze, No rales, Diminished - Diffusely Cardiovascular: Regular rate, Regular Rhythm, Normal S1, Normal S2, No murmurs, No Ectopic Activity, No rub noted, No Gallop Abdomen: Bowel Sounds Present, Soft, Non Tender, Non-Distended, - - Abdominal wall edema has improved Extremities: No clubbing, No cyanosis, Capillary Refill Less than 3 Seconds, Edema - 1+ bilateral lower extremities, Peripheral Pulses Normal Skin: No rashes, No breakdown Musculoskeletal: No Tenderness to Palpation of Joints or Extremities, No Muscle Wasting, Cachexia Lymphatic: No Cervical, Supraclavicular, or Inguinal Adenopathy Neurological: Cranial nerves II-XII grossly intact, Neuro grossly intact, Muscle tone normal, Sensory exam intact to light touch and pain, Coordination normal Psych/Mental Status: Normal Affect, Appropriate, - - Pleasant and appreciative Laboratory Results 10/31/20 13:05: Hepatitis C Antibody Pending 11/01/20 06:40: Triglycerides 44, Cholesterol 176, LDL Cholesterol 59, VLDL Cholesterol 9, HDL Cholesterol 108 11/01/20 11:40: POC Glucose 315 H 11/01/20 15:20: Urine Color Straw, Urine Clarity Clear, Urine pH 7.0, Ur Specific Astor 1.005, Urine Protein Negative, Urine Glucose (UA) 100 H, Urine Ketones Negative, Urine Occult Blood Negative, Urine Nitrite Negative, Urine Bilirubin Negative, Urine Urobilinogen Normal, Ur Leukocyte Esterase Negative, Urine RBC 0 SEEN, Urine WBC 0 SEEN, Ur Squamous Epith Cells 0 SEEN, Urine Bacteria 0 SEEN, Urine Mucus 0 SEEN 11/01/20 16:59: POC Glucose 239 H 11/01/20 21:19: POC Glucose 253 H 11/02/20 05:27: WBC 4.6, RBC 2.91 L, Hgb 9.1 L, Hct 29.1 L, MCV 100.0 H, MCH 31.3, MCHC 31.3 L, RDW Std Deviation 46.0 H, RDW Coeff of Tommy 12.6, Plt Count 225, MPV 9.7 11/02/20 05:27: Sodium 136, Potassium 4.5, Chloride 104, Carbon Dioxide 28.0, Anion Gap 4 L, BUN 22 H, Creatinine 0.82, Estim Creat Clear Calc 108.06, Est GFR (MDRD) Af Amer 135, Est GFR (MDRD) Non-Af 111, BUN/Creatinine Ratio 27.0 H, Glucose 288 H, Calcium 8.5, Total Bilirubin 0.20, AST 28, ALT 77 H, Alkaline Phosphatase 241 H, Total Protein 6.0 L, Albumin 2.7 L, Globulin 3.3, Albumin/Globulin Ratio 0.8 L 11/02/20 08:13: POC Glucose 358 H Current Medications Atorvastatin Calcium (Atorvastatin Calcium 40 Mg Tablet) 40 mg PO QHS [facility] Last Admin: 11/01/20 21:24 Dose: 40 mg Documented by: Enoxaparin Sodium (Enoxaparin 40 Mg/0.4 Ml Syringe) 40 mg SC DAILY@0600 [facility] Last Admin: 11/02/20 06:12 Dose: 40 mg Documented by: Furosemide (Furosemide 40 Mg/4 Ml Vial) 40 mg IV Q8 [facility] Last Admin: 11/02/20 06:12 Dose: 40 mg Documented by: Ibuprofen (Ibuprofen 400 Mg Tablet) 400 mg PO Q4H PRN PRN PRN Reason: Pain Score 1-10/Temp > 100.7 F Insulin Glargine (Insulin Glargine 100 Units/Ml Pen) 30 units SC BREAKFAST [facility] Last Admin: 11/02/20 08:15 Dose: 30 units Documented by: Insulin Glargine (Insulin Glargine 100 Units/Ml Pen) 30 units SC QHS [facility] Last Admin: 11/01/20 21:23 Dose: 30 u Documented by: Insulin Human Lispro (Insulin Lispro 100 Unit/Ml Insuln.Pen) 0 unit SC ACHS [facility]; Protocol Last Admin: 11/02/20 08:14 Dose: 12 units Documented by: Insulin Human Lispro (Insulin Lispro 100 Unit/Ml Insuln.Pen) 10 unit SC TIDCM [facility] Last Admin: 11/02/20 08:14 Dose: 10 units Documented by: Lisinopril (Lisinopril 5 Mg Tablet) 5 mg PO DAILY [facility] Last Admin: 11/02/20 08:23 Dose: 5 mg Documented by: Loperamide HCl (Loperamide 2 Mg Capsule) 2 mg PO Q6H PRN PRN PRN Reason: Diarrhea Last Admin: 11/01/20 18:17 Dose: 2 mg Documented by: Nicotine (Nicotine 14 Mg Patch) 14 mg TD DAILY [facility] Last Admin: 11/02/20 08:22 Dose: 14 mg Documented by: Ondansetron HCl (Ondansetron 4 Mg/2 Ml Vial) 4 mg IV Q8H PRN PRN PRN Reason: NAUSEA/VOMITING Potassium Chloride (Potassium Chloride Oral Soln 20 Meq/15 Ml Udc) 20 meq PO BID [facility] Last Admin: 11/02/20 08:23 Dose: 20 meq Documented by: Sodium Chloride (0.9% Saline Lock 10 Ml Syringe) 10 - 40 ml IV UD PRN PRN Reason: SALINE FLUSH Last Admin: 11/01/20 05:20 Dose: 10 ml Documented by: Inpatient E&M: [id number] Disch Hosp
[2020-11-02 11:55] LABS: Bedside Glucose 95 mg/dL (70-110)
[2020-11-02 13:39] VITALS: BP 106/67; PULSE 97; RESP 14; TEMP 37.1; O2SAT 97
[2020-11-02 15:00] VITALS: PULSE 95
[2020-11-02 16:55] LABS: 24 Hour Urine Protein 300.3 mg/24HR (<150 MG/24HR); 24HR. UA Prot. Total Volume 4550 mL; Urine Protein (24 Hour) 6.6 mg/dL (<11.9)
[2020-11-02 17:36] LABS: Bedside Glucose 219 mg/dL (70-110)
[2020-11-03 08:07] LABS: HEPATITIS B SURFACE AG Negative (Negative); Hepatitis A AB, Total Negative (Negative); Hepatitis A IgM Antibody Negative (Negative); Hepatitis B Core AB IgM Negative (Negative); Hepatitis B Core Ab Total Negative (Negative); Hepatitis C Ab <0.1 s/co ratio (0.0-0.9)
[2020-11-03 08:48] LABS: Hepatitis C Antibody Non-Reactive (Nonreactive)
[2020-11-03 12:38] LABS: Hep B Surface Antibodies Non Reactive (.)
== END 2020-11-02 17:46 | disposition home or self-care (01) | DRG 948 ==
LOC: ED 13:22 → PCU 15:30
PROVIDERS: Nurse Practitioner Family; Admitting Provider Internal Medicine; Emergency Provider Emergency Medicine; PCP Family Medicine; Visit Provider Internal Medicine
DX: R60.1 Generalized edema (principal); E11.65 Type 2 diabetes mellitus with hyperglycemia; D53.9 Nutritional anemia, unspecified; R74.01 Elevation of levels of liver transaminase levels; E78.5 Hyperlipidemia, unspecified; I10 Essential (primary) hypertension; K52.9 Noninfective gastroenteritis and colitis, unspecified; Z79.4 Long term (current) use of insulin; Z91.14 Patient's other noncompliance with medication regimen; Z87.11 Personal history of peptic ulcer disease; Z79.899 Other long term (current) drug therapy; F17.210 Nicotine dependence, cigarettes, uncomplicated; Z87.19 Personal history of other diseases of the digestive system
CPT/HCPCS: 36415; 71045; 71250; 74177; 76705; 80048; 80053; 80061; 80076; 81001; 82962; 83036; 83735; 83880; 84156; 84443; 84484; 85025; 85027; 86704; 86705; 86706; 86708; 86709; 86803; 87340; 93005; 93306; 93970; 97802; 99285; 99406; Q9967; A4216; J1940

== ENCOUNTER 2021-01-20 14:12 | Emergency (ER) | payer OTHER, SELFPAY ==
[2020-10-31 16:01] VITALS: BMI 24.7
[2021-01-20 14:12] VITALS: BP 124/82; PULSE 84; RESP 14; TEMP 36.8; O2SAT 98; BMI 20.1
[2021-01-20 14:25] LABS: Bedside Glucose 140 mg/dL (70-110)
--- NOTE | 2021-01-20 14:45 | EDS_ITS ---
HPI History of Present Illness Chief Complaint: Hypoglycemia Informant: patient Narrative Narrative: Patient presents with hypoglycemia. He states he took his long- acting insulin before work, 24 units. He states he did not feel right at work so he tested his sugar and it was over 500. He then took short acting insulin to help bring it down. He then went as low as 60 and did not feel well at that time. He ate breakfast and lunch but decided to come in for evaluation due to the fluctuation of his blood sugars. He has been a type I diabetic for many years. He states he is able to usually control his blood sugars but today due to the large fluctuations he came in for evaluation. He states currently he feels fine here his blood sugar here was 105. [facility] Medical History (Updated 01/20/21 @ 15:[address] Guido Snyder MD) DKA (diabetic ketoacidoses) Folliculitis Gastric perforation High cholesterol Hypertension Perforated ulcer Uncontrolled diabetes mellitus Weight loss, non-intentional Home Medications fluticasone propionate 2 spray NASAL DAILY PRN 12/17/19 [History Last Taken Unknown] insulin regular human 12 unit SUBCUT TIDCM 12/17/19 [History Last Taken 10/31/20] lisinopril 5 mg PO DAILY 12/17/19 [History Last Taken 10/31/20] rosuvastatin 20 mg PO DAILY 12/17/19 [History Last Taken 10/31/20] acetaminophen 650 mg PO Q4H PRN PRN tab 12/21/19 [Rx Last Taken Unknown] insulin glargine 32 units SC BREAKFAST 10/31/20 [History Last Taken 10/31/20] insulin glargine 35 units SC QHS 10/31/20 [History Last Taken 10/30/20] diclofenac sodium 75 mg PO BID 01/20/21 [History Last Taken Unknown] furosemide 40 mg PO DAILY PRN 01/20/21 [History Last Taken Unknown] potassium chloride 20 meq PO BID PRN 01/20/21 [History Last Taken Unknown] Allergy/AdvReac Type Severity Reaction Status Date / Time No Known Allergies Allergy Verified 01/07/20 15:12 Family History Father Diabetes Mother Hypertension Surgical History History of exploratory laparotomy (~12/2019) history of right bicep repair Social History Smoking Status: Current every day smoker tobacco type: cigarettes ROS ROS ED Constitutional Constitutional ED: Denies chills or fever(s) Eyes Eyes: Denies blurry vision, change in vision or diplopia ENT ENT ED: Denies ear pain, rhinorrhea or sore throat Cardiovascular Cardiovascular: Denies chest pain or palpitations Respiratory/Chest Respiratory/Chest: Denies cough, dyspnea or sputum Gastrointestinal Gastrointestinal: Denies abdominal pain, diarrhea, nausea or vomiting Genitourinary Genitourinary ED: Denies dysuria, hematuria or urinary frequency Musculoskeletal Musculoskeletal: Denies back pain or neck pain Integumentary Denies change in pigmentation or rash Neurologic Neurologic: Denies headache(s), numbness or weakness Psychiatric Psychiatric: Denies anxiety or depression Endocrine Endocrinology: Denies polydipsia or polyuria EXAM Physical Exam Const Vital Signs: 01/20/21 14:12 01/20/21 15:11 Temperature 98.3 F Temperature Source Temporal Pulse Rate 84 Respiratory Rate 14 Respiratory Effort Normal Non-Labored Respiratory Pattern Normal Blood Pressure 124/82 H Blood Pressure Mean 96 Pulse Ox 98 Oxygen Delivery Method Room Air Positive well nourished and well developed General Appearance ED: well developed and NAD HEENT Reports moist mucous membranes normocephalic and atraumatic; Negative for tenderness Eyes PERRL and EOMs intact bilaterally Neck supple and no JVD Chest Wall Chest: Negative for tenderness Resp normal respiratory effort and clear to auscultation bilaterally Effort and Inspection: Negative for respiratory distress Cardio regular rate, regular rhythm and no murmurs Rate: regular rate Rhythm: regular rhythm GI soft to palpation, non-tender and non-distended Palpation: soft Back/Spine no CVA tenderness and no thoracic nor lumbar tenderness Cervical Spine: Negative for cervical spine tenderness Extremity normal to inspection and full ROM General Extremety ED: Negative for tenderness Neuro oriented x3, CN's II-XII intact bilaterally and no sensory deficits noted Sensorium / Orientation: awake and alert Motor Exam: strength 5/5 throughout Psych mental status grossly normal Skin no rashes or lesions noted MDM MDM MDM Narrative Medical decision making narrative: Patient's BMP shows a BUN of 22. His glucose was 193 on the BMP. He looks well. I think he needs to regulate his blood sugars a little bit closely. He will monitor his diet as he was eating some sweet foods earlier in the day. He will call his PCP for follow-up Lab Data Labs: Laboratory Results - last 24 hr 01/20/21 01/20/21 14:16 15:10 Sodium 138 Potassium 3.8 Chloride 101 Carbon Dioxide 28.0 Anion Gap 9 BUN 22 H Creatinine 1.29 Estim Creat Clear Calc 61.05 Est GFR (MDRD) Af Amer 79 Est GFR (MDRD) Non-Af 65 BUN/Creatinine Ratio 17.1 Glucose 193 H Calcium 9.0 POC Glucose 140 H Discharge Plan Triage Chief Complaint: Hypoglycemia ED Provider: Guido Snyder Dx/Rx/DC Orders Clinical Impression: Uncontrolled diabetes mellitus Instructions: ED Diet: Diabetes Prescriptions: No Action insulin regular human 100 UNIT/ML solution 12 unit subcut TIDCM RF: 0 lisinopril 5 MG tablet 5 mg PO DAILY RF: 0 rosuvastatin 20 MG tablet 20 mg PO DAILY RF: 0 fluticasone propionate 1 SPRAY spray,suspension 2 spray NASAL DAILY PRN (Reason: Allergies) RF: 0 acetaminophen 325 MG tablet 650 mg PO Q4H PRN PRN (Reason: Pain 1-10/10 or Fever) RF: 0 insulin glargine 100 UNITS/ML insulin pen 35 units SC QHS RF: 0 insulin glargine 100 UNITS/ML insulin pen 32 units SC BREAKFAST RF: 0 furosemide 40 MG tablet 40 mg PO DAILY PRN (Reason: Edema) RF: 0 potassium chloride 20 MEQ/15 ML liquid 20 meq PO BID PRN (Reason: Diarrhea) RF: 0 diclofenac sodium 75 mg tablet,delayed release (DR/EC) 75 mg PO BID RF: 0 Primary Care Provider: Rocco Pemberton Referrals: Rocco Pemberton MD [Primary Care Provider] - Disposition Disposition: Home, self care
[2021-01-20 15:28] LABS: Anion Gap 9 (5-15); BUN 22 mg/dL (7-18); BUN/Creat Ratio 17.1 RATIO (10-20); Chloride 101 mmol/L (98-107); Creatinine, Serum 1.29 mg/dL (0.70-1.30); EST Glomerular Filtration Rate 65 mL/min (>60); Est Glom Filt Rate - Afr Amer 79 mL/min (>60); Estimated Creatinine Clearance 61.05 ml/min; Glucose 193 mg/dL (74-106); Potassium 3.8 mmol/L (3.5-5.1); Sodium Level 138 mmol/L (136-145)
[2021-01-20 15:43] VITALS: RESP 12
== END 2021-01-20 15:44 | disposition home or self-care (01) ==
PROVIDERS: Emergency Provider Emergency Medicine; PCP Family Medicine
DX: E10.8 Type 1 diabetes mellitus with unspecified complications (principal); F17.210 Nicotine dependence, cigarettes, uncomplicated; E78.00 Pure hypercholesterolemia, unspecified; I10 Essential (primary) hypertension; Z79.4 Long term (current) use of insulin; Z79.899 Other long term (current) drug therapy
CPT/HCPCS: 80048; 82962; 99282; A4216

== ENCOUNTER 2021-06-08 08:28 | Emergency (ER) | payer OTHER, SELFPAY ==
[2021-06-08 08:29] VITALS: BP 68/42; PULSE 79; RESP 18; TEMP 35.9; O2SAT 100; BMI 19.5
--- NOTE | 2021-06-08 09:05 | EKG12_ITS ---
Test Reason : DIZZINESS Blood Pressure : / mmHG Vent. Rate : 081 BPM Atrial Rate : 081 BPM P-R Int : 168 ms QRS Dur : 084 ms QT Int : 392 ms P-R-T Axes : 071 074 069 degrees QTc Int : 455 ms Normal sinus rhythm Nonspecific ST abnormality Abnormal ECG Confirmed by RICKEY DEVINE, ROSE ([id number]), brands editor KLEVER WALTON ([id number]) on 06/10/2021 8:20:46 AM Referred By: LETICIA/JEFF Confirmed By:ROSE LANG MD
--- NOTE | 2021-06-08 09:12 | EX.ED.DYSGE1 ---
HPI History of Present Illness Chief Complaint: Dizziness Informant: patient Onset/Context/Timing Onset: Today and Hours Context: Sudden Onset Timing: Continuous Current Severity: Mild Maximum Severity: Mild Narrative Narrative: 40-year-old male history of diabetes, DKA and hypertension. The breakfast this morning feeling his blood sugar was dropping and at work he took some insulin glucose. He just felt lightheaded and weak. They checked his blood sugar was 426. He denies any vomiting or diarrhea. States the dizziness is more like lightheadedness. Denies any recent illness. He has not been hospitalized recently. Prior similar symptoms: No Recent Illness/Hospitalization: No PFSH PFS Medical History DKA (diabetic ketoacidoses) Folliculitis Gastric perforation High cholesterol Hypertension Perforated ulcer Uncontrolled diabetes mellitus Weight loss, non-intentional Home Medications fluticasone propionate 2 spray NASAL DAILY PRN 12/17/19 [History Last Taken Unknown] insulin regular human 12 unit SUBCUT TIDCM 12/17/19 [History Last Taken 10/31/20] lisinopril 5 mg PO DAILY 12/17/19 [History Last Taken 10/31/20] rosuvastatin 20 mg PO DAILY 12/17/19 [History Last Taken 10/31/20] acetaminophen 650 mg PO Q4H PRN PRN tab 12/21/19 [Rx Last Taken Unknown] insulin glargine 32 units SC BREAKFAST 10/31/20 [History Last Taken 10/31/20] insulin glargine 35 units SC QHS 10/31/20 [History Last Taken 10/30/20] diclofenac sodium 75 mg PO BID 01/20/21 [History Last Taken Unknown] furosemide 40 mg PO DAILY PRN 01/20/21 [History Last Taken Unknown] potassium chloride 20 meq PO BID PRN 01/20/21 [History Last Taken Unknown] Allergy/AdvReac Type Severity Reaction Status Date / Time No Known Allergies Allergy Verified 01/07/20 15:12 Family History Father Diabetes Mother Hypertension Surgical History History of exploratory laparotomy (~12/2019) history of right bicep repair Social History Smoking Status: Current every day smoker tobacco type: cigarettes ROS ROS ED ROS Narrative Denies recent illness. Review of Systems ROS Unobtainable: Denies due to encephalopathy Constitutional Constitutional ED: Denies chills or fever(s) Eyes Eyes: Denies change in vision ENT ENT ED: Denies ear pain or sore throat Cardiovascular Cardiovascular: Denies chest pain Respiratory/Chest Respiratory/Chest: Denies cough or dyspnea Gastrointestinal Gastrointestinal: Denies abdominal pain, diarrhea, nausea or vomiting Genitourinary Genitourinary ED: Denies dysuria or hematuria Musculoskeletal Musculoskeletal: Denies myalgias Integumentary Denies rash Neurologic Neurologic: Denies headache(s) Psychiatric Psychiatric: Denies depression Endocrine Endocrinology: Denies polyuria Allergic/Immunologic Allergic/Immunologic ED: Denies urticaria EXAM Physical Exam Narrative Exam Narrative: 40-year-old male no acute distress vital signs are stable except he is a blood pressure 68/42 however he sitting upright in bed tolerating that well answering questions without any difficulty. He does not look septic or toxic. He is afebrile. Pulse ox 100% on room air no hypoxia. HEENT exam unremarkable. Mildly dry mucous memories. Neck nontender no lymphadenopathy. Lungs clear to auscultation bilaterally. Heart regular rhythm rate about 80 no murmur. Abdomen soft nontender normal bowel sounds no peritoneal signs. Moving all 4 extremities. Normal motor strength. Nontender. No edema. Back nontender. Neurologically is awake alert. Moving all 4 extremities. No focal motor deficits. Const Vital Signs: 06/08/21 08:29 06/08/21 09:36 Temperature 96.7 F L Temperature Source Temporal Pulse Rate 79 Respiratory Rate 18 Respiratory Pattern Normal Blood Pressure 68/42 L Blood Pressure Mean 50 Pulse Ox 100 Oxygen Delivery Method Room Air Positive well nourished and well developed; Negative for obese, cachectic, contractures or unkempt General Appearance ED: well developed and NAD; Negative for unkempt, cachectic, contractures, cyanotic or diaphoretic Nutritional Appearance: Negative for cachectic or obese HEENT Reports dry mucous membranes Negative for trauma or tenderness Mouth ED: Yes dry mucous membranes Mouth: dry mucous membranes Eyes PERRL and EOMs intact bilaterally Neck no lymphadenopathy, supple and no JVD General: Negative for tenderness Chest Wall inspection of chest normal and palpation of chest normal Resp normal respiratory effort and clear to auscultation bilaterally Effort and Inspection: Negative for pain with movement Auscultation: Negative for rales, rhonchi or wheezes Cardio regular rate, regular rhythm, S1 normal heart sound, S2 normal heart sound and no murmurs Back/Spine no CVA tenderness General Back: Negative for CVA tenderness Cervical Spine: Negative for cervical spine tenderness Extremity normal to inspection General Extremety ED: Negative for edema or tenderness General Extremity: Negative for edema Neuro oriented x3 and CN's II-XII intact bilaterally Sensorium / Orientation: alert; Negative for orientation impaired, lethargic or stuporous Motor Exam: strength 5/5 throughout Psych mental status grossly normal Appearance: Negative for unkempt Attitude: No agitated Mood & Affect: Negative for depressed, anxious or tearful Skin no rashes or lesions noted, no wounds and No skin turgor normal General Skin Exam: Negative for elasticity normal MDM MDM MDM Narrative Medical decision making narrative: 40-year-old diabetic male with elevated blood sugar 426 feels lightheaded and dizzy. Blood pressure is low at 68/42 he really has no other complaints. Patient be treated with IV fluids. Screening labs are being obtained. His exam otherwise is unremarkable. Repeat exam patient is doing well at 10:05 AM. He feels good. He and I went over all of his test. He still to receive a second bag of IV fluids. After that will be discharged home. He will follow up with his primary care physician to have his kidney function rechecked to ensure its improving. Today I think is from dehydration. He wants to treat his hyper glycemia with the meds that he has with him. Lab Data Attestation: I reviewed the patient's lab results. Lab results narrative: Electrolytes sodium 132. Gap 11. BUN 25 creatinine 1.68. Glucose 389. Serum ketones negative. Lactic acid elevated 4.8. CBC shows a white count of 4.9. Hemoglobin 12.4. Looking at his old labs these are baseline for the patient. He has a elevated lactic acids before. Labs: Laboratory Results - last 24 hr 06/08/21 06/08/21 06/08/21 09:15 09:15 09:15 WBC RBC Hgb Hct MCV MCH MCHC RDW Std Deviation RDW Coeff of Tommy Plt Count MPV Immature Gran % (Auto) Neut % (Auto) Lymph % (Auto) [place] % (Auto) Eos % (Auto) Baso % (Auto) Absolute Neuts (auto) Absolute Lymphs (auto) Nucleated RBC % Sodium 132 L Potassium 4.3 Chloride 95 L Carbon Dioxide 26.0 Anion Gap 11 BUN 25 H Creatinine 1.68 H Estim Creat Clear Calc 46.87 Est GFR (MDRD) Af Amer 58 L Est GFR (MDRD) Non-Af 48 L BUN/Creatinine Ratio 14.9 Glucose 389 H Lactic Acid 4.8 H* Calcium 9.4 Acetone Level NEGATIVE 06/08/21 09:15 WBC 4.9 RBC 3.88 L Hgb 12.4 L Hct 34.9 L MCV 89.9 MCH 32.0 MCHC 35.5 RDW Std Deviation 39.5 RDW Coeff of Tommy 12.0 Plt Count 213 MPV 9.8 Immature Gran % (Auto) 0.200 Neut % (Auto) 51.6 Lymph % (Auto) 35.4 [place] % (Auto) 10.6 H Eos % (Auto) 1.4 Baso % (Auto) 0.8 Absolute Neuts (auto) 2.5 Absolute Lymphs (auto) 1.74 Nucleated RBC % 0 Sodium Potassium Chloride Carbon Dioxide Anion Gap BUN Creatinine Estim Creat Clear Calc Est GFR (MDRD) Af Amer Est GFR (MDRD) Non-Af BUN/Creatinine Ratio Glucose Lactic Acid Calcium Acetone Level Rhythm Strip Rhythm Strip: Sinus Rhythm Rate: 81 Ectopy: None EKG Initial EKG: Attestation: I personally reviewed and interpreted this EKG as follows: Interpretation: Sinus Rhythm and No Acute Injury Pattern Comments: Normal sinus rhythm rate 81 no acute signs of OR, ischemia or dysrhythmia. Discharge Plan Triage Chief Complaint: Dizziness ED Provider: Rojelio Joseph Dx/Rx/DC Orders Clinical Impression: Hyperglycemia due to type 2 diabetes mellitus, Dehydration, Acute hypotension, Acute kidney injury Instructions: Dehydration Prescriptions: No Action insulin regular human 100 UNIT/ML solution 12 unit subcut TIDCM RF: 0 lisinopril 5 MG tablet 5 mg PO DAILY RF: 0 rosuvastatin 20 MG tablet 20 mg PO DAILY RF: 0 fluticasone propionate 1 SPRAY spray,suspension 2 spray NASAL DAILY PRN (Reason: Allergies) RF: 0 acetaminophen 325 MG tablet 650 mg PO Q4H PRN PRN (Reason: Pain 1-10/10 or Fever) RF: 0 insulin glargine 100 UNITS/ML insulin pen 35 units SC QHS RF: 0 insulin glargine 100 UNITS/ML insulin pen 32 units SC BREAKFAST RF: 0 furosemide 40 MG tablet 40 mg PO DAILY PRN (Reason: Edema) RF: 0 potassium chloride 20 MEQ/15 ML liquid 20 meq PO BID PRN (Reason: Diarrhea) RF: 0 diclofenac sodium 75 mg tablet,delayed release (DR/EC) 75 mg PO BID RF: 0 Primary Care Provider: Rocco Pemberton Referrals: Rocco Pemberton MD [Primary Care Provider] - 1-2 Weeks Activity Restrictions/Additional Instructions: Watch your blood sugars closely. Make sure you are drinking plenty of water. Today your blood pressure was low, you were dehydrated. This affected your kidney function. When you follow-up with Dr. Pemberton they need to recheck your BUN and your creatinine to ensure your kidney function is improving and not getting worse. Return if feeling worse. Off work today. Disposition Disposition: Home, Self Care
[2021-06-08 09:26] LABS: Absolute Lymphocyte Count 1.74 X10^3/uL (0.83-4.51); Absolute Neutrophil Count 2.5 X10^3/uL (2.0-7.7); Basophil# 0.04 X10^3/uL; Basophil% 0.8 % (0-1); Eosinophil# 0.07 X10^3/uL; Eosinophils% 1.4 % (0-5); Hematocrit 34.9 % (40-54); Hemoglobin 12.4 g/dL (13.0-16.5); Lymphocyte # 1.74 X10^3/ul (0.83-4.51); Lymphocyte % 35.4 % (19-41); Mean Corp Hgb Conc 35.5 g/dL (32-36); Mean Corpuscular Volume 89.9 fL (80-94); Mean Platelet Vol. 9.8 fl (6.2-12.0); Monocyte# 0.52 X10^3/uL; Monocyte% 10.6 % (0-10); NRBC Flagged by Analyzer 0 % (0-5); Neutrophil # 2.54 X10^3/uL (2.7-7.7); Neutrophil % 51.6 % (47-70); Platelet Count 213 K/mm3 (150-450); RBC Distribution Width SD 39.5 fl (35.1-43.9); Red Blood Count 3.88 M/mm3 (4.6-6.2); White Blood Count 4.9 K/mm3 (4.4-11.0)
[2021-06-08 09:37] LABS: Anion Gap 11 (5-15); BUN 25 mg/dL (7-18); BUN/Creat Ratio 14.9 RATIO (10-20); Calcium,Total 9.4 mg/dL (8.5-10.1); Chloride 95 mmol/L (98-107); Creatinine, Serum 1.68 mg/dL (0.70-1.30); EST Glomerular Filtration Rate 48 mL/min (>60); Est Glom Filt Rate - Afr Amer 58 mL/min (>60); Estimated Creatinine Clearance 46.87 ml/min; Glucose 389 mg/dL (74-106); Potassium 4.3 mmol/L (3.5-5.1); Sodium Level 132 mmol/L (136-145)
[2021-06-08] MEDS: 0.9% Normal Saline 1,000 ML 999 ML IV ×2 (09:37→10:17)
[2021-06-08 09:50] LABS: Lactic Acid 4.8 mmol/L (0.4-1.9)
[2021-06-08 10:17] VITALS: BP 167/98; PULSE 80; RESP 11; O2SAT 100
[2021-06-08 11:05] VITALS: BP 182/96; PULSE 76; RESP 14; O2SAT 100
[2021-06-08 11:11] LABS: Bedside Glucose 341 mg/dL (70-110)
[2021-06-08 13:19] LABS: Reflex Lactate? Y
== END 2021-06-08 11:15 | disposition home or self-care (01) ==
PROVIDERS: Emergency Provider Emergency Medicine; PCP Family Medicine
DX: E11.65 Type 2 diabetes mellitus with hyperglycemia (principal); E86.0 Dehydration; I95.9 Hypotension, unspecified; N17.9 Acute kidney failure, unspecified; I10 Essential (primary) hypertension; E78.00 Pure hypercholesterolemia, unspecified; Z87.19 Personal history of other diseases of the digestive system; Z79.4 Long term (current) use of insulin; Z79.899 Other long term (current) drug therapy; F17.210 Nicotine dependence, cigarettes, uncomplicated
CPT/HCPCS: 80048; 82009; 82962; 83605; 85025; 93005; 96360; 96361; 99284; J7030; A4216

== ENCOUNTER 2021-08-26 10:39 | Emergency (ER) | payer OTHER, SELFPAY ==
[2021-08-26 10:40] VITALS: BP 105/67; PULSE 84; RESP 16; TEMP 36.5; O2SAT 100
[2021-08-26] MEDS: 0.9% Normal Saline 1,000 ML 1000 ML IV (11:15)
--- NOTE | 2021-08-26 11:16 | EKG12_ITS ---
Test Reason : GENERAL ILLNESS Blood Pressure : / mmHG Vent. Rate : 072 BPM Atrial Rate : 072 BPM P-R Int : 176 ms QRS Dur : 092 ms QT Int : 426 ms P-R-T Axes : 069 077 056 degrees QTc Int : 466 ms Normal sinus rhythm Normal ECG Confirmed by KARIE DEVINE, CADEN ([id number]), editor trade journal ROSENDO EMMANUEL ([id number]) on 08/27/2021 9:00:09 AM Referred By: JAYDEN/WILFREDO Confirmed By:CADEN TIWARI MD
[2021-08-26 11:35] LABS: Bedside Glucose 43 mg/dL (70-110)
[2021-08-26] MEDS: Dextrose 50%-Water 25 GM/50 ML DISP.SYRIN IV (11:35)
[2021-08-26] MEDS: Ondansetron 4 MG/2 ML Vial IV (11:38)
--- NOTE | 2021-08-26 11:50 | RAD_ITS ---
STUDY: X-RAY CHEST REASON FOR EXAM: Male, 40 years old. Weakness TECHNIQUE: Single AP portable view of the chest. COMPARISON: Comparison is made with prior study dated 10/31/2020. FINDINGS: EKG electrodes are seen. The lungs are clear and expanded. There is no demonstrated pleural abnormality. Normal size heart. Normal mediastinum and jerrod. Normal visualized pulmonary arteries. Normal visualized aortic arch and descending thoracic aorta. Normal visualized thoracic spine. Normal visualized ribs, clavicles, and shoulders. There is no demonstrated abnormality of the visualized soft tissue structures of the upper abdomen. RAD/Chest 1 View (Portable) IMPRESSION: Normal x-ray examination of the chest. Electronically Signed: Mk Solorio MD at 12:35 EST , Service support ,
[2021-08-26 11:56] LABS: Absolute Lymphocyte Count 1.68 X10^3/uL (0.83-4.51); Absolute Neutrophil Count 2.1 X10^3/uL (2.0-7.7); Basophil# 0.02 X10^3/uL; Basophil% 0.5 % (0-1); Eosinophil# 0.07 X10^3/uL; Eosinophils% 1.6 % (0-5); Hematocrit 29.4 % (40-54); Hemoglobin 10.3 g/dL (13.0-16.5); Lymphocyte # 1.68 X10^3/ul (0.83-4.51); Lymphocyte % 38.1 % (19-41); Mean Corpuscular Hgb 31.2 pg (27.0-32.0); Mean Corpuscular Volume 89.1 fL (80-94); Mean Platelet Vol. 9.8 fl (6.2-12.0); Monocyte# 0.53 X10^3/uL; NRBC Flagged by Analyzer 0 % (0-5); Neutrophil # 2.09 X10^3/uL (2.7-7.7); Neutrophil % 47.3 % (47-70); Platelet Count 164 K/mm3 (150-450); RBC Distribution Width CV 11.9 % (11.6-14.6); RBC Distribution Width SD 38.8 fl (35.1-43.9); White Blood Count 4.4 K/mm3 (4.4-11.0)
--- NOTE | 2021-08-26 12:23 | ED.RN ---
blood glucose 131
[2021-08-26 12:25] LABS: ALB/GLOB Ratio 1.2 RATIO (0.9-2.4); AST(SGOT) 9 U/L (15-37); Alanine Aminotransfer ALT/SGPT 21 U/L (16-61); Albumin, Serum 3.3 g/dL (3.2-5.0); Alkaline Phosphatase 86 U/L (45-117); Anion Gap 6 (5-15); BUN 23 mg/dL (7-18); BUN/Creat Ratio 17.2 RATIO (10-20); Calcium,Total 8.5 mg/dL (8.5-10.1); Chloride 103 mmol/L (98-107); Creatinine, Serum 1.34 mg/dL (0.70-1.30); EST Glomerular Filtration Rate 62 mL/min (>60); Est Glom Filt Rate - Afr Amer 76 mL/min (>60); Estimated Creatinine Clearance 60.22 ml/min; Globulin 2.8 g/dL (2.2-4.2); Glucose 134 mg/dL (74-106); Protein, Total 6.1 g/dL (6.4-8.2); Sodium Level 138 mmol/L (136-145); Troponin-I HS 4 pg/mL (3.0-78.0)
[2021-08-26 12:25] LABS: Bedside Glucose 131 mg/dL (70-110)
[2021-08-26 12:46] VITALS: BP 122/81; PULSE 65; RESP 14; O2SAT 96
[2021-08-26 13:35] VITALS: BP 136/83; BP 146/89; BP 96/70; PULSE 73; PULSE 82
[2021-08-26 14:03] LABS: Bacteria 0 SEEN /hpf (None Seen); Color, Urine Yellow (Yellow); Glucose, Dipstick 1000 mg/dl (Normal); Ketone-Dipstick Negative (Negative); Leukocyte Esterase-Dipstick Negative /ul (Negative); Mucous, Urine 0 SEEN /hpf (<or=2+); Nitrite-Dipstick Negative (Negative); Occult Blood-Urine Negative /ul (Negative); Protein-Dipstick 30 mg/dl (Negative); Red Blood Cells-Urine 0 SEEN /hpf (0-5); Squamous Epithelial Cells - UA 0 SEEN /hpf (0-5); Urine Bilirubin Dipstick Negative (Negative); Urine Clarity Clear (Clear); Urine Urobilinogen Normal (Normal); White Blood Cells 0 SEEN /hpf (0-5)
--- NOTE | 2021-08-26 14:53 | EDS_ITS ---
HPI History of Present Illness Chief Complaint: General Illness Narrative Narrative: 40-year-old male presenting with nausea/vomiting. He also feels he is lightheaded. Patient states that he was well up until about 30 minutes prior to arrival when he started vomiting. States the lightheaded started. He states his blood sugars have been in the 150s at home. He is not have any chest pain or shortness of breath. He denies abdominal pain. Patient states he feels like he feels very lethargic. [facility] Medical History DKA (diabetic ketoacidoses) Folliculitis Gastric perforation High cholesterol Hypertension Perforated ulcer Uncontrolled diabetes mellitus Weight loss, non-intentional Home Medications fluticasone propionate 2 spray NASAL DAILY PRN 12/17/19 [History Last Taken Unknown] insulin regular human unit SUBCUT TIDCM 12/17/19 [History Last Taken 10/31/20] lisinopril 5 mg PO DAILY 12/17/19 [History Last Taken 10/31/20] rosuvastatin 20 mg PO DAILY 12/17/19 [History Last Taken 10/31/20] acetaminophen 650 mg PO Q4H PRN PRN tab 12/21/19 [Rx Last Taken Unknown] insulin glargine 35 units SC BREAKFAST 10/31/20 [History Last Taken 10/31/20] insulin glargine 35 units SC QHS 10/31/20 [History Last Taken 10/30/20] diclofenac sodium 75 mg PO BID 01/20/21 [History Last Taken Unknown] furosemide 40 mg PO DAILY PRN 01/20/21 [History Last Taken Unknown] potassium chloride 20 meq PO BID PRN 01/20/21 [History Last Taken Unknown] ondansetron 4 mg PO Q8H PRN PRN #14 tab 08/26/21 [Rx Last Taken Unknown] Allergy/AdvReac Type Severity Reaction Status Date / Time No Known Allergies Allergy Verified 08/26/21 10:43 Family History Father Diabetes Mother Hypertension Surgical History History of exploratory laparotomy (~12/2019) history of right bicep repair Social History Smoking Status: Current every day smoker tobacco type: cigarettes ROS ROS ED ROS Narrative Fatigue Constitutional Constitutional ED: Denies chills or fever(s) Eyes Eyes: Denies blurry vision or diplopia ENT ENT ED: Denies rhinorrhea or sore throat Cardiovascular Cardiovascular: Denies chest pain or palpitations Respiratory/Chest Respiratory/Chest: Denies cough or dyspnea Gastrointestinal Gastrointestinal: Reports nausea and vomiting; Denies abdominal pain Genitourinary Genitourinary ED: Denies dysuria or hematuria Musculoskeletal Musculoskeletal: Denies arthralgias or myalgias Integumentary Denies Abrasions or rash Neurologic Neurologic: Reports headache(s); Denies paresthesias EXAM Physical Exam Const Vital Signs: 08/26/21 10:40 08/26/21 10:43 08/26/21 12:46 Temperature 97.7 F L Temperature Source Oral Pulse Rate 84 65 Pulse Rate [Lying] Pulse Rate [Sitting] Pulse Rate [Standing] Respiratory Rate 16 14 Respiratory Effort Normal Non-Labored Respiratory Pattern Normal Blood Pressure 105/67 122/81 H Blood Pressure [Lying] Blood Pressure [Sitting] Blood Pressure [Standing] Blood Pressure Mean 79 94 Blood Pressure Mean [Lying] Blood Pressure Mean [Sitting] Blood Pressure Mean [Standing] Pulse Ox 100 96 Oxygen Delivery Method Room Air Room Air 08/26/21 13:35 Temperature Temperature Source Pulse Rate Pulse Rate [Lying] 73 Pulse Rate [Sitting] 73 Pulse Rate [Standing] 82 Respiratory Rate Respiratory Effort Respiratory Pattern Blood Pressure Blood Pressure [Lying] 136/83 H Blood Pressure [Sitting] 146/89 H Blood Pressure [Standing] 96/70 Blood Pressure Mean Blood Pressure Mean [Lying] 100 Blood Pressure Mean [Sitting] 108 Blood Pressure Mean [Standing] 78 Pulse Ox Oxygen Delivery Method Positive well nourished General Appearance ED: NAD; Negative for pallor HEENT Reports dry mucous membranes Negative for trauma Mouth ED: Yes dry mucous membranes Mouth: dry mucous membranes Eyes PERRL and EOMs intact bilaterally Neck no lymphadenopathy and supple Chest Wall inspection of chest normal and palpation of chest normal Resp normal respiratory effort and clear to auscultation bilaterally Cardio regular rate and regular rhythm GI normal to inspection, nondistended, normoactive bowel sounds Neuro oriented x3 and CN's II-XII intact bilaterally Sensorium / Orientation: alert Psych mental status grossly normal Skin General Skin Exam: Negative for jaundice or pallor MDM MDM MDM Narrative Medical decision making narrative: Patient presented with nausea and vomiting. He states he is currently not nauseous anymore but feels that he is very rundown. He is given a liter of IV fluids. Orthostatics were obtained and were positive. patient CBC is unremarkable. CMP shows normal LFTs. Creatinine slightly elevated 1.34 and in July he was 1.68. Prior to that his creatinines were more normal. Potassium slightly low at 3.0 and this was repleted orally with 40 mEq of potassium. Urinalysis negative for infection does show glucose. Chest x-ray on my interpretation shows no acute cardiopulmonary process and the radiologist does agree. EKG is sinus rhythm with a ventricular rate of 72 bpm without sign of ischemic change. Patient did test positive for COVID-19 today. I will refer him for monoclonal antibodies. He does not have any respiratory complaints and he is not hypoxic. I reevaluate d him at 1500 and he is feeling well. I will give him a prescription for Zofran for home. Impression: 1. COVID-19 2. Nausea/vomiting 3. Hyperglycemia 4. Orthostatic hypotension 5. Hypokalemia Lab Data Attestation: I reviewed the patient's lab results. Labs: Laboratory Results - last 24 hr 08/26/21 08/26/21 08/26/21 11:30 11:40 11:40 WBC 4.4 RBC 3.30 L Hgb 10.3 L Hct 29.4 L MCV 89.1 MCH 31.2 MCHC 35.0 RDW Std Deviation 38.8 RDW Coeff of Tommy 11.9 Plt Count 164 MPV 9.8 Immature Gran % (Auto) 0.500 Neut % (Auto) 47.3 Lymph % (Auto) 38.1 Morgan % (Auto) 12.0 H Eos % (Auto) 1.6 Baso % (Auto) 0.5 Absolute Neuts (auto) 2.1 Absolute Lymphs (auto) 1.68 Nucleated RBC % 0 Sodium 138 Potassium 3.0 L Chloride 103 Carbon Dioxide 29.0 Anion Gap 6 BUN 23 H Creatinine 1.34 H Estim Creat Clear Calc 60.22 Est GFR (MDRD) Af Amer 76 Est GFR (MDRD) Non-Af 62 BUN/Creatinine Ratio 17.2 Glucose 134 H Calcium 8.5 Total Bilirubin 0.30 AST 9 L ALT 21 Alkaline Phosphatase 86 Troponin I High Sens 4 Total Protein 6.1 L Albumin 3.3 Globulin 2.8 Albumin/Globulin Ratio 1.2 Urine Color Urine Clarity Urine pH Ur Specific Jackson Urine Protein Urine Glucose (UA) Urine Ketones Urine Occult Blood Urine Nitrite Urine Bilirubin Urine Urobilinogen Ur Leukocyte Esterase Urine RBC Urine WBC Ur Squamous Epith Cells Urine Bacteria Urine Mucus POC Glucose 43 L* 08/26/21 08/26/21 12:21 13:57 WBC RBC Hgb Hct MCV MCH MCHC RDW Std Deviation RDW Coeff of Tommy Plt Count MPV Immature Gran % (Auto) Neut % (Auto) Lymph % (Auto) Morgan % (Auto) Eos % (Auto) Baso % (Auto) Absolute Neuts (auto) Absolute Lymphs (auto) Nucleated RBC % Sodium Potassium Chloride Carbon Dioxide Anion Gap BUN Creatinine Estim Creat Clear Calc Est GFR (MDRD) Af Amer Est GFR (MDRD) Non-Af BUN/Creatinine Ratio Glucose Calcium Total Bilirubin AST ALT Alkaline Phosphatase Troponin I High Sens Total Protein Albumin Globulin Albumin/Globulin Ratio Urine Color Yellow Urine Clarity Clear Urine pH 6.0 Ur Specific Jackson 1.010 Urine Protein 30 H Urine Glucose (UA) 1000 H Urine Ketones Negative Urine Occult Blood Negative Urine Nitrite Negative Urine Bilirubin Negative Urine Urobilinogen Normal Ur Leukocyte Esterase Negative Urine RBC 0 SEEN Urine WBC 0 SEEN Ur Squamous Epith Cells 0 SEEN Urine Bacteria 0 SEEN Urine Mucus 0 SEEN POC Glucose 131 H Radiography Diagnostic Testing: Clinical Impression(s) from Imaging Studies Chest X-Ray 08/26/21 11:50 IMPRESSION: Normal x-ray examination of the chest. Electronically Signed: Mk Solorio MD at 12:35 EST , Service support , Discharge Plan Triage Chief Complaint: General Illness ED Provider: Jacobo Puckett Dx/Rx/DC Orders Instructions: Coronavirus Disease 2019 (COVID-19): Caring for Yourself or Others, ED - COVID Monoclonal AB Infusion ... Prescriptions: New ondansetron 4 mg tablet,disintegrating 4 mg PO Q8H PRN PRN (Reason: Nausea) Qty: 14 RF: 0 No Action insulin regular human 100 UNIT/ML solution subcut TIDCM RF: 0 lisinopril 5 MG tablet 5 mg PO DAILY RF: 0 rosuvastatin 20 MG tablet 20 mg PO DAILY RF: 0 fluticasone propionate 1 SPRAY spray,suspension 2 spray NASAL DAILY PRN (Reason: Allergies) RF: 0 acetaminophen 325 MG tablet 650 mg PO Q4H PRN PRN (Reason: Pain 1-05/17 or Fever) RF: 0 insulin glargine 100 UNITS/ML insulin pen 35 units SC QHS RF: 0 insulin glargine 100 UNITS/ML insulin pen 35 units SC BREAKFAST RF: 0 furosemide 40 MG tablet 40 mg PO DAILY PRN (Reason: Edema) RF: 0 potassium chloride 20 MEQ/15 ML liquid 20 meq PO BID PRN (Reason: Diarrhea) RF: 0 diclofenac sodium 75 mg tablet,delayed release (DR/EC) 75 mg PO BID RF: 0 Primary Care Provider: Rocco Pemberton Referrals: Rocco Pemberton MD [Primary Care Provider] - Disposition Disposition: Home, Self Care
[2021-08-26] MEDS: Potassium Chloride Oral Tablet 20 MEQ 40 MEQ PO (15:12)
[2021-08-26 15:13] VITALS: BP 167/94; PULSE 87; RESP 18; O2SAT 99
== END 2021-08-26 15:20 | disposition home or self-care (01) ==
PROVIDERS: Emergency Provider Student in an Organized Health Care Education/Training Program; PCP Family Medicine; Visit Provider Student in an Organized Health Care Education/Training Program
DX: U07.1 COVID-19 (principal); E11.65 Type 2 diabetes mellitus with hyperglycemia; Z79.4 Long term (current) use of insulin; F17.210 Nicotine dependence, cigarettes, uncomplicated; I10 Essential (primary) hypertension; E78.00 Pure hypercholesterolemia, unspecified; I95.1 Orthostatic hypotension; E87.6 Hypokalemia; Z79.899 Other long term (current) drug therapy
CPT/HCPCS: 71045; 80053; 81001; 82962; 84484; 85025; 87426; 93005; 96361; 96374; 96375; 99285; J2405

== ENCOUNTER 2021-10-11 13:54 | Emergency (ER) | payer OTHER, SELFPAY ==
[2021-10-11 13:54] VITALS: BP 112/77; PULSE 98; RESP 18; TEMP 36.2; O2SAT 97; BMI 18.8
--- NOTE | 2021-10-11 14:20 | EDS_ITS ---
HPI History of Present Illness Chief Complaint: Abscess Narrative Narrative: Patient with past medical history of diabetes, hypertension, presents with abscess on his right buttocks cheek that has had since Tuesday, approximately 7 days ago. He denies any fevers or chills. No nausea or v omiting. The area is swollen and painful to touch. He presents from urgent care because they told him that they did not know how deep it is. He denies any pain with defecation. No drainage from the area. [facility] Medical History DKA (diabetic ketoacidoses) Folliculitis Gastric perforation High cholesterol Hypertension Perforated ulcer Uncontrolled diabetes mellitus Weight loss, non-intentional Home Medications fluticasone propionate 2 spray NASAL DAILY PRN 12/17/19 [History Last Taken Unknown] insulin regular human unit SUBCUT TIDCM 12/17/19 [History Last Taken 10/31/20] lisinopril 5 mg PO DAILY 12/17/19 [History Last Taken 10/31/20] rosuvastatin 20 mg PO DAILY 12/17/19 [History Last Taken 10/31/20] acetaminophen 650 mg PO Q4H PRN PRN tab 12/21/19 [Rx Last Taken Unknown] insulin glargine 35 units SC BREAKFAST 10/31/20 [History Last Taken 10/31/20] insulin glargine 35 units SC QHS 10/31/20 [History Last Taken 10/30/20] diclofenac sodium 75 mg PO BID 01/20/21 [History Last Taken Unknown] furosemide 40 mg PO DAILY PRN 01/20/21 [History Last Taken Unknown] potassium chloride 20 meq PO BID PRN 01/20/21 [History Last Taken Unknown] ondansetron 4 mg PO Q8H PRN PRN #14 tab 08/26/21 [Rx Last Taken Unknown] sulfamethoxazole-trimethoprim [Bactrim DS] 1 tab PO BID #20 tab 10/11/21 [Rx Last Taken Unknown] Allergy/AdvReac Type Severity Reaction Status Date / Time No Known Allergies Allergy Verified 10/11/21 13:56 Family History Father Diabetes Mother Hypertension Surgical History History of exploratory laparotomy (~12/2019) history of right bicep repair Social History Smoking Status: Current every day smoker tobacco type: cigarettes ROS ROS ED ROS Narrative Constitutional: No fever, no chills. HEENT: No sore throat. No neck pain. No loss of vision. No rhinorrhea. Cardiovascular: No chest pain. No palpitations. No pedal edema. Respiratory: No cough, no shortness of breath. Abdominal: No abdominal pain. No nausea. No vomiting. Genitourinary: No dysuria. No hematuria. Musculoskeletal: No myalgias. No arthralgias. Neurologic: No headaches. No dizziness. No lightheadedness. Skin: No rash. No change in color. Abscess right buttocks cheek, lower portion Psychiatric: No depression. No anxiety. EXAM Physical Exam Narrative Exam Narrative: Afebrile. Vital signs noted. Nontoxic-appearing. HEENT: Normocephalic. Atraumatic. PERRL, EOMI. Neck soft and supple. No point tenderness or step off. Cardiovascular: Regular rate and rhythm. No murmurs, rubs, or gallops appreciated. Respiratory: No tachypnea. Lungs clear to auscultation bilaterally. Gastrointestinal: Abdomen soft, nontender, with normoactive bowel sounds. No rebound or guarding. Chaperoned examination reveals a buttocks on the lower portion of the right buttocks cheek. Does not extend into the rectum. Moderate induration with minimal fluctuance. Neurological: Awake. Alert. Nonfocal, nonlateralizing. Skin: No rash. Normal color. No pallor. Musculoskeletal: No pedal edema. Full range of motion extremities. Const Vital Signs: 10/11/21 13:54 Temperature 97.2 F L Temperature Source Temporal Pulse Rate 98 Respiratory Rate 18 Blood Pressure 112/77 Blood Pressure Mean 88 Pulse Ox 97 Oxygen Delivery Method Room Air MDM MDM MDM Narrative Medical decision making narrative: Patient was verbally consented for incision and drainage. He was told of the risk of continued infection, scarring, and poor wound healing as he is a diabetic. He acknowledged an understanding. He was given his first dose of Bactrim here in the emergency department. I do feel that incision and drainage should be attempted, and regardless of the amount of drainage, the patient be placed on antibiotics for the next 10 days. See procedure note for detail. He will take [id number] analgesics as needed. I feel he be discharged safely home with follow-up. Return instructions reviewed. Disposition is discharged home in stable condition. Procedures Other Procedures Procedure(s): Incision and drainage: Chlorhexidine was used as a cleansing agent for this mental retardation aide procedure. Stellate incision was made using a #11 blade. There was a moderate to large amount of purulent drainage. Initially it was serous then became serosanguinous, then purulent. Area was deloculated and irrigated with normal saline. 2 tailed packing was inserted lightly into the cavity. He was told to have this removed in 2 days by his primary care physician or return to the emergency department. Patient tolerated the procedure well. Discharge Plan Triage Chief Complaint: Abscess ED Provider: Leoncio Kessler Dx/Rx/DC Orders Clinical Impression: Perirectal abscess Instructions: ED ABSCESS Hattie-Anal IandD Prescriptions: New sulfamethoxazole-trimethoprim [Bactrim DS] 800-160 mg tablet 1 tab PO BID Qty: 20 RF: 0 No Action insulin regular human 100 UNIT/ML solution subcut TIDCM RF: 0 lisinopril 5 MG tablet 5 mg PO DAILY RF: 0 rosuvastatin 20 MG tablet 20 mg PO DAILY RF: 0 fluticasone propionate 1 SPRAY spray,suspension 2 spray NASAL DAILY PRN (Reason: Allergies) RF: 0 acetaminophen 325 MG tablet 650 mg PO Q4H PRN PRN (Reason: Pain 1-10/10 or Fever) RF: 0 insulin glargine 100 UNITS/ML insulin pen 35 units SC QHS RF: 0 insulin glargine 100 UNITS/ML insulin pen 35 units SC BREAKFAST RF: 0 furosemide 40 MG tablet 40 mg PO DAILY PRN (Reason: Edema) RF: 0 potassium chloride 20 MEQ/15 ML liquid 20 meq PO BID PRN (Reason: Diarrhea) RF: 0 diclofenac sodium 75 mg tablet,delayed release (DR/EC) 75 mg PO BID RF: 0 ondansetron 4 mg tablet,disintegrating 4 mg PO Q8H PRN PRN (Reason: Nausea) Qty: 14 RF: 0 Primary Care Provider: Rocco Pemberton Referrals: Rocco Pemberton MD [Primary Care Provider] - 2 Days for wound check Disposition Disposition: Home, Self Care
[2021-10-11] MEDS: Smz/Tmp Ds Tablet 1 TABLET PO (15:48)
[2021-10-11] MEDS: Lidocaine 1% (20 ml mdv) 20 ML Vial INFILT (15:49)
[2021-10-11 16:00] VITALS: BP 138/72; PULSE 72; RESP 14; O2SAT 99
== END 2021-10-11 16:00 | disposition home or self-care (01) ==
PROVIDERS: Emergency Provider Emergency Medicine; PCP Family Medicine; Visit Provider Emergency Medicine
DX: K61.1 Rectal abscess (principal); E11.9 Type 2 diabetes mellitus without complications; Z79.4 Long term (current) use of insulin; E78.00 Pure hypercholesterolemia, unspecified; I10 Essential (primary) hypertension; F17.210 Nicotine dependence, cigarettes, uncomplicated; Z87.19 Personal history of other diseases of the digestive system; Z79.899 Other long term (current) drug therapy
CPT/HCPCS: 46040; 10060; 99283

== ENCOUNTER 2022-07-10 07:37 | Inpatient (IN) | payer OTHER, SELFPAY ==
[2022-07-10] VITALS (70 sets, daily range): BP systolic 29–136; BP diastolic 24–123; PULSE 43–122; RESP 9–33; TEMP 33.9–39.5; O2SAT 90–100; BMI 18.8; BMI 19.4
--- NOTE | 2022-07-10 07:42 | CT_ITS ---
STUDY: CT BRAIN WITHOUT CONTRAST REASON FOR EXAM: Male, 41 years old. AMS RADIATION DOSAGE (If Supplied By Facility): CTDIvol = ( 44.99 ) mGy, DLP = ( 796.11 ) mGycm TECHNIQUE: Transaxial CT imaging of the brain was performed without administration of intravenous contrast material. Individualized dose optimization techniques were used for this CT. COMPARISON: No relevant priors. FINDINGS: Normal soft tissue structures. Normal calvarium. Normal size ventricles and extra-axial spaces for the patient''s age. Normal white matter tracts of the cerebral hemispheres. Normal basal ganglia and thalami. Normal brainstem. Normal cerebellum. There is no intracranial hemorrhage. There are no findings of an acute ischemic infarction. Mucous retention cyst in the left maxillary sinus consistent with chronic sinusitis. CT/Brain/Head without Contrast IMPRESSION: Normal unenhanced CT scan of the brain. Electronically Signed: Keyur Garcia MD at 10:26 EST ,
--- NOTE | 2022-07-10 07:42 | EKG12_ITS ---
Test Reason : HYPERGLYCEMIA Blood Pressure : / mmHG Vent. Rate : 083 BPM Atrial Rate : 083 BPM P-R Int : 164 ms QRS Dur : 100 ms QT Int : 414 ms P-R-T Axes : 058 075 063 degrees QTc Int : 486 ms Normal sinus rhythm Prolonged QT Abnormal ECG Confirmed by KARIE DEVINE, CADEN ([id number]), editor at large KLEVER WALTON ([id number]) on 07/13/2022 12:16:21 PM Referred By: LOTUS Confirmed By:CADEN TIWARI MD
--- NOTE | 2022-07-10 07:42 | RAD_ITS ---
STUDY: X-RAY CHEST REASON FOR EXAM: Male, 41 years old. HYPOTENSION TECHNIQUE: Single AP portable view of the chest. COMPARISON: 04/23/2022 FINDINGS: Interval placement of endotracheal tube with the tip approximately 2 cm above the ferdinand. Interval placement of nasogastric tube with the tip below the diaphragm. Interval placement of right internal jugular deep venous line with tip the catheter overlying the superior vena cava with no pneumothorax. Alveolar opacity in the lower right lung consistent with right lower lobe pneumonia. There is no demonstrated pleural abnormality. Normal size heart. Normal mediastinum and jerrod. Normal visualized pulmonary arteries. Normal visualized aortic arch and descending thoracic aorta. Normal visualized thoracic spine. Normal visualized ribs, clavicles, and shoulders. There is no demonstrated abnormality of the visualized soft tissue structures of the upper abdomen. RAD/Chest 1 View (Portable) IMPRESSION: 1. Interval placement of endotracheal tube with the tip above the ferdinand. 2. Interval placement of nasogastric tube with the tip below the diaphragm. 3. Interval placement of right internal jugular deep venous line with tip the catheter overlying the spur vena cava and no pneumothorax. 4. Right lower lobe pneumonia. Electronically Signed: Keyur Garcia MD at 9:40 EST ,
[2022-07-10] MEDS: 0.9% Normal Saline 1,000 ML 1000 ML IV ×4 (07:51→08:27)
--- NOTE | 2022-07-10 07:54 | EDS_ITS ---
HPI History of Present Illness Chief Complaint: Hyperglycemia Informant: patient Narrative Narrative: EMS brings a 41-year-old diabetic male in. Reportedly he called his neighbor and was found upstairs in his bed where he has remained for 2 days. He has not really said anything to EMS or to staff here. They note hypotension with systolic readings in the 40s. They noted that his blood sugar was reading greater than 500. While the patient states he is only medical problem is diabetes to EMS I also see that he at one time was taking hypertension medication has well has a statin. The patient is very hard to get any further information out. [facility] Medical History DKA (diabetic ketoacidoses) Folliculitis Gastric perforation High cholesterol Hypertension Perforated ulcer Uncontrolled diabetes mellitus Weight loss, non-intentional Home Medications fluticasone propionate 50 mcg/actuation nasal spray,suspension 2 spray NASAL DAILY PRN Allergies 12/17/19 [History Last Taken Unknown] insulin regular human 100 unit/mL injection solution unit subcut TIDCM diabetes 12/17/19 [History Last Taken 10/31/20] lisinopril 5 mg tablet 5 mg PO DAILY 12/17/19 [History Last Taken 10/31/20] rosuvastatin 20 mg tablet 20 mg PO DAILY 12/17/19 [History Last Taken 10/31/20] acetaminophen 325 mg tablet 650 mg PO Q4H PRN PRN Pain 1-10/10 or Fever 12/21/19 [Rx Last Taken Unknown] insulin glargine 100 unit/mL (3 mL) subcutaneous pen 35 units subcut BREAKFAST 10/31/20 [History Last Taken 10/31/20] insulin glargine 100 unit/mL (3 mL) subcutaneous pen 35 units subcut QHS 10/31/20 [History Last Taken 10/30/20] diclofenac sodium 75 mg tablet,delayed release 75 mg PO BID 01/20/21 [History Last Taken Unknown] furosemide 40 mg tablet 40 mg PO DAILY PRN Edema 01/20/21 [History Last Taken Unknown] potassium chloride 20 mEq/15 mL oral liquid 20 meq PO BID PRN Diarrhea 01/20/21 [History Last Taken Unknown] ondansetron 4 mg disintegrating tablet 4 mg PO Q8H PRN PRN Nausea #14 tabs 08/26/21 [Rx Last Taken Unknown] sulfamethoxazole 800 mg-trimethoprim 160 mg tablet (Bactrim DS) 1 tab PO BID #20 tabs 10/11/21 [Rx Last Taken Unknown] Allergy/AdvReac Type Severity Reaction Status Date / Time No Known Allergies Allergy Verified 07/10/22 07:38 Family History Father Diabetes Mother Hypertension Surgical History History of exploratory laparotomy (~12/2019) history of right bicep repair Social History Smoking Status: Current every day smoker tobacco type: cigarettes ROS ROS ED Review of Systems ROS Unobtainable: due to mental status EXAM Physical Exam Const Vital Signs: 07/10/22 07:39 07/10/22 07:38 07/10/22 07:45 Temperature 97.5 F L Temperature Source Oral Pulse Rate 92 90 79 Respiratory Rate 29 H 29 H 20 H Respiratory Effort Respiratory Depth Respiratory Pattern Blood Pressure 49/38 L 52/34 L Blood Pressure Mean 41 40 Blood Pressure Source Blood Pressure Position Blood Pressure Location Pulse Ox 100 98 97 Oxygen Delivery Method Non-Rebreather Non-Rebreather Nasal Cannula Oxygen Flow Rate (L/min) 3 Fraction of Inspired Oxygen (FIO2) 07/10/22 07:52 07/10/22 08:00 07/10/22 08:02 Temperature Temperature Source Pulse Rate 78 74 Respiratory Rate 23 H 25 H Respiratory Effort Labored Respiratory Depth Respiratory Pattern Blood Pressure 55/45 L 50/41 L Blood Pressure Mean 48 44 Blood Pressure Source Blood Pressure Position Blood Pressure Location Pulse Ox 98 97 Oxygen Delivery Method Nasal Cannula Nasal Cannula Oxygen Flow Rate (L/min) 3 3 Fraction of Inspired Oxygen (FIO2) 07/10/22 08:24 07/10/22 08:57 07/10/22 09:00 Temperature 97.5 F L Temperature Source Temporal Pulse Rate 59 L 43 L 46 L Respiratory Rate 20 H 10 L 9 L Respiratory Effort Respiratory Depth Respiratory Pattern Blood Pressure 42/34 L 29/28 L 39/28 L Blood Pressure Mean 36 28 31 Blood Pressure Source Blood Pressure Position Blood Pressure Location Pulse Ox 100 96 100 Oxygen Delivery Method Nasal Cannula Ambu-Bag Oxygen Flow Rate (L/min) 6 15 Fraction of Inspired Oxygen (FIO2) 07/10/22 09:04 07/10/22 09:18 07/10/22 09:27 Temperature Temperature Source Pulse Rate 56 L 83 Respiratory Rate 20 H 17 Respiratory Effort Normal Non-Labored Respiratory Depth Normal Respiratory Pattern Normal Blood Pressure 54/35 L 75/59 L Blood Pressure Mean 41 64 Blood Pressure Source Blood Pressure Position Blood Pressure Location Pulse Ox 100 100 99 Oxygen Delivery Method Ambu-Bag Mechanical Ventilator Mechanical Ventilator Oxygen Flow Rate (L/min) 15 Fraction of Inspired Oxygen (FIO2) 07/10/22 09:29 07/10/22 09:42 07/10/22 09:49 Temperature 96.1 F L 93.1 F L Temperature Source Temporal Core Pulse Rate 89 90 89 Respiratory Rate 22 H 25 H 20 H Respiratory Effort Respiratory Depth Respiratory Pattern Blood Pressure 68/47 L 82/67 L 86/65 L Blood Pressure Mean 54 72 72 Blood Pressure Source Blood Pressure Position Supine Blood Pressure Location Left Arm Pulse Ox 100 96 96 Oxygen Delivery Method Mechanical Ventilator Mechanical Ventilator Oxygen Flow Rate (L/min) Fraction of Inspired Oxygen (FIO2) 40 40 07/10/22 10:15 07/10/22 10:19 07/10/22 10:22 Temperature 93.7 F L 93.8 F L 93.8 F L Temperature Source Core Core Core Pulse Rate 91 92 93 Respiratory Rate 27 H 18 25 H Respiratory Effort Respiratory Depth Respiratory Pattern Blood Pressure 66/25 L 110/78 129/67 H Blood Pressure Mean 38 88 87 Blood Pressure Source Monitor Blood Pressure Position Supine Blood Pressure Location Left Arm Pulse Ox 96 97 97 Oxygen Delivery Method Mechanical Ventilator Oxygen Flow Rate (L/min) Fraction of Inspired Oxygen (FIO2) 40 07/10/22 09:10 07/10/22 10:33 07/10/22 10:39 Temperature 94.2 F L 94.3 F L Temperature Source Core Core Pulse Rate 81 93 93 Respiratory Rate 17 20 H 20 H Respiratory Effort Respiratory Depth Respiratory Pattern Normal Blood Pressure 102/73 98/72 Blood Pressure Mean 82 80 Blood Pressure Source Blood Pressure Position Blood Pressure Location Pulse Ox 100 97 97 Oxygen Delivery Method Mechanical Ventilator Mechanical Ventilator Oxygen Flow Rate (L/min) Fraction of Inspired Oxygen (FIO2) 40 40 40 Positive well nourished and well developed General Appearance ED: well developed HEENT Reports normocephalic, head/scalp atraumatic and moist mucous membranes Eyes PERRL and EOMs intact bilaterally Neck no lymphadenopathy, supple and no JVD Resp normal respiratory effort and clear to auscultation bilaterally Cardio regular rate and no murmurs Rate: tachycardic GI normal to inspection, nondistended, normoactive bowel sounds and non-tender Palpation: soft Back/Spine no CVA tenderness and normal ROM Extremity normal to inspection General Extremety ED: Negative for edema General Extremity: Negative for edema Neuro CN's II-XII intact bilaterally Sensorium / Orientation: alert and orientation impaired Motor Exam: strength 5/5 throughout Skin no rashes or lesions noted and no wounds Skin Narrative: Skin appears mottled Sepsis Attestation Sepsis Alert: Yes Sepsis Attestation: Agree w/Sepsis Date exam was performed: 07/10/22 Time exam was performed: 10:00 Possible Source of Sepsis: Pulmonary and Genitourinary Sepsis Organ Dysfunction Criteria Present: SBP < 90 mmHg or MAP < 65 mmHg, Acute Respiratory Failure (New need for BiPAP/CPAP or MV), Creatinine > 2.0 mg/dL, Lactic Acid > 2 mmol/L, Serum CO2 < 20 mmol/L (on BMP) and New/Unexplained change in mental status MDM MDM MDM Narrative Medical decision making narrative: White count is 2.4 hemoglobin of 9.3 platelet count of 157. INR 1.4. Sodium 126 with a potassium of 4.7. BUN of 51 creatinine 3.53 and a blood sugar of 1115. Lactic acid is elevated 3.2. pH is 7.1. Troponin elevated at 1034. He does not have ACS changes on his EKG. My interpretation of the chest x-ray is right lower lobe infiltrate. There is adequate positioning of the central line no pneumothorax and endotracheal tube is above the ferdinand. Toxicology evaluation was negative. Moderate acetone in blood. CT of the brain showed nothing acute. The patient received approximately 4 L of IV fluids. He remained profoundly hypotensive with systolic readings 40s and 50s. He is producing a good amount of urine. And his IJ showed no respiratory collapse on her bedside ultrasound. I placed a right ultrasound-guided internal jugular central line. This was obtained on the first attempt without difficulty. This was sutured into place. The lines were flushed and dressing applied. Terry catheter that is temperature sensitive was placed which revealed that the patient was hypothermic. Warm blankets applied. The patient began to bradycardia down into the 20s his blood pressure decreased to around 36/15. He stopped breathing. Decision was made to intubate him. An 8-0 endotracheal tube was secured on the first attempt without any difficulty. Placement of the endotracheal tube was confirmed using lung auscultation color c hange capnography and chest x-ray. Patient was placed on Levophed. We continued IV fluids he was received sedation. He also obtained blood and urine cultures and was given Rocephin and azithromycin. He was also placed on insulin drip. I spoke with Dr. Goins from intensive care and Dr. Baca from medicine. Lab Data Attestation: I reviewed the patient's lab results. Labs: Laboratory Results - last 24 hr 07/10/22 07/10/22 07/10/22 07:45 07:45 07:45 WBC 2.4 L RBC 2.91 L Hgb 9.3 L Hct 28.6 L MCV 98.3 H MCH 32.0 MCHC 32.5 RDW Std Deviation 46.2 H RDW Coeff of Tommy 12.7 Plt Count 157 MPV 10.8 Neut % (Auto) Not Reportable Absolute Neuts (auto) 1.9 L Absolute Lymphs (auto) 0.14 L Total Counted 100 Neutrophils % (Manual) 67 Band Neutrophils % 15 H Lymphocytes % (Manual) 6 L Monocytes % (Manual) 8 Eosinophils % (Manual) 8 H Basophils % (Manual) 8 H Myelocytes % 4 H Plasma Cell % (Manual) 8 Other Cells % 8 Diff Path Review May foll Platelet Estimate ADEQUATE RBC Morphology NORM C+C PT 16.3 H INR 1.4 APTT 37.1 H Sodium 126 L Potassium 4.7 Chloride 88 L Carbon Dioxide 17.0 L Anion Gap 21 H BUN 51 H Creatinine 3.53 H Estim Creat Clear Calc 22.59 Est GFR (MDRD) Af Amer 25 L Est GFR (MDRD) Non-Af 20 L BUN/Creatinine Ratio 14.4 Glucose 1115 H* Lactic Acid Calcium 7.7 L Magnesium 2.4 Total Bilirubin 0.40 Direct Bilirubin 0.12 AST 58 H ALT 29 Alkaline Phosphatase 77 Total Creatine Kinase Troponin I High Sens 1034 H* Total Protein 5.1 L Albumin 2.1 L Globulin 3.0 Triglycerides Lipase 35 L Urine Color Urine Clarity Urine pH Ur Specific [place] Urine Protein Urine Glucose (UA) Urine Ketones Urine Occult Blood Urine Nitrite Urine Bilirubin Urine Urobilinogen Ur Leukocyte Esterase Urine RBC Urine WBC Ur Squamous Epith Cells Urine Bacteria Urine Mucus Urine Opiates Screen Urine Methadone Screen Ur Barbiturates Screen Ur Phencyclidine Scrn Ur Amphetamines Screen MDMA (Ecstasy) Screen U Benzodiazepines Scrn Urine Cocaine Screen U Cannabinoids Screen Ur Drug Screen Comment Ethyl Alcohol Acetone Level POC Glucose 07/10/22 07/10/22 07/10/22 07:45 07:45 07:45 WBC RBC Hgb Hct MCV MCH MCHC RDW Std Deviation RDW Coeff of Tommy Plt Count MPV Neut % (Auto) Absolute Neuts (auto) Absolute Lymphs (auto) Total Counted Neutrophils % (Manual) Band Neutrophils % Lymphocytes % (Manual) Monocytes % (Manual) Eosinophils % (Manual) Basophils % (Manual) Myelocytes % Plasma Cell % (Manual) Other Cells % Diff Path Review Platelet Estimate RBC Morphology PT INR APTT Sodium Potassium Chloride Carbon Dioxide Anion Gap BUN Creatinine Estim Creat Clear Calc Est GFR (MDRD) Af Amer Est GFR (MDRD) Non-Af BUN/Creatinine Ratio Glucose Lactic Acid 3.2 H* Calcium Magnesium Total Bilirubin Direct Bilirubin AST ALT Alkaline Phosphatase Total Creatine Kinase 1185 H Troponin I High Sens Total Protein Albumin Globulin Triglycerides 176 Lipase Urine Color Urine Clarity Urine pH Ur Specific [place] Urine Protein Urine Glucose (UA) Urine Ketones Urine Occult Blood Urine Nitrite Urine Bilirubin Urine Urobilinogen Ur Leukocyte Esterase Urine RBC Urine WBC Ur Squamous Epith Cells Urine Bacteria Urine Mucus Urine Opiates Screen Urine Methadone Screen Ur Barbiturates Screen Ur Phencyclidine Scrn Ur Amphetamines Screen MDMA (Ecstasy) Screen U Benzodiazepines Scrn Urine Cocaine Screen U Cannabinoids Screen Ur Drug Screen Comment Ethyl Alcohol < 3.0 Acetone Level MODERATE H POC Glucose 07/10/22 07/10/22 07/10/22 07:50 07:50 09:23 WBC RBC Hgb Hct MCV MCH MCHC RDW Std Deviation RDW Coeff of Tommy Plt Count MPV Neut % (Auto) Absolute Neuts (auto) Absolute Lymphs (auto) Total Counted Neutrophils % (Manual) Band Neutrophils % Lymphocytes % (Manual) Monocytes % (Manual) Eosinophils % (Manual) Basophils % (Manual) Myelocytes % Plasma Cell % (Manual) Other Cells % Diff Path Review Platelet Estimate RBC Morphology PT INR APTT Sodium Potassium Chloride Carbon Dioxide Anion Gap BUN Creatinine Estim Creat Clear Calc Est GFR (MDRD) Af Amer Est GFR (MDRD) Non-Af BUN/Creatinine Ratio Glucose Lactic Acid Calcium Magnesium Total Bilirubin Direct Bilirubin AST ALT Alkaline Phosphatase Total Creatine Kinase Troponin I High Sens Total Protein Albumin Globulin Triglycerides Lipase Urine Color Yellow Urine Clarity Clear Urine pH 6.5 Ur Specific [place] 1.010 Urine Protein 30 H Urine Glucose (UA) 1000 H Urine Ketones 15 H Urine Occult Blood 150 H Urine Nitrite Negative Urine Bilirubin Negative Urine Urobilinogen Normal Ur Leukocyte Esterase 25 H Urine RBC 0-5 SEEN Urine WBC 10-25 SEEN Ur Squamous Epith Cells 0 SEEN Urine Bacteria 2+ Urine Mucus 0 SEEN Urine Opiates Screen NEGATIVE Urine Methadone Screen NEGATIVE Ur Barbiturates Screen NEGATIVE Ur Phencyclidine Scrn NEGATIVE Ur Amphetamines Screen NEGATIVE MDMA (Ecstasy) Screen NEGATIVE U Benzodiazepines Scrn NEGATIVE Urine Cocaine Screen NEGATIVE U Cannabinoids Screen NEGATIVE Ur Drug Screen Comment Ethyl Alcohol Acetone Level POC Glucose > 500 H* 07/10/22 07/10/22 07/10/22 09:25 10:30 10:33 WBC RBC Hgb Hct MCV MCH MCHC RDW Std Deviation RDW Coeff of Tommy Plt Count MPV Neut % (Auto) Absolute Neuts (auto) Absolute Lymphs (auto) Total Counted Neutrophils % (Manual) Band Neutrophils % Lymphocytes % (Manual) Monocytes % (Manual) Eosinophils % (Manual) Basophils % (Manual) Myelocytes % Plasma Cell % (Manual) Other Cells % Diff Path Review Platelet Estimate RBC Morphology PT INR APTT Sodium Potassium Chloride Carbon Dioxide Anion Gap BUN Creatinine Estim Creat Clear Calc Est GFR (MDRD) Af Amer Est GFR (MDRD) Non-Af BUN/Creatinine Ratio Glucose 1006 H* 927 H* Lactic Acid Calcium Magnesium Total Bilirubin Direct Bilirubin AST ALT Alkaline Phosphatase Total Creatine Kinase Troponin I High Sens Total Protein Albumin Globulin Triglycerides Lipase Urine Color Urine Clarity Urine pH Ur Specific [place] Urine Protein Urine Glucose (UA) Urine Ketones Urine Occult Blood Urine Nitrite Urine Bilirubin Urine Urobilinogen Ur Leukocyte Esterase Urine RBC Urine WBC Ur Squamous Epith Cells Urine Bacteria Urine Mucus Urine Opiates Screen Urine Methadone Screen Ur Barbiturates Screen Ur Phencyclidine Scrn Ur Amphetamines Screen MDMA (Ecstasy) Screen U Benzodiazepines Scrn Urine Cocaine Screen U Cannabinoids Screen Ur Drug Screen Comment Ethyl Alcohol Acetone Level POC Glucose > 500 H* ABG Data ABG results: ABG 07/10/22 08:01 Specimen Type ART Sample Site L Radial pH 7.17 L* Bicarbonate Actual 15.2 L Total CO2 17 Base Excess -13 L O2 Saturation 84 L ABG pCO2 42.1 ABG pO2 61 L Garett Test Positive O2 Delivery Device Cannula Liter Flow 3.0 Crit Call To/Read Back Yes Blood Gas Notified Whom [facility] Radiography Diagnostic Testing: Clinical Impression(s) from Imaging Studies Brain CT 07/10/22 07:42 IMPRESSION: Normal unenhanced CT scan of the brain. Electronically Signed: Keyur Garcia MD at 10:26 EST Reading Location ID and State: [id number] / [employer] Tel , Service support , Chest X-Ray 07/10/22 07:42 IMPRESSION: 1. Interval placement of endotracheal tube with the tip above the ferdinand. 2. Interval placement of nasogastric tube with the tip below the diaphragm. 3. Interval placement of right internal jugular deep venous line with tip the catheter overlying the spur vena cava and no pneumothorax. 4. Right lower lobe pneumonia. Electronically Signed: Keyur Garcia MD at 9:40 EST , Critical Care Time Critical Care Time: Yes Critical care time (excluding procedures): 30-74 minutes (35min), Including time spent:, Discussing w/Patient &/or Family/[employer] Instrument Repairer, Discussing w/Consultants, Arranging Admission or Transfer and Performing Direct Patient Care at Bedside Discharge Plan Dx/Rx/DC Orders Clinical Impression: DKA, type 1, Hypothermia, Acute dehydration, Pneumonia, Respiratory failure, Septic shock, Acute renal failure, Anemia, Non-ST elevation AR (NSTEMI) Disposition Disposition: [facility]
[2022-07-10 07:57] LABS: Hematocrit 28.6 % (40-54); Hemoglobin 9.3 g/dL (13.0-16.5); Mean Corp Hgb Conc 32.5 g/dL (32-36); Mean Corpuscular Volume 98.3 fL (80-94); Mean Platelet Vol. 10.8 fl (6.2-12.0); POSITIVE DIFFERENTIAL YES; POSITIVE MORPHOLOGY YES; Platelet Count 157 K/mm3 (150-450); RBC Distribution Width CV 12.7 % (11.6-14.6); RBC Distribution Width SD 46.2 fl (35.1-43.9); Red Blood Count 2.91 M/mm3 (4.6-6.2); White Blood Count 2.4 K/mm3 (4.4-11.0)
[2022-07-10 08:05] LABS: Allen Test Positive; Base Excess -13 mmol/L (-2 to +2); Bicarbonate 15.2 mmol/L (22-26); Blood Gas Specimen Type ART; O2 Delivery Device Cannula; PO2 61 mmHG (75-100); SITE L Radial; SO2 84 % (95-99); Total Carbon Dioxide 17 mmol/L; pCO2 42.1 mmHg (35-45); pH 7.17 (7.35-7.45)
[2022-07-10 08:07] LABS: Mucous, Urine 0 SEEN /hpf (<or=2+); Squamous Epithelial Cells - UA 0 SEEN /hpf (0-5)
[2022-07-10 08:10] LABS: Color, Urine Yellow (Yellow); Glucose, Dipstick 1000 mg/dl (Normal); Ketone-Dipstick 15 mg/dl (Negative); Leukocyte Esterase-Dipstick 25 /ul (Negative); Nitrite-Dipstick Negative (Negative); Occult Blood-Urine 150 /ul (Negative); Protein-Dipstick 30 mg/dl (Negative); Urine Bilirubin Dipstick Negative (Negative); Urine Clarity Clear (Clear); Urine Urobilinogen Normal (Normal); Urine pH 6.5 (5.0 - 8.0)
[2022-07-10 08:16] LABS: Alcohol, Blood (Medical)-Serum < 3.0 mg/dL
[2022-07-10 08:22] LABS: AST(SGOT) 58 U/L (15-37); Alanine Aminotransfer ALT/SGPT 29 U/L (16-61); Albumin, Serum 2.1 g/dL (3.2-5.0); Alkaline Phosphatase 77 U/L (45-117); Anion Gap 21 (5-15); BUN 51 mg/dL (7-18); BUN/Creat Ratio 14.4 RATIO (10-20); Bilirubin, Direct 0.12 mg/dL (0.00-0.30); Calcium,Total 7.7 mg/dL (8.5-10.1); Chloride 88 mmol/L (98-107); Creatinine, Serum 3.53 mg/dL (0.70-1.30); EST Glomerular Filtration Rate 20 mL/min (>60); Est Glom Filt Rate - Afr Amer 25 mL/min (>60); Estimated Creatinine Clearance 22.59 ml/min; Glucose 1115 mg/dL (74-106); Lipase 35 U/L (73-393); Magnesium 2.4 mg/dL (1.6-2.6); Potassium 4.7 mmol/L (3.5-5.1); Protein, Total 5.1 g/dL (6.4-8.2); Sodium Level 126 mmol/L (136-145); Troponin-I HS (w/2H Reflex) 1034 pg/mL (3.0-78.0)
[2022-07-10 08:24] LABS: Bacteria 2+ /hpf (None Seen); Red Blood Cells-Urine 0-5 SEEN /hpf (0-5); White Blood Cells 10-25 SEEN /hpf (0-5)
[2022-07-10 08:25] LABS: Lactic Acid 3.2 mmol/L (0.4-1.9)
[2022-07-10 08:26] LABS: Amphetamine Urine VISTA NEGATIVE (<1000 ng/mL); Barbiturate Urine VISTA NEGATIVE (< 200 ng/mL); Benzodiazepine Urine VISTA NEGATIVE (< 200 ng/mL); Cocaine Urine VISTA NEGATIVE (< 300 ng/mL); Ecstacy Urine VISTA NEGATIVE (< 500 ng/mL); Methadone Urine VISTA NEGATIVE (< 300 ng/mL); PCP Urine VISTA NEGATIVE (< 25 ng/mL); THC Urine VISTA NEGATIVE (< 50 ng/mL); Vista UDS pH Range 6
[2022-07-10 08:31] LABS: Differential Indicated MANUAL DIFF
[2022-07-10] MEDS: 0.9% Normal Saline 1,000 ML 250 ML IV ×2 (08:32→13:19)
[2022-07-10 08:40] LABS: International Normalized Ratio 1.4; Prothrombin Time (Protime)PT. 16.3 SECONDS (11.7-14.9)
[2022-07-10 08:41] LABS: Partial Thromboplast Time 37.1 Seconds (24.1-36.2)
[2022-07-10 08:48] LABS: Lymphocyte 6 % (19-41); Monocyte 8 % (0-10); Myelocyte 4 % (0-0); Neutrophil-Band 15 % (0-5); Neutrophil-Segmented 67 % (47-70); Platelet Estimate ADEQUATE (ADEQ); Total Cells Counted 100 (MANUAL DIFF)
--- NOTE | 2022-07-10 09:01 | ED.RN ---
PT WITH AGONAL RESPIRATIONS. MINIMAL RESPIRATORY EFFORT, DR. GAUTAM CALLS FOR RSI. PT GIVEN 20 MG ETOMIDATE IVP THROUGH LEFT AC BY MARISSA CARNEY AT 0900. RESPIRATORY BAGGING. LEVOPHED INITIATED THROUGH CENTRAL LINE PER DR. GAUTAM VERBAL ORDER. 8CM TUBE, 24 AT THE LIP. INTUBATED AT 0902.
[2022-07-10] MEDS: Ceftriaxone 1 GM/50 ML BAG IV (09:22)
[2022-07-10 09:45] LABS: Bedside Glucose > 500 mg/dL (74-106)
[2022-07-10 09:53] LABS: Reflex Troponin-HS? (from REC) Y
[2022-07-10 10:03] LABS: Glucose 1006 mg/dL (74-106)
[2022-07-10 10:25] LABS: CPK Total, Creatine Kinase 1185 U/L (39-308); Triglycerides 176 mg/dL
[2022-07-10 10:35] LABS: Basophil 8 % (0-1); Eosinophil 8 % (0-5); Other WBC Type 8 %; Plasma Cell 8 %; Red Cell Morphology NORM C+C NORMAL (NORM C&C)
--- NOTE | 2022-07-10 10:35 | ED.RN ---
INSULIN DRIP INITIATED THROUGH CENTRAL LINE [place], SEE MAR FOR START TIME.
[2022-07-10 10:36] LABS: Absolute Lymphocyte Count 0.14 X10^3/uL (0.83-4.51); Absolute Neutrophil Count 1.9 X10^3/uL (2.0-7.7)
--- NOTE | 2022-07-10 10:39 | SUR.HOLD ---
0915 PT WAKING UP, MOVING ARMS UP TOWARD MOUTH. SOFT WRIST RESTRAINTS APPLIED TO BILATERAL WRISTS TO MAINTAIN TUBE PLACEMENT AND PT SAFETY. DR. PAGE. SEE MAR FOR SEDATION MEDS.
[2022-07-10 10:51] LABS: Bedside Glucose > 500 mg/dL (74-106)
[2022-07-10 10:52] LABS: Glucose 927 mg/dL (74-106)
--- NOTE | 2022-07-10 11:00 | NURSING ---
ICU DKA [facility]
--- NOTE | 2022-07-10 11:04 | NURSING ---
ICU 6
[2022-07-10 11:53] LABS: Reflex Lactate? Y
[2022-07-10] MEDS: Propofol 10MG/Ml 1,000 MG/100 ML Bottle 3.5 MG CONT INF (12:13)
[2022-07-10 13:08] LABS: Anion Gap 14 (5-15); BUN 46 mg/dL (7-18); BUN/Creat Ratio 14.2 RATIO (10-20); Calcium,Total 6.9 mg/dL (8.5-10.1); Chloride 100 mmol/L (98-107); Creatinine, Serum 3.23 mg/dL (0.70-1.30); EST Glomerular Filtration Rate 23 mL/min (>60); Est Glom Filt Rate - Afr Amer 27 mL/min (>60); Estimated Creatinine Clearance 25.33 ml/min; Glucose 848 mg/dL (74-106); Lactic Acid 4.1 mmol/L (0.4-1.9); Potassium 3.8 mmol/L (3.5-5.1); Sodium Level 133 mmol/L (136-145)
[2022-07-10 13:31] LABS: Allen Test Positive; Base Excess -13 mmol/L (-2 to +2); Bicarbonate 14.3 mmol/L (22-26); Blood Gas Specimen Type ART; FI02 40; Mode AC; O2 Delivery Device Adult Vent; PEEP 5; PO2 86 mmHG (75-100); RR 14; SITE R Radial; SO2 95 % (95-99); Total Carbon Dioxide 15 mmol/L; Vt 450; pCO2 34.2 mmHg (35-45); pH 7.23 (7.35-7.45)
[2022-07-10 14:11] LABS: Glucose 821 mg/dL (74-106)
[2022-07-10 14:53] LABS: Troponin-I HS 1652 pg/mL (3.0-78.0)
[2022-07-10] MEDS: Acetaminophen 650 MG/20 ML UDC GT ×2 (14:54→20:38)
[2022-07-10 15:25] LABS: Osmolality, Serum 336 mOsm/KG (275-295)
[2022-07-10 15:34] LABS: Glucose 712 mg/dL (74-106)
[2022-07-10] MEDS: Vancomycin IV 1,000 MG/200 ML BAG 200 MG IV (16:03)
--- NOTE | 2022-07-10 16:20 | EKG12_ITS ---
Test Reason : Blood Pressure : / mmHG Vent. Rate : 114 BPM Atrial Rate : 114 BPM P-R Int : 142 ms QRS Dur : 090 ms QT Int : 354 ms P-R-T Axes : 086 073 053 degrees QTc Int : 487 ms Sinus tachycardia with Fusion complexes Septal infarct , age undetermined Abnormal ECG When compared with ECG of 10-JUL-2022 07:46, MANUAL COMPARISON REQUIRED, DATA IS UNCONFIRMED Confirmed by KARIE DEVINE, CADEN ([id number]), department editor KLEVER WALTON ([id number]) on 07/13/2022 12:53:03 PM Referred By: Confirmed By:CADEN TIWARI MD
--- NOTE | 2022-07-10 16:22 | EKG12_ITS ---
Test Reason : Blood Pressure : / mmHG Vent. Rate : 116 BPM Atrial Rate : 116 BPM P-R Int : 146 ms QRS Dur : 080 ms QT Int : 338 ms P-R-T Axes : 084 091 081 degrees QTc Int : 469 ms Sinus tachycardia Septal infarct , age undetermined Abnormal ECG When compared with ECG of 10-JUL-2022 16:22, MANUAL COMPARISON REQUIRED, DATA IS UNCONFIRMED Confirmed by KARIE DEVINE, CADEN ([id number]), online editor KLEVER WALTON ([id number]) on 07/13/2022 12:52:40 PM Referred By: Confirmed By:CADEN TIWARI MD
--- NOTE | 2022-07-10 16:27 | EKG12_ITS ---
Test Reason : Blood Pressure : / mmHG Vent. Rate : 116 BPM Atrial Rate : 116 BPM P-R Int : 144 ms QRS Dur : 078 ms QT Int : 358 ms P-R-T Axes : 071 084 095 degrees QTc Int : 497 ms Sinus tachycardia with Fusion complexes Septal infarct , age undetermined Abnormal ECG When compared with ECG of 10-JUL-2022 16:20, MANUAL COMPARISON REQUIRED, DATA IS UNCONFIRMED Confirmed by KARIE DEVINE, CADEN ([id number]), video editor KLEVER WALTON ([id number]) on 07/13/2022 12:52:50 PM Referred By: Confirmed By:CADEN TIWARI MD
--- NOTE | 2022-07-10 16:35 | NURSING ---
FIO2 increased to% d/t RR 30s, hypoxia upper 80s
--- NOTE | 2022-07-10 16:42 | NURSING ---
Ice packs applied bilat axillary and groin temp 102.5
--- NOTE | 2022-07-10 16:44 | PCM.HP.STD ---
HPI - General General Date of Admission: 07/10/22 Date of Service: 07/10/22 Chief Complaint: Altered consciousness/AMS, high blood sugar, high anion gap metabolic acidosis, DKA, and hypotension HPI Narrative MELONIE DC, is a 41 M was brought to ED by EMS in critical state. EMS noted systolic blood pressure in 60s, blood sugar greater than 500 in Accu-Chek. Detailed history unobtainable as patient was intubated soon he arrived in ED in shock state. As per EMS note, patient has decreased mentation with slurring. His residence was locked and it seems EMS has to break glass to go inside his house. It seems that he has been sick for approximately 2 days. Patient was put on nonrebreather because of hypoxia 82% and patient groggy, altered mental status/losing consciousness. BP noted 66/48, 60/36, heart rate in 90s. Prior to that, patient's ex- who is called EMS as patient called her and she could not understand even on 3 times reputations. At most she understood that he needs to go to ER therefore she called EMS. ED physician also could not get any information because of decreasing consciousness. In ED, his blood pressure continued to be low even on maximum fluid resuscitation. Patient required right IJ CVC catheter and started on norepinephrine drip. Patient was also intubated. Labs done in the ER was consistent with DKA with high anion gap metabolic acidosis, low pH.It also shows KHANG with BUN/creatinine 49/3.31. Hypotension requiring vasopressor support, lactic acid 4.1, decreased mental status while supporting evidence of organ dysfunction therefore septic shock. Patient had 5 L of IV fluid in ED. Patient was admitted in ICU for further management. [facility] Medical History DKA (diabetic ketoacidoses) Folliculitis Gastric perforation High cholesterol Hypertension Perforated ulcer Uncontrolled diabetes mellitus Weight loss, non-intentional Home Medications fluticasone propionate 50 mcg/actuation nasal spray,suspension 2 spray NASAL DAILY PRN Allergies 12/17/19 [History Last Taken Unknown] insulin regular human 100 unit/mL injection solution unit subcut TIDCM diabetes 12/17/19 [History Last Taken 10/31/20] lisinopril 5 mg tablet 5 mg PO DAILY 05/11/20 [History Last Taken 10/31/20] rosuvastatin 20 mg tablet 20 mg PO DAILY 12/17/19 [History Last Taken 10/31/20] acetaminophen 325 mg tablet 650 mg PO Q4H PRN PRN Pain 1-05/17 or Fever 12/21/19 [Rx Last Taken Unknown] insulin glargine 100 unit/mL (3 mL) subcutaneous pen 35 units subcut BREAKFAST 10/31/20 [History Last Taken 10/31/20] insulin glargine 100 unit/mL (3 mL) subcutaneous pen 35 units subcut QHS 10/31/20 [History Last Taken 10/30/20] diclofenac sodium 75 mg tablet,delayed release 75 mg PO BID 01/20/21 [History Last Taken Unknown] furosemide 40 mg tablet 40 mg PO DAILY PRN Edema 01/20/21 [History Last Taken Unknown] potassium chloride 20 mEq/15 mL oral liquid 20 meq PO BID PRN Diarrhea 01/20/21 [History Last Taken Unknown] ondansetron 4 mg disintegrating tablet 4 mg PO Q8H PRN PRN Nausea #14 tabs 08/26/21 [Rx Last Taken Unknown] sulfamethoxazole 800 mg-trimethoprim 160 mg tablet (Bactrim DS) 1 tab PO BID #20 tabs 10/11/21 [Rx Last Taken Unknown] Allergy/AdvReac Type Severity Reaction Status Date / Time No Known Allergies Allergy Verified 07/10/22 07:38 Family History Father Diabetes Mother Hypertension Surgical History History of exploratory laparotomy (~12/2019) history of right bicep repair Social History Smoking Status: Current every day smoker tobacco type: cigarettes ROS ROS Narrative 14 system ROS unobtainable as patient came to ER in altered mental status, decreasing consciousness and was soon intubated. After talking to patient's ex- and and in waiting room in ICU, since patient has been sick for 2 days He lives alone therefore ROS cannot be obtained from family member. Review of Systems ROS Unobtainable: due to encephalopathy and due to mental status Vital Signs Vital Signs Vital Signs: 07/10/22 07:39 07/10/22 07:38 07/10/22 07:45 Temperature 97.5 F L Temperature Source Oral Pulse Rate 92 90 79 Respiratory Rate 29 H 29 H 20 H Respiratory Effort Respiratory Depth Respiratory Pattern Blood Pressure 49/38 L 52/34 L Blood Pressure Mean 41 40 Blood Pressure Source Blood Pressure Position Blood Pressure Location Pulse Ox 100 98 97 Oxygen Delivery Method Non-Rebreather Non-Rebreather Nasal Cannula Oxygen Flow Rate (L/min) 3 Fraction of Inspired Oxygen (FIO2) 07/10/22 07:52 07/10/22 08:00 07/10/22 08:02 Temperature Temperature Source Pulse Rate 78 74 Respiratory Rate 23 H 25 H Respiratory Effort Labored Respiratory Depth Respiratory Pattern Blood Pressure 55/45 L 50/41 L Blood Pressure Mean 48 44 Blood Pressure Source Blood Pressure Position Blood Pressure Location Pulse Ox 98 97 Oxygen Delivery Method Nasal Cannula Nasal Cannula Oxygen Flow Rate (L/min) 3 3 Fraction of Inspired Oxygen (FIO2) 07/10/22 08:24 07/10/22 08:57 07/10/22 09:00 Temperature 97.5 F L Temperature Source Temporal Pulse Rate 59 L 43 L 46 L Respiratory Rate 20 H 10 L 9 L Respiratory Effort Respiratory Depth Respiratory Pattern Blood Pressure 42/34 L 29/28 L 39/28 L Blood Pressure Mean 36 28 31 Blood Pressure Source Blood Pressure Position Blood Pressure Location Pulse Ox 100 96 100 Oxygen Delivery Method Nasal Cannula Ambu-Bag Oxygen Flow Rate (L/min) 6 15 Fraction of Inspired Oxygen (FIO2) 07/10/22 09:04 07/10/22 09:18 07/10/22 09:27 Temperature Temperature Source Pulse Rate 56 L 83 Respiratory Rate 20 H 17 Respiratory Effort Normal Non-Labored Respiratory Depth Normal Respiratory Pattern Normal Blood Pressure 54/35 L 75/59 L Blood Pressure Mean 41 64 Blood Pressure Source Blood Pressure Position Blood Pressure Location Pulse Ox 100 100 99 Oxygen Delivery Method Ambu-Bag Mechanical Ventilator Mechanical Ventilator Oxygen Flow Rate (L/min) 15 Fraction of Inspired Oxygen (FIO2) 07/10/22 09:29 07/10/22 09:42 07/10/22 09:49 Temperature 96.1 F L 93.1 F L Temperature Source Temporal Core Pulse Rate 89 90 89 Respiratory Rate 22 H 25 H 20 H Respiratory Effort Respiratory Depth Respiratory Pattern Blood Pressure 68/47 L 82/67 L 86/65 L Blood Pressure Mean 54 72 72 Blood Pressure Source Blood Pressure Position Supine Blood Pressure Location Left Arm Pulse Ox 100 96 96 Oxygen Delivery Method Mechanical Ventilator Mechanical Ventilator Oxygen Flow Rate (L/min) Fraction of Inspired Oxygen (FIO2) 40 40 07/10/22 10:15 07/10/22 10:19 07/10/22 10:22 Temperature 93.7 F L 93.8 F L 93.8 F L Temperature Source Core Core Core Pulse Rate 91 92 93 Respiratory Rate 27 H 18 25 H Respiratory Effort Respiratory Depth Respiratory Pattern Blood Pressure 66/25 L 110/78 129/67 H Blood Pressure Mean 38 88 87 Blood Pressure Source Monitor Blood Pressure Position Supine Blood Pressure Location Left Arm Pulse Ox 96 97 97 Oxygen Delivery Method Mechanical Ventilator Oxygen Flow Rate (L/min) Fraction of Inspired Oxygen (FIO2) 40 07/10/22 09:10 07/10/22 10:33 07/10/22 10:39 Temperature 94.2 F L 94.3 F L Temperature Source Core Core Pulse Rate 81 93 93 Respiratory Rate 17 20 H 20 H Respiratory Effort Respiratory Depth Respiratory Pattern Normal Blood Pressure 102/73 98/72 Blood Pressure Mean 82 80 Blood Pressure Source Blood Pressure Position Blood Pressure Location Pulse Ox 100 97 97 Oxygen Delivery Method Mechanical Ventilator Mechanical Ventilator Oxygen Flow Rate (L/min) Fraction of Inspired Oxygen (FIO2) 40 40 40 07/10/22 11:01 07/10/22 11:07 07/10/22 11:49 Temperature 95.1 F L 95.1 F L Temperature Source Core Core Pulse Rate 93 91 Respiratory Rate 23 H 20 H Respiratory Effort Mechanically Ventilated Respiratory Depth Normal Respiratory Pattern Normal Blood Pressure 83/59 L 83/59 L Blood Pressure Mean 67 67 Blood Pressure Source Blood Pressure Position Blood Pressure Location Pulse Ox 97 99 100 Oxygen Delivery Method Mechanical Ventilator Mechanical Ventilator Mechanical Ventilator Oxygen Flow Rate (L/min) Fraction of Inspired Oxygen (FIO2) 40 40 40 07/10/22 11:45 07/10/22 11:30 07/10/22 12:00 Temperature 97.3 F L 96.8 F L Temperature Source Core Core Pulse Rate 97 98 Respiratory Rate 18 23 H Respiratory Effort Respiratory Depth Respiratory Pattern Blood Pressure 83/55 L 136/123 H 84/59 L Blood Pressure Mean 64 127 67 Blood Pressure Source Monitor Monitor Monitor Blood Pressure Position Supine Supine Blood Pressure Location Right Arm Right Arm Pulse Ox 100 100 Oxygen Delivery Method Mechanical Ventilator Mechanical Ventilator Oxygen Flow Rate (L/min) Fraction of Inspired Oxygen (FIO2) 40 40 07/10/22 11:30 07/10/22 12:15 07/10/22 12:31 Temperature Temperature Source Pulse Rate 79 Respiratory Rate 28 H Respiratory Effort Respiratory Depth Respiratory Pattern Normal Blood Pressure 73/54 L 87/61 L Blood Pressure Mean 60 69 Blood Pressure Source Blood Pressure Position Blood Pressure Location Pulse Ox 100 Oxygen Delivery Method Oxygen Flow Rate (L/min) Fraction of Inspired Oxygen (FIO2) 40 07/10/22 13:05 07/10/22 13:00 07/10/22 13:30 Temperature 98.8 F Temperature Source Core Pulse Rate 98 98 Respiratory Rate 16 17 Respiratory Effort Respiratory Depth Respiratory Pattern Normal Blood Pressure 82/57 L 73/49 L Blood Pressure Mean 65 57 Blood Pressure Source Blood Pressure Position Blood Pressure Location Pulse Ox 100 100 Oxygen Delivery Method Oxygen Flow Rate (L/min) Fraction of Inspired Oxygen (FIO2) 30 40 07/10/22 13:45 07/10/22 11:37 07/10/22 14:00 Temperature 96.8 F L 100.1 F H Temperature Source Core Core Pulse Rate 98 104 H Respiratory Rate 23 H 18 Respiratory Effort Respiratory Depth Respiratory Pattern Blood Pressure 88/52 L 136/123 H 90/56 L Blood Pressure Mean 64 127 67 Blood Pressure Source Monitor Blood Pressure Position Semi-Fowlers Blood Pressure Location Right Arm Pulse Ox 100 98 Oxygen Delivery Method Mechanical Ventilator Mechanical Ventilator Oxygen Flow Rate (L/min) Fraction of Inspired Oxygen (FIO2) 40 30 07/10/22 14:15 07/10/22 14:15 07/10/22 14:30 Temperature Temperature Source Pulse Rate Respiratory Rate Respiratory Effort Respiratory Depth Respiratory Pattern Blood Pressure 78/53 L 78/53 L 72/46 L Blood Pressure Mean 61 61 54 Blood Pressure Source Blood Pressure Position Blood Pressure Location Pulse Ox Oxygen Delivery Method Oxygen Flow Rate (L/min) Fraction of Inspired Oxygen (FIO2) 07/10/22 14:45 07/10/22 15:04 07/10/22 15:17 Temperature 101.3 F H Temperature Source Core Pulse Rate 102 H Respiratory Rate 21 H Respiratory Effort Respiratory Depth Respiratory Pattern Blood Pressure 65/40 L 73/45 L 82/55 L Blood Pressure Mean 48 54 64 Blood Pressure Source Blood Pressure Position Semi-Fowlers Blood Pressure Location Left Arm Pulse Ox 93 Oxygen Delivery Method Mechanical Ventilator Oxygen Flow Rate (L/min) Fraction of Inspired Oxygen (FIO2) 30 07/10/22 13:06 07/10/22 15:36 07/10/22 15:16 Temperature 101.6 F H Temperature Source Core Pulse Rate 98 105 H Respiratory Rate Respiratory Effort Respiratory Depth Respiratory Pattern Blood Pressure 80/52 L Blood Pressure Mean 61 Blood Pressure Source Blood Pressure Position Blood Pressure Location Pulse Ox Oxygen Delivery Method Oxygen Flow Rate (L/min) Fraction of Inspired Oxygen (FIO2) 07/10/22 15:57 Temperature Temperature Source Pulse Rate Respiratory Rate Respiratory Effort Respiratory Depth Respiratory Pattern Blood Pressure 73/54 L Blood Pressure Mean 60 Blood Pressure Source Blood Pressure Position Blood Pressure Location Pulse Ox Oxygen Delivery Method Oxygen Flow Rate (L/min) Fraction of Inspired Oxygen (FIO2) Weight Weight: 131 lb 2.801 oz Body Mass Index (BMI) 19.4 Physical Exam Narrative General: Intubated, opens eyes, disoriented. HEENT: Atraumatic, PERRLA, EOMI, Normocephalic Oral: ET and OG tube. Neck: Right IJ CVC catheter. Supple, No JVD, Negative Carotid Bruits Lungs: Air entry diminished in bilateral lung bases. On vent support. 40% FiO2, RR 24 to 33/min. Cardiovascular: On 3 pressors. Sinus tachycardia, low-volume pulse. Normal S1, Normal S2, No murmurs Abdomen: Bowel Sounds sluggish, Soft, Non Tender, Non-Distended : No renal angle tenderness. No suprapubic tenderness. Extremities: No edema, Capillary Refill Less than 3 Seconds Skin: Abrasion davila over chest mainly right side of chest. Denies tenderness over chest. Abrasion/old bruise over right and left wyatt area. Musculoskeletal: Passive ROM intact. No Tenderness to Palpation of Joints or Extremities Neurological: Detailed neuro exam unobtainable. On fentanyl drip. Opens eyes but hard to get response. Psych/Mental Status: Flat affect, Results Lab / Micro Data Result Diagrams: 07/10/22 07:45 07/10/22 15:50 Labs: Laboratory Results - last 24 hr 07/10/22 07:45: WBC 2.4 L, RBC 2.91 L, Hgb 9.3 L, Hct 28.6 L, MCV 98.3 H, MCH 32.0, MCHC 32.5, RDW Std Deviation 46.2 H, RDW Coeff of Tommy 12.7, Plt Count 157, MPV 10.8, Neut % (Auto) Not Reportable, Absolute Neuts (auto) 1.9 L, Absolute Lymphs (auto) 0.14 L, Total Counted 100, Neutrophils % (Manual) 67, Band Neutrophils % 15 H, Lymphocytes % (Manual) 6 L, Monocytes % (Manual) 8, Eosinophils % (Manual) 8 H, Basophils % (Manual) 8 H, Myelocytes % 4 H, Plasma Cell % (Manual) 8, Other Cells % 8, Diff Path Review December, Platelet Estimate ADEQUATE, RBC Morphology NORM C+C 07/10/22 07:45: PT 16.3 H, INR 1.4, APTT 37.1 H 07/10/22 07:45: Sodium 126 L, Potassium 4.7, Chloride 88 L, Carbon Dioxide 17.0 L, Anion Gap 21 H, BUN 51 H, Creatinine 3.53 H, Estim Creat Clear Calc 22.59, Est GFR (MDRD) Af Amer 25 L, Est GFR (MDRD) Non-Af 20 L, BUN/Creatinine Ratio 14.4, Glucose 1115 H*, Calcium 7.7 L, Magnesium 2.4, Total Bilirubin 0.40, Direct Bilirubin 0.12, AST 58 H, ALT 29, Alkaline Phosphatase 77, Troponin I High Sens 1034 H*, Total Protein 5.1 L, Albumin 2.1 L, Globulin 3.0, Lipase 35 L 07/10/22 07:45: Ethyl Alcohol < 3.0, Acetone Level MODERATE H 07/10/22 07:45: Lactic Acid 3.2 H* 07/10/22 07:45: Total Creatine Kinase 1185 H, Triglycerides 176 07/10/22 07:50: Urine Color Yellow, Urine Clarity Clear, Urine pH 6.5, Ur Specific [place] 1.010, Urine Protein 30 H, Urine Glucose (UA) 1000 H, Urine Ketones 15 H, Urine Occult Blood 150 H, Urine Nitrite Negative, Urine Bilirubin Negative, Urine Urobilinogen Normal, Ur Leukocyte Esterase 25 H, Urine RBC 0-5 SEEN, Urine WBC 10-25 SEEN, Ur Squamous Epith Cells 0 SEEN, Urine Bacteria 2+, Urine Mucus 0 SEEN 07/10/22 07:50: Urine Opiates Screen NEGATIVE, Urine Methadone Screen NEGATIVE, Ur Barbiturates Screen NEGATIVE, Ur Phencyclidine Scrn NEGATIVE, Ur Amphetamines Screen NEGATIVE, MDMA (Ecstasy) Screen NEGATIVE, U Benzodiazepines Scrn NEGATIVE, Urine Cocaine Screen NEGATIVE, U Cannabinoids Screen NEGATIVE, Ur Drug Screen Comment 07/10/22 09:23: POC Glucose > 500 H* 07/10/22 09:25: Glucose 1006 H* 07/10/22 10:30: Glucose 927 H* 07/10/22 10:33: POC Glucose > 500 H* 07/10/22 12:15: Serum Osmolality 336 H 07/10/22 12:15: Lactic Acid 4.1 H* 07/10/22 12:15: Sodium 133 L, Potassium 3.8, Chloride 100, Carbon Dioxide 19.0 L, Anion Gap 14, BUN 46 H, Creatinine 3.23 H, Estim Creat Clear Calc 25.33, Est GFR (MDRD) Af Amer 27 L, Est GFR (MDRD) Non-Af 23 L, BUN/Creatinine Ratio 14.2, Glucose 848 H*, Calcium 6.9 L 07/10/22 12:15: Glucose Cancelled 07/10/22 13:40: Troponin I High Sens 1652 H* 07/10/22 13:40: Phosphorus 4.0 07/10/22 13:40: Glucose 821 H* 07/10/22 15:05: Glucose 712 H* Micro: Microbiology 07/10/22 09:35 Sputum, Induced/Lukens Gram Stain - Final 07/10/22 09:40 Nasal Secretion SARS-CoV-2 & FLU Antigen (Rapid) - Final 07/10/22 09:30 Interface Orders Rapid RSV (DFA) - Final ABG Data ABG results: ABG 07/10/22 07/10/22 08:01 13:24 Specimen Type ART ART Sample Site L Radial R Radial pH 7.17 L* 7.23 L Bicarbonate Actual 15.2 L 14.3 L Total CO2 17 15 Base Excess -13 L -13 L O2 Saturation 84 L 95 O2 % 40 ABG pCO2 42.1 34.2 L ABG pO2 61 L 86 Garett Test Positive Positive Respiration Rate 14 O2 Delivery Device Cannula Adult Vent Liter Flow 3.0 Vent Mode AC Tidal Volume 450 POC PEEP 5 Crit Call To/Read Back Yes Blood Gas Notified Whom LOTUS Radiology Impression Brain CT 07/10/22 07:42 IMPRESSION: Normal unenhanced CT scan of the brain. Electronically Signed: Keyur Garcia MD at 10:26 EST Reading Location ID and State: [id number] / [employer] , Service support , Chest X-Ray 07/10/22 07:42 IMPRESSION: 1. Interval placement of endotracheal tube with the tip above the ferdinand. 2. Interval placement of nasogastric tube with the tip below the diaphragm. 3. Interval placement of right internal jugular deep venous line with tip the catheter overlying the spur vena cava and no pneumothorax. 4. Right lower lobe pneumonia. Electronically Signed: Keyur Garcia MD at 9:40 EST , Assessment & Plan Assessment/Plan (1) DKA, type 1: (2) Septic shock: (3) Acute respiratory failure with hypoxia: PLAN: Plan This is a 41-year-old gentleman who was admitted in altered mental status/semiconscious status, DKA and septic shock 1. Acute hypoxic respiratory failure, exact etiology unclear possible due to septic shock/DKA: Patient is being admitted in ICU on ventilator, assist control 40% FiO2, PEEP 5. Dialysis Biomed Technician is consulted. I talked to the sash repairer and patient is on maximum therapy as mentioned below. 2. Septic shock, exact etiology unclear but possible right middle and lower lobe pneumonia: Chest x-ray individually reviewed and shows patchy consolidation in right middle lobe and lower lobe. Patient has high fever T-max 102.7, leukopenia and acute hypoxic respiratory failure and high anion gap metabolic acidosis. The patient presented with septic shock, most likely due to RML/RLL pneumonia with acute sepsis-related organ dysfunction as evidenced by recalcitrant hypotension requiring 3 vasopressors, acute hypoxic respiratory failure requiring vent support, Lactic acidosis, coagulopathy elevated PT and APTT. Patient on 3 vasopressors. Patient had fluid boluses as per septic shock protocol and is still getting fluids. On IV vancomycin and Zosyn. Patient was on IV hydrocortisone, stress dose of steroid. Septic work-up ordered. 3. DKA, suspected type 1 diabetes mellitus: As per patient's aunt, patient was diagnosed diabetes mellitus in 1999, he was 19-year-old and decals and was in favor of type 1 diabetes mellitus. Patient parent was also diabetes mellitus and kids also have diabetes. Patient has high anion gap metabolic acidosis. Initial ABG shows pH 7.1 7/42/60 once on 3 L of oxygen and repeat ABG shows improvement pH 7.23, PCO2 34.2. Patient was on DKA protocol with IV fluid and insulin drip. BMP monitoring and electrolyte replacement as per protocol. Patient came with glucose 1115. As per his girlfriend he always has problem in getting insulin because of insurance. 4. Elevated troponin most probably due to septic shock/DKA suspected due to increased demand from myocardial depression/myocarditis: Discussed with the juvenile court judge. Troponins are elevated. First EKG shows normal sinus rhythm, prolonged QTC 486 ms. Second EKG is more motion artifact. Third EKG twelve-lead EKG ordered shows sinus tachycardia with nonspecific ST-T changes. Glass Checker consult requested. Hypertension: Patient was last admitted in October 2020 for anasarca with 50 pound weight gain over past 3 weeks. At that time echo showed EF 60% with stage I diastolic dysfunction. A1c was more than 14%. 5. Other comorbidities include chronic nicotine use/smoking, chronic macrocytic anemia: Patient is a everyday cigarette smoker. Patient had history of gastric ulcer with perforation in the past. VTE prophylaxis:Moderate risk due to critical state, septic shock. On Heparin 5000 subcutaneous every 8 hourly, bilateral SCDs Living will/advanced directive/end of life care: Patient does not have living will or advanced directive. I talked to the Patient's ex- and aunt in waiting room in ICU. After discussion of benefits/risks procedures involved with full code, DNR CC arrest and DNR CC, patient's ex- and aunt are in agreement with full code. Patient's family member, aunt and his ex- artificial life support including intubation, tube feed, ventilator and/chest compression, central venous catheter, vasopressor and DC shock if needed Total time spent in [id number] encounter in discussion of advanced directive 16 minutes. Charges/Coding Visit Charges Inpatient E&M: 36469 Init Hosp L3 Procedures Hospitalists Procedures: 27699 Advncd Care Plan 30 Min
[2022-07-10 16:45] LABS: Anion Gap 11 (5-15); BUN 49 mg/dL (7-18); BUN/Creat Ratio 14.8 RATIO (10-20); Calcium,Total 7.1 mg/dL (8.5-10.1); Chloride 105 mmol/L (98-107); Creatinine, Serum 3.31 mg/dL (0.70-1.30); EST Glomerular Filtration Rate 22 mL/min (>60); Est Glom Filt Rate - Afr Amer 27 mL/min (>60); Estimated Creatinine Clearance 24.72 ml/min; Glucose 741 mg/dL (74-106); Potassium 3.9 mmol/L (3.5-5.1); Sodium Level 134 mmol/L (136-145)
--- NOTE | 2022-07-10 16:54 | PCM.RX.CS ---
Consult Pharmacy has been consulted to manage selected antiobiotic: Vancomycin Type of Consult: New start Suspected Infection: Sepsis Labs: Sodium 134 mmol/L (136-145) L 07/10/22 15:50 Potassium 3.9 mmol/L (3.5-5.1) 07/10/22 15:50 Chloride 105 mmol/L (98-107) 07/10/22 15:50 Carbon Dioxide 18.0 mmol/L (21.0-32.0) L 07/10/22 15:50 Anion Gap 11 (5-15) 07/10/22 15:50 BUN 49 mg/dL (7-18) H 07/10/22 15:50 Creatinine 3.31 mg/dL (0.70-1.30) H 07/10/22 15:50 Est GFR (MDRD) Af Amer 27 mL/min (>60) L 07/10/22 15:50 Est GFR (MDRD) Non-Af 22 mL/min (>60) L 07/10/22 15:50 BUN/Creatinine Ratio 14.8 RATIO (10-20) 07/10/22 15:50 Glucose 741 mg/dL (74-106) H* 07/10/22 15:50 Microbiology: Microbiology 07/10/22 09:35 Sputum, Induced/Lukens Gram Stain - Final 07/10/22 09:40 Nasal Secretion SARS-CoV-2 & FLU Antigen (Rapid) - Final 07/10/22 09:30 Interface Orders Rapid RSV (DFA) - Final Pharmacy Plan for Drug Dosing: NEW START IV VANCOMYCIN Consulting Physician: LUIS Indication: SEPSIS Goal Trough: 15-20 MG/DL SrCr: 3.31 MG/DL CrCl: 24.7 ML/MIN Comments: INITIAL DOSE OF 1000MG GIVEN 07/10 @ 1603 Vancomycin Dose: WILL START 500MG Q24H AND WATCH SCR CLOSELY. TROUGH PRIOR TO 3RD DOSE PER POLICY. Pending Level: 07/12/22 @ 1530 Pharmacy Service will continue to monitor and adjust dosing as required.
[2022-07-10] MEDS: Hydrocortisone Sod Succinate 100 MG/2 ML Vial 50 MG IV (16:56)
[2022-07-10 17:54] LABS: Glucose 729 mg/dL (74-106)
[2022-07-10] MEDS: 0.9% Normal Saline 1,000 ML 125 ML IV (18:05)
[2022-07-10] MEDS: Heparin Injection (Vial) 5,000 UNIT/ML VIAL 5000 UNIT SC (18:07)
[2022-07-10] MEDS: Chlorhexidine 15 ML PO ×2 (18:08→20:39)
--- NOTE | 2022-07-10 19:07 | NURSING ---
Pt placed in trendelenburg d/t BPs, increased rosa maria now 111/72
[2022-07-10 19:15] LABS: Glucose 648 mg/dL (74-106)
[2022-07-10] MEDS: 0.9% Saline Lock 10 ML Syringe IV (20:39)
[2022-07-10 21:11] LABS: Anion Gap 14 (5-15); BUN 47 mg/dL (7-18); BUN/Creat Ratio 14.2 RATIO (10-20); Calcium,Total 6.7 mg/dL (8.5-10.1); Chloride 109 mmol/L (98-107); Creatinine, Serum 3.32 mg/dL (0.70-1.30); EST Glomerular Filtration Rate 22 mL/min (>60); Est Glom Filt Rate - Afr Amer 26 mL/min (>60); Estimated Creatinine Clearance 24.64 ml/min; Glucose 527 mg/dL (74-106); Potassium 3.8 mmol/L (3.5-5.1); Sodium Level 137 mmol/L (136-145)
[2022-07-11] VITALS (57 sets, daily range): BP systolic 75–135; BP diastolic 50–86; PULSE 87–123; RESP 14–25; TEMP 33.8–39.4; O2SAT 90–98
[2022-07-11] MEDS: Hydrocortisone Sod Succinate 100 MG/2 ML Vial 50 MG IV ×4 (00:21→18:27)
[2022-07-11 00:50] LABS: Bedside Glucose 409 mg/dL (74-106)
[2022-07-11 00:50] LABS: Bedside Glucose > 500 mg/dL (74-106)
[2022-07-11 00:50] LABS: Bedside Glucose 403 mg/dL (74-106)
[2022-07-11] MEDS: 0.9% Normal Saline 1,000 ML 125 ML IV (02:06)
[2022-07-11 03:16] LABS: Absolute Lymphocyte Count 0.26 X10^3/uL (0.83-4.51); Absolute Neutrophil Count 1.5 X10^3/uL (2.0-7.7); Basophil# 0.03 X10^3/uL; Basophil% 1.6 % (0-1); Hematocrit 33.1 % (40-54); Hemoglobin 11.2 g/dL (13.0-16.5); Lymphocyte # 0.26 X10^3/ul (0.83-4.51); Lymphocyte % 13.7 % (19-41); Mean Corp Hgb Conc 33.8 g/dL (32-36); Mean Corpuscular Hgb 31.5 pg (27.0-32.0); Mean Corpuscular Volume 93.2 fL (80-94); Mean Platelet Vol. 10.6 fl (6.2-12.0); Monocyte# 0.09 X10^3/uL; Monocyte% 4.7 % (0-10); NRBC Flagged by Analyzer 0 % (0-5); Neutrophil # 1.52 X10^3/uL (2.7-7.7); POSITIVE DIFFERENTIAL YES; POSITIVE MORPHOLOGY YES; Platelet Count 110 K/mm3 (150-450); RBC Distribution Width CV 12.6 % (11.6-14.6); RBC Distribution Width SD 43.6 fl (35.1-43.9); Red Blood Count 3.55 M/mm3 (4.6-6.2); White Blood Count 1.9 K/mm3 (4.4-11.0)
[2022-07-11 03:19] LABS: Differential Indicated SCAN CRITERIA MET
[2022-07-11 03:28] LABS: Platelet Estimate SLT DEC (ADEQ)
[2022-07-11 03:29] LABS: Atypical Lymphocyte 1+ %
[2022-07-11] MEDS: Acetaminophen 650 MG/20 ML UDC GT ×3 (03:36→22:26)
[2022-07-11 03:37] LABS: Anion Gap 10 (5-15); BUN 53 mg/dL (7-18); BUN/Creat Ratio 15.3 RATIO (10-20); Calcium,Total 6.4 mg/dL (8.5-10.1); Chloride 111 mmol/L (98-107); Creatinine, Serum 3.46 mg/dL (0.70-1.30); EST Glomerular Filtration Rate 21 mL/min (>60); Est Glom Filt Rate - Afr Amer 25 mL/min (>60); Estimated Creatinine Clearance 23.65 ml/min; Glucose 279 mg/dL (74-106); Potassium 4.7 mmol/L (3.5-5.1); Sodium Level 138 mmol/L (136-145)
[2022-07-11] MEDS: CHLORHEXIDINE GLUC 2% CLOTH 1 EACH TOWELETTE TOPICAL (04:06)
[2022-07-11 05:11] LABS: Bedside Glucose 277 mg/dL (74-106)
[2022-07-11 05:11] LABS: Bedside Glucose 306 mg/dL (74-106)
[2022-07-11 05:11] LABS: Bedside Glucose 380 mg/dL (74-106)
[2022-07-11 05:11] LABS: Bedside Glucose 312 mg/dL (74-106)
[2022-07-11] MEDS: Calcium Gluconate 1 GM/10 ML Vial 2 GM IVP (05:46)
[2022-07-11] MEDS: Heparin Injection (Vial) 5,000 UNIT/ML VIAL 5000 UNIT SC ×3 (05:46→22:26)
--- NOTE | 2022-07-11 06:33 | CON.PCM.CC_ITS ---
Assessment & Plan Assessment/Plan (1) Septic shock: PLAN: Plan RECOMMENDATIONS: 1. Continue broad-spectrum antimicrobials as ordered. 2. Continue vasopressor support to maintain a mean arterial pressure at or above 65 mmHg. 3. Continue stress dose steroids. 4. Obtain nephrology consultation. 5. Continue insulin. 6. Wean FiO2 and PEEP to maintain oxygen saturations at or above 90%. 7. Obtain echocardiogram. 8. Continue appropriate ICU prophylaxis. IMPRESSIONS: 1. Septic shock The patient presented to the hospital with sepsis due to probable pneumonia with secondary hematogenous spread with acute sepsis related organ dysfunction as evidenced by acute respiratory failure requiring invasive mechanical ventilatory support, acute kidney injury and lactic acidemia. Although the patient did receive supplemental IV fluid hydration, he ultimately required vasopressor support due to fluid refractory hypotension. Plan to continue aggressive measures including Levophed, vasopressin and Adam-Synephrine in an attempt to maintain a mean arterial pressure at or above 65 mmHg. Continue broad-spectrum antimicrobials as ordered. Preliminary blood cultures are positive for staph aureus. Therefore, will obtain an echocardiogram as well. 2. Acute hypoxemic respiratory failure Likely secondary to right lower lobe pneumonia and decreased mentation in the setting of diabetic ketoacidosis. The patient will be continued on assist control mode of mechanical ventilation. Plan to wean FiO2 and PEEP to maintain oxygen saturations at or above 90%. Sputum culture is pending. Continue antimicrobials as outlined above. 3. Acute kidney injury Most likely prerenal in etiology/ischemic ATN in the setting of #1. The patient did receive significant IV fluid resuscitation. In light of his worsening creatinine, will obtain nephrology consultation. Continue supportive measures as noted above including vasopressors to maintain hemodynamic stability. Continue to monitor urine output for now. There is no emergent need for renal replacement therapy. 4. Diabetic ketoacidosis Likely precipitated by underlying infection. The patient did receive significant IV fluid resuscitation along with continuous insulin infusion. Anion gap has been closed now x2. 5. Pancytopenia Continue to monitor counts daily. No indication for transfusion of blood products at the current time. 6. NSTEMI Likely secondary to demand ischemia in the setting of #1. Cardiology is currently following. Echocardiogram is pending. TIME: 38 minutes of critical care time, independent of procedures, was spent addressing the patient's septic shock, staph bacteremia, acute hypoxemic respiratory failure, acute kidney injury, diabetic ketoacidosis, NSTEMI, review of all data and collaboration with the care team. HPI Consult Data Date of Consult: 07/11/22 HPI Narrative Reason for Consultation: Acute respiratory failure HPI Narrative: The patient is a 41-year-old male, with a history as outlined below, who presented to the emergency department on July 10 with generalized weakness, malaise and hypotension. History pertinent to the patient's hospitalization was obtained primarily via chart review, as the patient is currently intubated and there is no family available at the bedside. However, the patient has been ill for several days leading up to his hospitalization. The patient's only reported medical condition is diabetes mellitus. On presentation to the emergency department, the patient was documented to have a temperature of 97.5 ?F. He was profoundly hypotensive and tachypneic. In itial laboratory evaluation revealed a white blood cell count of 2400 with a hemoglobin of 9.3 g/dL. 15% bands was noted on differential. Chemistry profile was notable for a sodium of 126, chloride of 88, bicarbonate of 17 and creatinine of 3.5. Glucose was elevated to 1115. Lactate was elevated at 3.2. Troponin was increased at 1034. Urinalysis was positive for some leukocyte esterase and 2+ urine bacteria. Moderate serum acetone level was noted. Toxicology screen was negative. CT head was unremarkable. During his emergency department stay, the patient received multiple liters of supplemental IV fluids, but remained hemodynamically unstable. Therefore, a central venous catheter was placed. Ultimately, the patient was initiated on vasopressors to maintain hemodynamic stability, along with broad-spectrum antimicrobials. The patient did require intubation with chest imaging demonstrating a right lower lobe pneumonia. The patient was subsequently admitted to the medical intensive care unit. Over the course of his ICU stay, to date, the patient has required significant vasopressor support in the form of Levophed, vasopressin and Adam-Synephrine. The patient was also started on stress dose steroids. He remains on a continuous insulin infusion along with broad-spectrum antimicrobials. Preliminary blood cultures are positive for staph aureus. The patient is pancytopenic this morning. Chemistry profile was notable for a bicarbonate of 17 and creatinine of 3.46. Anion gap is closed. Glucose was elevated at 279. [facility] Medical History DKA (diabetic ketoacidoses) Folliculitis Gastric perforation High cholesterol Hypertension Perforated ulcer Uncontrolled diabetes mellitus Weight loss, non-intentional Home Medications fluticasone propionate 50 mcg/actuation nasal spray,suspension 2 spray NASAL DAILY PRN Allergies 12/17/19 [History Last Taken Unknown] insulin regular human 100 unit/mL injection solution unit subcut TIDCM diabetes 12/17/19 [History Last Taken 10/31/20] lisinopril 5 mg tablet 5 mg PO DAILY 12/17/19 [History Last Taken 10/31/20] rosuvastatin 20 mg tablet 20 mg PO DAILY 12/17/19 [History Last Taken 10/31/20] acetaminophen 325 mg tablet 650 mg PO Q4H PRN PRN Pain 1-05/17 or Fever 12/21/19 [Rx Last Taken Unknown] insulin glargine 100 unit/mL (3 mL) subcutaneous pen 35 units subcut BREAKFAST 10/31/20 [History Last Taken 10/31/20] insulin glargine 100 unit/mL (3 mL) subcutaneous pen 35 units subcut QHS 10/31/20 [History Last Taken 10/30/20] diclofenac sodium 75 mg tablet,delayed release 75 mg PO BID 01/20/21 [History Last Taken Unknown] furosemide 40 mg tablet 40 mg PO DAILY PRN Edema 01/20/21 [History Last Taken Unknown] potassium chloride 20 mEq/15 mL oral liquid 20 meq PO BID PRN Diarrhea 01/20/21 [History Last Taken Unknown] ondansetron 4 mg disintegrating tablet 4 mg PO Q8H PRN PRN Nausea #14 tabs 08/26/21 [Rx Last Taken Unknown] sulfamethoxazole 800 mg-trimethoprim 160 mg tablet (Bactrim DS) 1 tab PO BID #20 tabs 10/11/21 [Rx Last Taken Unknown] Allergy/AdvReac Type Severity Reaction Status Date / Time No Known Allergies Allergy Verified 07/10/22 07:38 Family History Father Diabetes Mother Hypertension Surgical History History of exploratory laparotomy (~12/2019) history of right bicep repair Social History Smoking Status: Current every day smoker tobacco type: cigarettes ROS Review of Systems ROS Unobtainable: due to endotracheal tube and due to mental status Physical Exam Const General Appearance: ill appearing, intubated and patient mechanically ventilated HEENT normocephalic and head/scalp atraumatic Mouth: endotracheal tube in place and OG tube in place Eyes PERRL and EOMs intact bilaterally Neck supple General: trachea midline and CVC in place Chest inspection of chest normal Resp Auscultation: diminished lung sounds; Negative for rales, rhonchi or wheezes Cardio regular rate and regular rhythm GI normal to inspection, nondistended, normoactive bowel sounds Extremity no clubbing, cyanosis or edema Skin no rashes or lesions noted Neuro Sensorium / Orientation: sedated on vent Lab / Micro Data Result Diagrams: 07/11/22 03:05 07/11/22 03:05 Labs: Laboratory Results - last 24 hr 07/10/22 07:45: WBC 2.4 L, RBC 2.91 L, Hgb 9.3 L, Hct 28.6 L, MCV 98.3 H, MCH 32.0, MCHC 32.5, RDW Std Deviation 46.2 H, RDW Coeff of Tommy 12.7, Plt Count 157, MPV 10.8, Neut % (Auto) Not Reportable, Absolute Neuts (auto) 1.9 L, Absolute Lymphs (auto) 0.14 L, Total Counted 100, Neutrophils % (Manual) 67, Band Neutrophils % 15 H, Lymphocytes % (Manual) 6 L, Monocytes % (Manual) 8, Eosinophils % (Manual) 8 H, Basophils % (Manual) 8 H, Myelocytes % 4 H, Plasma Cell % (Manual) 8, Other Cells % 8, Diff Path Review May foll, Platelet Estimate ADEQUATE, RBC Morphology NORM C+C 07/10/22 07:45: PT 16.3 H, INR 1.4, APTT 37.1 H 07/10/22 07:45: Sodium 126 L, Potassium 4.7, Chloride 88 L, Carbon Dioxide 17.0 L, Anion Gap 21 H, BUN 51 H, Creatinine 3.53 H, Estim Creat Clear Calc 22.59, Est GFR (MDRD) Af Amer 25 L, Est GFR (MDRD) Non-Af 20 L, BUN/Creatinine Ratio 14.4, Glucose 1115 H*, Calcium 7.7 L, Magnesium 2.4, Total Bilirubin 0.40, Direct Bilirubin 0.12, AST 58 H, ALT 29, Alkaline Phosphatase 77, Troponin I High Sens 1034 H*, Total Protein 5.1 L, Albumin 2.1 L, Globulin 3.0, Lipase 35 L 07/10/22 07:45: Ethyl Alcohol < 3.0, Acetone Level MODERATE H 07/10/22 07:45: Lactic Acid 3.2 H* 07/10/22 07:45: Total Creatine Kinase 1185 H, Triglycerides 176 07/10/22 07:50: Urine Color Yellow, Urine Clarity Clear, Urine pH 6.5, Ur Specific [place] 1.010, Urine Protein 30 H, Urine Glucose (UA) 1000 H, Urine Ketones 15 H, Urine Occult Blood 150 H, Urine Nitrite Negative, Urine Bilirubin Negative, Urine Urobilinogen Normal, Ur Leukocyte Esterase 25 H, Urine RBC 0-5 SEEN, Urine WBC 10-25 SEEN, Ur Squamous Epith Cells 0 SEEN, Urine Bacteria 2+, Urine Mucus 0 SEEN 07/10/22 07:50: Urine Opiates Screen NEGATIVE, Urine Methadone Screen NEGATIVE, Ur Barbiturates Screen NEGATIVE, Ur Phencyclidine Scrn NEGATIVE, Ur Amphetamines Screen NEGATIVE, MDMA (Ecstasy) Screen NEGATIVE, U Benzodiazepines Scrn NEGATIVE, Urine Cocaine Screen NEGATIVE, U Cannabinoids Screen NEGATIVE, Ur Drug Screen Comment 07/10/22 09:23: POC Glucose > 500 H* 07/10/22 09:25: Glucose 1006 H* 07/10/22 10:30: Glucose 927 H* 07/10/22 10:33: POC Glucose > 500 H* 07/10/22 12:15: Serum Osmolality 336 H 07/10/22 12:15: Lactic Acid 4.1 H* 07/10/22 12:15: Sodium 133 L, Potassium 3.8, Chloride 100, Carbon Dioxide 19.0 L , Anion Gap 14, BUN 46 H, Creatinine 3.23 H, Estim Creat Clear Calc 25.33, Est GFR (MDRD) Af Amer 27 L, Est GFR (MDRD) Non-Af 23 L, BUN/Creatinine Ratio 14.2, Glucose 848 H*, Calcium 6.9 L 07/10/22 12:15: Glucose Cancelled 07/10/22 13:40: Troponin I High Sens 1652 H* 07/10/22 13:40: Phosphorus 4.0 07/10/22 13:40: Glucose 821 H* 07/10/22 15:05: Glucose 712 H* 07/10/22 15:50: Sodium 134 L, Potassium 3.9, Chloride 105, Carbon Dioxide 18.0 L , Anion Gap 11, BUN 49 H, Creatinine 3.31 H, Estim Creat Clear Calc 24.72, Est GFR (MDRD) Af Amer 27 L, Est GFR (MDRD) Non-Af 22 L, BUN/Creatinine Ratio 14.8, Glucose 741 H*, Calcium 7.1 L 07/10/22 17:25: Glucose 729 H* 07/10/22 18:30: Glucose 648 H* 07/10/22 20:35: Sodium 137, Potassium 3.8, Chloride 109 H, Carbon Dioxide 14.0 L , Anion Gap 14, BUN 47 H, Creatinine 3.32 H, Estim Creat Clear Calc 24.64, Est GFR (MDRD) Af Amer 26 L, Est GFR (MDRD) Non-Af 22 L, BUN/Creatinine Ratio 14.2, Glucose 527 H*, Calcium 6.7 L 07/10/22 22:14: POC Glucose > 500 H* 07/10/22 23:12: POC Glucose 403 H 07/11/22 00:19: POC Glucose 409 H 07/11/22 01:14: POC Glucose 380 H 07/11/22 02:17: POC Glucose 306 H 07/11/22 03:05: Sodium 138, Potassium 4.7, Chloride 111 H, Carbon Dioxide 17.0 L , Anion Gap 10, BUN 53 H, Creatinine 3.46 H, Estim Creat Clear Calc 23.65, Est GFR (MDRD) Af Amer 25 L, Est GFR (MDRD) Non-Af 21 L, BUN/Creatinine Ratio 15.3, Glucose 279 H, Calcium 6.4 L* 07/11/22 03:05: WBC 1.9 L, RBC 3.55 L, Hgb 11.2 L, Hct 33.1 L, MCV 93.2 D, MCH 31.5, MCHC 33.8, RDW Std Deviation 43.6, RDW Coeff of Tommy 12.6, Plt Count 110 L, MPV 10.6, Immature Gran % (Auto) 0.000, Neut % (Auto) 80.0 H, Lymph % (Auto) 13.7 L, [place] % (Auto) 4.7, Eos % (Auto) 0.0, Baso % (Auto) 1.6 H, Absolute Neuts (auto) 1.5 L, Absolute Lymphs (auto) 0.26 L, Nucleated RBC % 0, Diff Path Review December, Atypical Lymphocytes 1+, Platelet Estimate SLT 07/11/22 03:10: POC Glucose 312 H 07/11/22 04:49: POC Glucose 277 H Micro: Microbiology 07/10/22 07:53 Blood Culture (Wb) - Anticubital Left Bacteria Detection (PCR) - Preliminary Staphylococcus aureus 07/10/22 07:52 Blood Culture (Wb) - Right Hand Blood Culture - Preliminary 07/10/22 09:35 Sputum, Induced/[place] Gram Stain - Final 07/10/22 09:40 Nasal Secretion SARS-CoV-2 & FLU Antigen (Rapid) - Final 07/10/22 09:30 Interface Orders Rapid RSV (DFA) - Final ABG Data ABG results: ABG 07/10/22 07/10/22 08:01 13:24 Specimen Type ART ART Sample Site L Radial R Radial pH 7.17 L* 7.23 L Bicarbonate Actual 15.2 L 14.3 L Total CO2 17 15 Base Excess -13 L -13 L O2 Saturation 84 L 95 O2 % 40 ABG pCO2 42.1 34.2 L ABG pO2 61 L 86 Garett Test Positive Positive Respiration Rate 14 O2 Delivery Device Cannula Adult Vent Liter Flow 3.0 Vent Mode AC Tidal Volume 450 POC PEEP 5 Crit Call To/Read Back Yes Blood Gas Notified Whom LOTUS Radiology Impression Brain CT 07/10/22 07:42 IMPRESSION: Normal unenhanced CT scan of the brain. Electronically Signed: Keyur Garcia MD at 10:26 EST , Chest X-Ray 07/10/22 07:42 IMPRESSION: 1. Interval placement of endotracheal tube with the tip above the ferdinand. 2. Interval placement of nasogastric tube with the tip below the diaphragm. 3. Interval placement of right internal jugular deep venous line with tip the catheter overlying the spur vena cava and no pneumothorax. 4. Right lower lobe pneumonia. Electronically Signed: Keyur Garcia MD at 9:40 EST , Charges/Coding Procedures Hospitalists Procedures: [id number] Critial Care 1st Hr
--- NOTE | 2022-07-11 06:43 | ECHOD_ITS ---
Reason For Study: Sepsis, bacteremia Procedure This was a 2D Doppler, Color Flow transthoracic echocardiogram. Patient scanned supine on the vent. Exam performed portable in ICU/CCU. Left Ventricle Normal LV size. Left ventricular systolic function is normal. The estimated ejection fraction is 50 %. No regional wall motion abnormalities noted. Right Ventricle Normal RV size. Normal systolic function. Atria Normal left atrium. Normal right atrium. Mitral Valve Normal mitral valve. Tricuspid Valve Normal tricuspid valve. Aortic Valve Trisinus/trileaflet aortic valve. Mild diffuse aortic valve thickening. Pulmonic Valve Normal pulmonic valve. Great Vessels Normal aortic root. The pulmonary artery is normal size. Normal inferior vena cava. Pericardium/Pleural No pericardial effusion. Small left pleural effusion. MMode/2D Measurements & Calculations LVIDd: 4.0 cm IVSd: 1.2 cm Ao root diam: 3.2 cm LVIDs: 2.9 cm LVPWd: 1.2 cm RVDd: 2.6 cm FS: 26.9 % LAV(MOD-sp2): 21.2 ml LVAd ap4: 18.1 cm2 LVAd ap2: 22.6 cm2 LVLd ap4: 5.7 cm LVLd ap2: 7.8 cm EDV(MOD-sp4): 47.0 ml EDV(MOD-sp2): 54.0 ml EDV(sp4-el): 49.6 ml EDV(sp2-el): 55.8 ml LVAs ap4: 18.0 cm2 LVAs ap2: 17.3 cm2 LVLs ap4: 7.2 cm LVLs ap2: 7.6 cm ESV(MOD-sp4): 38.1 ml ESV(MOD-sp2): 32.8 ml ESV(sp4-el): 38.3 ml ESV(sp2-el): 33.4 ml EF(MOD-sp4): 19.0 % EF(MOD-sp2): 39.3 % EF(sp4-el): 22.6 % SV(MOD-sp4): 8.9 ml SV(MOD-sp2): 21.2 ml SV(sp4-el): 11.2 ml LA dimension(2D): 2.8 cm LA A4 area: 10.7 cm2 RA A4 area: 9.8 cm2 Doppler Measurements & Calculations MV E max vinay: 72.3 cm/sec Lat Peak E' Vinay: 9.6 cm/sec Med Peak E' Vinay: 6.9 cm/sec E/E' lat: 7.5 E/E' med: 10.5 Ao V2 max: 120.3 cm/sec LV V1 max: 90.5 cm/sec PA V2 max: 92.8 cm/sec Ao max P.8 mmHg LV V1 max P.3 mmHg Ao V2 mean: 87.4 cm/sec LV V1 mean P.8 mmHg Ao mean P.5 mmHg LV V1 mean: 63.0 cm/sec Ao V2 VTI: 14.4 cm LV V1 VTI: 10.6 cm AV (velocity ratio): 0.74 TR max vinay: 221.4 cm/sec TR max P.6 mmHg ECHO/Echo Complete Interpretation Summary Normal LV size. Left ventricular systolic function is normal. The estimated ejection fraction is 50 %. Small left pleural effusion. Mild diffuse aortic valve thickening. Ordering Physician: Tom Goins Referring Physician: MD Niecy Rocco Performed By: Jada Bales RDCS
--- NOTE | 2022-07-11 07:10 | PN.HOSP_ITS ---
Subjective Subjective Intubated and sedated. Requiring 3 pressors. Objective Data Objective Data Vital Signs: Vital Signs Temp Pulse Resp BP Pulse Ox O2 Del Method O2 Flow Rate 33.8 C L 87 15 95/65 96 Mechanical Ventilator 40 07/11/22 07:01 07/11/22 07:01 07/11/22 07:01 07/11/22 07:01 07/11/22 07:01 07/11/22 07:01 07/11/22 06:00 FiO2 40 07/11/22 07:01 Oxygen Flow Rate (L/min) 40 Oxygen Delivery Method Mechanical Ventilator Weight: 64.4 kg Body Mass Index (BMI) 19.4 Intake & Output: Intake and Output for Last 24 Hours 07/09/22 07/10/22 07/11/22 23:59 23:59 23:59 Intake Total 7239.75 / 7444.05 2836.28 / 2836.28 Output Total 850 / 900 85 / 85 Balance 6389.75 / 6544.05 2751.28 / 2751.28 Lab / Micro Data Result Diagrams: 07/11/22 03:05 07/11/22 03:05 Labs: Laboratory Results - last 24 hr 07/10/22 07:45: WBC 2.4 L, RBC 2.91 L, Hgb 9.3 L, Hct 28.6 L, MCV 98.3 H, MCH 32.0, MCHC 32.5, RDW Std Deviation 46.2 H, RDW Coeff of Tommy 12.7, Plt Count 157, MPV 10.8, Neut % (Auto) Not Reportable, Absolute Neuts (auto) 1.9 L, Absolute Lymphs (auto) 0.14 L, Total Counted 100, Neutrophils % (Manual) 67, Band Neutrophils % 15 H, Lymphocytes % (Manual) 6 L, Monocytes % (Manual) 8, Eosinophils % (Manual) 8 H, Basophils % (Manual) 8 H, Myelocytes % 4 H, Plasma Cell % (Manual) 8, Other Cells % 8, Diff Path Review May , Platelet Estimate ADEQUATE, RBC Morphology NORM C+C 07/10/22 07:45: PT 16.3 H, INR 1.4, APTT 37.1 H 07/10/22 07:45: Sodium 126 L, Potassium 4.7, Chloride 88 L, Carbon Dioxide 17.0 L, Anion Gap 21 H, BUN 51 H, Creatinine 3.53 H, Estim Creat Clear Calc 22.59, Est GFR (MDRD) Af Amer 25 L, Est GFR (MDRD) Non-Af 20 L, BUN/Creatinine Ratio 14.4, Glucose 1115 H*, Calcium 7.7 L, Magnesium 2.4, Total Bilirubin 0.40, Direct Bilirubin 0.12, AST 58 H, ALT 29, Alkaline Phosphatase 77, Troponin I High Sens 1034 H*, Total Protein 5.1 L, Albumin 2.1 L, Globulin 3.0, Lipase 35 L 07/10/22 07:45: Ethyl Alcohol < 3.0, Acetone Level MODERATE H 07/10/22 07:45: Lactic Acid 3.2 H* 07/10/22 07:45: Total Creatine Kinase 1185 H, Triglycerides 176 07/10/22 07:50: Urine Color Yellow, Urine Clarity Clear, Urine pH 6.5, Ur Specific [place] 1.010, Urine Protein 30 H, Urine Glucose (UA) 1000 H, Urine Ketones 15 H, Urine Occult Blood 150 H, Urine Nitrite Negative, Urine Bilirubin Negative, Urine Urobilinogen Normal, Ur Leukocyte Esterase 25 H, Urine RBC 0-5 SEEN, Urine WBC 10-25 SEEN, Ur Squamous Epith Cells 0 SEEN, Urine Bacteria 2+, Urine Mucus 0 SEEN 07/10/22 07:50: Urine Opiates Screen NEGATIVE, Urine Methadone Screen NEGATIVE, Ur Barbiturates Screen NEGATIVE, Ur Phencyclidine Scrn NEGATIVE, Ur Amphetamines Screen NEGATIVE, MDMA (Ecstasy) Screen NEGATIVE, U Benzodiazepines Scrn NEGATIVE, Urine Cocaine Screen NEGATIVE, U Cannabinoids Screen NEGATIVE, Ur Drug Screen Comment 07/10/22 09:23: POC Glucose > 500 H* 07/10/22 09:25: Glucose 1006 H* 07/10/22 10:30: Glucose 927 H* 07/10/22 10:33: POC Glucose > 500 H* 07/10/22 12:15: Serum Osmolality 336 H 07/10/22 12:15: Lactic Acid 4.1 H* 07/10/22 12:15: Sodium 133 L, Potassium 3.8, Chloride 100, Carbon Dioxide 19.0 L , Anion Gap 14, BUN 46 H, Creatinine 3.23 H, Estim Creat Clear Calc 25.33, Est GFR (MDRD) Af Amer 27 L, Est GFR (MDRD) Non-Af 23 L, BUN/Creatinine Ratio 14.2, Glucose 848 H*, Calcium 6.9 L 07/10/22 12:15: Glucose Cancelled 07/10/22 13:40: Troponin I High Sens 1652 H* 07/10/22 13:40: Phosphorus 4.0 07/10/22 13:40: Glucose 821 H* 07/10/22 15:05: Glucose 712 H* 07/10/22 15:50: Sodium 134 L, Potassium 3.9, Chloride 105, Carbon Dioxide 18.0 L , Anion Gap 11, BUN 49 H, Creatinine 3.31 H, Estim Creat Clear Calc 24.72, Est GFR (MDRD) Af Amer 27 L, Est GFR (MDRD) Non-Af 22 L, BUN/Creatinine Ratio 14.8, Glucose 741 H*, Calcium 7.1 L 07/10/22 17:25: Glucose 729 H* 07/10/22 18:30: Glucose 648 H* 07/10/22 20:35: Sodium 137, Potassium 3.8, Chloride 109 H, Carbon Dioxide 14.0 L , Anion Gap 14, BUN 47 H, Creatinine 3.32 H, Estim Creat Clear Calc 24.64, Est GFR (MDRD) Af Amer 26 L, Est GFR (MDRD) Non-Af 22 L, BUN/Creatinine Ratio 14.2, Glucose 527 H*, Calcium 6.7 L 07/10/22 22:14: POC Glucose > 500 H* 07/10/22 23:12: POC Glucose 403 H 07/11/22 00:19: POC Glucose 409 H 07/11/22 01:14: POC Glucose 380 H 07/11/22 02:17: POC Glucose 306 H 07/11/22 03:05: Sodium 138, Potassium 4.7, Chloride 111 H, Carbon Dioxide 17.0 L , Anion Gap 10, BUN 53 H, Creatinine 3.46 H, Estim Creat Clear Calc 23.65, Est GFR (MDRD) Af Amer 25 L, Est GFR (MDRD) Non-Af 21 L, BUN/Creatinine Ratio 15.3, Glucose 279 H, Calcium 6.4 L* 07/11/22 03:05: WBC 1.9 L, RBC 3.55 L, Hgb 11.2 L, Hct 33.1 L, MCV 93.2 D, MCH 31.5, MCHC 33.8, RDW Std Deviation 43.6, RDW Coeff of Tommy 12.6, Plt Count 110 L, MPV 10.6, Immature Gran % (Auto) 0.000, Neut % (Auto) 80.0 H, Lymph % (Auto) 13.7 L, [place] % (Auto) 4.7, Eos % (Auto) 0.0, Baso % (Auto) 1.6 H, Absolute Neuts (auto) 1.5 L, Absolute Lymphs (auto) 0.26 L, Nucleated RBC % 0, Diff Path Review December, Atypical Lymphocytes 1+, Platelet Estimate SLT 07/11/22 03:10: POC Glucose 312 H 07/11/22 04:49: POC Glucose 277 H Micro: Microbiology 07/10/22 07:53 Blood Culture (Wb) - Anticubital Left Bacteria Detection ( PCR) - Final Meth. resistant Staph. aureus 07/10/22 07:53 Blood Culture (Wb) - Anticubital Left Blood Culture - Preliminary 07/10/22 07:52 Blood Culture (Wb) - Right Hand Blood Culture - Preliminary 07/10/22 09:35 Sputum, Induced/Lukens Gram Stain - Final 07/10/22 09:40 Nasal Secretion SARS-CoV-2 & FLU Antigen (Rapid) - Final 07/10/22 09:30 Interface Orders Rapid RSV (DFA) - Final ABG Data ABG results: ABG 07/10/22 07/10/22 08:01 13:24 Specimen Type ART ART Sample Site L Radial R Radial pH 7.17 L* 7.23 L Bicarbonate Actual 15.2 L 14.3 L Total CO2 17 15 Base Excess -13 L -13 L O2 Saturation 84 L 95 O2 % 40 ABG pCO2 42.1 34.2 L ABG pO2 61 L 86 Garett Test Positive Positive Respiration Rate 14 O2 Delivery Device Cannula Adult Vent Liter Flow 3.0 Vent Mode AC Tidal Volume 450 POC PEEP 5 Crit Call To/Read Back Yes Blood Gas Notified Whom HOEHNE Radiography Diagnostic Testing: Radiology Impression Brain CT 07/10/22 07:42 IMPRESSION: Normal unenhanced CT scan of the brain. Electronically Signed: Keyur Garcia MD at 10:26 EST , Chest X-Ray 07/10/22 07:42 IMPRESSION: 1. Interval placement of endotracheal tube with the tip above the ferdinand. 2. Interval placement of nasogastric tube with the tip below the diaphragm. 3. Interval placement of right internal jugular deep venous line with tip the catheter overlying the spur vena cava and no pneumothorax. 4. Right lower lobe pneumonia. Electronically Signed: Keyur Garcia MD at 9:40 EST , Physical Exam Const Constitutional Narrative: Intubated and sedated. HEENT head/scalp atraumatic Resp Resp Narrative: Coarse breath sounds on ventilator Cardio regular rate, regular rhythm, S1 normal heart sound and S2 normal heart sound GI normal to inspection, nondistended, normoactive bowel sounds and soft to palpation Extremity normal to inspection Extremity Narrative: Long distorted toenails both feet. Weak dorsalis pedal pulses bilaterally. Assessment & Plan Assessment/Plan (1) Septic shock: PLAN: Septic shock, exact etiology unclear but possible right middle and lower lobe pneumonia: The patient presented with septic shock, most likely due to RML/RLL pneumonia with acute sepsis-related organ dysfunction as evidenced by recalcitrant hypotension requiring 3 vasopressors, acute hypoxic respiratory failure requiring vent support, Lactic acidosis, coagulopathy elevated PT and APTT. Patient on 3 vasopressors. Patient had fluid boluses as per septic shock protocol and is still getting fluids. On IV vancomycin and Zosyn. Patient was on IV hydrocortisone, stress dose of steroid. Septic work-up ordered. On norepinepherine, phenylepherine, Adam-Synephrine (2) Acute respiratory failure with hypoxia: PLAN: Secondary to pneumonia and septic shock patient is being admitted in ICU on ventilator, assist control 40% FiO2, PEEP 5. Size Worker is consulted. (3) DKA, type 1: PLAN: DKA, suspected type 1 diabetes mellitus: As per patient's aunt, patient was diagnosed diabetes mellitus in 1999, he was 19-year-old and decals and was in favor of type 1 diabetes mellitus. Patient parent was also diabetes mellitus and kids also have diabetes. Patient has high anion gap metabolic acidosis. I nitial ABG shows pH 7.1 once on 3 L of oxygen and repeat ABG shows improvement pH 7.23, PCO2 34.2. Patient was on DKA protocol with IV fluid and insulin drip. BMP monitoring and electrolyte replacement as per protocol. Patient came with glucose 1115. As per his girlfriend he always has problem in getting insulin because of insurance. Currently resolved Switch to glargine and sliding scale insulin A1c greater than 14 (4) KHANG (acute kidney injury): PLAN: Suspected. No baseline labs since August where his Cr was 1.34 at this time. Has received IVF Fractional excretion of urea 7.25% consistent with prerenal azotemia Nephrology consult. Discussed with Dr. Sanches, plan is to give patient additional IV fluids. (5) Elevated troponin: PLAN: Peaked at 1652, though no follow labs. Suspect secondary to septic shock but cannot rule out primary event. Echo ordered. Aspirin Cards consult (6) Pneumonia: QUALIFIERS: Pneumonia type: due to unspecified organism Laterality: right Lung location: middle lobe of lung Qualified Code(s): J18.9 - Pneumonia, unspecified organism PLAN: Right middle lobe Possible pneumococcal but given septic shock patient on broad-spectrum antibi otics with vancomycin and piperacillin/tazobactam PLAN: Plan Chronic conditions: * HTN: Antihypertensives held given the septic shock * Anasarca: Furosemide held * macrocytic anemia VTE prophylaxis:Moderate risk due to critical state, septic shock. On Heparin 5000 subcutaneous every 8 hourly, bilateral SCDs Discussed with the patient's estranged and as well as his aunt. The patient's states that they have been estranged and living apart for the past 10 years though they are still formally . Discussed that she would be the next of kin is her spent no one else assigned as a contact lens curve grinder or power of contracts attorney. She would prefer to do this by committee with other family members so that she has not unilaterally making these decisions. I told her that is certainly appropriate but ultimately decision will be need to be made by her in regards to any potential interventions or withdrawing care. Greater than 45 minutes of which greater than for percent time was reviewing data, evaluating patient, discussing with the patient's and aunt. Charges/Coding Visit Charges Inpatient E&M: 31355 Subs Hosp L3
[2022-07-11 08:05] LABS: Bedside Glucose 246 mg/dL (74-106)
[2022-07-11 08:05] LABS: Bedside Glucose 226 mg/dL (74-106)
--- NOTE | 2022-07-11 08:14 | NURSING ---
Poor SPO2 detection via multiple means - wrapped R hand in warm blanket and finally able to get reading of 91-93%.
[2022-07-11 08:30] LABS: Bedside Glucose 200 mg/dL (74-106)
[2022-07-11] MEDS: Aspirin 300 MG Suppository RC (08:35)
[2022-07-11 08:37] LABS: Hemoglobin A1c > 14.0 % (3.8-5.6)
--- NOTE | 2022-07-11 10:05 | CON.PCM.CA_ITS ---
Assessment & Plan Assessment/Plan (1) Non-ST elevation PA (NSTEMI): PLAN: Likely type II in setting of diabetic ketoacidosis, respiratory failure and septic shock. Continue aspirin. Change to enteric-coated aspirin 81 mg daily. Echocardiogram already ordered. (2) Septic shock: PLAN: Continue vasopressor support. Critical care following. (3) Hypothermia: PLAN: As per internal medicine/critical care. (4) KHANG (acute kidney injury): PLAN: Likely secondary to #2. Continue to monitor. Consider nephrology consult. (5) DKA, type 1: PLAN: As per critical care/internal medicine. (6) Acute respiratory failure with hypoxia: PLAN: On ventilator. Pulmonary critical care following. HPI Consult Data Date of Consult: 07/11/22 HPI Narrative HPI Narrative: The patient has been admitted with hypoxemic respiratory failure, diabetic ketoacidosis, acute kidney injury and septic shock. As his troponin level was noted to be elevated, we are asked for evaluation and management. History is obtained from the chart. No previous history of coronary artery disease. No history of heart failure. His last echocardiogram was in October of last year. Normal left ventricular systolic function was noted. Grade 1 diastolic dysfunction. [facility] Medical History DKA (diabetic ketoacidoses) Folliculitis Gastric perforation High cholesterol Hypertension Perforated ulcer Uncontrolled diabetes mellitus Weight loss, non-intentional Home Medications fluticasone propionate 50 mcg/actuation nasal spray,suspension 2 spray NASAL DAILY PRN Allergies 12/17/19 [History Last Taken Unknown] insulin regular human 100 unit/mL injection solution unit subcut TIDCM diabetes 12/17/19 [History Last Taken 10/31/20] lisinopril 5 mg tablet 5 mg PO DAILY 12/17/19 [History Last Taken 10/31/20] rosuvastatin 20 mg tablet 20 mg PO DAILY 12/17/19 [History Last Taken 10/31/20] acetaminophen 325 mg tablet 650 mg PO Q4H PRN PRN Pain 1-05/17 or Fever 12/21/19 [Rx Last Taken Unknown] insulin glargine 100 unit/mL (3 mL) subcutaneous pen 35 units subcut BREAKFAST 10/31/20 [History Last Taken 10/31/20] insulin glargine 100 unit/mL (3 mL) subcutaneous pen 35 units subcut QHS 10/31/20 [History Last Taken 10/30/20] diclofenac sodium 75 mg tablet,delayed release 75 mg PO BID 01/20/21 [History Last Taken Unknown] furosemide 40 mg tablet 40 mg PO DAILY PRN Edema 01/20/21 [History Last Taken Unknown] potassium chloride 20 mEq/15 mL oral liquid 20 meq PO BID PRN Diarrhea 01/20/21 [History Last Taken Unknown] ondansetron 4 mg disintegrating tablet 4 mg PO Q8H PRN PRN Nausea #14 tabs 08/26/21 [Rx Last Taken Unknown] sulfamethoxazole 800 mg-trimethoprim 160 mg tablet (Bactrim DS) 1 tab PO BID #20 tabs 10/11/21 [Rx Last Taken Unknown] Allergy/AdvReac Type Severity Reaction Status Date / Time No Known Allergies Allergy Verified 07/10/22 07:38 Family History Father Diabetes Mother Hypertension Surgical History History of exploratory laparotomy (~12/2019) history of right bicep repair Social History Smoking Status: Current every day smoker tobacco type: cigarettes Physical Exam Narrative On ventilator. Appears ill. Heart sounds 1 and 2 are noted. Chest examination shows decreased air entry at bases. Abdomen is soft. No ankle edema noted. Risk Stratification Risk Stratification Applicable: No Objective Data Vital Signs: Vital Signs Temp Pulse Resp BP Pulse Ox O2 Del Method O2 Flow Rate 94.9 F L 97 15 83/59 L 95 Mechanical Ventilator 40 07/11/22 09:00 07/11/22 09:00 07/11/22 09:00 07/11/22 09:00 07/11/22 09:00 07/11/22 09:00 07/11/22 06:00 FiO2 50 07/11/22 09:00 Oxygen Flow Rate (L/min) 40 Oxygen Delivery Method Mechanical Ventilator Weight: 141 lb 15.643 oz Body Mass Index (BMI) 19.4 Intake & Output: Intake and Output for Last 24 Hours 07/09/22 07/10/22 07/11/22 23:59 23:59 23:59 Intake Total 7239.75 / 7444.05 3805.39 / 3805.39 Output Total 850 / 900 85 / 85 Balance 6389.75 / 6544.05 3720.39 / 3720.39 Lab / Micro Data Attestation: I reviewed the patient's lab results. Result Diagrams: 07/11/22 03:05 07/11/22 03:05 Labs: Laboratory Results - last 24 hr 07/10/22 07:45: Absolute Neuts (auto) 1.9 L, Absolute Lymphs (auto) 0.14 L, Eosinophils % (Manual) 8 H, Basophils % (Manual) 8 H, Plasma Cell % (Manual) 8, Other Cells % 8, Diff Path Review December, RBC Morphology NORM C+C 07/10/22 07:45: Total Creatine Kinase 1185 H, Triglycerides 176 07/10/22 10:30: Glucose 927 H* 07/10/22 10:33: POC Glucose > 500 H* 07/10/22 12:15: Serum Osmolality 336 H 07/10/22 12:15: Lactic Acid 4.1 H* 07/10/22 12:15: Sodium 133 L, Potassium 3.8, Chloride 100, Carbon Dioxide 19.0 L , Anion Gap 14, BUN 46 H, Creatinine 3.23 H, Estim Creat Clear Calc 25.33, Est GFR (MDRD) Af Amer 27 L, Est GFR (MDRD) Non-Af 23 L, BUN/Creatinine Ratio 14.2, Glucose 848 H*, Calcium 6.9 L 07/10/22 12:15: Glucose Cancelled 07/10/22 13:40: Troponin I High Sens 1652 H* 07/10/22 13:40: Phosphorus 4.0 07/10/22 13:40: Glucose 821 H* 07/10/22 15:05: Glucose 712 H* 07/10/22 15:50: Sodium 134 L, Potassium 3.9, Chloride 105, Carbon Dioxide 18.0 L , Anion Gap 11, BUN 49 H, Creatinine 3.31 H, Estim Creat Clear Calc 24.72, Est GFR (MDRD) Af Amer 27 L, Est GFR (MDRD) Non-Af 22 L, BUN/Creatinine Ratio 14.8, Glucose 741 H*, Calcium 7.1 L 07/10/22 17:25: Glucose 729 H* 07/10/22 18:30: Glucose 648 H* 07/10/22 20:35: Sodium 137, Potassium 3.8, Chloride 109 H, Carbon Dioxide 14.0 L , Anion Gap 14, BUN 47 H, Creatinine 3.32 H, Estim Creat Clear Calc 24.64, Est GFR (MDRD) Af Amer 26 L, Est GFR (MDRD) Non-Af 22 L, BUN/Creatinine Ratio 14.2, Glucose 527 H*, Calcium 6.7 L 07/10/22 22:14: POC Glucose > 500 H* 07/10/22 23:12: POC Glucose 403 H 07/11/22 00:19: POC Glucose 409 H 07/11/22 01:14: POC Glucose 380 H 07/11/22 02:17: POC Glucose 306 H 07/11/22 03:05: Sodium 138, Potassium 4.7, Chloride 111 H, Carbon Dioxide 17.0 L , Anion Gap 10, BUN 53 H, Creatinine 3.46 H, Estim Creat Clear Calc 23.65, Est GFR (MDRD) Af Amer 25 L, Est GFR (MDRD) Non-Af 21 L, BUN/Creatinine Ratio 15.3, Glucose 279 H, Calcium 6.4 L* 07/11/22 03:05: WBC 1.9 L, RBC 3.55 L, Hgb 11.2 L, Hct 33.1 L, MCV 93.2 D, MCH 31.5, MCHC 33.8, RDW Std Deviation 43.6, RDW Coeff of Tommy 12.6, Plt Count 110 L, MPV 10.6, Immature Gran % (Auto) 0.000, Neut % (Auto) 80.0 H, Lymph % (Auto) 13 .7 L, [place] % (Auto) 4.7, Eos % (Auto) 0.0, Baso % (Auto) 1.6 H, Absolute Neuts (auto) 1.5 L, Absolute Lymphs (auto) 0.26 L, Nucleated RBC % 0, Diff Path Review May foll, Atypical Lymphocytes 1+, Platelet Estimate SLT DEC 07/11/22 03:05: Hemoglobin A1c > 14.0 H 07/11/22 03:10: POC Glucose 312 H 07/11/22 04:49: POC Glucose 277 H 07/11/22 05:50: POC Glucose 246 H 07/11/22 06:40: POC Glucose 226 H 07/11/22 08:04: POC Glucose 200 H Micro: Microbiology 07/10/22 07:53 Blood Culture (Wb) - Anticubital Left Bacteria Detection (PCR) - Final Meth. resistant Staph. aureus 07/10/22 07:53 Blood Culture (Wb) - Anticubital Left Blood Culture - Prelim inary 07/10/22 07:52 Blood Culture (Wb) - Right Hand Blood Culture - Preliminary 07/10/22 09:35 Sputum, Induced/Lukens Gram Stain - Final 07/10/22 09:40 Nasal Secretion SARS-CoV-2 & FLU Antigen (Rapid) - Final 07/10/22 09:30 Interface Orders Rapid RSV (DFA) - Final ABG Data ABG results: ABG 07/10/22 13:24 Specimen Type ART Sample Site R Radial pH 7.23 L Bicarbonate Actual 14.3 L Total CO2 15 Base Excess -13 L O2 Saturation 95 O2 % 40 ABG pCO2 34.2 L ABG pO2 86 Garett Test Positive Respiration Rate 14 O2 Delivery Device Adult Vent Vent Mode AC Tidal Volume 450 POC PEEP 5 Rhythm Strip Rhythm Strip: Sinus Tach Cardiology Labs/Tests 07/10/22 07:45: Absolute Neuts (auto) 1.9 L, Eosinophils % (Manual) 8 H, Basophils % (Manual) 8 H, Plasma Cell % (Manual) 8, Other Cells % 8 07/10/22 07:45: Triglycerides 176 07/10/22 10:30: Glucose 927 H* 07/10/22 12:15: Serum Osmolality 336 H 07/10/22 12:15: Lactic Acid 4.1 H* 07/10/22 12:15: Sodium 133 L, Potassium 3.8, Chloride 100, Carbon Dioxide 19.0 L , Anion Gap 14, BUN 46 H, Creatinine 3.23 H, Est GFR (MDRD) Af Amer 27 L, Est GFR (MDRD) Non-Af 23 L, BUN/Creatinine Ratio 14.2, Glucose 848 H*, Calcium 6.9 L 07/10/22 12:15: Glucose Cancelled 07/10/22 13:24: pH 7.23 L, Bicarbonate Actual 14.3 L, Base Excess -13 L, O2 Saturation 95, ABG pCO2 34.2 L, ABG pO2 86, Garett Test Positive 07/10/22 13:40: Phosphorus 4.0 07/10/22 13:40: Glucose 821 H* 07/10/22 15:05: Glucose 712 H* 07/10/22 15:50: Sodium 134 L, Potassium 3.9, Chloride 105, Carbon Dioxide 18.0 L , Anion Gap 11, BUN 49 H, Creatinine 3.31 H, Est GFR (MDRD) Af Amer 27 L, Est GFR (MDRD) Non-Af 22 L, BUN/Creatinine Ratio 14.8, Glucose 741 H*, Calcium 7.1 L 07/10/22 17:25: Glucose 729 H* 07/10/22 18:30: Glucose 648 H* 07/10/22 20:35: Sodium 137, Potassium 3.8, Chloride 109 H, Carbon Dioxide 14.0 L , Anion Gap 14, BUN 47 H, Creatinine 3.32 H, Est GFR (MDRD) Af Amer 26 L, Est GFR (MDRD) Non-Af 22 L, BUN/Creatinine Ratio 14.2, Glucose 527 H*, Calcium 6.7 L 07/11/22 03:05: Sodium 138, Potassium 4.7, Chloride 111 H, Carbon Dioxide 17.0 L , Anion Gap 10, BUN 53 H, Creatinine 3.46 H, Est GFR (MDRD) Af Amer 25 L, Est GFR (MDRD) Non-Af 21 L, BUN/Creatinine Ratio 15.3, Glucose 279 H, Calcium 6.4 L* 07/11/22 03:05: WBC 1.9 L, RBC 3.55 L, Hgb 11.2 L, Hct 33.1 L, MCV 93.2 D, MCH 31.5, MCHC 33.8, Plt Count 110 L, MPV 10.6, Immature Gran % (Auto) 0.000, Neut % (Auto) 80.0 H, Lymph % (Auto) 13.7 L, [place] % (Auto) 4.7, Eos % (Auto) 0.0, Baso % (Auto) 1.6 H, Absolute Neuts (auto) 1.5 L, Nucleated RBC % 0 07/11/22 03:05: Hemoglobin A1c > 14.0 H Rhythm: EKG: Sinus tachycardia. ECHO: Stress Test: Cardiac Cath: PCI: CT Surgery: Holter monitor: EPS: PPM: CXR: Chest CT Scan: Radiography Diagnostic Testing: Radiology Impression Brain CT 07/10/22 07:42 IMPRESSION: Normal unenhanced CT scan of the brain. Electronically Signed: Keyur Garcia MD at 10:26 EST ,
[2022-07-11 10:15] LABS: Urea Nitrogen, Urine 141 mg/dL (NO RANGE EST.)
--- NOTE | 2022-07-11 10:22 | CON.PCM.RE_ITS ---
Assessment & Plan Assessment/Plan (1) KHANG (acute kidney injury): PLAN: The patient may have underlying CKD. His serum creatinine was already 1.34 to 1.68 mg/dL within the past year. However, other than pyuria, urinalysis looks benign with no significant RBCs. Will check renal ultrasound. The size of his kidneys may help determine ch ronicity of renal dysfunction. Current KHANG is most likely prerenal from circulatory shock. Fractional excretion of urea from this morning was less than 30% (7.2%) which is consistent with prerenal azotemia. However, the patient has a high chance of progression to ischemic ATN given ongoing need for vasopressors. Low suspicion for other causes of KHANG at this point. However, I will add serum CK to see if there is any contribution from rhabdomyolysis although rhabdomyolysis would not record changer at this point. The patient is not technically oliguric although urine output has been slowing down. He is not hyperkalemic or severely acidotic. There is no urgent need for hemodialysis today. However, I did mention the possibility to his today. Although there is right lower lobe infiltrate, chest x-ray does not look quotation livier wet. There is no evidence of pulmonary edema. The patient's echocardiogram from October 2020 showed only mild diastolic dysfunction with normal LV function. Would recommend further volume expansion which may also help KHANG. Recheck renal function and acid-base status again later today to determine trajectory of renal dysfunction and possible need for kidney replacement therapy. Will discuss with hospitalist and bindery production manager. (2) Metabolic acidosis: PLAN: Acidosis was likely initially due to DKA and KHANG. Anion gap was 21 on presentation. Anion gap has since closed and is now 10 with insulin infusion. Current metabolic acidosis is most likely due to poor tissue perfusion with ongoing septic shock as well as KHANG. Treat septic shock as we are doing. Continue to monitor serum bicarbonate level and follow blood gas pH. Recheck serum bicarbonate and VBG later today. If serum bicarbonate level is consistently below 20 mmol/L in the setting of blood gas pH of less than 7.2, I will consider starting bicarbonate drip. (3) Septic shock: PLAN: The patient is being maintained on multiple vasopressors. Antimicrobial coverage for probable pneumonia as per hospitalist and bindery production manager. Although there is right lower lobe infiltrate, chest x-ray does not look quotation livier wet. There is no evidence of pulmonary edema. The patient's echocardiogram from October 2020 showed only mild diastolic dysfunction with normal LV function. Although he has reportedly been given around 5 L of fluid since arrival to the hospital, I would recommend further volume expansion which may also help KHANG. Will discuss with hospitalist and bindery production manager. (4) Pancytopenia: PLAN: The patient is leukopenic, anemic, and thrombocytopenic. Pancytopenia is most likely related to sepsis. PTT is also elevated with rising INR, so patient will need to be watched for early DIC. Low suspicion from nephrology standpoint for thrombotic microangiopathic process such as TTP or atypical HUS at this point. Treatment is supportive as coordinated by bindery production manager. Continue to monitor CBC. (5) Acute respiratory failure with hypoxia: PLAN: Ventilator dependent. Ventilator management as per bindery production manager. HPI Consult Data Date of Consult: 07/11/22 HPI Narrative Reason for Consultation: Acute kidney injury HPI Narrative: MELONIE DC is a 41-year-old man with past history of type 1 diabetes mellitus, hypertension, and hyperlipidemia. The patient called his yesterday, but he was not coherent. He was last known to be well 2 days prior to the phone call. He apparently had stayed in his residence for 2 days in his bedroom. The patient was found to be hypotensive with systolic blood pressure in the 40s when he was initially evaluated by EMS. During evaluation in ED, the patient was found to be encephalopathic and was intubated for airway protection. He was found to be in shock and was started on IV vasopressor and volume expansion. The patient was subsequently found to have DKA and KHANG. Nephrology is asked to see the patient because of KHANG. On presentation, the patient was found to have serum creatinine of 3.53 mg/dL. Prior serum creatinine from 08/26/2021 was 1.34 mg/dL. In addition to KHANG, the patient was found to have high anion gap metabolic acidosis on presentation with serum bicarbonate level of 17 mmol/L. Although serum bicarbonate level is still low at 17 mmol/L this morning, anion gap has subsequently closed with insulin infusion. Prior to admission, the patient had also been taking lisinopril for hypertension. Diclofenac was also on his medication list. The most recent chest x-ray from 07/10/2022 at 7:42 AM showed right lower lobe infiltrate. The patient is currently intubated and sedated. No further history can be obtained directly from the patient. Although still legally , the patient has currently from his , Jaclyn. According to Jaclyn, the patient has been chronically ill. However, he was still living independently and was relatively well prior to his phone call to her prior to presentation. [facility] Medical History DKA (diabetic ketoacidoses) Folliculitis Gastric perforation High cholesterol Hypertension Perforated ulcer Uncontrolled diabetes mellitus Weight loss, non-intentional Home Medications fluticasone propionate 50 mcg/actuation nasal spray,suspension 2 spray NASAL DAILY PRN Allergies 12/17/19 [History Last Taken Unknown] insulin regular human 100 unit/mL injection solution unit subcut TIDCM diabetes 12/17/19 [History Last Taken 10/31/20] lisinopril 5 mg tablet 5 mg PO DAILY 12/17/19 [History Last Taken 10/31/20] rosuvastatin 20 mg tablet 20 mg PO DAILY 12/17/19 [History Last Taken 10/31/20] acetaminophen 325 mg tablet 650 mg PO Q4H PRN PRN Pain 1-05/17 or Fever 12/21/19 [Rx Last Taken Unknown] insulin glargine 100 unit/mL (3 mL) subcutaneous pen 35 units subcut BREAKFAST 10/31/20 [History Last Taken 10/31/20] insulin glargine 100 unit/mL (3 mL) subcutaneous pen 35 units subcut QHS 10/31/20 [History Last Taken 10/30/20] diclofenac sodium 75 mg tablet,delayed release 75 mg PO BID 01/20/21 [History Last Taken Unknown] furosemide 40 mg tablet 40 mg PO DAILY PRN Edema 01/20/21 [History Last Taken Unknown] potassium chloride 20 mEq/15 mL oral liquid 20 meq PO BID PRN Diarrhea 01/20/21 [History Last Taken Unknown] ondansetron 4 mg disintegrating tablet 4 mg PO Q8H PRN PRN Nausea #14 tabs 08/26/21 [Rx Last Taken Unknown] sulfamethoxazole 800 mg-trimethoprim 160 mg tablet (Bactrim DS) 1 tab PO BID #20 tabs 10/11/21 [Rx Last Taken Unknown] Allergy/AdvReac Type Severity Reaction Status Date / Time No Known Allergies Allergy Verified 07/10/22 07:38 Family History Father Diabetes Mother Hypertension Surgical History History of exploratory laparotomy (~12/2019) history of right bicep repair Social History Smoking Status: Current every day smoker tobacco type: cigarettes ROS ROS Narrative The patient is sedated and on ventilator. Cannot obtain ROS. Physical Exam Narrative General: Sedated on mechanical ventilator. HEENT: Normocephalic, atraumatic. Intubated. PERRLA. Mucous membrane moist. Neck: Supple, no JVD. Heart: Tachycardic with normal S1, S2, no rubs, murmurs, or gallops. Lungs: Coarse breath sound bilaterally. Abdomen: Normal bowel sound, soft, nontender, no guarding or rebound. Extremities: No clubbing, cyanosis, or edema. Musculoskeletal: Full passive range of motion, no joint swelling. Skin: Warm and dry, no rash. Neurologic: Sedated, cannot accurately assess. However, there is no obvious focal deficits. Lab / Micro Data Result Diagrams: 07/11/22 03:05 07/11/22 03:05 Labs: Laboratory Results - last 24 hr 07/10/22 07:45: Absolute Neuts (auto) 1.9 L, Absolute Lymphs (auto) 0.14 L, Eosinophils % (Manual) 8 H, Basophils % (Manual) 8 H, Plasma Cell % (Manual) 8, Other Cells % 8, Diff Path Review May foll, RBC Morphology NORM C+C 07/10/22 07:45: Total Creatine Kinase 1185 H, Triglycerides 176 07/10/22 10:30: Glucose 927 H* 07/10/22 10:33: POC Glucose > 500 H* 07/10/22 12:15: Serum Osmolality 336 H 07/10/22 12:15: Lactic Acid 4.1 H* 07/10/22 12:15: Sodium 133 L, Potassium 3.8, Chloride 100, Carbon Dioxide 19.0 L , Anion Gap 14, BUN 46 H, Creatinine 3.23 H, Estim Creat Clear Calc 25.33, Est GFR (MDRD) Af Amer 27 L, Est GFR (MDRD) Non-Af 23 L, BUN/Creatinine Ratio 14.2, Glucose 848 H*, Calcium 6.9 L 07/10/22 12:15: Glucose Cancelled 07/10/22 13:40: Troponin I High Sens 1652 H* 07/10/22 13:40: Phosphorus 4.0 07/10/22 13:40: Glucose 821 H* 07/10/22 15:05: Glucose 712 H* 07/10/22 15:50: Sodium 134 L, Potassium 3.9, Chloride 105, Carbon Dioxide 18.0 L , Anion Gap 11, BUN 49 H, Creatinine 3.31 H, Estim Creat Clear Calc 24.72, Est GFR (MDRD) Af Amer 27 L, Est GFR (MDRD) Non-Af 22 L, BUN/Creatinine Ratio 14.8, Glucose 741 H*, Calcium 7.1 L 07/10/22 17:25: Glucose 729 H* 07/10/22 18:30: Glucose 648 H* 07/10/22 20:35: Sodium 137, Potassium 3.8, Chloride 109 H, Carbon Dioxide 14.0 L , Anion Gap 14, BUN 47 H, Creatinine 3.32 H, Estim Creat Clear Calc 24.64, Est GFR (MDRD) Af Amer 26 L, Est GFR (MDRD) Non-Af 22 L, BUN/Creatinine Ratio 14.2, Glucose 527 H*, Calcium 6.7 L 07/10/22 22:14: POC Glucose > 500 H* 07/10/22 23:12: POC Glucose 403 H 07/11/22 00:19: POC Glucose 409 H 07/11/22 01:14: POC Glucose 380 H 07/11/22 02:17: POC Glucose 306 H 07/11/22 03:05: Sodium 138, Potassium 4.7, Chloride 111 H, Carbon Dioxide 17.0 L , Anion Gap 10, BUN 53 H, Creatinine 3.46 H, Estim Creat Clear Calc 23.65, Est GFR (MDRD) Af Amer 25 L, Est GFR (MDRD) Non-Af 21 L, BUN/Creatinine Ratio 15.3, Glucose 279 H, Calcium 6.4 L* 07/11/22 03:05: WBC 1.9 L, RBC 3.55 L, Hgb 11.2 L, Hct 33.1 L, MCV 93.2 D, MCH 31.5, MCHC 33.8, RDW Std Deviation 43.6, RDW Coeff of Tommy 12.6, Plt Count 110 L, MPV 10.6, Immature Gran % (Auto) 0.000, Neut % (Auto) 80.0 H, Lymph % (Auto) 13.7 L, [place] % (Auto) 4.7, Eos % (Auto) 0.0, Baso % (Auto) 1.6 H, Absolute Neuts (auto) 1.5 L, Absolute Lymphs (auto) 0.26 L, Nucleated RBC % 0, Diff Path Review December, Atypical Lymphocytes 1+, Platelet Estimate SLT 07/11/22 03:05: Hemoglobin A1c > 14.0 H 07/11/22 03:10: POC Glucose 312 H 07/11/22 04:49: POC Glucose 277 H 07/11/22 05:50: POC Glucose 246 H 07/11/22 06:40: POC Glucose 226 H 07/11/22 08:04: POC Glucose 200 H 07/11/22 09:50: Urine Creatinine 127.00, Urine Urea Nitrogen 141 Micro: Microbiology 07/10/22 07:50 Urine Catheter - Catheter Urine Culture - Preliminary Staphylococcus aureus 07/10/22 07:53 Blood Culture (Wb) - Anticubital Left Bacteria Detection (PCR) - Final Meth. resistant Staph. aureus 07/10/22 07:53 Blood Culture (Wb) - Anticubital Left Blood Culture - Preliminary 07/10/22 07:52 Blood Culture (Wb) - Right Hand Blood Culture - Preliminary 07/10/22 09:35 Sputum, Induced/Lukens Gram Stain - Final 07/10/22 09:40 Nasal Secretion SARS-CoV-2 & FLU Antigen (Rapid) - Final 07/10/22 09:30 Interface Orders Rapid RSV (DFA) - Final ABG Data ABG results: ABG 07/10/22 13:24 Specimen Type ART Sample Site R Radial pH 7.23 L Bicarbonate Actual 14.3 L Total CO2 15 Base Excess -13 L O2 Saturation 95 O2 % 40 ABG pCO2 34.2 L ABG pO2 86 Garett Test Positive Respiration Rate 14 O2 Delivery Device Adult Vent Vent Mode AC Tidal Volume 450 POC PEEP 5 Rhythm Strip Rhythm Strip: Sinus Tach Radiology Impression Brain CT 07/10/22 07:42 IMPRESSION: Normal unenhanced CT scan of the brain. Electronically Signed: Keyur Garcia MD at 10:26 EST ,
[2022-07-11] MEDS: LACTATED RINGERS 500 ML 999 ML IV (11:53)
[2022-07-11] MEDS: Chlorhexidine 15 ML PO ×2 (12:09→20:23)
[2022-07-11 12:35] LABS: Bedside Glucose 108 mg/dL (74-106)
[2022-07-11] MEDS: Insulin Glargine-YFGN 100 UNIT/ML Pen 20 UNIT SC (14:36)
[2022-07-11 15:01] LABS: Bedside Glucose 96 mg/dL (74-106)
[2022-07-11] MEDS: Vancomycin IV 500 MG/100 ML BAG 100 MG IV (16:19)
[2022-07-11 17:40] LABS: Albumin, Serum 1.2 g/dL (3.2-5.0); BUN 61 mg/dL (7-18); BUN/Creat Ratio 15.9 RATIO (10-20); CPK Total, Creatine Kinase 11224 U/L (39-308); Calcium,Total 6.9 mg/dL (8.5-10.1); Chloride 112 mmol/L (98-107); Creatinine, Serum 3.83 mg/dL (0.70-1.30); EST Glomerular Filtration Rate 19 mL/min (>60); Est Glom Filt Rate - Afr Amer 22 mL/min (>60); Estimated Creatinine Clearance 23.12 ml/min; Glucose 164 mg/dL (74-106); Phosphorus 8.8 mg/dL (2.5-4.9); Potassium 6.4 mmol/L (3.5-5.1); Sodium Level 138 mmol/L (136-145)
[2022-07-11] MEDS: Dextrose 50%-Water 25 GM/50 ML DISP.SYRIN IV (18:32)
[2022-07-11 19:00] LABS: Bedside Glucose 104 mg/dL (74-106)
--- NOTE | 2022-07-11 20:27 | CT_ITS ---
STUDY: CT BRAIN WITHOUT CONTRAST REASON FOR EXAM: Male, 41 years old. Lack of reflexes RADIATION DOSAGE (If Supplied By Facility): CTDIvol = ( 2050 ) mGy, DLP = ( 846.73 ) mGycm TECHNIQUE: Transaxial CT imaging of the brain was performed without administration of intravenous contrast material. Individualized dose optimization techniques were used for this CT. COMPARISON: 07/10/2022 FINDINGS: Normal soft tissue structures. Normal calvarium. Normal size ventricles and extra-axial spaces for the patient''s age. Normal white matter tracts of the cerebral hemispheres. Normal basal ganglia and thalami. Normal brainstem. Normal cerebellum. There is no intracranial hemorrhage. There are no findings of an acute ischemic infarction. Prominent mucous retention cyst or polyp in left maxillary sinus No significant change since prior exam CT/Brain/Head without Contrast IMPRESSION: Normal unenhanced CT scan of the brain. MRI recommended for further evaluation Left maxillary sinus disease likely chronic Electronically Signed: Chris Davenport MD at 21:21 EST ,
--- NOTE | 2022-07-11 20:29 | PCM.HOSP.N ---
Hospitalist Note Patient with change in status, decreased reflexes from prior. Will to be cautious request CT head status. Relayed ICU concerns also with hospitalist covering overnight for follow-up on imaging.
[2022-07-11] MEDS: 0.9% Saline Lock 10 ML Syringe IV (21:15)
--- NOTE | 2022-07-11 22:25 | NURSING ---
Addendum entered by Kristen Hanna 07/12/22 00:49: 2 rn confirmed family wanted to change code status Original Note: Melissa called and updated that pt has lost most of his reflexes. code status reviewed with her and she wanted to talk with his family since they have been for 10 yrs but are still legally . Melissa does not want extraordinary measures done if his heart stops or if he stops breathing but she still wants to continue treatment as it is now. Dr gabriel notified.
[2022-07-11 23:52] LABS: Albumin, Serum 1.2 g/dL (3.2-5.0); BUN 64 mg/dL (7-18); BUN/Creat Ratio 15.6 RATIO (10-20); Calcium,Total 6.8 mg/dL (8.5-10.1); Chloride 109 mmol/L (98-107); Creatinine, Serum 4.09 mg/dL (0.70-1.30); EST Glomerular Filtration Rate 17 mL/min (>60); Est Glom Filt Rate - Afr Amer 21 mL/min (>60); Estimated Creatinine Clearance 21.65 ml/min; Glucose 181 mg/dL (74-106); Phosphorus 8.5 mg/dL (2.5-4.9); Potassium 6.3 mmol/L (3.5-5.1); Sodium Level 136 mmol/L (136-145)
[2022-07-12] VITALS (34 sets, daily range): BP systolic 84–119; BP diastolic 48–92; PULSE 102–121; RESP 14–25; TEMP 36.4–39.5; O2SAT 90–97
[2022-07-12] MEDS: Hydrocortisone Sod Succinate 100 MG/2 ML Vial 50 MG IV ×2 (00:13→06:47)
[2022-07-12 01:10] LABS: Bedside Glucose 97 mg/dL (74-106)
[2022-07-12] MEDS: CHLORHEXIDINE GLUC 2% CLOTH 1 EACH TOWELETTE TOPICAL (03:56)
[2022-07-12 04:13] LABS: Absolute Lymphocyte Count 0.29 X10^3/uL (0.83-4.51); Absolute Neutrophil Count 2.8 X10^3/uL (2.0-7.7); Basophil# 0.07 X10^3/uL; Basophil% 2.1 % (0-1); Eosinophil# 0.01 X10^3/uL; Eosinophils% 0.3 % (0-5); Hematocrit 33.7 % (40-54); Hemoglobin 11.3 g/dL (13.0-16.5); Lymphocyte # 0.29 X10^3/ul (0.83-4.51); Lymphocyte % 8.5 % (19-41); Mean Corp Hgb Conc 33.5 g/dL (32-36); Mean Corpuscular Hgb 31.2 pg (27.0-32.0); Mean Corpuscular Volume 93.1 fL (80-94); Mean Platelet Vol. 11.9 fl (6.2-12.0); Monocyte# 0.23 X10^3/uL; Monocyte% 6.8 % (0-10); NRBC Flagged by Analyzer 0.9 % (0-5); Neutrophil # 2.78 X10^3/uL (2.7-7.7); Neutrophil % 81.7 % (47-70); POSITIVE COUNT YES; POSITIVE DIFFERENTIAL YES; POSITIVE MORPHOLOGY YES; RBC Distribution Width CV 13.2 % (11.6-14.6); RBC Distribution Width SD 45.2 fl (35.1-43.9); Red Blood Count 3.62 M/mm3 (4.6-6.2); White Blood Count 3.4 K/mm3 (4.4-11.0)
[2022-07-12 04:59] LABS: Differential Indicated SCAN CRITERIA MET; Platelet Count 49 K/mm3 (150-450)
[2022-07-12 05:01] LABS: ALB/GLOB Ratio 0.3 RATIO (0.9-2.4); AST(SGOT) 2823 U/L (15-37); Alanine Aminotransfer ALT/SGPT 753 U/L (16-61); Alkaline Phosphatase 104 U/L (45-117); Anion Gap 15 (5-15); BUN 68 mg/dL (7-18); BUN/Creat Ratio 15.7 RATIO (10-20); Calcium,Total 6.6 mg/dL (8.5-10.1); Chloride 105 mmol/L (98-107); Creatinine, Serum 4.34 mg/dL (0.70-1.30); EST Glomerular Filtration Rate 16 mL/min (>60); Est Glom Filt Rate - Afr Amer 19 mL/min (>60); Globulin 3.2 g/dL (2.2-4.2); Glucose 199 mg/dL (74-106); Potassium 6.4 mmol/L (3.5-5.1); Protein, Total 4.2 g/dL (6.4-8.2); Sodium Level 134 mmol/L (136-145)
[2022-07-12 05:03] LABS: Burr Cells 2+; Platelet Estimate MKD DEC (ADEQ)
[2022-07-12 05:51] LABS: Base Excess -17 mmol/L (-2 to +2); Bicarbonate 11.4 mmol/L (22-26); Blood Gas Specimen Type ART; FI02 50; Mode AC; O2 Delivery Device Adult Vent; PEEP 5; PO2 79 mmHG (75-100); RR 14; SITE R Radial; SO2 93 % (95-99); Total Carbon Dioxide 12 mmol/L; Vt 450; pCO2 29.1 mmHg (35-45)
--- NOTE | 2022-07-12 07:07 | PN.HOSP_ITS ---
Subjective Subjective less responsive overnight. Family decided to proceed with comfort measures. Objective Data Objective Data Vital Signs: Vital Signs Temp Pulse Resp BP Pulse Ox O2 Del Method O2 Flow Rate 36.4 C L 102 H 22 H 118/90 H 94 Mechanical Ventilator 40 07/12/22 07:00 07/12/22 07:00 07/12/22 07:00 07/12/22 07:00 07/11/22 14:35 07/12/22 06:00 07/11/22 06:00 FiO2 50 07/12/22 06:00 Oxygen Flow Rate (L/min) 40 Oxygen Delivery Method Mechanical Ventilator Weight: 70.1 kg Body Mass Index (BMI) 19.4 Intake & Output: Intake and Output for Last 24 Hours 07/10/22 07/11/22 07/12/22 23:59 23:59 23:59 Intake Total 7239.75 / 7444.05 6791.49 / 6856.54 1549.55 / 1549.55 Output Total 850 / 900 205 / 205 15 / 15 Balance 6389.75 / 6544.05 6586.49 / 6651.54 1534.55 / 1534.55 Lab / Micro Data Result Diagrams: 07/12/22 04:00 07/12/22 04:00 Labs: Laboratory Results - last 24 hr 07/11/22 03:05: Hemoglobin A1c > 14.0 H 07/11/22 05:50: POC Glucose 246 H 07/11/22 06:40: POC Glucose 226 H 07/11/22 08:04: POC Glucose 200 H 07/11/22 09:50: Urine Creatinine 127.00, Urine Urea Nitrogen 141 07/11/22 12:02: POC Glucose 108 H 07/11/22 14:12: POC Glucose 96 07/11/22 16:25: Sodium 138, Potassium 6.4 H*, Chloride 112 H, Carbon Dioxide 14.0 L, BUN 61 H, Creatinine 3.83 H, Estim Creat Clear Calc 23.12, Est GFR (MDRD) Af Amer 22 L, Est GFR (MDRD) Non-Af 19 L, BUN/Creatinine Ratio 15.9, Glucose 164 H, Calcium 6.9 L, Phosphorus 8.8 H, Total Creatine Kinase 35878 H, Albumin 1.2 L 07/11/22 18:32: POC Glucose 104 07/11/22 23:15: Sodium 136, Potassium 6.3 H*, Chloride 109 H, Carbon Dioxide 14.0 L, BUN 64 H, Creatinine 4.09 H, Estim Creat Clear Calc 21.65, Est GFR (MDRD) Af Amer 21 L, Est GFR (MDRD) Non-Af 17 L, BUN/Creatinine Ratio 15.6, Glucose 181 H, Calcium 6.8 L, Phosphorus 8.5 H, Albumin 1.2 L 07/12/22 00:12: POC Glucose 97 07/12/22 04:00: WBC 3.4 L, RBC 3.62 L, Hgb 11.3 L, Hct 33.7 L, MCV 93.1, MCH 31 .2, MCHC 33.5, RDW Std Deviation 45.2 H, RDW Coeff of Tommy 13.2, Plt Count 49 L*, MPV 11.9, Immature Gran % (Auto) 0.600, Neut % (Auto) 81.7 H, Lymph % (Auto) 8.5 L, [place] % (Auto) 6.8, Eos % (Auto) 0.3, Baso % (Auto) 2.1 H, Absolute Neuts (auto) 2.8, Absolute Lymphs (auto) 0.29 L, Nucleated RBC % 0.9, Diff Path Review December, Platelet Estimate MKD DEC, [place] Cells 2+ 07/12/22 04:00: Sodium 134 L, Potassium 6.4 H*, Chloride 105, Carbon Dioxide 14.0 L, Anion Gap 15, BUN 68 H, Creatinine 4.34 H, Estim Creat Clear Calc 20.40, Est GFR (MDRD) Af Amer 19 L, Est GFR (MDRD) Non-Af 16 L, BUN/Creatinine Ratio 15.7, Glucose 199 H, Calcium 6.6 L, Total Bilirubin 0.40, AST 2823 H, ALT 753 H, Alkaline Phosphatase 104, Total Protein 4.2 L, Albumin 1.0 L, Globulin 3.2, Albumin/Globulin Ratio 0.3 L Micro: Microbiology 07/10/22 07:52 Blood Culture (Wb) - Right Hand Blood Culture - Preliminary Staphylococcus aureus 07/10/22 07:53 Blood Culture (Wb) - Anticubital Left Bacteria Detection (PCR) - Final Meth. resistant Staph. aureus 07/10/22 07:53 Blood Culture (Wb) - Anticubital Left Blood Culture - Preliminary Meth. resistant Staph. aureus 07/10/22 09:35 Sputum, Induced/Lukens Gram Stain - Final 07/10/22 09:35 Sputum, Induced/Lukens Respiratory Culture - Preliminary Staphylococcus aureus 07/10/22 07:50 Urine Catheter - Catheter Urine Culture - Preliminary Staphylococcus aureus 07/10/22 09:40 Nasal Secretion SARS-CoV-2 & FLU Antigen (Rapid) - Final 07/10/22 09:30 Interface Orders Rapid RSV (DFA) - Final ABG Data ABG results: ABG 07/12/22 05:42 Specimen Type ART Sample Site R Radial pH 7.20 L Bicarbonate Actual 11.4 L Total CO2 12 Base Excess -17 L O2 Saturation 93 L O2 % 50 ABG pCO2 29.1 L ABG pO2 79 Garett Test N/A Respiration Rate 14 O2 Delivery Device Adult Vent Vent Mode AC Tidal Volume 450 POC PEEP 5 Crit Call To/Read Back Yes Blood Gas Notified Whom Dr Guzmán Radiography Diagnostic Testing: Radiology Impression Brain CT 07/11/22 20:27 IMPRESSION: Normal unenhanced CT scan of the brain. MRI recommended for further evaluation Left maxillary sinus disease likely chronic Electronically Signed: Chris Davenport MD at 21:21 EST , Rhythm Strip Rhythm Strip: Sinus Tach Physical Exam Const Constitutional Narrative: intubated unresponsive Resp Resp Narrative: coarse bs Cardio Cardio Narrative: tachy Assessment & Plan Assessment/Plan (1) Septic shock: PLAN: Septic shock, exact etiology unclear but possible right middle and lower lobe pneumonia: The patient presented with septic shock, most likely due to RML/RLL pneumonia with acute sepsis-related organ dysfunction as evidenced by recalcitrant hypotension requiring 3 vasopressors, acute hypoxic respiratory failure requiring vent support, Lactic acidosis, coagulopathy elevated PT and APTT. Patient on 3 vasopressors. Patient had fluid boluses as per septic shock protocol and is still getting fluids. On IV vancomycin and Zosyn. Patient was on IV hydrocortisone, stress dose of steroid. Septic work-up ordered. On norepinepherine, vasopressin (2) Acute respiratory failure with hypoxia: PLAN: Secondary to pneumonia and septic shock patient is being admitted in ICU on ventilator, assist control 50% FiO2 Service Desk Manager is consulted. (3) DKA, type 1: PLAN: DKA, suspected type 1 diabetes mellitus: As per patient's aunt, patient was diagnosed diabetes mellitus in 1999, he was 19-year-old and decals and was in favor of type 1 diabetes mellitus. Patient parent was also diabetes mellitus and kids also have diabetes. Patient has high anion gap metabolic acidosis. I nitial ABG shows pH 7.1 / once on 3 L of oxygen and repeat ABG shows improvement pH 7.23, PCO2 34.2. Patient was on DKA protocol with IV fluid and insulin drip. BMP monitoring and electrolyte replacement as per protocol. Patient came with glucose 1115. As per his girlfriend he always has problem in getting insulin because of insurance. Currently resolved Switch to glargine and sliding scale insulin A1c greater than 14 (4) KHANG (acute kidney injury): PLAN: Worsening. No baseline labs since August where his Cr was 1.34 at this time. Has received IVF Fractional excretion of urea 7.25% consistent with prerenal azotemia Nephrology consult. Discussed with Dr. Sanches, plan is to give patient additional IV fluids. (5) Elevated troponin: PLAN: Peaked at 1652, though no follow labs. Suspect secondary to septic shock but cannot rule out primary event. Echo ordered. Aspirin Cards consult (6) Pneumonia: QUALIFIERS: Laterality: right Lung location: middle lobe of lung Pneumonia type: due to methicillin-resistant Staphylococcus aureus (MRSA) Qualified Code(s): J15.212 - Pneumonia due to Methicillin resistant Staphylococcus aureus PLAN: +Staph aureus on sputum culture Right middle lobe Continue vancomycin and piperacillin/tazobactam (7) Bacteremia: PLAN: suspected to pneumonia. MRSA in urine unlikely true UTI, but due to fulminant infection Repeat BCx Check echo. (8) Hyperkalemia: PLAN: Likely due to metabolic acidosis On Bicarbonate gtt. Kayexalate Recheck (9) Thrombocytopenia: PLAN: Probably due to septic shock, possible DIC. Doubt HIT given relatively short period of hospitalization. recheck coags (PT, PTT, D-dimer, fibrinogen). (10) Encephalopathy: PLAN: Decreased responsiveness noted. Head CT showed sinusitis but no other process. Propofol and fentanyl off. PLAN: Plan Chronic conditions: * HTN: Antihypertensives held given the septic shock * Anasarca: Furosemide held * macrocytic anemia VTE prophylaxis:Change to SCDs given thrombocytopenia 07/11: Discussed with the patient's estranged and as well as his aunt. The patient's states that they have been estranged and living apart for the past 10 years though they are still formally . Discussed that she would be the next of kin is her spent no one else assigned as a floorperson or power of state's attorney. She would prefer to do this by committee with other family members so that she has not unilaterally making these decisions. I told her that is certainly appropriate but ultimately decision will be need to be made by her in regards to any potential interventions or withdrawing care.
[2022-07-12 07:10] LABS: Bedside Glucose 88 mg/dL (74-106)
--- NOTE | 2022-07-12 07:39 | NURSING ---
[employer] [facility] called, info given and they will review chart and call back shortly, passed info on to chantel seymour
[2022-07-12] MEDS: Sodium Polystyrene Sulfonate 15 GM/60 ML UDC 30 GM NG (07:42)
[2022-07-12] MEDS: Dextrose 50%-Water 25 GM/50 ML DISP.SYRIN IV (07:42)
--- NOTE | 2022-07-12 08:30 | PN.CARD_ITS ---
Subjective Subjective Remains on ventilator. Hemodynamically better. On 2 vasopressor agents now. Objective Data Vital Signs: Vital Signs Temp Pulse Resp BP Pulse Ox O2 Del Method O2 Flow Rate 97.6 F L 102 H 22 H 118/90 H 94 Mechanical Ventilator 40 07/12/22 07:00 07/12/22 07:23 07/12/22 07:23 07/12/22 07:00 07/11/22 14:35 07/12/22 06:00 07/11/22 06:00 FiO2 50 07/12/22 07:23 Oxygen Flow Rate (L/min) 40 Oxygen Delivery Method Mechanical Ventilator Weight: 154 lb 8.705 oz Body Mass Index (BMI) 19.4 Intake & Output: Intake and Output for Last 24 Hours 07/10/22 07/11/22 07/12/22 23:59 23:59 23:59 Intake Total 7239.75 / 7444.05 6791.49 / 6856.54 1549.55 / 1549.55 Output Total 850 / 900 205 / 205 15 / 15 Balance 6389.75 / 6544.05 6586.49 / 6651.54 1534.55 / 1534.55 Lab / Micro Data Result Diagrams: 07/12/22 04:00 07/12/22 04:00 Labs: Laboratory Results - last 24 hr 07/11/22 03:05: Hemoglobin A1c > 14.0 H 07/11/22 08:04: POC Glucose 200 H 07/11/22 09:50: Urine Creatinine 127.00, Urine Urea Nitrogen 141 07/11/22 12:02: POC Glucose 108 H 07/11/22 14:12: POC Glucose 96 07/11/22 16:25: Sodium 138, Potassium 6.4 H*, Chloride 112 H, Carbon Dioxide 14.0 L, BUN 61 H, Creatinine 3.83 H, Estim Creat Clear Calc 23.12, Est GFR (MDRD) Af Amer 22 L, Est GFR (MDRD) Non-Af 19 L, BUN/Creatinine Ratio 15.9, Glucose 164 H, Calcium 6.9 L, Phosphorus 8.8 H, Total Creatine Kinase 03033 H, Albumin 1.2 L 07/11/22 18:32: POC Glucose 104 07/11/22 23:15: Sodium 136, Potassium 6.3 H*, Chloride 109 H, Carbon Dioxide 14.0 L, BUN 64 H, Creatinine 4.09 H, Estim Creat Clear Calc 21.65, Est GFR (MDRD) Af Amer 21 L, Est GFR (MDRD) Non-Af 17 L, BUN/Creatinine Ratio 15.6, Glucose 181 H, Calcium 6.8 L, Phosphorus 8.5 H, Albumin 1.2 L 07/12/22 00:12: POC Glucose 97 07/12/22 04:00: WBC 3.4 L, RBC 3.62 L, Hgb 11.3 L, Hct 33.7 L, MCV 93.1, MCH 3 1.2, MCHC 33.5, RDW Std Deviation 45.2 H, RDW Coeff of Tommy 13.2, Plt Count 49 L* , MPV 11.9, Immature Gran % (Auto) 0.600, Neut % (Auto) 81.7 H, Lymph % (Auto) 8.5 L, [place] % (Auto) 6.8, Eos % (Auto) 0.3, Baso % (Auto) 2.1 H, Absolute Neuts (auto) 2.8, Absolute Lymphs (auto) 0.29 L, Nucleated RBC % 0.9, Diff Path Review December, Platelet Estimate MKD DEC, [place] Cells 2+ 07/12/22 04:00: Sodium 134 L, Potassium 6.4 H*, Chloride 105, Carbon Dioxide 14.0 L, Anion Gap 15, BUN 68 H, Creatinine 4.34 H, Estim Creat Clear Calc 20.40, Est GFR (MDRD) Af Amer 19 L, Est GFR (MDRD) Non-Af 16 L, BUN/Creatinine Ratio 15.7, Glucose 199 H, Calcium 6.6 L, Total Bilirubin 0.40, AST 2823 H, ALT 753 H, Alkaline Phosphatase 104, Total Protein 4.2 L, Albumin 1.0 L, Globulin 3.2, Albumin/Globulin Ratio 0.3 L 07/12/22 06:45: POC Glucose 88 Micro: Microbiology 07/10/22 07:52 Blood Culture (Wb) - Right Hand Blood Culture - Preliminary Staphylococcus aureus 07/10/22 07:53 Blood Culture (Wb) - Anticubital Left Bacteria Detection (PCR) - Final Meth. resistant Staph. aureus 07/10/22 07:53 Blood Culture (Wb) - Anticubital Left Blood Culture - Preliminary Meth. resistant Staph. aureus 07/10/22 09:35 Sputum, Induced/Lukens Gram Stain - Final 07/10/22 09:35 Sputum, Induced/Lukens Respiratory Culture - Preliminary Staphylococcus aureus 07/10/22 07:50 Urine Catheter - Catheter Urine Culture - Preliminary Staphylococcus aureus ABG Data ABG results: ABG 07/12/22 05:42 Specimen Type ART Sample Site R Radial pH 7.20 L Bicarbonate Actual 11.4 L Total CO2 12 Base Excess -17 L O2 Saturation 93 L O2 % 50 ABG pCO2 29.1 L ABG pO2 79 Garett Test N/A Respiration Rate 14 O2 Delivery Device Adult Vent Vent Mode AC Tidal Volume 450 POC PEEP 5 Crit Call To/Read Back Yes Blood Gas Notified Whom Dr Guzmán Rhythm Strip Rhythm Strip: Sinus Tach Cardiology Labs/Tests 07/11/22 03:05: Hemoglobin A1c > 14.0 H 07/11/22 16:25: Sodium 138, Potassium 6.4 H*, Chloride 112 H, Carbon Dioxide 14.0 L, BUN 61 H, Creatinine 3.83 H, Est GFR (MDRD) Af Amer 22 L, Est GFR (MDRD) Non-Af 19 L, BUN/Creatinine Ratio 15.9, Glucose 164 H, Calcium 6.9 L, Phosphorus 8.8 H 07/11/22 23:15: Sodium 136, Potassium 6.3 H*, Chloride 109 H, Carbon Dioxide 14.0 L, BUN 64 H, Creatinine 4.09 H, Est GFR (MDRD) Af Amer 21 L, Est GFR (MDRD) Non-Af 17 L, BUN/Creatinine Ratio 15.6, Glucose 181 H, Calcium 6.8 L, Phosphorus 8.5 H 07/12/22 04:00: WBC 3.4 L, RBC 3.62 L, Hgb 11.3 L, Hct 33.7 L, MCV 93.1, MCH 31.2, MCHC 33.5, Plt Count 49 L*, MPV 11.9, Immature Gran % (Auto) 0.600, Neut % (Auto) 81.7 H, Lymph % (Auto) 8.5 L, [place] % (Auto) 6.8, Eos % (Auto) 0.3, Baso % (Auto) 2.1 H, Absolute Neuts (auto) 2.8, Nucleated RBC % 0.9 07/12/22 04:00: Sodium 134 L, Potassium 6.4 H*, Chloride 105, Carbon Dioxide 14.0 L, Anion Gap 15, BUN 68 H, Creatinine 4.34 H, Est GFR (MDRD) Af Amer 19 L, Est GFR (MDRD) Non-Af 16 L, BUN/Creatinine Ratio 15.7, Glucose 199 H, Calcium 6.6 L, Total Bilirubin 0.40 07/12/22 05:42: pH 7.20 L, Bicarbonate Actual 11.4 L, Base Excess -17 L, O2 Saturation 93 L, ABG pCO2 29.1 L, ABG pO2 79, Garett Test N/A Rhythm: EKG: ECHO: Stress Test: Cardiac Cath: PCI: CT Surgery: Holter monitor: EPS: PPM: CXR: Chest CT Scan: Radiography Diagnostic Testing: Radiology Impression Brain CT 07/11/22 20:27 IMPRESSION: Normal unenhanced CT scan of the brain. MRI recommended for further evaluation Left maxillary sinus disease likely chronic Electronically Signed: Chris Davenport MD at 21:21 EST , Physical Exam Narrative Mechanically ventilated. Sinus tachycardia. Assessment & Plan Assessment/Plan (1) Septic shock: PLAN: Hemodynamics improved. Weaned off 1 vasopressor agents. Remains on 2. (2) Non-ST elevation NV (NSTEMI): PLAN: Likely type II in setting of diabetic ketoacidosis, respiratory failure and septic shock. Discontinue aspirin in view of thrombocytopenia. Echocardiogram pending. (3) KHANG (acute kidney injury): PLAN: Plan Patient remains critically ill. Bacteremic. Septic shock.
[2022-07-12 08:55] LABS: International Normalized Ratio 1.4; Prothrombin Time (Protime)PT. 16.5 SECONDS (11.7-14.9)
[2022-07-12 08:56] LABS: Fibrinogen 666 mg/dl (203-444); Partial Thromboplast Time 42.6 Seconds (24.1-36.2)
[2022-07-12 09:53] LABS: D-Dimer Quantitative (DVT/PE) > 20.00 FEU/ug/m (0.27-0.49)
--- NOTE | 2022-07-12 10:00 | CASEMGMT ---
ANGELIKA MORALES participated in family meeting with Dr. Guzmán, , sister, and aunt. Family states that patient would not want to be on HD. After discussions with Dr. Guzmán, family wants to proceed with palliative extubation. ANGELIKA MORALES updated TRAMAINE Mccarthy, regarding family meeting.
[2022-07-12] MEDS: Aspirin E.C. 81 MG Tablet PO (10:14)
[2022-07-12] MEDS: Insulin Glargine-YFGN 100 UNIT/ML Pen 20 UNIT SC (10:15)
--- NOTE | 2022-07-12 10:24 | PN.CC_ITS ---
Assessment & Plan Assessment/Plan (1) Septic shock: PLAN: Plan RECOMMENDATIONS: 1. Continue broad-spectrum antimicrobials as ordered. 2. Continue vasopressor support to maintain a mean arterial pressure at or above 65 mmHg. 3. Continue stress dose steroids. 4. No dialysis per family wishes. Nephrology updated 5. Continue insulin. 6. Wean FiO2 and PEEP to maintain oxygen saturations at or above 90%. 7. Await echocardiogram 8. Continue appropriate ICU prophylaxis. 9. Palliative measures at patient timing. Continue CCA CODE STATUS until ready IMPRESSIONS: 1. Septic shock The patient presented to the hospital with sepsis due to probable pneumonia with secondary hematogenous spread with acute sepsis related organ dysfunction as evidenced by acute respiratory failure requiring invasive mechanical ventilatory support, acute kidney injury, acute liver injury and lactic acidemia. Although the patient did receive supplemental IV fluid hydration, he ultimately required vasopressor support due to fluid refractory hypotension. Plan to continue aggressive measures including Levophed and vasopressin in an attempt to maintain a mean arterial pressure at or above 65 mmHg. Continue broad-spectrum antimicrobials as ordered. Preliminary blood cultures are positive for MRSA. Likely not necessary to obtain echocardiogram 2. Acute hypoxemic respiratory failure Likely secondary to right lower lobe pneumonia and decreased mentation in the setting of diabetic ketoacidosis. The patient will be continued on assist control mode of mechanical ventilation. Plan to wean FiO2 and PEEP to maintain oxygen saturations at or above 90%. Sputum culture is showing MRSA. Continue antimicrobials as outlined above. ABG shows adequate oxygenation and partial compensation for severe acidosis 3. Acute kidney injury Most likely prerenal in etiology/ischemic ATN in the setting of #1. The patient did receive significant IV fluid resuscitation. In light of his worsening creatinine, will obtain nephrology consultation. Continue supportive measures as noted above including vasopressors to maintain hemodynamic stability. Continue to monitor urine output for now. Patient would qualify for renal replacement therapy, but family is refusing. They understand that this will eventually lead to his and have plans to gather family members 4. Diabetic ketoacidosis Likely precipitated by underlying infection. The patient did receive significant IV fluid resuscitation along with continuous insulin infusion. Anion gap has been closed now x2. 5. Pancytopenia Continue to monitor counts daily. No indication for transfusion of blood products at the current time. 6. NSTEMI/shock liver (ischemic hepatitis) Likely secondary to demand ischemia in the setting of #1. Cardiology is currently following. Echocardiogram is pending. TIME: 68 minutes of critical care time, independent of procedures, was spent addressing the patient's septic shock, staph bacteremia, acute hypoxemic respiratory failure, acute kidney injury, diabetic ketoacidosis, NSTEMI, review of all data and collaboration with the care team. Subjective Subjective Patient with slight improvement in pressor requirements overnight. Patient relatively unresponsive this morning, so a CT scan was obtained showing no acute issues. Patient has had significant mottling, so pulse ox has not been reliable. ABG did confirm adequate oxygenation. Minimal urine output overnight despite bicarbonate drip. Discussed with nephrology and there was concerns that a dialysis catheter and hemodialysis would need to be initiated. Meeting this morning with patient's , sister and aunt. Patient's current status was discussed along with prognosis. All family members were very clear that the patient would not tolerate hemodialysis even if he survived. They understand that the initiation of dialysis could be tricky and have its own consequences. After review the risks, benefits and alternatives, family would like to continue with a Comfort Care arrest status while family members are gathered and plan for a palliative extubation in the next 24 hours. Objective Data Objective Data Vital Signs: Vital Signs Temp Pulse Resp BP Pulse Ox O2 Del Method O2 Flow Rate 36.4 C L 106 H 22 H 108/70 97 Mechanical Ventilator 40 07/12/22 08:00 07/12/22 09:41 07/12/22 09:41 07/12/22 08:44 07/12/22 09:41 07/12/22 08:00 07/11/22 06:00 FiO2 50 07/12/22 09:41 Oxygen Flow Rate (L/min) 40 Oxygen Delivery Method Mechanical Ventilator Weight: 70.1 kg Body Mass Index (BMI) 19.4 Intake & Output: Intake and Output for Last 24 Hours 07/10/22 07/11/22 07/12/22 23:59 23:59 23:59 Intake Total 7239.75 / 7444.05 6791.49 / 6856.54 2888.91 / 2888.91 Output Total 850 / 900 205 / 205 15 / 15 Balance 6389.75 / 6544.05 6586.49 / 6651.54 2873.91 / 2873.91 Lab / Micro Data Attestation: I reviewed the patient's lab results. Result Diagrams: 07/12/22 04:00 07/12/22 04:00 Labs: Laboratory Results - last 24 hr 07/11/22 12:02: POC Glucose 108 H 07/11/22 14:12: POC Glucose 96 07/11/22 16:25: Sodium 138, Potassium 6.4 H*, Chloride 112 H, Carbon Dioxide 14.0 L, BUN 61 H, Creatinine 3.83 H, Estim Creat Clear Calc 23.12, Est GFR (MDRD) Af Amer 22 L, Est GFR (MDRD) Non-Af 19 L, BUN/Creatinine Ratio 15.9, Glucose 164 H, Calcium 6.9 L, Phosphorus 8.8 H, Total Creatine Kinase 97197 H, Albumin 1.2 L 07/11/22 18:32: POC Glucose 104 07/11/22 23:15: Sodium 136, Potassium 6.3 H*, Chloride 109 H, Carbon Dioxide 14.0 L, BUN 64 H, Creatinine 4.09 H, Estim Creat Clear Calc 21.65, Est GFR (MDRD) Af Amer 21 L, Est GFR (MDRD) Non-Af 17 L, BUN/Creatinine Ratio 15.6, Glucose 181 H, Calcium 6.8 L, Phosphorus 8.5 H, Albumin 1.2 L 07/12/22 00:12: POC Glucose 97 07/12/22 04:00: WBC 3.4 L, RBC 3.62 L, Hgb 11.3 L, Hct 33.7 L, MCV 93.1, MCH 31.2, MCHC 33.5, RDW Std Deviation 45.2 H, RDW Coeff of Tommy 13.2, Plt Count 49 L*, MPV 11.9, Immature Gran % (Auto) 0.600, Neut % (Auto) 81.7 H, Lymph % (Auto) 8.5 L, [place] % (Auto) 6.8, Eos % (Auto) 0.3, Baso % (Auto) 2.1 H, Absolute Neuts (auto) 2.8, Absolute Lymphs (auto) 0.29 L, Nucleated RBC % 0.9, Diff Path Review December thai, Platelet Estimate MKD DEC, [place] Cells 2+ 07/12/22 04:00: Sodium 134 L, Potassium 6.4 H*, Chloride 105, Carbon Dioxide 14.0 L, Anion Gap 15, BUN 68 H, Creatinine 4.34 H, Estim Creat Clear Calc 20.40, Est GFR (MDRD) Af Amer 19 L, Est GFR (MDRD) Non-Af 16 L, BUN/Creatinine Ratio 15.7, Glucose 199 H, Calcium 6.6 L, Total Bilirubin 0.40, AST 2823 H, ALT 753 H, Alkaline Phosphatase 104, Total Protein 4.2 L, Albumin 1.0 L, Globulin 3.2, Albumin/Globulin Ratio 0.3 L 07/12/22 06:45: POC Glucose 88 07/12/22 08:16: PT 16.5 H, INR 1.4, APTT 42.6 H, Fibrinogen 666 H, D-Dimer Quant (PE/DVT) > 20.00 H* Micro: Microbiology 07/10/22 09:35 Sputum, Induced/Lukens Gram Stain - Final 07/10/22 09:35 Sputum, Induced/Lukens Respiratory Culture - Final Meth. resistant Staph. aureus 07/10/22 07:50 Urine Catheter - Catheter Urine Culture - Final Meth. resistant Staph. aureus 07/10/22 07:52 Blood Culture (Wb) - Right Hand Blood Culture - Final Meth. resistant Staph. aureus 07/10/22 07:53 Blood Culture (Wb) - Anticubital Left Bacteria Detection (PCR) - Final Meth. resistant Staph. aureus 07/10/22 07:53 Blood Culture (Wb) - Anticubital Left Blood Culture - Final Meth. resistant Staph. aureus 07/10/22 09:40 Nasal Secretion SARS-CoV-2 & FLU Antigen (Rapid) - Final 07/10/22 09:30 Interface Orders Rapid RSV (DFA) - Final ABG Data ABG results: ABG 07/12/22 05:42 Specimen Type ART Sample Site R Radial pH 7.20 L Bicarbonate Actual 11.4 L Total CO2 12 Base Excess -17 L O2 Saturation 93 L O2 % 50 ABG pCO2 29.1 L ABG pO2 79 Garett Test N/A Respiration Rate 14 O2 Delivery Device Adult Vent Vent Mode AC Tidal Volume 450 POC PEEP 5 Crit Call To/Read Back Yes Blood Gas Notified Whom Dr Guzmán Radiography Diagnostic Testing: Radiology Impression Brain CT 07/11/22 20:27 IMPRESSION: Normal unenhanced CT scan of the brain. MRI recommended for further evaluation Left maxillary sinus disease likely chronic Electronically Signed: Chris Davenport MD at 21:21 EST , Rhythm Strip Rhythm Strip: Sinus Tach Rate: 112 Physical Exam Const General Appearance: ill appearing, intubated and patient mechanically ventilated HEENT normocephalic and head/scalp atraumatic Eyes PERRL, EOMs intact bilaterally and conjunctivae normal Neck supple General: trachea midline and CVC in place Chest inspection of chest normal Resp Auscultation: diminished lung sounds; Negative for rales, rhonchi or wheezes Cardio regular rhythm, S1 normal heart sound, S2 normal heart sound, no murmurs, no rub and no gallops Rate: tachycardic GI normal to inspection, nondistended, normoactive bowel sounds Extremity General Extremity: edema Skin Skin Narrative: Cyanosis and blackening of the distal appendages bilaterally General Skin Exam: mottling Neuro Neuro Narrative: Unresponsive on the vent. Does have a gag and cough reflex Psych Mood & Affect: flat affect Charges/Coding Procedures Hospitalists Procedures: 81479 Critial Care 1st Hr Multi Select Codes Hospitalists' Procedures Procedures: 84159 Critial Care Addl 30 Min
--- NOTE | 2022-07-12 11:06 | PN.RENAL_ITS ---
Subjective Subjective Remains in septic shock Objective Data Objective Data Vital Signs: Vital Signs Temp Pulse Resp BP Pulse Ox O2 Del Method O2 Flow Rate 98.2 F 106 H 24 H 100/79 96 Mechanical Ventilator 40 07/12/22 11:00 07/12/22 11:00 07/12/22 11:00 07/12/22 11:00 07/12/22 11:00 07/12/22 11:00 07/11/22 06:00 FiO2 50 07/12/22 11:00 Oxygen Flow Rate (L/min) 40 Oxygen Delivery Method Mechanical Ventilator Weight: 70.1 kg Body Mass Index (BMI) 19.4 Intake & Output: Intake and Output for Last 24 Hours 07/10/22 07/11/22 07/12/22 23:59 23:59 23:59 Intake Total 7239.75 / 7444.05 6791.49 / 6856.54 3232.62 / 3232.62 Output Total 850 / 900 205 / 205 15 / 15 Balance 6389.75 / 6544.05 6586.49 / 6651.54 3217.62 / 3217.62 Lab / Micro Data Result Diagrams: 07/12/22 04:00 07/12/22 04:00 Labs: Laboratory Results - last 24 hr 07/11/22 12:02: POC Glucose 108 H 07/11/22 14:12: POC Glucose 96 07/11/22 16:25: Sodium 138, Potassium 6.4 H*, Chloride 112 H, Carbon Dioxide 14.0 L, BUN 61 H, Creatinine 3.83 H, Estim Creat Clear Calc 23.12, Est GFR (MDRD) Af Amer 22 L, Est GFR (MDRD) Non-Af 19 L, BUN/Creatinine Ratio 15.9, Glucose 164 H, Calcium 6.9 L, Phosphorus 8.8 H, Total Creatine Kinase 12257 H, Albumin 1.2 L 07/11/22 18:32: POC Glucose 104 07/11/22 23:15: Sodium 136, Potassium 6.3 H*, Chloride 109 H, Carbon Dioxide 14.0 L, BUN 64 H, Creatinine 4.09 H, Estim Creat Clear Calc 21.65, Est GFR (MDRD) Af Amer 21 L, Est GFR (MDRD) Non-Af 17 L, BUN/Creatinine Ratio 15.6, Glucose 181 H, Calcium 6.8 L, Phosphorus 8.5 H, Albumin 1.2 L 07/12/22 00:12: POC Glucose 97 07/12/22 04:00: WBC 3.4 L, RBC 3.62 L, Hgb 11.3 L, Hct 33.7 L, MCV 93.1, MCH 31.2, MCHC 33.5, RDW Std Deviation 45.2 H, RDW Coeff of Tommy 13.2, Plt Count 49 L*, MPV 11.9, Immature Gran % (Auto) 0.600, Neut % (Auto) 81.7 H, Lymph % (Auto) 8.5 L, [place] % (Auto) 6.8, Eos % (Auto) 0.3, Baso % (Auto) 2.1 H, Absolute Neuts (auto) 2.8, Absolute Lymphs (auto) 0.29 L, Nucleated RBC % 0.9, Diff Path Review December, Platelet Estimate MKD DEC, [place] Cells 2+ 07/12/22 04:00: Sodium 134 L, Potassium 6.4 H*, Chloride 105, Carbon Dioxide 14. 0 L, Anion Gap 15, BUN 68 H, Creatinine 4.34 H, Estim Creat Clear Calc 20.40, Est GFR (MDRD) Af Amer 19 L, Est GFR (MDRD) Non-Af 16 L, BUN/Creatinine Ratio 15.7, Glucose 199 H, Calcium 6.6 L, Total Bilirubin 0.40, AST 2823 H, ALT 753 H, Alkaline Phosphatase 104, Total Protein 4.2 L, Albumin 1.0 L, Globulin 3.2, Albumin/Globulin Ratio 0.3 L 07/12/22 06:45: POC Glucose 88 07/12/22 08:16: PT 16.5 H, INR 1.4, APTT 42.6 H, Fibrinogen 666 H, D-Dimer Quant (PE/DVT) > 20.00 H* Micro: Microbiology 07/10/22 09:35 Sputum, Induced/Lukens Gram Stain - Final 07/10/22 09:35 Sputum, Induced/Lukens Respiratory Culture - Final Meth. resistant Staph. aureus 07/10/22 07:50 Urine Catheter - Catheter Urine Culture - Final Meth. resistant Staph. aureus 07/10/22 07:52 Blood Culture (Wb) - Right Hand Blood Culture - Final Meth. resistant Staph. aureus 07/10/22 07:53 Blood Culture (Wb) - Anticubital Left Bacteria Detection (PCR) - Final Meth. resistant Staph. aureus 07/10/22 07:53 Blood Culture (Wb) - Anticubital Left Blood Culture - Final Meth. resistant Staph. aureus 07/10/22 09:40 Nasal Secretion SARS-CoV-2 & FLU Antigen (Rapid) - Final 07/10/22 09:30 Interface Orders Rapid RSV (DFA) - Final ABG Data ABG results: ABG 07/12/22 05:42 Specimen Type ART Sample Site R Radial pH 7.20 L Bicarbonate Actual 11.4 L Total CO2 12 Base Excess -17 L O2 Saturation 93 L O2 % 50 ABG pCO2 29.1 L ABG pO2 79 Garett Test N/A Respiration Rate 14 O2 Delivery Device Adult Vent Vent Mode AC Tidal Volume 450 POC PEEP 5 Crit Call To/Read Back Yes Blood Gas Notified Whom Dr Guzmán Radiography Diagnostic Testing: Radiology Impression Brain CT 07/11/22 20:27 IMPRESSION: Normal unenhanced CT scan of the brain. MRI recommended for further evaluation Left maxillary sinus disease likely chronic Electronically Signed: Chris Davenport MD at 21:21 EST , Rhythm Strip Rhythm Strip: Sinus Tach Rate: 112 Physical Exam Narrative General: Sedated on mechanical ventilator. HEENT: Normocephalic, atraumatic. Intubated. PERRLA. Mucous membrane moist. Neck: Supple, no JVD. Heart: Tachycardic with normal S1, S2, no rubs, murmurs, or gallops. Lungs: Coarse breath sound bilaterally. Abdomen: Normal bowel sound, soft, nontender, no guarding or rebound. Extremities: No clubbing, cyanosis, or edema. Musculoskeletal: Full passive range of motion, no joint swelling. Skin: Warm and dry, no rash. Neurologic: Sedated, cannot accurately assess. However, there is no obvious focal deficits. Assessment & Plan Assessment/Plan (1) KHANG (acute kidney injury): PLAN: The patient may have underlying CKD. His serum creatinine was already 1.34 to 1.68 mg/dL within the past year. However, other than pyuria, urinalysis looks benign with no significant RBCs. Current KHANG is most likely prerenal from circulatory shock. Fractional excretion of urea from this morning was less than 30% (7.2%) which is consistent with prerenal azotemia. However, the patient has a high chance of progression to ischemic ATN given ongoing need for vasopressors. Low suspicion for other causes of KHANG at this point. CPK levels 11,000. Borderline as to cause of KHANG Family meeting this morning. Family has declined to pursue dialysis. They do understand that this might mean eventual . Discussed with ICU attending. (2) Metabolic acidosis: PLAN: Acidosis was likely initially due to DKA and KHANG. (3) Septic shock: PLAN: The patient is being maintained on multiple vasopressors. Antimicrobial coverage for probable pneumonia as per hospitalist and neuropsychology medical consultant. (4) Pancytopenia: PLAN: The patient is leukopenic, anemic, and thrombocytopenic. Pancytopenia is most likely related to sepsis. (5) Acute respiratory failure with hypoxia: PLAN: Ventilator dependent. Ventilator management as per neuropsychology medical consultant.
--- NOTE | 2022-07-12 11:38 | CASEMGMT ---
Social Work SW notified by RN CARMEN Kc that family has discussed withdrawing care with the Dr. Ananya made aware that pt's three children are present. SW in to ICU family waiting room to meet with family. Venessa Ray with family at time of SW arrival. SW met with family. Encouraged family to have frankie with self and one another during this difficult time. SW offered counseling and grief support resources and offered to talk with family at this time. Family appreciative for support but wanting to spend time left with one another. SW encouraged family to reach out with any needs and explained can contact SW through pt's nurse or Sunburst Ray. Family voiced understanding. TONY Youngblood
--- NOTE | 2022-07-12 13:10 | CPS ---
Patient terminally extubated at 1303. J.[facility] HYPO SPLASHER
--- NOTE | 2022-07-12 13:29 | EXP.PCM_ITS ---
Preliminary Cause of Preliminary Cause of Preliminary Cause of : MRSA pneumonia Date of Admission: 07/10/22 Principle Diagnosis Problem List: Active and Suspected Problems (Updated 07/12/22 @ 07:[address] Noe Lockhart, DO) Encephalopathy (Acute) Thrombocytopenia (Acute) Hyperkalemia (Acute) Bacteremia (Acute) Pancytopenia (Acute) Metabolic acidosis (Acute) Elevated troponin (Acute) KHANG (acute kidney injury) (Acute) Acute respiratory failure with hypoxia (Acute) DKA, type 1 (Acute) Hypothermia (Acute) Acute dehydration (Acute) Pneumonia (Acute) Respiratory failure (Acute) Septic shock (Acute) Acute renal failure (Acute) Anemia (Acute) Non-ST elevation OK (NSTEMI) (Acute) Hospital Course (1) Septic shock: PLAN: Septic shock, exact etiology unclear but possible right middle and lower lobe pneumonia: The patient presented with septic shock, most likely due to RML/RLL pneumonia with acute sepsis-related organ dysfunction as evidenced by recalcitrant hypotension requiring 3 vasopressors, acute hypoxic respiratory failure requiring vent support, Lactic acidosis, coagulopathy elevated PT and APTT.? Patient on 3 vasopressors.? Patient had fluid boluses as per septic shock protocol and is still getting fluids.? On IV vancomycin and Zosyn.? Patient was on IV hydrocortisone, stress dose of steroid.? Septic work-up ordered. On norepinepherine, vasopressin (2) Acute respiratory failure with hypoxia: PLAN: Secondary to pneumonia and septic shock patient is being admitted in ICU on ventilator, assist control 50% FiO2 Podiatric Physician is consulted.? (3) DKA, type 1: PLAN: DKA, suspected type 1 diabetes mellitus: As per patient's aunt, patient was diagnosed diabetes mellitus in 1999, he was 19-year-old and decals and was in favor of type 1 diabetes mellitus.? Patient parent was also diabetes mellitus and kids also have diabetes.? Patient has high anion gap metabolic acidosis.? Initial ABG shows pH 7.1 7/60 once on 3 L of oxygen and repeat ABG shows improvement pH 7.23, PCO2 34.2. Patient was on DKA protocol with IV fluid and insulin drip.? BMP monitoring and electrolyte replacement as per protocol.? Patient came with glucose 1115.? As per his girlfriend he always has problem in getting insulin because of insurance. Currently resolved Switch to glargine and sliding scale insulin A1c greater than 14 (4) KHANG (acute kidney injury): PLAN: Worsening. No baseline labs since August where his Cr was 1.34 at this time. Has received IVF Fractional excretion of urea 7.25% consistent with prerenal azotemia Nephrology consult.? Discussed with Dr. Sanches, plan is to give patient additional IV fluids. (5) Elevated troponin: PLAN: Peaked at 1652, though no follow labs. Suspect secondary to septic shock but cannot rule out primary event. Echo ordered. Aspirin Cards consult (6) Pneumonia: QUALIFIERS: ?Laterality:?right??Lung location:?middle lobe of lung??Pneumonia type:?due to methicillin-resistant Staphylococcus aureus (MRSA)? Qualified Code(s):?J15.212 - Pneumonia due to Methicillin resistant Staphylococcus aureus PLAN: +Staph aureus on sputum culture Right middle lobe Continue vancomycin and piperacillin/tazobactam (7) Bacteremia: PLAN: suspected to pneumonia. MRSA in urine unlikely true UTI, but due to fulminant infection Repeat BCx Check echo. (8) Hyperkalemia: PLAN: Likely due to metabolic acidosis On Bicarbonate gtt. Kayexalate Recheck (9) Thrombocytopenia: PLAN: Probably due to septic shock, possible DIC. Doubt HIT given relatively short period of hospitalization. recheck coags (PT, PTT, D-dimer, fibrinogen). (10) Encephalopathy: PLAN: Decreased responsiveness noted. Head CT showed sinusitis but no other process. Propofol and fentanyl off. PLAN: Plan Chronic conditions: * HTN: Antihypertensives held given the septic shock * Anasarca: Furosemide held * macrocytic anemia VTE prophylaxis:Change to SCDs given thrombocytopenia 07/11: Discussed with the patient's estranged and as well as his aunt.? The patient's states that they have been estranged and living apart for the past 10 years though they are still formally .? Discussed that she would be the next of kin is her spent no one else assigned as a contact center consultant or power of assistant county attorney.? She would prefer to do this by committee with other family members so that she has not unilaterally making these decisions.? I told her that is certainly appropriate but ultimately decision will be need to be made by her in regards to any potential interventions or withdrawing care. 07/12: family decided to withdraw care. Pt at 1314. Visit Charges Inpatient E&M: 11096 Disch Hosp
[2022-07-12 13:56] LABS: Pathologist Review Reviewed
[2022-07-12 13:59] LABS: Pathologist Review Reviewed
[2022-07-12 14:20] LABS: Pathologist Review Reviewed
[2022-07-12 14:35] LABS: Bedside Glucose > 500 mg/dL (74-106)
--- NOTE | 2022-07-12 14:47 | CHAPLAIN ---
Type of Pastoral Visit ___ Initial Visit ___ Follow-up Visit ___ On-call Visit ___ General Patient Visit ___ Spiritual Assessment ___ Family Conference _x__ Bereavement ___ Rapid Response ___ Code Blue ___ Other (describe below) Pastoral Care Referral From ___ Patient ___ Family ___ Nurse ___ Physician ___ Rv Detailer _x__ Therapeutic Recreation Specialist ___ Other (describe below) Sacrament/Intervention _x__ Active listening ___ Anointing ___ Bahai _x__ Bereavement ___ Communion ___ Jania exploration ___ ___ Life review _x__ Prayer ___ Reconciliation ___ Sacrament of Sick _x__ Supportive presence ___ Wedding ___ Other (describe below) Pastoral Comments met with many family members in the waiting area prior to extubation of patient; offered support and prayer which was welcomed; family also received visit earlier from a plate mill hand; took beverages to family; on return to check on family found that respiratory team was ready to extubate; was present with family in the patient room after extubation; offered support through scripture and prayer and presence; guided family in grief as pt then ; remained available to family post
--- NOTE | 2022-07-12 15:48 | CM.ED ---
SW went by patient's room after noting patient had . No family available. TRAMAINE remains available if needs arise. Renetta OCONNELL
== END 2022-07-12 15:45 | DRG 871 ==
LOC: ED 09:55 → ICU 11:05
PROVIDERS: Internal Medicine Critical Care Medicine; Internal Medicine Nephrology; Admitting Provider Internal Medicine; Emergency Provider Emergency Medicine; PCP Family Medicine
DX: A41.02 Sepsis due to Methicillin resistant Staphylococcus aureus (principal); N17.0 Acute kidney failure with tubular necrosis; J96.01 Acute respiratory failure with hypoxia; K72.00 Acute and subacute hepatic failure without coma; R65.21 Severe sepsis with septic shock; J15.212 Pneumonia due to Methicillin resistant Staphylococcus aureus; E10.10 Type 1 diabetes mellitus with ketoacidosis without coma; I21.A1 Myocardial infarction type 2; D61.818 Other pancytopenia; Z79.4 Long term (current) use of insulin; I12.9 Hypertensive chronic kidney disease with stage 1 through stage 4 chronic kidney disease, or unspecified chronic kidney disease; F17.210 Nicotine dependence, cigarettes, uncomplicated; N18.9 Chronic kidney disease, unspecified; E86.0 Dehydration; D53.9 Nutritional anemia, unspecified; E78.00 Pure hypercholesterolemia, unspecified; E87.5 Hyperkalemia; T68.XXXA Hypothermia, initial encounter; R82.81 Pyuria; Z20.822 Contact with and (suspected) exposure to COVID-19
CPT/HCPCS: 31500; 31720; 36556; 36600; 51702; 70450; 71045; 80048; 80053; 80069; 80076; 80307; 81001; 82009; 82077; 82550; 82570; 82803; 82947; 82962; 83036; 83605; 83690; 83735; 83930; 84100; 84478; 84484; 84540; 85025; 85379; 85384; 85610; 85730; 87040; 87070; 87077; 87086; 87088; 87149; 87186; 87205; 87428; 87807; 93005; 93306; 94002; 94003; 97802; 99251; 99285; J7030; J7050; J7120; A4216; C1751; G0463; J0610; J3010; J3490